=== PATIENT | female | born 1955 | race Caucasian/White ===

== ENCOUNTER 2021-03-11 10:50 | Outpatient (REF) | payer MEDICARE, OTHER, SELFPAY ==
--- NOTE | ~2021-03-11 | MR_ITS ---
MR CERVICAL SPINE WITHOUT CONTRAST CLINICAL INFORMATION: Cervical region radiculopathy. COMPARISON: Cervical spine radiographs 06/04/2016. TECHNIQUE: MRI of the cervical spine was obtained using routine sequences without contrast. FINDINGS: Cervical alignment is maintained. Vertebral body heights are preserved. Severe disc volume loss at C4-C5 and C5-C6 and moderate disc volume loss at C6-C7. Modic type I endplate signal changes at C4-C5. There is no additional bone marrow edema. There are no acute fractures. The craniocervical junction is unremarkable. The cervical arterial flow voids are maintained. There are no significant soft tissue findings. There is no cord signal abnormality. Partially imaged intracranial compartment is unremarkable. C2-C3: Shallow central disc protrusion without central canal stenosis. No foraminal stenosis. C3-C4: Shallow central disc protrusion mildly narrows the central canal. Uncovertebral joint hypertrophy and hypertrophic facet arthropathy result in mild to moderate left-sided foraminal stenosis. C4-C5: Disc osteophyte and ligamentum flavum thickening result in moderate central canal stenosis and flattening of the cord. Uncovertebral joint hypertrophy and hypertrophic facet arthropathy result in severe left and moderate to severe right foraminal stenosis. C5-C6: Disc osteophyte and ligamentum flavum thickening result in moderate central canal stenosis and flattening of the cord. Uncovertebral joint hypertrophy and hypertrophic facet arthropathy result in severe right and mild to moderate left foraminal stenosis. C6-C7: Disc osteophyte mildly narrows the central canal. Uncovertebral joint spurring and facet arthropathy result in mild bilateral foraminal encroachment. C7-T1: Disc contour normal. No central canal stenosis and no foraminal stenosis. MR/MR cervical spine wo con IMPRESSION: Multilevel cervical spondylosis. Multifactorial degenerative changes result in moderate central canal stenosis and flattening of the cervical cord at C4-C5 and C5-C6. Spondylitic changes also result in mild to moderate bilateral C3-C4, severe left and moderate to severe right C4-C5 as well as severe right and mild to moderate left C5-C6 foraminal stenosis. Modic type I endplate signal changes at C4-C5.
== END 2021-03-11 10:51 | disposition home or self-care (01) ==
LOC: HO.MRI 10:50
PROVIDERS: PCP Internal Medicine; Visit Provider Hospitalist
DX: M54.12 Radiculopathy, cervical region (principal)
CPT/HCPCS: 72141

== ENCOUNTER 2021-08-11 09:07 | Outpatient (REF) | payer MEDICARE, OTHER, SELFPAY ==
[2021-08-11 09:55] LABS: Hematocrit 38.8 % (37-47); Hemoglobin 12.6 g/dl (12.0-16.0); Mean Corpuscular HGB Conc 32.5 g/dl (31.0-35.0); Mean Corpuscular Hemoglobin 30.3 pg (27.0-33.0); Mean Corpuscular Volume 93.3 fL (80-98); Mean Platelet Volume 10.2 fL (9.4-12.3); Platelet Count 225 X10*3/uL (160-400); Red Blood Count 4.16 X10*6/uL (4.20-5.50); Red Cell Distribution Width 13.4 % (11.0-16.0)
[2021-08-11 10:26] LABS: Alanine Aminotransferase 17 U/L (0-31); Alkaline Phosphatase 55 U/L (39-117); Anion Gap 9 (12-20); Aspartate Amino Transferase 20 U/L (5-31); Bilirubin Total 0.7 mg/dL (0.0-1.0); Blood Urea Nitrogen 9 mg/dL (9-16); Calcium 9.3 mg/dL (8.4-10.2); Carbon Dioxide 31 mmol/L (22-29); Chloride 104 mmol/L (96-108); Cholesterol 163 mg/dL; Estimated Glomerular Filt Rate > 60; Glucose Fasting 94 mg/dL (60-99); HDL Cholesterol 48 mg/dL; LDL Cholesterol Calculated 78 mg/dl; Potassium 4.3 mmol/L (3.3-5.1); Sodium 140 mmol/L (135-145); Total Protein 6.6 g/dL (6.5-8.0); Triglycerides 186 mg/dL
== END 2021-08-11 09:08 | disposition home or self-care (01) ==
LOC: HO.LAB 09:07
PROVIDERS: Visit Provider Nurse Practitioner Family
DX: E78.00 Pure hypercholesterolemia, unspecified (principal); M79.7 Fibromyalgia; Z13.1 Encounter for screening for diabetes mellitus
CPT/HCPCS: 36415; 80053; 80061; 85027

== ENCOUNTER 2022-02-17 07:15 | Outpatient (REF) | payer MEDICARE, OTHER, SELFPAY ==
[2022-02-17 07:32] LABS: MANUAL DIFF FLAG NO
[2022-02-17 08:01] LABS: Basophils Percent Auto 0.6 % (0-2); Eosinophils Absolute Auto 0.1 X10*3/uL (0.0-0.4); Eosinophils Percent Auto 1.5 % (0-4); Hematocrit 40.4 % (37.0-47.0); Imm Gran Abs Auto 0.01 X10*3/uL (0.00-0.03); Imm Gran Pct Auto 0.2 % (0.0-0.4); Lymphocytes Percent Auto 40.7 % (20-40); Mean Corpuscular HGB Conc 32.2 g/dl (31.0-35.0); Mean Corpuscular Volume 93.3 fL (80.0-98.0); Mean Platelet Volume 10.1 fL (9.4-12.3); Monocytes Absolute Auto 0.3 X10*3/uL (0.1-1.2); Monocytes Percent Auto 6.7 % (2-11); Neutrophils Absolute Auto 2.4 x10*3/uL (2.0-8.3); Neutrophils Percent Auto 50.3 % (45-73); Platelet Count 214 X10*3/uL (160-400); Red Blood Count 4.33 X10*6/uL (4.20-5.50); Red Cell Distribution Width 13.1 % (11.0-16.0); White Blood Count 4.8 X10*3/uL (4.8-10.8)
[2022-02-17 08:31] LABS: Alanine Aminotransferase 17 U/L (0-31); Albumin Level 4.3 g/dL (3.5-5.0); Alkaline Phosphatase 58 U/L (39-117); Anion Gap 14 (12-20); Aspartate Amino Transferase 21 U/L (5-31); Blood Urea Nitrogen 14 mg/dL (9-16); Calcium 9.8 mg/dL (8.4-10.2); Carbon Dioxide 27 mmol/L (22-29); Chloride 102 mmol/L (96-108); Cholesterol 175 mg/dL; Estimated Glomerular Filt Rate > 60; Glucose Fasting 91 mg/dL (60-99); HDL Cholesterol 52 mg/dL; LDL Cholesterol Calculated 100 mg/dl; Potassium 4.2 mmol/L (3.3-5.1); Sodium 139 mmol/L (135-145); Total Protein 7.2 g/dL (6.5-8.0); Triglycerides 119 mg/dL
[2022-02-17 08:54] LABS: Thyroid Stimulating Hormone 1.43 uIU/mL (0.32-4.0)
== END 2022-02-17 07:16 | disposition home or self-care (01) ==
LOC: HO.LAB 07:15
PROVIDERS: PCP Internal Medicine; Visit Provider Internal Medicine
DX: Z00.00 Encounter for general adult medical examination without abnormal findings (principal); Z13.0 Encounter for screening for diseases of the blood and blood-forming organs and certain disorders involving the immune mechanism; Z13.220 Encounter for screening for lipoid disorders; Z13.29 Encounter for screening for other suspected endocrine disorder
CPT/HCPCS: 36415; 80053; 80061; 84443; 85025

== ENCOUNTER 2022-06-30 08:39 | Emergency (ER) | payer MEDICARE, OTHER, SELFPAY ==
--- NOTE | ~2022-06-30 | CT_ITS ---
EXAMINATION: CT HEAD WITHOUT CONTRAST CLINICAL INFORMATION: Severe headache COMPARISON: None TECHNIQUE: Contiguous axial imaging was performed from the skull base to vertex without intravenous administration of contrast. This CT examination was performed using dose optimization techniques as appropriate, variously including the following: *Automated exposure control *Adjustment of mA and/or kV according to patient size (this includes techniques or standardized protocols for targeted exams where dose is matched to indication/reason for exam; i.e. extremities or head) *Use of iterative reconstruction technique DLP: 550 mGy-cm FINDINGS: There is no evidence of an extra-axial collection. There is no evidence for extra-axial hemorrhage. Ventricles and extra-axial CSF spaces are appropriate. Rothman-white matter differentiation is normal. No mass effect or infarct is seen. There is mild soft tissue opacification of the right mastoid air cells and sphenoid sinus. Paranasal sinuses, mastoid air cells and middle ears are otherwise clear. CT/CT head/brain wo con IMPRESSION: No acute findings. Mild soft tissue opacification of the right mastoid air cells and sinuses.
[2022-06-30 08:43] VITALS: BP 127/67; PULSE 83; RESP 19; TEMP 36.6; O2SAT 98; BMI 21.6
[2022-06-30 09:25] LABS: MANUAL DIFF FLAG NO
[2022-06-30 09:29] LABS: Appearance Urine Clear; Color Urine Yellow; Glucose Urine UA Negative (Negative); Leukocyte Esterase Urine Negative (Negative); Nitrite Urine Negative (Negative); Specific Gravity - Urine 1.015 (1.005-1.025); Urine Blood Negative (Negative); Urine Ketones Negative (Negative); Urine Protein Negative (Neg-Trace)
[2022-06-30 09:30] LABS: Basophils Percent Auto 0.5 % (0-2); Eosinophils Absolute Auto 0.1 X10*3/uL (0.0-0.4); Eosinophils Percent Auto 1.7 % (0-4); Hematocrit 37.3 % (37.0-47.0); Hemoglobin 11.7 g/dl (12.0-16.0); Imm Gran Abs Auto 0.01 X10*3/uL (0.00-0.03); Imm Gran Pct Auto 0.2 % (0.0-0.4); Lymphocytes Absolute Auto 1.3 X10*3/uL (1.2-4.9); Lymphocytes Percent Auto 20.5 % (20-40); Mean Corpuscular HGB Conc 31.4 g/dl (31.0-35.0); Mean Corpuscular Hemoglobin 27.9 pg (27.0-33.0); Mean Platelet Volume 9.6 fL (9.4-12.3); Monocytes Absolute Auto 0.3 X10*3/uL (0.1-1.2); Monocytes Percent Auto 5.1 % (2-11); Neutrophils Absolute Auto 4.5 x10*3/uL (2.0-8.3); Platelet Count 282 X10*3/uL (160-400); Red Blood Count 4.19 X10*6/uL (4.20-5.50); Red Cell Distribution Width 13.7 % (11.0-16.0); White Blood Count 6.3 X10*3/uL (4.8-10.8)
[2022-06-30 09:43] LABS: COVID-19 Test Negative (Negative)
[2022-06-30 09:52] LABS: Anion Gap 17 (12-20); Blood Urea Nitrogen 12 mg/dL (9-16); Calcium 9.5 mg/dL (8.4-10.2); Carbon Dioxide 29 mmol/L (22-29); Chloride 100 mmol/L (96-108); Creatinine Clr Calc Pharmacy 60.2; Estimated Glomerular Filt Rate > 60; Glucose Random 85 mg/dL (60-115); Magnesium 2.1 mg/dL (1.6-2.6); Potassium 4.6 mmol/L (3.3-5.1); Sodium 141 mmol/L (135-145)
--- NOTE | 2022-06-30 16:10 | ED_ITS ---
HPI - Headache General Chief Complaint: Headache Stated Complaint: migraine Time Seen by Provider: 06/30/22 16:09 Source: patient Mode of arrival: ambulatory Limitations: no limitations History of Present Illness HPI Narrative: This is a 67- year old female with history is significant for chronic headaches, fibromyalgia, cervical radiculopathy, sinusitis who presents to the emergency department today with a complaint headache x1.5 weeks. She tells me that she has had a constant aching sensation located in the occipital region with radiation to bilateral temples for the past week and a half. She describes this headache as an aching sensation that's currently a 10/10. She has tried Toradol and Tylenol with codeine without relief. She tells me that she has a history of chronic headaches, typically lasting a day or 2, relieved with NSAIDs. She tells me that she saw neurologist years ago for this, had imaging however did not receive a diagnosis. She tells me that this feels more intense than her baseline and has lasted longer. Has never taken any prescription medication for her headaches. Denies fever, chills, nausea, vomiting, vision changes, floaters, flashes, photosensitivity, chest pain, shortness of breath, weakness, numbness, tingling, jaw pain/claudication, scalp tenderness, or neck pain. Denies known history of polymyalgia rheumatica. Denies recent trauma or falls. MD elicited complaint: headache Onset (ago): week(s) (1.5) Related Data Home Medications Medication Instructions Recorded Confirmed fluoride (sodium) 1.1 % dental gel dental 02/15/22 02/15/22 (DentaGel) meloxicam 15 mg tablet 15 mg PO DAILY 02/15/22 02/15/22 Previous Rx's Medication Instructions Recorded citalopram 10 mg tablet 15 mg PO DAILY #90 tabs 11/27/21 gabapentin 400 mg capsule 400 mg PO DAILY 90 days #90 caps 02/18/22 [id number]-nyfczqakpccxi-vhebgsbw 1 cap PO Q8H PRN pain #6 caps 06/30/22 50 mg-300 mg-40 mg capsule (Fioricet) prednisone 20 mg tablet 60 mg PO DAILY 5 days #15 tabs 06/30/22 Allergies Allergy/AdvReac Type Severity Reaction Status Date / Time meperidine [Demerol] Allergy Intermediate Vomiting Verified 02/15/22 10:38 erythromycin base Allergy Unknown unknown Verified 02/15/22 10:38 [ERYTHROMYCIN BASE] penicillin V Allergy Unknown hives Verified 02/15/22 10:38 Penicillins [PENICILLINS] Allergy Unknown RASH Verified 02/15/22 10:38 Sulfa (Sulfonamide Allergy Unknown MILD RASH, Verified 02/15/22 10:38 Antibiotics) rash [SULFA(SULFONAMIDE ANTIBIOTICS)] From DEMEROL Allergy Unknown VOMITING Uncoded 08/06/21 13:29 Review of Systems Review of Systems: Constitutional : No Weight loss, No Fever, No Chills, No Fatigue, No Malaise ENT/Mouth : No sore throat, No Rhinorrhea Eyes: No Eye Pain, No Swelling, No Redness Cardiovascular : No Chest Pain, No SOB, No Dyspnea on Exertion, No Orthopnea, No Edema, No Palpitations Respiratory : No Cough, No Sputum, No Wheezing Gastrointestinal : No Nausea, No Vomiting, No Diarrhea, No Constipation, No abdominal Pain, No Hematochezia, No Melena Genitourinary : No Dysuria, No Urinary Frequency, No Hematuria, Musculoskeletal : No joint pain, No Myalgias, No Joint Swelling Skin : No Skin Lesions, No rash Neuro : No Weakness, No Numbness, No Dizziness, + Headache All other systems reviewed and are negative Yes all other systems are reviewed and are negative [facility] Past Medical History Attestation statement: The following information was validated with the patient. Source: old records reviewed and nursing notes reviewed Medical History Basal cell carcinoma of nose Bunion, left foot Family History Family History Mother Diabetes Heart problem Father Prostate cancer Colon cancer Social History Social History Housing: House Alcohol intake: current Alcohol intake frequency: holidays/special occasions only Patient Tobacco Use Status: Never used Tobacco e-Cigarette/Vaping Use: Never Used Second Hand Smoke Exposure: No Advance Directives: Yes Advance Directives Information Provided: Yes Advance Directives on File: No service: No Current occupational status: retired Cognitive needs: No Hearing needs: Yes Vision needs: No Physical Exam Vital Signs: Vital Signs: Last Vital Signs Temp 98.5 F 06/30/22 17:25 Pulse 68 06/30/22 17:25 Resp 16 06/30/22 17:25 BP 132/64 06/30/22 17:25 Pulse Ox 98 06/30/22 17:25 O2 Del Method 06/30/22 17:25 BMI result Body Mass Index 21.6 vss Appearance: Alert.? Oriented X3.? No acute distress.? Head: Normocephalic, atraumatic, no step-offs or deformities. No scalp tenderness. Unable to palpate bounding temporal arteries however painful scalp on left and left temporal atery tenderness. Eyes: Pupils equal, round and reactive to light.? EOM intact and without pain. ENT: Pharynx normal.? Neck: Normal inspection.? Neck supple.?Negative Kernig and Brudzinski. CVS: Normal heart rate and rhythm.? Pulses normal.? Respiratory: No respiratory distress.? Breath sounds normal.? Abdomen: Soft and nontender.? Skin: Skin warm and dry.? Normal skin color.? Normal skin turgor.? Extremities: No lower extremity edema.? No calf ttp. 5/5 strength to bilateral upper and lower extremities. Lower extremities DTRs 2+ Back: No midline tenderness, no C-spine tenderness, full range of motion, no CVA tenderness bilaterally Neuro: Oriented X 3.? No motor deficit.? No sensory deficit. CN 2-12 intact. Normal [id number]-[id number], zkfm-xi-zhuj, steady tandem gait. Course Reevaluation(s) Reevaluation #1: CBC within normal limits. Chemistry without acute electrolyte abnormalities req uiring intervention. Urine without infection. COVID negative. Head CT pending. ESR/CRP pending. Time: 16:41 Reevaluation #2: CT of head with no acute findings. CRP slightly elevated at 1.32, ESR slightly elevated at 48. Patient still complaining of significant headache will give fioricet. Will obtain lyme test patient was recently in [facility] outside and in [place] Time: 17:45 Reevaluation #3: Discussed this case w/ my attending who will evaluate patient. Time: 18:35 Additional Reevaluation(s): My attending Dr. Hutton also agrees temporal arteritis vs complex migrane. Little reliefe despite Imitrex, Toradol, Reglan, Benadryl, Fioricet, patient telling me her headache was a 10/10 now down to a 5/6. Complaining of some left-sided scalp tenderness at this time and pain with palpation of left temporal artery, patient will be discharged home with 60 mg of prednisone p.o. x5 days, I did reach out to Dr. Rabago who agrees with plan and will try to get her into the office caleb. Patient verbalizes understanding, educated on SE of prednisone, answered all questions, patient willing to take until she follows up with Dr. Rabago. Patient will be discharged home on Fioricet. Advised her to return with any new or worsening symptoms, educated her that if this is giant cell arteritis she could experience vision changes if any of these arise she needs to present immediately, educated on worrisome signs and symptoms, outlined on discharge. At this time I feel comfortable with discharge home with prompt vascular follow- up. MDM - Headache MDM Narrative Medical decision making narrative: 1630 This is a 67- year old female with history is significant for chronic headaches, fibromyalgia, cervical radiculopathy, sinusitis who presents to the emergency department today with a complaint of occipital headache with radiation to the bilateral temples times a week and a half. Denies jaw claudication, vision changes, numbness, weakness, falls, trauma. Physical exam significant for negative Kernig and Brudzinski. Likely migraine without aura. Unlikely COVID, will obtain COVID swab to rule this out. Unlikely meningitis, giant cell arteritis, intracranial hemorrhage, posterior stroke however will obtain CT of the head without contrast and ESR/CRP to rule these out. Plan at this time is to obtain basic labs, UA, ESR/CRP, CT of the head without contrast. Medical Records Attestation: I reviewed the patient's medical records. Lab Data Attestation: I reviewed the patient's lab results. Result diagrams: 06/30/22 09:09 06/30/22 09:09 Labs: Lab Results 06/30/22 06/30/22 06/30/22 Range/Units 09:09 09:09 09:09 WBC 6.3 (4.8-10.8) X10*3/uL RBC 4.19 L (4.20-5.50) X10*6/uL Hgb 11.7 L (12.0-16.0) g/dl Hct 37.3 (37.0-47.0) % MCV 89.0 (80.0-98.0) fL MCH 27.9 (27.0-33.0) pg MCHC 31.4 (31.0-35.0) g/dl RDW 13.7 (11.0-16.0) % Plt Count 282 D (160-400) X10*3/uL MPV 9.6 (9.4-12.3) fL Immature Gran % (Auto) 0.2 (0.0-0.4) % Neut % (Auto) 72.0 (45-73) % Lymph % (Auto) 20.5 (20-40) % [place] % (Auto) 5.1 (2-11) % Eos % (Auto) 1.7 (0-4) % Baso % (Auto) 0.5 (0-2) % Lymph # (Auto) 1.3 (1.2-4.9) X10*3/uL [place] # (Auto) 0.3 (0.1-1.2) X10*3/uL Eos # (Auto) 0.1 (0.0-0.4) X10*3/uL Baso # (Auto) 0.0 (0.0-0.2) X10*3/uL Abs Immat Gran (auto) 0.01 (0.00-0.03) X10*3/uL Absolute Neuts (auto) 4.5 (2.0-8.3) x10*3/uL Absolute Nucleated RBC 0.000 (0.0-0.012) X10*3/uL Nucleated RBC % (auto) 0.0 (0.0-0.2) /100WBC ESR (0-20) MM/HR Sodium 141 (135-145) mmol/L Potassium 4.6 (3.3-5.1) mmol/L Chloride 100 (96-108) mmol/L Carbon Dioxide 29 (22-29) mmol/L Anion Gap 17 (12-20) BUN 12 (9-16) mg/dL Creatinine 0.75 (0.5-1.4) mg/dL Estim Creat Clear Calc 60.2 Estimated GFR > 60 Random Glucose 85 (60-115) mg/dL Calcium 9.5 (8.4-10.2) mg/dL Magnesium 2.1 (1.6-2.6) mg/dL C-Reactive Protein 1.32 H (< or = 0.50) mg/dL Urine Color Urine Appearance Urine pH (5.0-8.0) Ur Specific [place] (1.005-1.025) Urine Protein (Neg-Trace) mg/dL Urine Glucose (UA) (Negative) mg/dL Urine Ketones (Negative) mg/dL Urine Blood (Negative) Urine Nitrite (Negative) Ur Leukocyte Esterase (Negative) COVID-19 (AYANA) Negative (Negative) COVID-19 Clin Com See Note 06/30/22 06/30/22 Range/Units 09:09 09:09 WBC (4.8-10.8) X10*3/uL RBC (4.20-5.50) X10*6/uL Hgb (12.0-16.0) g/dl Hct (37.0-47.0) % MCV (80.0-98.0) fL MCH (27.0-33.0) pg MCHC (31.0-35.0) g/dl RDW (11.0-16.0) % Plt Count (160-400) X10*3/uL MPV (9.4-12.3) fL Immature Gran % (Auto) (0.0-0.4) % Neut % (Auto) (45-73) % Lymph % (Auto) (20-40) % [place] % (Auto) (2-11) % Eos % (Auto) (0-4) % Baso % (Auto) (0-2) % Lymph # (Auto) (1.2-4.9) X10*3/uL [place] # (Auto) (0.1-1.2) X10*3/uL Eos # (Auto) (0.0-0.4) X10*3/uL Baso # (Auto) (0.0-0.2) X10*3/uL Abs Immat Gran (auto) (0.00-0.03) X10*3/uL Absolute Neuts (auto) (2.0-8.3) x10*3/uL Absolute Nucleated RBC (0.0-0.012) X10*3/uL Nucleated RBC % (auto) (0.0-0.2) /100WBC ESR 48 H (0-20) MM/HR Sodium (135-145) mmol/L Potassium (3.3-5.1) mmol/L Chloride (96-108) mmol/L Carbon Dioxide (22-29) mmol/L Anion Gap (12-20) BUN (9-16) mg/dL Creatinine (0.5-1.4) mg/dL Estim Creat Clear Calc Estimated GFR Random Glucose (60-115) mg/dL Calcium (8.4-10.2) mg/dL Magnesium (1.6-2.6) mg/dL C-Reactive Protein (< or = 0.50) mg/dL Urine Color Yellow Urine Appearance Clear Urine pH 8.0 (5.0-8.0) Ur Specific [place] 1.015 (1.005-1.025) Urine Protein Negative (Neg-Trace) mg/dL Urine Glucose (UA) Negative (Negative) mg/dL Urine Ketones Negative (Negative) mg/dL Urine Blood Negative (Negative) Urine Nitrite Negative (Negative) Ur Leukocyte Esterase Negative (Negative) COVID-19 (AYANA) (Negative) COVID-19 Clin Com Critical Care Time Critical Care Time Critical Care Time: Yes Total Critical Care Time: 35 Attestation: I attest to this time spent taking care of the patient, obtaining history, physical, reviewing labs, imaging, speaking to my attending, speaking to specialist. Discharge Plan Discharge Clinical Impression: Migraine Patient Disposition: Home, Self-Care Additional Instructions: Take your medications as prescribed. If you were prescribed antibiotics today, it is important that you take your medication to their entirety, do not skip any doses, do not finish them early. Follow-up with your primary care provider this week. Return to the emergency department with new or worsening symptoms. Such as fevers, chills, chest pain, shortness of breath, nausea, vomiting, dizziness, headache, vision changes, lethargy, vision changes. In case of emergency call 911 As we discussed based off of your laboratory studies we are unable to rule out temporal arteritis therefore we will treat you with prednisone, please follow-up with vascular Dr. Rabago within a week. CT/CT head/brain wo con IMPRESSION: No acute findings. Mild soft tissue opacification of the right mastoid air cells and sinuses. Prescriptions: New prednisone 20 mg tablet 60 mg PO DAILY 5 Days Qty: 15 0RF [id number]-votbduszhydwy-vcey [Fioricet] 50-300-40 mg capsule 1 cap PO Q8H PRN (Reason: pain) Qty: 6 0RF No Action citalopram 10 mg tablet 15 mg PO DAILY Qty: 90 8RF gabapentin 400 mg capsule 400 mg PO DAILY 90 Days Qty: 90 8RF meloxicam 15 mg tablet 15 mg PO DAILY fluoride (sodium) [DentaGel] 1.1 % gel dental Referrals: Fritz Arteaga MD [Primary Care Provider] - 1 day Doc Rabago MD [Physician] - 2 days Stand Alone Forms: Work/School Release
[2022-06-30 16:21] VITALS: BP 156/74; PULSE 83; RESP 18; O2SAT 98
[2022-06-30] MEDS: diphenhydrAMINE HCL 25 MG TABLET 50 MG PO (16:48)
[2022-06-30] MEDS: Ketorolac Tromethamine 15 MG/ML VIAL 30 MG IVPUSH (16:48)
[2022-06-30] MEDS: Metoclopramide HCl 10 MG/2 ML VIAL IVPUSH (16:49)
[2022-06-30 16:51] LABS: C Reactive Protein 1.32 mg/dL (< or = 0.50)
[2022-06-30 17:20] LABS: Erythrocyte Sedimentation Rate 48 MM/HR (0-20)
[2022-06-30 17:25] VITALS: BP 132/64; PULSE 68; RESP 16; TEMP 36.9; O2SAT 98
--- NOTE | 2022-06-30 18:09 | PC.NURSE ---
PT STATES THAT PAIN NOT REALLY IMPROVED AFTER MEDICATIONS. PROVIDER AWARE ADDITIONAL MEDICATIONS ORDERED
[2022-06-30] MEDS: Butalb/Acetamin/Caff 50/325/40 TABLET 1 TAB PO (18:16)
[2022-06-30] MEDS: SUMAtriptan succinate 6 MG/0.5 ML VIAL SUBCUT (19:22)
[2022-06-30 20:55] VITALS: BP 124/59; PULSE 66; RESP 16; TEMP 36.8; O2SAT 98
[2022-06-30] MEDS: Morphine Sulfate 4 MG/ML CARTRIDGE IVPUSH (21:14)
[2022-07-02 04:56] LABS: Lyme Abs Screen <0.90 index
== END 2022-06-30 21:30 | disposition home or self-care (01) ==
PROVIDERS: Physician Assistant; Emergency Provider Internal Medicine; PCP Internal Medicine
DX: G43.909 Migraine, unspecified, not intractable, without status migrainosus (principal); Z79.899 Other long term (current) drug therapy; Z20.822 Contact with and (suspected) exposure to COVID-19
CPT/HCPCS: 36415; 70450; 80048; 81003; 83735; 85025; 85652; 86140; 86617; 86618; 87635; 96372; 96374; 96375; 99284; J1885; J2270; J2765; J3030; Q0163

== ENCOUNTER → 2022-07-06 13:48 | Outpatient (BNVA) | payer MEDICARE, OTHER, SELFPAY | PROVIDERS: PCP Internal Medicine; Visit Provider Surgery Vascular Surgery | DX: M31.6 Other giant cell arteritis (principal) | CPT/HCPCS: 99202 ==

== ENCOUNTER 2022-07-15 09:23 | Day surgery (SDC) | payer MEDICARE, OTHER, SELFPAY ==
[2022-07-09 12:34] VITALS: BMI 21.4
--- NOTE | 2022-07-14 10:54 | HO.ANESPROP2 ---
HPI - Anesthesia Eval Consult details Narrative: 67yo F for Left Temporal Artery Biopsy Prednisone 60mg daily PMFSH Active Problems Active Problems: All Active Problems (Updated 07/09/22 @ 12:27 by Pamela Hernandez RN) Cervical radiculopathy (Acute) Acute sinusitis (Acute) Fibromyalgia (Acute) Chronic headache (Acute) Panic disorder (Acute) Giant cell arteritis (Acute) Past Medical History Medical History (Updated 07/15/22 @ 09:43 by Myrtle Vines RN) Basal cell carcinoma of nose Bunion, left foot Fibromyalgia Migraines Family History Family History Mother Diabetes Heart problem Father Prostate cancer Colon cancer Surgical History Surgical History H/O colonoscopy History of bunionectomy Social History Social History Housing: House Alcohol intake: current Alcohol intake frequency: holidays/special occasions only Patient Tobacco Use Status: Never used Tobacco e-Cigarette/Vaping Use: Never Used Second Hand Smoke Exposure: No service: No Current occupational status: retired Cognitive needs: No Hearing needs: Yes Vision needs: No Meds Allergies Allergy/AdvReac Type Severity Reaction Status Date / Time meperidine [Demerol] Allergy Intermediate Vomiting Verified 07/15/22 10:14 Penicillins [PENICILLINS] Allergy Intermediate RASH Verified 07/15/22 10:14 Sulfa (Sulfonamide Allergy Mild mild rash Verified 07/15/22 10:14 Antibiotics) [SULFA(SULFONAMIDE ANTIBIOTICS)] erythromycin base Allergy Unknown unknown Verified 07/15/22 10:14 [ERYTHROMYCIN BASE] Home Medications Medication Instructions Recorded Confirmed Last Taken Type fluoride (sodium) 1.1 % dental gel dental 02/15/22 02/15/22 Unknown History (DentaGel) meloxicam 15 mg tablet 15 mg PO DAILY 02/15/22 02/15/22 07/01/22 History gabapentin 400 mg capsule 400 mg PO BEDTIME 07/15/22 Unknown History Exam Exam Date and Time: July 14, 2022 1054 Height,Weight and Vital Signs: Height 5 ft 3 in Weight 54.885 kg Pertinent Lab Results Pertinent Lab Results: Laboratory Tests 06/30/22 06/30/22 09:09 09:09 WBC 6.3 Hgb 11.7 L Hct 37.3 Plt Count 282 D Sodium 141 Potassium 4.6 Chloride 100 Carbon Dioxide 29 BUN 12 Creatinine 0.75 Assessment and Plan Assessment Anesthesia Assessment: Chart Reviewed
[2022-07-15 09:56] VITALS: BP 117/73; PULSE 88; RESP 15; TEMP 36.8; O2SAT 99
[2022-07-15] MEDS: Lactated Ringers 1,000 ML 100 ML IVCONT (10:13)
--- NOTE | 2022-07-15 11:47 | MHC.SHP ---
Pre-Procedural Eval Section A Date of Service: 07/15/22 The patient is an INPATIENT: No Changes since office visit: Yes Patient answered all questions The History & Physical has been completed within 30 days and I have reviewed it.: Yes Section B Chief Complaint: Other giant cell arteritis Allergies: Allergies Allergy/AdvReac Type Severity Reaction Status Date / Time meperidine [Demerol] Allergy Intermediate Vomiting Verified 07/15/22 10:14 Penicillins [PENICILLINS] Allergy Intermediate RASH Verified 07/15/22 10:14 Sulfa (Sulfonamide Allergy Mild mild rash Verified 07/15/22 10:14 Antibiotics) [SULFA(SULFONAMIDE ANTIBIOTICS)] erythromycin base Allergy Unknown unknown Verified 07/15/22 10:14 [ERYTHROMYCIN BASE] Plan I have reviewed the history and physical and performed a pertinent physical examination on my patient. No changes have occurred unless specified.
--- NOTE | 2022-07-15 11:48 | W.PM.OPN ---
Operative Note Operative Note Date of Service: 07/15/22 Narrative: Operative note by [facility] Preoperative diagnosis: Giant cell arteritis Postoperative diagnosis: Same Procedure: Left temporal artery biopsy Surgeon:Doc Rabago M.D. Model And Mold Maker: None Anesthesia: Local with sedation performed by Anesthesia under Dr. Vargas Specimens:1 Drains:0 Estimated blood loss:10 ml Indications: 67-year-old female who was actually referred from the emergency room for temporal headaches. She was noted to have an elevated ESR and CRP. She now presents for left temporal artery biopsy. The patient has signed the informed consent after reviewing risks, complications, benefits, and alternatives previously discussed with the patient. The patient was given the opportunity to ask any additional questions or voice any concerns. All questions were answered to the patient's satisfaction. Procedure in detail: Patient was brought to the operating room prior to which a time-out was called for patient identification site verification. Left temporal region was prepped in the standard surgical fashion. We premarked the temporal pulse. This was infiltrated with local. Approximately a 3 cm incision was carried out on the pre-auricular a area overlying the temporal artery. Once we got through the skin and fascia we were a easily able to identify the temporal artery. This was dissected clear. Side branches were ligated with 3-0 silk ties. Proximal and distal ends were suture ligated with 3-0 silk ties. About a 2 inch segment was sent off the table as specimen. This was immediately transferred to pathology by 1135 AM. Once this was accomplished the wound bed was irrigated clear. Additional local was infiltrated in the incision line. Deep layer was reapproximated we using 3-0 Polysorb in an interrupted fashion and finally skin was closed using a 4-0 Monocryl in a subcuticular fashion. Exofin was used as a sterile dressing. Patient tolerated the procedure well returned to recovery with stable vitals. This note is constructed using voice recognition software. While every effort has been made to ensure accuracy, barber or beauty shop manager errors may have been included. Thank you for allowing me to participate in the care of your patient. Yours sincerely, Doc Rabago MD, FACS, R.P.V.I.
[2022-07-15 11:52] VITALS: BP 92/51; PULSE 67; RESP 15; TEMP 36.3; O2SAT 96
[2022-07-15 12:19] VITALS: BP 111/52; PULSE 74; RESP 18; TEMP 36.1; O2SAT 97
== END 2022-07-15 12:58 | disposition home or self-care (01) ==
PROVIDERS: PCP Internal Medicine; Visit Provider Surgery Vascular Surgery
PROC: (CPT 37609; principal; 2022-07-15 11:00)
DX: M31.6 Other giant cell arteritis (principal); R70.0 Elevated erythrocyte sedimentation rate; R79.82 Elevated C-reactive protein (CRP); G43.909 Migraine, unspecified, not intractable, without status migrainosus; M54.12 Radiculopathy, cervical region; M79.7 Fibromyalgia; Z85.828 Personal history of other malignant neoplasm of skin; Z79.899 Other long term (current) drug therapy; Z88.0 Allergy status to penicillin; Z88.1 Allergy status to other antibiotic agents; Z88.2 Allergy status to sulfonamides; Z88.8 Allergy status to other drugs, medicaments and biological substances
CPT/HCPCS: 37609; 88305; J2250; J2405; J2795; J3010

== ENCOUNTER 2022-07-28 12:49 | Outpatient (REF) | payer MEDICARE, OTHER, SELFPAY ==
[2022-07-28 13:35] LABS: MANUAL DIFF FLAG NO
[2022-07-28 14:01] LABS: Basophils Percent Auto 0.1 % (0-2); Eosinophils Percent Auto 0.1 % (0-4); Hematocrit 40.4 % (37.0-47.0); Hemoglobin 12.8 g/dl (12.0-16.0); Imm Gran Abs Auto 0.09 X10*3/uL (0.00-0.03); Imm Gran Pct Auto 0.9 % (0.0-0.4); Lymphocytes Absolute Auto 1.1 X10*3/uL (1.2-4.9); Lymphocytes Percent Auto 11.6 % (20-40); Mean Corpuscular HGB Conc 31.7 g/dl (31.0-35.0); Mean Corpuscular Hemoglobin 27.7 pg (27.0-33.0); Mean Corpuscular Volume 87.4 fL (80.0-98.0); Mean Platelet Volume 9.4 fL (9.4-12.3); Monocytes Absolute Auto 0.1 X10*3/uL (0.1-1.2); Monocytes Percent Auto 1.2 % (2-11); Neutrophils Absolute Auto 8.3 x10*3/uL (2.0-8.3); Neutrophils Percent Auto 86.1 % (45-73); Platelet Count 410 X10*3/uL (160-400); Red Blood Count 4.62 X10*6/uL (4.20-5.50); Red Cell Distribution Width 15.9 % (11.0-16.0); White Blood Count 9.7 X10*3/uL (4.8-10.8)
[2022-07-28 14:06] LABS: Alanine Aminotransferase 23 U/L (0-31); Alkaline Phosphatase 69 U/L (39-117); Anion Gap 14 (12-20); Aspartate Amino Transferase 14 U/L (5-31); Bilirubin Total 0.6 mg/dL (0.0-1.0); Blood Urea Nitrogen 21 mg/dL (9-16); C Reactive Protein 0.09 mg/dL (< or = 0.50); Calcium 9.6 mg/dL (8.4-10.2); Carbon Dioxide 29 mmol/L (22-29); Chloride 98 mmol/L (96-108); Estimated Glomerular Filt Rate > 60; Glucose Random 135 mg/dL (60-115); Potassium 4.4 mmol/L (3.3-5.1); Rheumatoid Factor < 15.0 IU/mL (<15.0); Sodium 137 mmol/L (135-145); Total Protein 6.8 g/dL (6.5-8.0)
[2022-07-28 14:37] LABS: Erythrocyte Sedimentation Rate 13 MM/HR (0-20)
[2022-07-29 08:29] LABS: HBS Num1 0.73 mIU/mL (0-7.99); HBc Num1 0.15 S/CO (0.00-0.79); HBsAGNum1 0.19 S/CO (0.00-0.99); Hepatitis B Core Antibody Nonreactive (Nonreactive); Hepatitis B Surface Antigen Negative (Negative); ~HepC Num1 0.21 S/CO (0.00-0.79); ~Hepatitis B Surface Antibody NONREACTIVE (Nonreactive); ~Hepatitis C Antibody Nonreactive (Nonreactive)
[2022-07-30 07:03] LABS: Hepatitis A Antibody IgM 0.26 Index (0-0.79); ~Hepatitis A Antibody IgM Nonreactive (Nonreactive)
[2022-07-31 00:11] LABS: TS Negative Control Passed; TS Panel A 0; TS Panel B 4; TS Positive Control Passed; TSpotTB Negative (Negative)
[2022-07-31 23:11] LABS: Prot Elec - Albumin 3.5 g/dL (3.8-4.8); Prot Elec - Alpha1 0.3 g/dL (0.2-0.3); Prot Elec - Alpha2 0.7 g/dL (0.5-0.9); Prot Elec - Beta 1 0.4 g/dL (0.4-0.6); Prot Elec - Beta 2 0.4 g/dL (0.2-0.5); Prot Elec - Total Protein 6.4 g/dL (6.1-8.1)
[2022-08-02 13:05] LABS: IgA 259 mg/dL (70-320); IgG 1220 mg/dL (600-1540); IgM 44 mg/dL (50-300)
[2022-08-02 14:06] LABS: Vitamin D 25-OH, D2 <4 ng/mL; Vitamin D 25-OH, D3 46 ng/mL; Vitamin D 25-OH, Total 46 ng/mL (30-100)
[2022-08-02 17:25] LABS: Cyclic Citrullinated Peptide <16 UNITS
== END 2022-07-28 12:50 | disposition home or self-care (01) ==
LOC: HO.10HDL 12:49
PROVIDERS: Visit Provider Student in an Organized Health Care Education/Training Program
DX: Z12.9 Encounter for screening for malignant neoplasm, site unspecified (principal); Z13.21 Encounter for screening for nutritional disorder; Z11.7 Encounter for testing for latent tuberculosis infection; Z11.59 Encounter for screening for other viral diseases; M25.541 Pain in joints of right hand; M31.6 Other giant cell arteritis; M85.89 Other specified disorders of bone density and structure, multiple sites; Z79.52 Long term (current) use of systemic steroids; Z72.89 Other problems related to lifestyle
CPT/HCPCS: 36415; 80053; 82306; 82784; 84165; 85025; 85652; 86140; 86200; 86334; 86431; 86481; 86704; 86706; 86709; 86803; 87340; 99202

== ENCOUNTER 2022-08-06 09:41 | Outpatient (REF) | payer MEDICARE, OTHER, SELFPAY ==
--- NOTE | ~2022-08-06 | MM_ITS ---
EXAMINATION: BONE DENSITOMETRY CLINICAL INDICATION: Menopausal and female climacteric states. COMPARISON: None (current study represents initial baseline exam). TECHNIQUE: Using a [employer] DXA System (software version: 13.1) manufactured by [employer], dual-energy x-ray absorptiometry was performed of the lumbar spine and left hip. The images are of good technical quality. Summary results are attached. FINDINGS: AP SPINE L1-L4: BMD 0.991 g/cm2, Z-score 0.4, T-score -1.6, osteopenia. LEFT FEMUR, NECK: BMD 0.781 g/cm2, Z-score -0.1, T-score -1.8, osteopenia. LEFT FEMUR, TOTAL: BMD 0.825 g/cm2, Z-score 0.1, T-score -1.5, osteopenia. IDENTIFIED RISK FACTORS: Menopause. HISTORY OF FRACTURE: None listed. MEDICATIONS: Calcium supplements or multivitamin, vitamin D. MM/XR DEXA axial skeleton IMPRESSION: 1. DIAGNOSIS: Osteopenia based on the lowest T-score value of -1.8 in the femoral neck applying World Health Organization criteria. 2. 10-YEAR FRACTURE RISK PREDICTION, FRAX: Major osteoporotic fracture (clinical spine, forearm, hip or shoulder) 9.7%. Hip fracture 1.6%. 3. Treatment Recommendations: NOF guidelines recommend consideration for treatment in postmenopausal women and men age 50 and older presenting with the following: -A hip or vertebral (clinical or morphometric) fracture. -T-score less than or equal to -2.5 at the femoral neck or spine after appropriate evaluation to exclude secondary causes. -Low bone mass at the hip or spine and a 10-year fracture probability by FRAX of greater than or equal to 3% for hip fracture or greater than or equal to 20% for major osteoporotic fracture based on the [place] adapted WHO algorithm. 4. Other Recommendations: All treatment decisions require clinical judgment and consideration of individual patient factors, including patient preferences, comorbidities, previous drug use, risk factors not captured in the FRAX model (e.g. frailty, falls, vitamin D deficiency, increased bone turnover, interval significant decline in bone density) and possible under or overestimation of fracture risk by FRAX. Additional medical evaluation for secondary cause of low bone mineral density may be appropriate. FUTURE SCAN RECOMMENDATION: People with diagnosed cases of osteoporosis or at high risk for fracture should have regular bone mineral density tests. For patients eligible for Medicare, routine testing is allowed once every 2 years. The testing frequency can be increased to one year for patients who have rapidly progressing disease, those who are receiving or discontinuing medical therapy to restore bone mass, or have additional risk factors.
== END 2022-08-06 09:42 | disposition home or self-care (01) ==
LOC: HO.MAMMO 09:41
PROVIDERS: PCP Internal Medicine; Visit Provider Student in an Organized Health Care Education/Training Program
DX: Z13.820 Encounter for screening for osteoporosis (principal); Z78.0 Asymptomatic menopausal state; Z79.52 Long term (current) use of systemic steroids
CPT/HCPCS: 77080

== ENCOUNTER 2022-08-11 13:23 | Outpatient (REF) | payer MEDICARE, OTHER, SELFPAY ==
--- NOTE | ~2022-08-11 | MR_ITS ---
STUDY PERFORMED: MRA of the chest HISTORY: Giant cell arteritis DESCRIPTION: Routine chest MRA protocol without and with contrast was performed. 20 mL's of Gadavist was administered. The images were reviewed and postprocessed on a dedicated 3-D workstation. COMPARISON: None FINDINGS: VASCULAR: THORACIC AORTA: Thoracic aorta is normal in caliber and patent. No evidence of aneurysm, vessel wall irregularity or wall thickening. There is a moderate length segment of narrowing and vessel wall irregularity within the mid left subclavian artery distal to the takeoff of the left vertebral artery with stenosis measuring approximately 60-70%. There is an area of mild stenosis within the proximal right subclavian artery distal to the takeoff of the right vertebral artery measuring less than 50%. The right brachiocephalic artery, visualized bilateral common carotid arteries and visualized vertebral arteries are patent. ABDOMINAL AORTA: Visualized proximal abdominal aorta is normal in caliber. CENTRAL THORACIC VENOUS SYSTEM: Patent NONVASCULAR: Heart is normal in size. Pericardium is normal. No pleural effusions MR/MR angio chest wo/w con IMPRESSION: Bilateral subclavian artery stenosis with vessel irregularity. Stenosis in the left subclavian artery measures 60-70%. Stenosis in the right subclavian artery is mild measuring less than 50%
== END 2022-08-11 13:24 | disposition home or self-care (01) ==
LOC: HO.MRI 13:23
PROVIDERS: Visit Provider Student in an Organized Health Care Education/Training Program
DX: M31.6 Other giant cell arteritis (principal)
CPT/HCPCS: 71555; A9585

== ENCOUNTER 2022-08-13 18:45 | Outpatient (REF) | payer MEDICARE, OTHER, SELFPAY ==
--- NOTE | ~2022-08-13 | MR_ITS ---
EXAMINATION: MRA NECK WITHOUT AND WITH CONTRAST CLINICAL INFORMATION: Giant cell arteritis. COMPARISON: Chest MRA, concurrently performed. TECHNIQUE: Multiplanar multisequence MRA of the neck was performed without and with contrast. A total of 10 mL Gadavist was intravenously administered. Criteria similar to the NASCET were used to grade the degree of stenosis. FINDINGS: The aortic arch and great vessel origins are patent. Please see report of chest MRA for discussion of subclavian arteries. The bilateral common and internal carotid arteries are normal in course and caliber. No evidence of luminal irregularity. No carotid bifurcation stenosis is seen. The vertebral arteries are codominant and demonstrate normal course and caliber. On the [id number] sequence there is expected antegrade flow within the major neck arteries. Limited evaluation of the intracranial arteries are unremarkable without stenosis or occlusion. MR/MR angio neck wo/w con IMPRESSION: No definite luminal irregularity or stenosis within the neck arteries.
== END 2022-08-13 18:46 | disposition home or self-care (01) ==
LOC: HO.MRI 18:45
PROVIDERS: Visit Provider Student in an Organized Health Care Education/Training Program
DX: M31.6 Other giant cell arteritis (principal)
CPT/HCPCS: 70549; A9585

== ENCOUNTER 2022-08-18 12:49 | Outpatient (REF) | payer MEDICARE, OTHER, SELFPAY ==
[2022-08-18 13:51] LABS: MANUAL DIFF FLAG NO
[2022-08-18 14:16] LABS: Basophils Percent Auto 0.2 % (0-2); Eosinophils Percent Auto 0.2 % (0-4); Hematocrit 39.1 % (37.0-47.0); Hemoglobin 12.5 g/dl (12.0-16.0); Imm Gran Abs Auto 0.07 X10*3/uL (0.00-0.03); Imm Gran Pct Auto 0.8 % (0.0-0.4); Lymphocytes Percent Auto 11.3 % (20-40); Mean Corpuscular Hemoglobin 28.5 pg (27.0-33.0); Mean Corpuscular Volume 89.1 fL (80.0-98.0); Mean Platelet Volume 9.9 fL (9.4-12.3); Monocytes Absolute Auto 0.1 X10*3/uL (0.1-1.2); Monocytes Percent Auto 1.2 % (2-11); Neutrophils Absolute Auto 7.9 x10*3/uL (2.0-8.3); Neutrophils Percent Auto 86.3 % (45-73); Platelet Count 239 X10*3/uL (160-400); Red Blood Count 4.39 X10*6/uL (4.20-5.50); Red Cell Distribution Width 19.1 % (11.0-16.0); White Blood Count 9.2 X10*3/uL (4.8-10.8)
[2022-08-18 14:45] LABS: Estimated Average Glucose 120 mg/dL; Hemoglobin A1c % 5.8 %
[2022-08-18 14:58] LABS: Alanine Aminotransferase 30 U/L (0-31); Albumin Level 3.9 g/dL (3.5-5.0); Alkaline Phosphatase 49 U/L (39-117); Anion Gap 17 (12-20); Aspartate Amino Transferase 24 U/L (5-31); Bilirubin Total 0.8 mg/dL (0.0-1.0); Blood Urea Nitrogen 17 mg/dL (9-16); C Reactive Protein 0.08 mg/dL (< or = 0.50); Calcium 9.2 mg/dL (8.4-10.2); Carbon Dioxide 29 mmol/L (22-29); Chloride 99 mmol/L (96-108); Estimated Glomerular Filt Rate > 60; Glucose Random 111 mg/dL (60-115); Potassium 4.6 mmol/L (3.3-5.1); Sodium 140 mmol/L (135-145); Total Protein 6.5 g/dL (6.5-8.0)
[2022-08-18 15:00] LABS: Erythrocyte Sedimentation Rate 7 MM/HR (0-20)
[2022-08-18 15:49] LABS: Folate > 20.0 ng/mL (> or = 4.0); Vitamin B12 318 pg/mL (200-900)
== END 2022-08-18 12:50 | disposition home or self-care (01) ==
LOC: HO.10HDL 12:49
PROVIDERS: Visit Provider Student in an Organized Health Care Education/Training Program
DX: M31.6 Other giant cell arteritis (principal); M79.7 Fibromyalgia; G62.9 Polyneuropathy, unspecified; M19.90 Unspecified osteoarthritis, unspecified site; Z79.52 Long term (current) use of systemic steroids; Z79.899 Other long term (current) drug therapy
CPT/HCPCS: 36415; 80053; 82607; 82746; 83036; 85025; 85652; 86140; 99212

== ENCOUNTER 2022-09-15 08:44 | Outpatient (REF) | payer MEDICARE, OTHER, SELFPAY ==
[2022-09-15 10:32] LABS: MANUAL DIFF FLAG NO
[2022-09-15 10:42] LABS: Basophils Percent Auto 0.3 % (0-2); Eosinophils Percent Auto 0.2 % (0-4); Hematocrit 38.1 % (37.0-47.0); Hemoglobin 11.9 g/dl (12.0-16.0); Imm Gran Abs Auto 0.01 X10*3/uL (0.00-0.03); Imm Gran Pct Auto 0.2 % (0.0-0.4); Lymphocytes Absolute Auto 3.7 X10*3/uL (1.2-4.9); Lymphocytes Percent Auto 59.5 % (20-40); Mean Corpuscular HGB Conc 31.2 g/dl (31.0-35.0); Mean Corpuscular Hemoglobin 29.4 pg (27.0-33.0); Mean Corpuscular Volume 94.1 fL (80.0-98.0); Mean Platelet Volume 9.8 fL (9.4-12.3); Monocytes Absolute Auto 0.3 X10*3/uL (0.1-1.2); Monocytes Percent Auto 5.5 % (2-11); Neutrophils Absolute Auto 2.1 x10*3/uL (2.0-8.3); Neutrophils Percent Auto 34.3 % (45-73); Platelet Count 170 X10*3/uL (160-400); Red Blood Count 4.05 X10*6/uL (4.20-5.50); Red Cell Distribution Width 19.7 % (11.0-16.0); White Blood Count 6.2 X10*3/uL (4.8-10.8)
[2022-09-15 10:50] LABS: Alanine Aminotransferase 27 U/L (0-31); Albumin Level 3.7 g/dL (3.5-5.0); Alkaline Phosphatase 31 U/L (39-117); Anion Gap 14 (12-20); Aspartate Amino Transferase 18 U/L (5-31); Bilirubin Total 0.9 mg/dL (0.0-1.0); Blood Urea Nitrogen 13 mg/dL (9-16); C Reactive Protein 0.13 mg/dL (< or = 0.50); Calcium 8.7 mg/dL (8.4-10.2); Carbon Dioxide 29 mmol/L (22-29); Chloride 103 mmol/L (96-108); Estimated Glomerular Filt Rate > 60; Glucose Random 62 mg/dL (60-115); Potassium 3.6 mmol/L (3.3-5.1); Sodium 142 mmol/L (135-145); Total Protein 5.8 g/dL (6.5-8.0)
[2022-09-15 11:27] LABS: Erythrocyte Sedimentation Rate 3 MM/HR (0-20)
== END 2022-09-15 08:45 | disposition home or self-care (01) ==
LOC: HO.10HDL 08:44
PROVIDERS: Visit Provider Student in an Organized Health Care Education/Training Program
DX: M31.6 Other giant cell arteritis (principal)
CPT/HCPCS: 36415; 80053; 85025; 85652; 86140

== ENCOUNTER → 2022-09-24 10:41 | Outpatient (BNVA) | payer MEDICARE, OTHER, SELFPAY | PROVIDERS: PCP Internal Medicine; Referring Provider Internal Medicine; Visit Provider Student in an Organized Health Care Education/Training Program | DX: M31.6 Other giant cell arteritis (principal); G62.9 Polyneuropathy, unspecified; Z79.52 Long term (current) use of systemic steroids | CPT/HCPCS: 99212 ==

== ENCOUNTER 2022-10-26 16:11 | Outpatient (REF) | payer MEDICARE, OTHER, SELFPAY ==
[2022-10-26 16:28] LABS: MANUAL DIFF FLAG NO
[2022-10-26 17:30] LABS: Basophils Percent Auto 0.2 % (0-2); Eosinophils Percent Auto 0.3 % (0-4); Hematocrit 39.2 % (37.0-47.0); Hemoglobin 12.7 g/dl (12.0-16.0); Imm Gran Abs Auto 0.02 X10*3/uL (0.00-0.03); Imm Gran Pct Auto 0.3 % (0.0-0.4); Lymphocytes Percent Auto 16.4 % (20-40); Mean Corpuscular HGB Conc 32.4 g/dl (31.0-35.0); Mean Corpuscular Hemoglobin 31.4 pg (27.0-33.0); Monocytes Absolute Auto 0.3 X10*3/uL (0.1-1.2); Monocytes Percent Auto 4.9 % (2-11); Neutrophils Absolute Auto 4.8 x10*3/uL (2.0-8.3); Neutrophils Percent Auto 77.9 % (45-73); Platelet Count 170 X10*3/uL (160-400); Red Blood Count 4.04 X10*6/uL (4.20-5.50); Red Cell Distribution Width 15.4 % (11.0-16.0); White Blood Count 6.2 X10*3/uL (4.8-10.8)
[2022-10-26 18:01] LABS: Alanine Aminotransferase 20 U/L (0-31); Albumin Level 4.2 g/dL (3.5-5.0); Alkaline Phosphatase 34 U/L (39-117); Anion Gap 11 (12-20); Aspartate Amino Transferase 19 U/L (5-31); Bilirubin Total 0.9 mg/dL (0.0-1.0); Blood Urea Nitrogen 14 mg/dL (9-16); C Reactive Protein < 0.10 mg/dL (< or = 0.50); Calcium 9.5 mg/dL (8.4-10.2); Carbon Dioxide 32 mmol/L (22-29); Chloride 101 mmol/L (96-108); Estimated Glomerular Filt Rate > 60; Glucose Random 135 mg/dL (60-115); Sodium 140 mmol/L (135-145); Total Protein 6.2 g/dL (6.5-8.0)
[2022-10-26 18:12] LABS: Erythrocyte Sedimentation Rate 3 MM/HR (0-20)
== END 2022-10-26 16:12 | disposition home or self-care (01) ==
LOC: HO.LAB 16:11
PROVIDERS: PCP Internal Medicine; Visit Provider Student in an Organized Health Care Education/Training Program
DX: M31.6 Other giant cell arteritis (principal)
CPT/HCPCS: 36415; 80053; 85025; 85652; 86140

== ENCOUNTER 2022-11-24 10:26 | Outpatient (REF) | payer MEDICARE, OTHER, SELFPAY ==
[2022-11-24 13:35] LABS: MANUAL DIFF FLAG NO
[2022-11-24 13:45] LABS: Basophils Percent Auto 0.5 % (0-2); Eosinophils Absolute Auto 0.1 X10*3/uL (0.0-0.4); Eosinophils Percent Auto 0.8 % (0-4); Hematocrit 38.3 % (37.0-47.0); Hemoglobin 12.3 g/dl (12.0-16.0); Imm Gran Abs Auto 0.01 X10*3/uL (0.00-0.03); Imm Gran Pct Auto 0.2 % (0.0-0.4); Lymphocytes Absolute Auto 1.5 X10*3/uL (1.2-4.9); Lymphocytes Percent Auto 23.2 % (20-40); Mean Corpuscular HGB Conc 32.1 g/dl (31.0-35.0); Mean Corpuscular Hemoglobin 32.2 pg (27.0-33.0); Mean Corpuscular Volume 100.3 fL (80.0-98.0); Mean Platelet Volume 10.3 fL (9.4-12.3); Monocytes Absolute Auto 0.3 X10*3/uL (0.1-1.2); Monocytes Percent Auto 4.5 % (2-11); Neutrophils Absolute Auto 4.5 x10*3/uL (2.0-8.3); Neutrophils Percent Auto 70.8 % (45-73); Platelet Count 175 X10*3/uL (160-400); Red Blood Count 3.82 X10*6/uL (4.20-5.50); Red Cell Distribution Width 13.8 % (11.0-16.0); White Blood Count 6.4 X10*3/uL (4.8-10.8)
[2022-11-24 14:25] LABS: Erythrocyte Sedimentation Rate 2 MM/HR (0-20)
[2022-11-24 14:41] LABS: Alanine Aminotransferase 25 U/L (0-31); Albumin Level 3.9 g/dL (3.5-5.0); Alkaline Phosphatase 29 U/L (39-117); Anion Gap 10 (12-20); Aspartate Amino Transferase 25 U/L (5-31); Blood Urea Nitrogen 15 mg/dL (9-16); C Reactive Protein < 0.10 mg/dL (< or = 0.50); Calcium 9.5 mg/dL (8.4-10.2); Carbon Dioxide 30 mmol/L (22-29); Chloride 102 mmol/L (96-108); Estimated Glomerular Filt Rate > 60; Glucose Random 89 mg/dL (60-115); Potassium 4.1 mmol/L (3.3-5.1); Sodium 138 mmol/L (135-145)
== END 2022-11-24 10:27 | disposition home or self-care (01) ==
LOC: HO.10HDL 10:26
PROVIDERS: Visit Provider Student in an Organized Health Care Education/Training Program
DX: M31.6 Other giant cell arteritis (principal)
CPT/HCPCS: 36415; 80053; 85025; 85652; 86140

== ENCOUNTER → 2022-11-30 13:35 | Outpatient (BNVA) | payer MEDICARE, OTHER, SELFPAY | PROVIDERS: PCP Internal Medicine; Visit Provider Student in an Organized Health Care Education/Training Program | DX: M31.6 Other giant cell arteritis (principal); G62.9 Polyneuropathy, unspecified; M79.7 Fibromyalgia; Z79.52 Long term (current) use of systemic steroids; Z79.82 Long term (current) use of aspirin | CPT/HCPCS: 99212 ==

== ENCOUNTER → 2023-01-03 13:21 | Outpatient (BNVA) | payer MEDICARE, OTHER, SELFPAY | PROVIDERS: PCP Internal Medicine; Visit Provider Nurse Practitioner Family | DX: G43.709 Chronic migraine without aura, not intractable, without status migrainosus (principal); M31.6 Other giant cell arteritis; H53.8 Other visual disturbances; Z79.52 Long term (current) use of systemic steroids; Z79.899 Other long term (current) drug therapy | CPT/HCPCS: 99202 ==

== ENCOUNTER 2023-02-03 08:47 | Outpatient (REF) | payer MEDICARE, OTHER, SELFPAY ==
--- NOTE | ~2023-02-03 | MR_ITS ---
MRI OF THE BRAIN WITHOUT IV CONTRAST INDICATION: Headache. COMPARISON: CT head 06/30/2022. TECHNIQUE: Multiplanar multisequence MR imaging of the brain was obtained without IV contrast. FINDINGS: There is no hydrocephalus, extra-axial surface collection, or herniation. No parenchymal signal abnormality. The major flow voids at the skull base are preserved. There is no acute infarct on diffusion-weighted imaging. There is no intracranial hemorrhage on the gradient recalled echo acquisition. The midline structures are normal. The cerebellar tonsils are normally positioned. The cerebellum and brainstem are normal. The craniocervical junction is normal. Osseous marrow signal intensity is homogenous. The visualized soft tissues are unremarkable. Small right mastoid effusion. Mild mucosal thickening throughout the ethmoid air cells bilaterally and within the right sphenoid sinus. MR/MR head/brain wo con IMPRESSION: Unremarkable noncontrast MRI of the brain.
== END 2023-02-03 08:48 | disposition home or self-care (01) ==
LOC: HO.MRI 08:47
PROVIDERS: PCP Internal Medicine; Visit Provider Nurse Practitioner Family
DX: R51.9 Headache, unspecified (principal); M31.6 Other giant cell arteritis; H53.8 Other visual disturbances
CPT/HCPCS: 70551

== ENCOUNTER 2023-02-14 15:02 | Outpatient (REF) | payer MEDICARE, OTHER, SELFPAY ==
[2023-02-14 15:50] LABS: MANUAL DIFF FLAG NO
[2023-02-14 17:13] LABS: Basophils Percent Auto 0.4 % (0-2); Eosinophils Percent Auto 0.6 % (0-4); Hematocrit 40.6 % (37.0-47.0); Hemoglobin 13.2 g/dl (12.0-16.0); Imm Gran Abs Auto 0.01 X10*3/uL (0.00-0.03); Imm Gran Pct Auto 0.2 % (0.0-0.4); Lymphocytes Absolute Auto 0.9 X10*3/uL (1.2-4.9); Mean Corpuscular HGB Conc 32.5 g/dl (31.0-35.0); Mean Corpuscular Hemoglobin 32.4 pg (27.0-33.0); Mean Corpuscular Volume 99.5 fL (80.0-98.0); Mean Platelet Volume 10.7 fL (9.4-12.3); Monocytes Absolute Auto 0.2 X10*3/uL (0.1-1.2); Neutrophils Absolute Auto 3.6 x10*3/uL (2.0-8.3); Neutrophils Percent Auto 75.8 % (45-73); Platelet Count 167 X10*3/uL (160-400); Red Blood Count 4.08 X10*6/uL (4.20-5.50); Red Cell Distribution Width 12.6 % (11.0-16.0); White Blood Count 4.7 X10*3/uL (4.8-10.8)
[2023-02-14 17:43] LABS: Alanine Aminotransferase 16 U/L (0-31); Alkaline Phosphatase 28 U/L (39-117); Anion Gap 12 (12-20); Aspartate Amino Transferase 18 U/L (5-31); Bilirubin Total 0.8 mg/dL (0.0-1.0); Blood Urea Nitrogen 12 mg/dL (9-16); C Reactive Protein < 0.10 mg/dL (< or = 0.50); Calcium 9.2 mg/dL (8.4-10.2); Carbon Dioxide 31 mmol/L (22-29); Chloride 104 mmol/L (96-108); Estimated Glomerular Filt Rate > 60; Glucose Random 124 mg/dL (60-115); Potassium 4.6 mmol/L (3.3-5.1); Sodium 142 mmol/L (135-145)
[2023-02-14 18:01] LABS: Erythrocyte Sedimentation Rate 2 MM/HR (0-20)
== END 2023-02-14 15:03 | disposition home or self-care (01) ==
LOC: HO.LAB 15:02
PROVIDERS: PCP Internal Medicine; Visit Provider Student in an Organized Health Care Education/Training Program
DX: M31.6 Other giant cell arteritis (principal)
CPT/HCPCS: 36415; 80053; 85025; 85652; 86140

== ENCOUNTER → 2023-02-15 07:41 | Outpatient (BNVA) | payer MEDICARE, OTHER, SELFPAY | PROVIDERS: PCP Internal Medicine; Visit Provider Student in an Organized Health Care Education/Training Program | DX: M31.6 Other giant cell arteritis (principal); M79.7 Fibromyalgia; G62.9 Polyneuropathy, unspecified; Z79.52 Long term (current) use of systemic steroids | CPT/HCPCS: 99212 ==

== ENCOUNTER 2023-02-28 11:05 | Outpatient (REF) | payer MEDICARE, OTHER, SELFPAY ==
[2023-02-28 14:17] LABS: MANUAL DIFF FLAG NO
[2023-02-28 14:37] LABS: Alanine Aminotransferase 21 U/L (0-31); Alkaline Phosphatase 29 U/L (39-117); Anion Gap 11 (12-20); Aspartate Amino Transferase 21 U/L (5-31); Bilirubin Total 0.8 mg/dL (0.0-1.0); Blood Urea Nitrogen 13 mg/dL (9-16); C Reactive Protein < 0.10 mg/dL (< or = 0.50); Calcium 9.8 mg/dL (8.4-10.2); Carbon Dioxide 32 mmol/L (22-29); Chloride 102 mmol/L (96-108); Estimated Glomerular Filt Rate > 60; Glucose Random 89 mg/dL (60-115); Potassium 4.4 mmol/L (3.3-5.1); Sodium 141 mmol/L (135-145); Total Protein 5.8 g/dL (6.5-8.0)
[2023-02-28 14:38] LABS: Basophils Percent Auto 0.7 % (0-2); Eosinophils Absolute Auto 0.1 X10*3/uL (0.0-0.4); Eosinophils Percent Auto 2.5 % (0-4); Hemoglobin 12.6 g/dl (12.0-16.0); Imm Gran Abs Auto 0.01 X10*3/uL (0.00-0.03); Imm Gran Pct Auto 0.2 % (0.0-0.4); Lymphocytes Absolute Auto 1.5 X10*3/uL (1.2-4.9); Mean Corpuscular HGB Conc 32.3 g/dl (31.0-35.0); Mean Corpuscular Hemoglobin 31.7 pg (27.0-33.0); Mean Platelet Volume 10.4 fL (9.4-12.3); Monocytes Absolute Auto 0.3 X10*3/uL (0.1-1.2); Monocytes Percent Auto 6.3 % (2-11); Neutrophils Absolute Auto 2.5 x10*3/uL (2.0-8.3); Neutrophils Percent Auto 57.3 % (45-73); Platelet Count 165 X10*3/uL (160-400); Red Blood Count 3.98 X10*6/uL (4.20-5.50); Red Cell Distribution Width 12.7 % (11.0-16.0); White Blood Count 4.4 X10*3/uL (4.8-10.8)
[2023-02-28 15:18] LABS: Erythrocyte Sedimentation Rate 5 MM/HR (0-20)
== END 2023-02-28 11:06 | disposition home or self-care (01) ==
LOC: HO.10HDL 11:05
PROVIDERS: Visit Provider Student in an Organized Health Care Education/Training Program
DX: M31.6 Other giant cell arteritis (principal)
CPT/HCPCS: 36415; 80053; 85025; 85652; 86140

== ENCOUNTER → 2023-03-15 09:23 | Outpatient (BNVA) | payer MEDICARE, OTHER, SELFPAY | PROVIDERS: PCP Internal Medicine; Visit Provider Nurse Practitioner Family | DX: R06.83 Snoring (principal); G47.19 Other hypersomnia; G47.9 Sleep disorder, unspecified; R51.9 Headache, unspecified; Z79.52 Long term (current) use of systemic steroids; Z79.899 Other long term (current) drug therapy | CPT/HCPCS: 99212 ==

== ENCOUNTER → 2023-04-27 09:52 | Outpatient (REF) | payer MEDICARE, OTHER, SELFPAY | LOC: HO.SL 09:52 | PROVIDERS: PCP Internal Medicine; Visit Provider Nurse Practitioner Family | DX: Z13.89 Encounter for screening for other disorder (principal) ==

== ENCOUNTER 2023-06-14 08:07 | Outpatient (REF) | payer MEDICARE, OTHER, SELFPAY ==
[2023-06-14 11:05] LABS: MANUAL DIFF FLAG NO
[2023-06-14 11:09] LABS: Basophils Percent Auto 0.8 % (0-2); Eosinophils Absolute Auto 0.1 X10*3/uL (0.0-0.4); Eosinophils Percent Auto 2.8 % (0-4); Hematocrit 39.3 % (37.0-47.0); Hemoglobin 12.7 g/dl (12.0-16.0); Lymphocytes Percent Auto 52.1 % (20-40); Mean Corpuscular HGB Conc 32.3 g/dl (31.0-35.0); Mean Corpuscular Hemoglobin 32.2 pg (27.0-33.0); Mean Corpuscular Volume 99.5 fL (80.0-98.0); Mean Platelet Volume 10.5 fL (9.4-12.3); Monocytes Absolute Auto 0.3 X10*3/uL (0.1-1.2); Monocytes Percent Auto 8.8 % (2-11); Neutrophils Absolute Auto 1.4 x10*3/uL (2.0-8.3); Neutrophils Percent Auto 35.5 % (45-73); Platelet Count 168 X10*3/uL (160-400); Red Blood Count 3.95 X10*6/uL (4.20-5.50); Red Cell Distribution Width 12.4 % (11.0-16.0); White Blood Count 3.9 X10*3/uL (4.8-10.8)
[2023-06-14 11:49] LABS: Erythrocyte Sedimentation Rate 5 MM/HR (0-20)
[2023-06-14 11:57] LABS: Alanine Aminotransferase 20 U/L (0-31); Albumin Level 3.9 g/dL (3.5-5.0); Alkaline Phosphatase 26 U/L (39-117); Anion Gap 11 (12-20); Aspartate Amino Transferase 22 U/L (5-31); Bilirubin Total 0.6 mg/dL (0.0-1.0); Blood Urea Nitrogen 17 mg/dL (9-16); C Reactive Protein < 0.10 mg/dL (< or = 0.50); Calcium 9.1 mg/dL (8.4-10.2); Carbon Dioxide 29 mmol/L (22-29); Chloride 105 mmol/L (96-108); Estimated Glomerular Filt Rate > 60; Glucose Random 81 mg/dL (60-115); Sodium 141 mmol/L (135-145); Total Protein 6.3 g/dL (6.5-8.0)
== END 2023-06-14 08:08 | disposition home or self-care (01) ==
LOC: HO.10HDL 08:07
PROVIDERS: Visit Provider Student in an Organized Health Care Education/Training Program
DX: M31.6 Other giant cell arteritis (principal)
CPT/HCPCS: 36415; 80053; 85025; 85652; 86140

== ENCOUNTER 2023-06-17 10:04 | Outpatient (AMB) | payer MEDICARE, OTHER, SELFPAY ==
[2023-06-17 10:06] VITALS: BP 116/70; PULSE 75; TEMP 36.3; O2SAT 98; BMI 22.1
--- NOTE | 2023-06-17 10:06 | A.OFFVIS_ITS ---
Intake Vital Signs 06/17/23 10:06 Height 5 ft 3 in Weight 124 lb 12.506 oz BMI 22.1 BP 116/70 Blood Pressure Location Rt brachial Position Sitting Pulse 75 Pulse Source Pulse Oximeter Temp 97.3 F Temp Source Skin Pulse Oximetry (%) 98 Intake Visit Reasons: GCA Intake Note: Pt seen today for GCA follow up. Service Correspondent Required: No Accompanied by: Spouse Allergies meperidine [Demerol] Allergy (Intermediate, Verified 06/17/23 10:11) Vomiting Penicillins [PENICILLINS] Allergy (Intermediate, Verified 06/17/23 10:11) RASH erythromycin base [ERYTHROMYCIN BASE] Allergy (Unknown, Verified 06/17/23 10:11) unknown Medication List - Last Reconciled 06/17/23 by Arvind Rose MD alendronate 70 mg PO QWEEK aspirin 81 mg PO DAILY atogepant (Qulipta) 30 mg PO DAILY 30 days calcium carbonate-vitamin D3 600 mg-10 mcg (400 unit) 1 cap PO BID citalopram 15 mg (1.5 x 10 mg) PO DAILY fluoride (sodium) 1.1% (DentaGel) dental gabapentin 600 mg PO BEDTIME metronidazole 0.75% appl topical QPM multivitamin 1 tab PO DAILY naproxen sodium 440 mg (2 x 220 mg) PO BID PRN 30 days pantoprazole 40 mg PO QWEEK prednisone 3 mg PO DIRECTED sumatriptan succinate 50 - 100 mg orally at onset of headache, may repeat in 2 hrs PRN; max 2 tabs per day or 4 tabs/week (may take with Aleve 440mg) 30 days tocilizumab (Actemra ACTPen) 162 mg (0.9 mL) subcut QWEEK HPI HPI Comments History of Present Illness Details Patient returns for follow-up of GCA. She is on 3 mg of prednisone daily. Continues the Actemra every week. She currently only does the Actemra injections in her abdomen as she does not get as much injection site reactions as her thighs. She takes Benadryl the day she injects Actemra. She continues to get intermittent headaches, she is working with Neurology in an attempt to find a good combination of medications for headaches. Over the last 2 weeks she has been having left knee pain and swelling and she limps when she walks. She also has been having pain in her right 2nd MCP, that interferes with her ability to manual work at home such as ironing. She denies any skin rashes. Initial history: This is a 67-year-old female with past medical history fibromyalgia, osteoarthritis & migraines who presents for evaluation of temporal arteritis. The condition started in the beginning of June of 2022 with worsening headaches associated with worsening blurry vision. She went to the ER on 06/30 labs showed high inflammatory markers, she was prescribed prednisone 60 mg daily for 5 days by the ED physician and sent to vascular surgery for temporal artery biopsy. When she took the prednisone 60 mg her headaches significantly improved. She went for a left temporal artery biopsy on 07/15 which confirmed temporal artery biopsy diagnosis & she was restarted on prednisone 40 mg daily by her PCP. Since being on prednisone she feels much better, with headaches resolved. She states that she has had blurry vision for many months which seem to get a little worse around the time she was diagnosed with temporal arteritis and they have not improved with the prednisone. She denies any loss of vision and both eyes are equally affected. She has not had any eye pain. Reactivity is of daily have not been affected by this blurry vision. Denies history suggestive of uveitis or inflammatory bowel disease. No history of autoimmune disease in the family [facility] Medical History Basal cell carcinoma of nose Bunion, left foot Fibromyalgia Migraines Surgical History H/O colonoscopy H/O toe surgery History of bunionectomy History of surgery Family History Mother Heart problem COPD (chronic obstructive pulmonary disease) Hypertension Father Prostate cancer Colon cancer Diabetes Brother Diabetes Sister Hypertension Hypercholesteremia Social History Housing: House Alcohol intake: current Alcohol intake frequency: holidays/special occasions only Patient Tobacco Use Status: Never used Tobacco e-Cigarette/Vaping Use: Never Used Second Hand Smoke Exposure: No service: No Current occupational status: retired Cognitive needs: No Hearing needs: Yes Vision needs: No Review of Systems Const Reports headache(s) ENT Reports headache(s) and Reports neck pain Musc Reports no additional complaints, Reports arthralgias, Reports joint swelling, Reports limited range of motion and Reports neck pain Neuro Reports headache(s) Physical Exam Vital Signs: Last Vital Signs Temp 97.3 F 06/17/23 10:06 Pulse 75 06/17/23 10:06 BP 116/70 06/17/23 10:06 Pulse Ox 98 06/17/23 10:06 BMI result Body Mass Index 22.1 Const General: comfortable and no acute distress Nutritional Appearance: well nourished Orientation/consciousness: patient oriented x3 Limitations: no limitations HEENT Other: Bilateral palpable superficial temporal artery pulses early edgar facies Head: Yes normocephalic and Yes atraumatic Mouth: moist mucous membranes Eyes Other: PERRL, normal eye movement no ocular erythema Neck Other: [place] hump resolved Bilateral neck stiffness and pain with neck movement in all directions Negative Spurling's test bilaterally Resp Effort & Inspection: normal respiratory effort and able to speak in complete sentences Auscultation: clear to auscultation bilaterally Cardio Rate: regular rate Rhythm: regular rhythm Heart sounds: S1 normal heart sound present and S2 normal heart sound present Peripheral pulses: radial pulses present (2+) bilateral and dorsalis pedis present (2+) bilateral GI Inspection: No distended Palpation (GI): Soft to palpation and nontender Neuro General: patient oriented x3 Extrem Other: Osteoarthritic changes of both hands Right 2nd MCP tenderness and minimal swelling Left knee swelling, warmth and tenderness. Patient walks with a limp Office Procedures Joint Injection/Drain Joint Injection/Drain Primary Site: left knee Prep: site was prepped using sterile technique and ethochloride spray was applied Injected: 40 mg of and other (2 mL of 1% lidocaine) Approach Used: medial parapatellar Procedure: The patient tolerated the procedure well Coding Details: With the patient's consent the left knee was prepped with ChloraPrep and alcohol. The skin was anesthetized with 2 cc of 1% lidocaine. The knee was then injected with 40 mg of triamcinolone and 2 cc of I % lidocaine. The patient tolerated the procedure with no immediate adverse effects. - Large joint Procedure code (CPT) selection complete Assessment & Plan Assessment & Plan (1) Temporal arteritis: Comment: Onset 06/2022 . Biopsy proven Prednisone started 07/2022 Actemra started 08/2022 Code(s): M31.6 - Other giant cell arteritis Plan: This is a 68-year-old female with biopsy-proven GCA, MRA of chest and neck showed left subclavian artery stenosis 60-70% and right subclavian artery stenosis 50%. patient was started on high-dose steroids which has been tapered down. She is currently on on 3 mg of prednisone daily. Actemra weekly started 08/2022. Patient is currently in remission with normal inflammatory markers. Patient was having intermittent headaches. She was evaluated by Neurology and her brain MRI was unremarkable. She has been following up with Neurology and she has been tried on different combinations of medicines for migraines Today patient is having right 2nd MCP tenderness as well as left knee pain & swelling. This is degenerative arthritis versus inflammatory arthritis once prednisone was tapered to 3 mg. With patient's consent left knee was injected with Kenalog today. Check x-rays of knees and hands, will also check an x-ray of the neck to evaluate for a cervical cause of her headache Continue Actemra once weekly. Continue baby aspirin Continue to Reduce prednisone by 1 mg a month Patient was evaluated by vascular surgery and no intervention was suggested. 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 DEXA scan shows osteopenia but given long-term corticosteroid therapy her FRAX score would be at moderate risk for fracture. continue alendronate 70 mg weekly Bactrim and Protonix were stopped once prednisone was less than 15 mg daily Continue Protonix once a week with alendronate Some of the steroid side effects have resolved, including the easy bruising, buffalo hump resolved. Patient has minimal edgar facies currently Continue to taper prednisone by 1 mg a month Discussed infection risk with Actemra. Advised patient to call the office if she develops any signs of infection (3) Fibromyalgia, primary: Code(s): M79.7 - Fibromyalgia Plan: Discussed management of fibromyalgia with patient. Is a noninflammatory, non- autoimmune central afferent processing disorder leading to a diffuse pain syndrome. Advised patient to address her anxiety. Consider consulting with a psychotherapist. Patient was diagnosed with mild sleep apnea 10 years ago and started on CPAP, but stopped it as she could not tolerate the CPAP. Advised patient to consider repeating a sleep study. Patient would benefit from increased physical activity, either through formal physical therapy or by joining a gym. Advised patient that she should start activity slowly and increase as tolerated. Consider low-impact exercises. Patient failed Cymbalta in the past. Gabapentin seems to help her neuropathy symptoms but not her fibromyalgia. Plan I spent 46 minutes reviewing patient's chart, evaluating patient, ordering diagnostic workup, counseling patient and documenting in the chart Orders: Orders Complete Blood Count Auto Diff 3 Months M31.6 - Other giant cell arteritis Comprehensive Met. Panel 3 Months M31.6 - Other giant cell arteritis C Reactive Protein 3 Months M31.6 - Other giant cell arteritis Erythrocyte Sedimentation Rate 3 Months M31.6 - Other giant cell arteritis XR hand wrist LT Today M15.9 - Polyosteoarthritis, unspecified XR hand wrist RT Today M15.9 - Polyosteoarthritis, unspecified XR cervical spine 4V Today M15.9 - Polyosteoarthritis, unspecified XR knee LT 3V Today M15.9 - Polyosteoarthritis, unspecified XR knee RT 3V Today M15.9 - Polyosteoarthritis, unspecified XR knee standing BI Today M15.9 - Polyosteoarthritis, unspecified AMB Joint Injection/Aspiration Today M17.12 - Unilateral primary osteoarthritis, left knee Coding Level of Care Code Est Pt Level 5 (10058) Diagnoses Temporal arteritis M31.6 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
== END 2023-06-17 11:01 | disposition home or self-care (01) ==
PROVIDERS: PCP Internal Medicine; Visit Provider Student in an Organized Health Care Education/Training Program
DX: M31.6 Other giant cell arteritis (principal); M79.7 Fibromyalgia; Z79.52 Long term (current) use of systemic steroids; M15.9 Polyosteoarthritis, unspecified
CPT/HCPCS: 20610; 99215

== ENCOUNTER → 2023-06-17 10:04 | Outpatient (BNVA) | payer MEDICARE, OTHER, SELFPAY | PROVIDERS: Visit Provider Student in an Organized Health Care Education/Training Program | DX: M31.6 Other giant cell arteritis (principal); M79.7 Fibromyalgia; Z79.52 Long term (current) use of systemic steroids | CPT/HCPCS: 20610; 99212; J3301 ==

== ENCOUNTER → 2023-06-29 09:00 | Outpatient (REF) | payer MEDICARE, OTHER, SELFPAY ==
--- NOTE | ~2023-06-29 | XR_ITS ---
EXAMINATION: XR KNEE, RIGHT CLINICAL INFORMATION: Polyarticular osteoarthritis. COMPARISON: None TECHNIQUE: AP, lateral, tunnel, and sunrise views of the right knee. FINDINGS: Bones and soft tissues are normal. No fracture or joint effusion. Alignment is anatomic. Joint spaces are well maintained. There is a tiny peripheral osteophytes at the lateral articular surface of the patella. No abnormal soft tissue calcification. XR/XR knee RT 4V IMPRESSION: There is minimal osteoarthritic change of the left patellofemoral compartment. Otherwise, unremarkable right knee radiographs. EXAMINATION: XR KNEE, LEFT CLINICAL INFORMATION: Polyarticular osteoarthritis. COMPARISON: None TECHNIQUE: AP, lateral, tunnel, and sunrise views of the left knee. FINDINGS: Bones and soft tissues are normal. No fracture or joint effusion. Alignment is anatomic. Joint spaces are well maintained. There is a tiny peripheral osteophytes at the lateral articular surface of the patella. No abnormal soft tissue calcification. IMPRESSION: There is minimal osteoarthritic change of the left patellofemoral compartment. Otherwise, unremarkable left knee radiographs.
--- NOTE | ~2023-06-29 | XR_ITS ---
EXAMINATION: XR WRIST, RIGHT XR HAND, RIGHT CLINICAL INFORMATION: Polyosteoarthritis. COMPARISON: Radiographs dated 09/26/2017. TECHNIQUE: PA, lateral, and oblique views of the right wrist and PA, lateral, and oblique views of the right hand FINDINGS: RIGHT WRIST: The bones and soft tissues are normal. No fracture. A tiny accessory ossification center is seen adjacent to the ulnar styloid. Alignment is anatomic. Joint spaces are maintained. No erosions or soft tissue calcifications. RIGHT HAND: The bones and soft tissues are normal. No fracture. Alignment is anatomic. Joint spaces are maintained. No erosions or soft tissue calcifications. XR/XR hand wrist RT IMPRESSION: Normal right hand and wrist. EXAMINATION: XR WRIST, LEFT XR HAND, LEFT CLINICAL INFORMATION: Polyosteoarthritis. COMPARISON: None available. TECHNIQUE: PA, lateral, and oblique views of the left wrist and PA, lateral, and oblique views of the left hand FINDINGS: LEFT WRIST: The bones and soft tissues are normal. No fracture. Alignment is anatomic. Joint spaces are maintained. No erosions or soft tissue calcifications. LEFT HAND: The bones and soft tissues are normal. No fracture. Alignment is anatomic. Joint spaces are maintained. No erosions or soft tissue calcifications. IMPRESSION: Normal left hand and wrist.
--- NOTE | ~2023-06-29 | XR_ITS ---
EXAMINATION: XR KNEE, RIGHT CLINICAL INFORMATION: Polyarticular osteoarthritis. COMPARISON: None TECHNIQUE: AP, lateral, tunnel, and sunrise views of the right knee. FINDINGS: Bones and soft tissues are normal. No fracture or joint effusion. Alignment is anatomic. Joint spaces are well maintained. There is a tiny peripheral osteophytes at the lateral articular surface of the patella. No abnormal soft tissue calcification. XR/XR knee LT 3V IMPRESSION: There is minimal osteoarthritic change of the left patellofemoral compartment. Otherwise, unremarkable right knee radiographs. EXAMINATION: XR KNEE, LEFT CLINICAL INFORMATION: Polyarticular osteoarthritis. COMPARISON: None TECHNIQUE: AP, lateral, tunnel, and sunrise views of the left knee. FINDINGS: Bones and soft tissues are normal. No fracture or joint effusion. Alignment is anatomic. Joint spaces are well maintained. There is a tiny peripheral osteophytes at the lateral articular surface of the patella. No abnormal soft tissue calcification. IMPRESSION: There is minimal osteoarthritic change of the left patellofemoral compartment. Otherwise, unremarkable left knee radiographs.
--- NOTE | ~2023-06-29 | XR_ITS ---
EXAMINATION: XR WRIST, RIGHT XR HAND, RIGHT CLINICAL INFORMATION: Polyosteoarthritis. COMPARISON: Radiographs dated 09/26/2017. TECHNIQUE: PA, lateral, and oblique views of the right wrist and PA, lateral, and oblique views of the right hand FINDINGS: RIGHT WRIST: The bones and soft tissues are normal. No fracture. A tiny accessory ossification center is seen adjacent to the ulnar styloid. Alignment is anatomic. Joint spaces are maintained. No erosions or soft tissue calcifications. RIGHT HAND: The bones and soft tissues are normal. No fracture. Alignment is anatomic. Joint spaces are maintained. No erosions or soft tissue calcifications. XR/XR hand wrist LT IMPRESSION: Normal right hand and wrist. EXAMINATION: XR WRIST, LEFT XR HAND, LEFT CLINICAL INFORMATION: Polyosteoarthritis. COMPARISON: None available. TECHNIQUE: PA, lateral, and oblique views of the left wrist and PA, lateral, and oblique views of the left hand FINDINGS: LEFT WRIST: The bones and soft tissues are normal. No fracture. Alignment is anatomic. Joint spaces are maintained. No erosions or soft tissue calcifications. LEFT HAND: The bones and soft tissues are normal. No fracture. Alignment is anatomic. Joint spaces are maintained. No erosions or soft tissue calcifications. IMPRESSION: Normal left hand and wrist.
--- NOTE | ~2023-06-29 | XR_ITS ---
EXAMINATION: XR CERVICAL SPINE CLINICAL INFORMATION: Polyarticular arthritis. COMPARISON: Radiographs dated 05/26/2015. TECHNIQUE: Frontal, odontoid, bilateral oblique and lateral views are obtained. FINDINGS: Vertebral body heights and alignment are normal. At C4-C5 and C5-C6, there is moderate disc space narrowing. At C6-C7, there is mild disc space narrowing. The remaining disc spaces are well-maintained. No acute fracture or spondylolisthesis is seen. There is mild anterior spondylosis extending from C4-C5 through C6-C7. The posterior elements are intact. There is bilateral neural foraminal narrowing at C4-C5 and C5-C6. The dens and C7-T1 interface are normal. There is no prevertebral soft tissue swelling. XR/XR cervical spine 4V IMPRESSION: 1. There is moderate degenerative disc disease at C4-C5 and C5-C6, and mild degenerative disc disease is seen at C6-C7. 2. There is mild anterior spondylosis extending from C4-C5 through C6-C7.
== END ==
LOC: HO.SL 09:00
PROVIDERS: Absent Provider Student in an Organized Health Care Education/Training Program; PCP Internal Medicine; Visit Provider Nurse Practitioner Family
DX: M15.9 Polyosteoarthritis, unspecified (principal); G47.19 Other hypersomnia; G47.9 Sleep disorder, unspecified; R06.83 Snoring
CPT/HCPCS: 72050; 73110; 73130; 73562; 73564; 95806

== ENCOUNTER → 2023-06-29 09:53 | Outpatient (BNV) | payer MEDICARE, OTHER, SELFPAY | PROVIDERS: Absent Provider Student in an Organized Health Care Education/Training Program; PCP Internal Medicine; Visit Provider Psychiatry & Neurology Neurology | DX: R06.83 Snoring (principal) | CPT/HCPCS: 95806 ==

== ENCOUNTER 2023-07-19 08:48 | Outpatient (AMB) | payer MEDICARE, OTHER, SELFPAY ==
[2023-07-19 08:58] VITALS: BP 122/74; PULSE 83; O2SAT 98; BMI 22.2
--- NOTE | 2023-07-19 08:58 | A.OFFVIS_ITS ---
Intake Vital Signs 07/19/23 08:58 Height 5 ft 3 in Weight 125 lb 4 oz BMI 22.2 BP 122/74 Blood Pressure Location Lt brachial Position Sitting Pulse 83 Pulse Source Pulse Oximeter Pulse Oximetry (%) 98 Oxygen Delivery Method Room Air Intake Visit Reasons: 4m follow up Headache - Confirmed Intake Note: Pt presents as a 4 month f/u headaches. Pt states she is Still about the same, not much has changed. Pt states basically have pain everyday of varying degree. [facility] And Family Services Specialist Required: No Allergies meperidine [Demerol] Allergy (Intermediate, Verified 07/19/23 09:02) Vomiting Penicillins [PENICILLINS] Allergy (Intermediate, Verified 07/19/23 09:02) RASH erythromycin base [ERYTHROMYCIN BASE] Allergy (Unknown, Verified 07/19/23 09:02) unknown Medication List - Last Reconciled 07/19/23 by SOLITARIO Fernandez alendronate 70 mg PO QWEEK aspirin 81 mg PO DAILY atogepant (Qulipta) 30 mg PO DAILY 30 days calcium carbonate-vitamin D3 600 mg-10 mcg (400 unit) 1 cap PO BID citalopram 15 mg (1.5 x 10 mg) PO DAILY fluoride (sodium) 1.1% (DentaGel) dental gabapentin 600 mg PO BEDTIME metronidazole 0.75% appl topical QPM multivitamin 1 tab PO DAILY naproxen sodium 440 mg (2 x 220 mg) PO BID PRN 30 days pantoprazole 40 mg PO QWEEK prednisone 2 mg PO DIRECTED sumatriptan succinate 50 - 100 mg orally at onset of headache, may repeat in 2 hrs PRN; max 2 tabs per day or 4 tabs/week (may take with Aleve 440mg) 30 days tocilizumab (Actemra ACTPen) 162 mg (0.9 mL) subcut QWEEK HPI HPI Comments History of Present Illness Details 68-yr-old female presents for f/u visit. Pt denies any significant interval medical changes. Since the last visit, pt tried Amitriptyline 10mg qhs x's 1 week, but did not tolerate- caused grogginess and worsening headache. The headaches continued to be bothersome, and in mid-May, we switched the Nurtec to Qulipta 30mg qhs. States she is tolerating Qulipta well- has constipation chronic- manages w/ diet. In June, she had 14 bothersome headaches, of which she had 7 severe migraines where she needed to use Sumatriptan, which does help some. She has some sort of at least mild headcahe every day. Sometimes has used a Fioricet for rescue. Her neck continues to be tight and bothersome- sometimes a brief shooting pain, this often seems to worsen the headaches. Has had recent c-spine x-ray- showed degenerative changes. She tried cyclobenzaprine before- this caused grogginess. For the neck tightness- she has tried PT, acupuncture, trigger point injections f/b PT, cortisone injections- none have helped. Today she notes she has had Botox for migraine before- but Botox was not injected into her neck/traps. 06/29/23, XR/XR cervical spine 4V IMPRESSION: 1. There is moderate degenerative disc d isease at C4-C5 and C5-C6, and mild degenerative disc disease is seen at C6-C7. 2. There is mild anterior spondylosis ex tending from C4-C5 through C6-C7. [facility] Medical History Fibromyalgia Migraines Basal cell carcinoma of nose Bunion, left foot Surgical History H/O toe surgery History of surgery History of bunionectomy H/O colonoscopy Family History Mother Heart problem COPD (chronic obstructive pulmonary disease) Hypertension Father Prostate cancer Colon cancer Diabetes Brother Diabetes Sister Hypertension Hypercholesteremia Social History Housing: House Alcohol intake: current Alcohol intake frequency: holidays/special occasions only Patient Tobacco Use Status: Never used Tobacco e-Cigarette/Vaping Use: Never Used Second Hand Smoke Exposure: No service: No Current occupational status: retired Cognitive needs: No Hearing needs: Yes Vision needs: No Review of Systems Const All systems reviewed & are unremarkable except as noted in HPI and below Physical Exam Vital Signs: Last Vital Signs Pulse 83 07/19/23 08:58 BP 122/74 07/19/23 08:58 Pulse Ox 98 07/19/23 08:58 Oxygen Delivery Method Room Air 07/19/23 08:58 BMI result Body Mass Index 22.2 Const General: cooperative and no acute distress Orientation/consciousness: patient oriented x3 HEENT Head: Yes normocephalic Resp Effort & Inspection: normal respiratory effort and able to speak in complete sentences Back/Spine/Pelvis Other: Bilateral posterior cervical tightness and tenderness. Cervical ROM: limited Left Spurling: non radiating posterior neck discomfort Right Spurling: non radiating posterior neck discomfort. Neuro General: patient oriented x3, gait normal and CN's II-XI intact bilaterally Cognition (Neuro): normal cognition Motor exam (neuro): 5/5 motor strength present throughout Deep tendon reflexes (DTR's): Right triceps reflex intensity grade: 2+, Left triceps reflex intensity grade: 2+, Rt Biceps (C5, C6): 2+, Left biceps reflex intensity grade: 2+, Right brachioradialis reflex intensity grade: 2+, Left brachioradialis reflex intensity grade: 2+, Right patellar reflex intensity grade: 3+ and Left patellar reflex intensity grade: 3+ Psych Appearance: grossly normal Mental Status: mental status grossly normal Speech and movement: Normal speech and movement present Affect: normal affect Attitude: cooperative Thought process: Normal thought process present Thought content: Normal thought content present Insight: Good insight present (Psych) Judgement: Good judgement present (Psych) Assessment & Plan Assessment & Plan (1) Chronic migraine without aura: Code(s): G43.709 - Chronic migraine without aura, not intractable, without status migrainosus (2) TTH (tension-type headache): Code(s): G44.209 - Tension-type headache, unspecified, not intractable (3) Nocturnal hypoxemia: Code(s): G47.34 - Idiopathic sleep related nonobstructive alveolar hypoventilation (4) Giant cell arteritis: Code(s): M31.6 - Other giant cell arteritis Plan Reviewed HST- no evidence of sleep apnea, but significant nocturnal hypoxemia. Pt denies any h/o asthma, COPD, tobacco use. Will take the liberty of referring pt for pulmonary eval. ? For acute headache treatment: Continue Sumatriptan 100mg tab- try 1 tab at onset of migraine, may repeat in 2 hours. May take with Aleve 220 mg cap/tab- 2 caps/tabs every 12 hrs as needed. Continue Sumatriptan 100mg tab - 1/2 tab w/ Aleve 440mg and Benadryl 25mg 30 minutes prior to tocilizumab injection. May use Fioricet for TTH and/or Benadryl for rescue. Previous acute migraine medication trials: Sumatriptan inj- ineffective. Acute migraine medication contraindications: None at this time. ? For chronic migraine prevention medication: Nurtec stopped- lost efficacy. Amitriptyline stopped- not tolerated. Start botox 155 units IM q 3 months. Continue Qulipta 30mg qhs. Previous migraine prevention medication trials: Propranolol- ineffective. Amitriptyline- ineffective. Topiramate- ineffective. Botox x's > 6 tx- ineffective. Depakote- ineffective. Mag- ineffective. Riboflavin- ineffective. Migraine prevention medication contraindications: aimovig d/t pt has constipation. Future considerations: Quilipta, Emgality/Ajovy. For cervicalgia: Reviewed c-spine XR- mild-mod multilevel degenerative and mild spondylosis. Trial Baclofen 5-10mg qhs prn. ? f/u in 3 months or sooner prn. Orders: Referrals Pulmonology Referral G47.34 - Idiopathic sleep related nonobstructive alveolar hypoventilation Medications: New baclofen 5 - 10 mg (1 - 2 x 5 mg) PO BEDTIME 30 days 60 tabs 3RF onabotulinumtoxinA (Botox) inject 155 units IM across forehead, scalp, and neck 200 units IM ONCE 12 weeks 1 ea 3RF G43.709 - Chronic migraine without aura, not intractable, without status migrainosus plyamuxzcg-fdlqwpykctwrz-kxyu 50-325-40 mg max 2 tabs per day or 4 tabs per week 1 tab PO Q4H 30 days PRN 20 tabs 1RF headache G44.209 - Tension-type headache, unspecified, not intractable Coding Level of Care Code Est Pt Level 4 (99340) Diagnoses Chronic migraine without aura G43.709 TTH (tension-type headache) G44.209 Nocturnal hypoxemia G47.34 Giant cell arteritis M31.6
== END 2023-07-19 10:29 | disposition home or self-care (01) ==
PROVIDERS: Visit Provider Nurse Practitioner Family
DX: G43.709 Chronic migraine without aura, not intractable, without status migrainosus (principal); G44.209 Tension-type headache, unspecified, not intractable; G47.34 Idiopathic sleep related nonobstructive alveolar hypoventilation; M31.6 Other giant cell arteritis
CPT/HCPCS: 99214

== ENCOUNTER → 2023-07-19 08:48 | Outpatient (BNVA) | payer MEDICARE, OTHER, SELFPAY | PROVIDERS: Visit Provider Nurse Practitioner Family | DX: G43.709 Chronic migraine without aura, not intractable, without status migrainosus (principal); G44.209 Tension-type headache, unspecified, not intractable; G47.34 Idiopathic sleep related nonobstructive alveolar hypoventilation; M31.6 Other giant cell arteritis; Z79.899 Other long term (current) drug therapy | CPT/HCPCS: 99212 ==

== ENCOUNTER 2023-07-26 08:50 | Outpatient (AMB) | payer MEDICARE, OTHER, SELFPAY ==
[2023-07-26 09:16] VITALS: BMI 22.1
--- NOTE | 2023-07-26 09:16 | MHC.OFFVIS ---
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 She describes her pain as sharp in nature. Most of the pain is along the medial and lateral aspects of her left knee. She also has intermittent right knee discomfort. At this point her right knee discomfort is tolerable to her. Her left knee pain has gotten worse over the last few years in spite of continued non operative treatments. She states that her left knee will give out several times per day. She has tried Tylenol and anti-inflammatory medicines which gave her minimal relief. She has also done physical therapy for 12 weeks over the last 6 months which aggravated her symptoms. She has had multiple cortisone injections in the past. Most recent injection was last month. The injection gave her minimal relief. Allergies meperidine [Demerol] Allergy (Intermediate, Verified 07/26/23 09:20) Vomiting Penicillins [PENICILLINS] Allergy (Intermediate, Verified 07/26/23 09:20) RASH erythromycin base [ERYTHROMYCIN BASE] Allergy (Unknown, Verified 07/26/23 09:20) unknown Medication List - Last Reconciled 07/26/23 by Roger Trivedi MD alendronate 70 mg PO QWEEK aspirin 81 mg PO DAILY atogepant (Qulipta) 30 mg PO DAILY 30 days baclofen 5 - 10 mg (1 - 2 x 5 mg) PO BEDTIME 30 days cacmnbnkxc-acrgwcvzhtdjr-kpma 50-325-40 mg 1 tab PO Q4H PRN 30 days calcium carbonate-vitamin D3 600 mg-10 mcg (400 unit) 1 cap PO BID citalopram 15 mg (1.5 x 10 mg) PO DAILY fluoride (sodium) 1.1% (DentaGel) dental gabapentin 600 mg PO BEDTIME metronidazole 0.75% appl topical QPM multivitamin 1 tab PO DAILY naproxen sodium 440 mg (2 x 220 mg) PO BID PRN 30 days onabotulinumtoxinA (Botox) 200 units IM ONCE 12 weeks pantoprazole 40 mg PO QWEEK prednisone 2 mg PO DIRECTED sumatriptan succinate 50 - 100 mg orally at onset of headache, may repeat in 2 hrs PRN; max 2 tabs per day or 4 tabs/week (may take with Aleve 440mg) 30 days tocilizumab (Actemra ACTPen) 162 mg (0.9 mL) subcut QWEEK PFSH Medical History Fibromyalgia Migraines Basal cell carcinoma of nose Bunion, left foot Surgical History H/O toe surgery History of surgery History of bunionectomy H/O colonoscopy Family History Mother Heart problem COPD (chronic obstructive pulmonary disease) Hypertension Father Prostate cancer Colon cancer Diabetes Brother Diabetes Sister Hypertension Hypercholesteremia Social History Housing: House Alcohol intake: current Alcohol intake frequency: holidays/special occasions only Patient Tobacco Use Status: Never used Tobacco e-Cigarette/Vaping Use: Never Used Second Hand Smoke Exposure: No service: No Current occupational status: retired Cognitive needs: No Hearing needs: Yes Vision needs: No Physical Exam Vital Signs: BMI result Body Mass Index 22.1 Const Other: Well-nourished well-developed very friendly female awake alert and oriented x3 in no acute distress Extrem Other: Bilateral lower extremity examination shows good capillary refill, no skin lesions noted, normal sensation light touch Left knee examination shows a minimal effusion, tenderness along her medial and lateral joint lines, positive Tash's test, no instability Results Reviewed Results Reviewed: X-rays of the patient's left knee show mild diffuse joint space narrowing, no acute bony abnormalities Assessment & Plan Assessment & Plan (1) Left knee pain: Code(s): M25.562 - Pain in left knee Plan: Ms. Michelle presents with progressively worsening left knee pain and mechanical symptoms most likely due to a medial meniscus tear. Thus, I will send the patient for an MRI of her left knee for further evaluation. If she does have a significant meniscus tear I will recommend arthroscopic surgery to optimize her future functional level. She will contact me prior to the MRI for should her symptoms worsen in any way. I will see her back the MRI is completed. Feel free to call me at any time should questions regarding her orthopedic management arise. Thank you very much for asking me to see this very friendly patient. I spent 22 minutes in reviewing the patient's records and imaging studies, seeing the patient and documenting in the medical record. Coding Level of Care Code New Pt Level 2 (48444) Diagnoses Left knee pain M25.562
== END 2023-07-26 09:43 | disposition home or self-care (01) ==
PROVIDERS: PCP Internal Medicine; Visit Provider Orthopaedic Surgery
DX: M25.562 Pain in left knee (principal)
CPT/HCPCS: 99202

== ENCOUNTER → 2023-07-26 08:50 | Outpatient (BNVA) | payer MEDICARE, OTHER, SELFPAY | PROVIDERS: PCP Internal Medicine; Visit Provider Orthopaedic Surgery | DX: M25.562 Pain in left knee (principal) | CPT/HCPCS: 99202 ==

== ENCOUNTER 2023-08-09 10:17 | Outpatient (AMB) | payer MEDICARE, OTHER, SELFPAY ==
--- NOTE | 2023-08-09 10:28 | MHC.OFFVIS ---
Intake Vital Signs 08/09/23 10:29 Height 5 ft 3 in Weight 125 lb BMI 22.1 Intake Visit Reasons: OV-MRI review, Left knee Intake Note: Teri a 68 year old female who presents today as a new patient with complaints of left knee pain and giving way. She describes her pain as sharp in nature. Most of the pain is along the medial and lateral aspects of her left knee. She also has intermittent right knee discomfort. At this point her right knee discomfort is tolerable to her. Her left knee pain has gotten worse over the last few years in spite of continued non operative treatments. She states that her left knee will give out several times per day. She has tried Tylenol and anti-inflammatory medicines which gave her minimal relief. She has also done physical therapy for 12 weeks over the last 6 months which aggravated her symptoms. She has had multiple cortisone injections in the past. Most recent injection was last month. The injection gave her minimal relief. Allergies meperidine [Demerol] Allergy (Intermediate, Verified 08/09/23 10:35) Vomiting Penicillins [PENICILLINS] Allergy (Intermediate, Verified 08/09/23 10:35) RASH erythromycin base [ERYTHROMYCIN BASE] Allergy (Unknown, Verified 08/09/23 10:35) unknown Medication List - Last Reconciled 08/09/23 by Roger Trivedi MD alendronate 70 mg PO QWEEK aspirin 81 mg PO DAILY atogepant (Qulipta) 30 mg PO DAILY 30 days baclofen 5 - 10 mg (1 - 2 x 5 mg) PO BEDTIME 30 days odtvmnjshv-jilcugeaqmkls-wrck 50-325-40 mg 1 tab PO Q4H PRN 30 days calcium carbonate-vitamin D3 600 mg-10 mcg (400 unit) 1 cap PO BID citalopram 15 mg (1.5 x 10 mg) PO DAILY fluoride (sodium) 1.1% (DentaGel) dental gabapentin 600 mg PO BEDTIME metronidazole 0.75% appl topical QPM multivitamin 1 tab PO DAILY naproxen sodium 440 mg (2 x 220 mg) PO BID PRN 30 days onabotulinumtoxinA (Botox) 200 units IM ONCE 12 weeks pantoprazole 40 mg PO QWEEK prednisolone 5 mg PO DAILY prednisone 2 mg PO DIRECTED sumatriptan succinate 50 - 100 mg orally at onset of headache, may repeat in 2 hrs PRN; max 2 tabs per day or 4 tabs/week (may take with Aleve 440mg) 30 days tocilizumab (Actemra ACTPen) 162 mg (0.9 mL) subcut QWEEK PFSH Medical History Fibromyalgia Migraines Basal cell carcinoma of nose Bunion, left foot Surgical History H/O toe surgery History of surgery History of bunionectomy H/O colonoscopy Family History Mother Heart problem COPD (chronic obstructive pulmonary disease) Hypertension Father Prostate cancer Colon cancer Diabetes Brother Diabetes Sister Hypertension Hypercholesteremia Social History Housing: House Alcohol intake: current Alcohol intake frequency: holidays/special occasions only Patient Tobacco Use Status: Never used Tobacco e-Cigarette/Vaping Use: Never Used Second Hand Smoke Exposure: No service: No Current occupational status: retired Cognitive needs: No Hearing needs: Yes Vision needs: No Physical Exam Vital Signs: BMI result Body Mass Index 22.1 Const Other: Well-nourished well-developed very friendly female awake alert and oriented x3 in no acute distress Extrem Other: Bilateral lower extremity examination shows good capillary refill, no skin lesions noted, normal sensation light touch Left knee examination shows a minimal effusion, mild crepitus with range of motion, tenderness along her medial and lateral joint lines, positive Tash's test, and no instability Results Reviewed Results Reviewed: MRI of the patient's left knee shows mild diffuse degenerative changes as well as tearing of her medial and lateral menisci Assessment & Plan Assessment & Plan (1) Left knee pain: Code(s): M25.562 - Pain in left knee Plan Ms. Michelle presents with progressively worsening left knee pain and mechanical symptoms due to early degenerative joint disease as well as tearing of her medial and lateral menisci. I had a lengthy discussion with patient regarding the treatment options. At this point she has failed continued non operative treatments. The risks and benefits of left knee arthroscopic surgery were discussed at length with the patient. The patient wishes to proceed with surgery. Surgery will most likely involve left knee diagnostic arthroscopy with partial medial and lateral meniscectomies. I will have my office contact the patient to pick a surgery date. I did give her a prescription for a Medrol Dosepak to help with her discomfort while she is on a [place] vacation in 2 weeks. 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 Feel free to call me at any time should questions regarding her orthopedic management arise. I spent 22 minutes in reviewing the patient's records and imaging studies, seeing the patient and documenting in the medical record. Medications: New prednisolone 5 mg PO DAILY 21 ea 0RF Coding Level of Care Code Est Pt Level 2 (65086) Diagnoses Left knee pain M25.562
[2023-08-09 10:29] VITALS: BMI 22.1
== END 2023-08-09 11:16 | disposition home or self-care (01) ==
PROVIDERS: PCP Internal Medicine; Visit Provider Orthopaedic Surgery
DX: M25.562 Pain in left knee (principal)
CPT/HCPCS: 99212

== ENCOUNTER → 2023-08-09 10:17 | Outpatient (BNVA) | payer MEDICARE, OTHER, SELFPAY | PROVIDERS: PCP Internal Medicine; Visit Provider Orthopaedic Surgery | DX: M25.562 Pain in left knee (principal) | CPT/HCPCS: 99212 ==

== ENCOUNTER 2023-08-23 09:30 | Outpatient (REF) | payer MEDICARE, OTHER, SELFPAY ==
--- NOTE | ~2023-08-23 | XR_ITS ---
EXAMINATION: XR CHEST CLINICAL INFORMATION: Hypoventilation COMPARISON: May 2014 TECHNIQUE: 2 views of the chest were obtained. FINDINGS: No significant abnormality is noted involving the heart, lungs, mediastinum, bony thorax or soft tissues. XR/XR chest 2V IMPRESSION: Unremarkable examination without interval change.
== END 2023-08-23 09:31 | disposition home or self-care (01) ==
LOC: HO.XRAY 09:30
PROVIDERS: PCP Internal Medicine; Visit Provider Internal Medicine Pulmonary Disease
DX: G47.34 Idiopathic sleep related nonobstructive alveolar hypoventilation (principal); R94.2 Abnormal results of pulmonary function studies; M25.562 Pain in left knee; Z79.899 Other long term (current) drug therapy
CPT/HCPCS: 71046; 99212

== ENCOUNTER 2023-08-23 09:30 | Outpatient (AMB) | payer MEDICARE, OTHER, SELFPAY ==
[2023-08-23 09:32] VITALS: BP 100/62; PULSE 85; O2SAT 97; BMI 21.9
--- NOTE | 2023-08-23 09:32 | A.OFFVIS_ITS ---
Intake Vital Signs 08/23/23 09:32 Height 5 ft 3 in Weight 123 lb 7.342 oz BMI 21.9 BP 100/62 Blood Pressure Location Rt brachial Position Sitting Pulse 85 Pulse Source Doppler Pulse Oximetry (%) 97 Oxygen Delivery Method Room Air Intake Visit Reasons: Obstructive sleep apnea Allergies meperidine [Demerol] Allergy (Intermediate, Verified 08/09/23 10:35) Vomiting Penicillins [PENICILLINS] Allergy (Intermediate, Verified 08/09/23 10:35) RASH erythromycin base [ERYTHROMYCIN BASE] Allergy (Unknown, Verified 08/09/23 10:35) unknown HPI Obstructive sleep apnea HPI Details 68-year-old lady, lifetime nonsmoker, wi th no prior pulmonary related personal or family history, 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 Patient denies any other pulmonary related concerns or complaints. She previously been tried on CPAP min years prior with no significant symptomatic benefit. [facility] Medical History Fibromyalgia Migraines Basal cell carcinoma of nose Bunion, left foot Surgical History H/O toe surgery History of surgery History of bunionectomy H/O colonoscopy Family History Mother Heart problem COPD (chronic obstructive pulmonary disease) Hypertension Father Prostate cancer Colon cancer Diabetes Brother Diabetes Sister Hypertension Hypercholesteremia Social History Housing: House Alcohol intake: current Alcohol intake frequency: holidays/special occasions only Patient Tobacco Use Status: Never used Tobacco e-Cigarette/Vaping Use: Never Used Second Hand Smoke Exposure: No service: No Current occupational status: retired Cognitive needs: No Hearing needs: Yes Vision needs: No Review of Systems Const Denies daytime sleepiness, Denies excessive sweating, Denies fatigue, Denies fever(s), Denies lethargy, Denies malaise, Denies night sweats, Denies snoring and Denies weight loss Eyes Denies blurry vision and Denies itchy eyes ENT Denies nasal congestion, Denies post nasal drip, Denies sinus pain, Denies sinus pressure and Denies other ( Thrush) Card Denies chest pain, Denies pedal edema, Denies dyspnea, Denies orthopnea and Denies paroxysmal nocturnal dyspnea Resp Denies cough, Denies hemoptysis, Denies excessive phlegm production, Denies dyspnea, Denies snoring and Denies wheezing GI Denies abdominal pain and Denies heartburn Musc Denies myalgias, Denies arthralgias and Denies joint swelling Skin/Breast Denies rash Neuro Denies memory loss and Denies seizure-like activity Psych Denies abnormal sleep pattern, Denies anxiety and Denies memory loss Endo Denies excessive sweating, Denies fatigue and Denies heat intolerance Kyler/Lymph Denies easy bruising Aller/Immun Denies itchy eyes, Denies seasonal rhinorrhea and Denies wheezing Physical Exam Vital Signs: Last Vital Signs Pulse 85 08/23/23 09:32 BP 100/62 08/23/23 09:32 Pulse Ox 97 08/23/23 09:32 Oxygen Delivery Method Room Air 08/23/23 09:32 BMI result Body Mass Index 21.9 Const General: no acute distress and alert Nutritional Appearance: not obese Orientation/consciousness: Other orientation findings ( oriented) HEENT Head: Yes atraumatic Eyes General: appearance normal, both eyes and all related structures Sclerae: sclerae normal EOM: EOMs intact bilaterally Neck Neck: Yes supple Lymphatic: no lymphadenopathy noted Resp Effort & Inspection: normal respiratory effort and no use of accessory muscles Auscultation: clear to auscultation bilaterally Cardio Rate: regular rate Rhythm: regular rhythm Heart sounds: no gallops, no murmurs and no rubs Skin General skin exam: other ( warm) Extrem General: No clubbing, No cyanosis and No edema Assessment & Plan Assessment & Plan (1) Nocturnal hypoxemia: Code(s): G47.34 - Idiopathic sleep related nonobstructive alveolar hypoventilation Plan: Nocturnal hypoxemia with subclinical sleep apnea. May benefit eyes from CPAP on nocturnal oxygen. At this time patient wants to think about her options. (2) Decreased diffusion capacity: Code(s): R94.2 - Abnormal results of pulmonary function studies Plan: Will obtain a x-ray with a chest to rule significant fibrosis. Orders: Orders XR chest 2V Today G47.34 - Idiopathic sleep related nonobstructive alveolar hypoventilation Coding Level of Care Code New Pt Level 4 (94247) Diagnoses Nocturnal hypoxemia G47.34 Decreased diffusion capacity R94.2
== END 2023-08-23 11:02 | disposition home or self-care (01) ==
PROVIDERS: PCP Internal Medicine; Referring Provider Nurse Practitioner Family; Visit Provider Internal Medicine Pulmonary Disease
DX: G47.34 Idiopathic sleep related nonobstructive alveolar hypoventilation (principal); R94.2 Abnormal results of pulmonary function studies
CPT/HCPCS: 99204

== ENCOUNTER 2023-08-23 11:14 | Outpatient (AMB) | payer MEDICARE, OTHER, SELFPAY ==
--- NOTE | 2023-08-23 11:17 | MHC.OFFVIS ---
Intake Intake Visit Reasons: Pre-Lt Knee Intake Note: Teri a 68 year old female who presents today with complaints of left knee pain and giving way. She describes her pain as sharp in nature. Most of the pain is along the medial and lateral aspects of her left knee. She also has intermittent right knee discomfort. At this point her right knee discomfort is tolerable to her. Her left knee pain has gotten worse over the last few years in spite of continued non operative treatments. She states that her left knee will give out several times per day. She has tried Tylenol and anti-inflammatory medicines which gave her minimal relief. She has also done physical therapy for 12 weeks over the last 6 months which aggravated her symptoms. She has had multiple cortisone injections in the past. Most recent injection was last month. The injection gave her minimal relief. Allergies meperidine [Demerol] Allergy (Intermediate, Verified 08/09/23 10:35) Vomiting Penicillins [PENICILLINS] Allergy (Intermediate, Verified 08/09/23 10:35) RASH erythromycin base [ERYTHROMYCIN BASE] Allergy (Unknown, Verified 08/09/23 10:35) unknown Medication List - Last Reconciled 08/23/23 by Roger Trivedi MD alendronate 70 mg PO QWEEK aspirin 81 mg PO DAILY atogepant (Qulipta) 30 mg PO DAILY 30 days baclofen 5 - 10 mg (1 - 2 x 5 mg) PO BEDTIME 30 days abcwvoairq-xdqzwdczmxjis-rdei 50-325-40 mg 1 tab PO Q4H PRN 30 days calcium carbonate-vitamin D3 600 mg-10 mcg (400 unit) 1 cap PO BID citalopram 15 mg (1.5 x 10 mg) PO DAILY fluoride (sodium) 1.1% (DentaGel) dental gabapentin 600 mg PO BEDTIME methylprednisolone (Medrol (Chemo)) PO PER PKG DIR metronidazole 0.75% appl topical QPM multivitamin 1 tab PO DAILY naproxen sodium 440 mg (2 x 220 mg) PO BID PRN 30 days onabotulinumtoxinA (Botox) 200 units IM ONCE 12 weeks pantoprazole 40 mg PO QWEEK prednisone 2 mg PO DIRECTED sumatriptan succinate 50 - 100 mg orally at onset of headache, may repeat in 2 hrs PRN; max 2 tabs per day or 4 tabs/week (may take with Aleve 440mg) 30 days tocilizumab (Actemra ACTPen) 162 mg (0.9 mL) subcut QWEEK PFSH Medical History Fibromyalgia Migraines Basal cell carcinoma of nose Bunion, left foot Surgical History H/O toe surgery History of surgery History of bunionectomy H/O colonoscopy Family History Mother Heart problem COPD (chronic obstructive pulmonary disease) Hypertension Father Prostate cancer Colon cancer Diabetes Brother Diabetes Sister Hypertension Hypercholesteremia Social History Housing: House Alcohol intake: current Alcohol intake frequency: holidays/special occasions only Patient Tobacco Use Status: Never used Tobacco e-Cigarette/Vaping Use: Never Used Second Hand Smoke Exposure: No service: No Current occupational status: retired Cognitive needs: No Hearing needs: Yes Vision needs: No Physical Exam Const Other: Well-nourished well-developed very friendly female awake alert and oriented x3 in no acute distress Lungs - clear to auscultation bilaterally with symmetric expansion Cardiovascular exam - regular rate and rhythm Abdominal exam - soft nontender nondistended Extrem Other: Bilateral lower extremity examination shows good capillary refill, no skin lesions noted, normal sensation light touch Left knee examination shows a minimal effusion, minimal crepitus with range of motion, tenderness along her medial and lateral joint lines, positive Tash's test, no instability Results Reviewed Results Reviewed: X-rays of the patient's left knee show mild diffuse joint space narrowing, no acute bony abnormalities MRI of the patient's left knee shows mild diffuse degenerative changes as well as tearing of her medial and lateral menisci Assessment & Plan Assessment & Plan (1) Left knee pain: Code(s): M25.562 - Pain in left knee Plan: Ms. Michelle presents with progressively worsening left knee pain and mechanical symptoms due to early degenerative joint disease as well as tearing of her medial and lateral menisci. I had a lengthy discussion with patient regarding the treatment options. At this point she has failed continued non operative treatments. The risks and benefits of left knee arthroscopic surgery were discussed at length with the patient. The patient wishes to proceed with surgery. Surgery will most likely involve left knee diagnostic arthroscopy with partial medial and lateral meniscectomies. Patient was given a prescription for Tylenol #3 at her preoperative appointment. I will see her back 2-3 weeks following her surgery for her 1st postoperative appointment. Patient will follow-up as instructed. Feel free to call me at any time should questions regarding her orthopedic management arise. I spent 22 minutes in reviewing the patient's records and imaging studies, seeing the patient and documenting in the medical record. Coding Level of Care Code Est Pt Level 2 (49334) Diagnoses Left knee pain M25.562
== END 2023-08-23 11:59 | disposition home or self-care (01) ==
PROVIDERS: PCP Internal Medicine; Visit Provider Orthopaedic Surgery
DX: M25.562 Pain in left knee (principal)
CPT/HCPCS: 99212

== ENCOUNTER 2023-09-15 11:02 | Outpatient (AMB) | payer MEDICARE, OTHER, SELFPAY ==
[2023-09-15 11:05] VITALS: BP 114/66; PULSE 73; O2SAT 100; BMI 22.1
--- NOTE | 2023-09-15 11:05 | AM.OFFVISMDC ---
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 Allergies meperidine [Demerol] Allergy (Intermediate, Verified 09/15/23 11:30) Vomiting Penicillins [PENICILLINS] Allergy (Intermediate, Verified 09/15/23 11:30) RASH erythromycin base [ERYTHROMYCIN BASE] Allergy (Unknown, Verified 09/15/23 11:30) unknown Medication List - Last Reconciled 09/15/23 by SOLITARIO Butler acetaminophen-codeine 300-30 mg 1 tab PO Q6H PRN alendronate 70 mg PO QWEEK aspirin 81 mg PO DAILY atogepant (Qulipta) 30 mg PO DAILY 30 days baclofen 5 - 10 mg (1 - 2 x 5 mg) PO BEDTIME 30 days rwcqgzvgwx-vntkwtrwxakhv-jhej 50-325-40 mg 1 tab PO Q4H PRN 30 days calcium carbonate-vitamin D3 600 mg-10 mcg (400 unit) 1 cap PO BID citalopram 15 mg (1.5 x 10 mg) PO DAILY fluoride (sodium) 1.1% (DentaGel) dental gabapentin 600 mg PO BEDTIME metronidazole 0.75% appl topical QPM multivitamin 1 tab PO DAILY naproxen sodium 440 mg (2 x 220 mg) PO BID PRN 30 days onabotulinumtoxinA (Botox) 200 units IM ONCE 12 weeks pantoprazole 40 mg PO QWEEK sumatriptan succinate 50 - 100 mg orally at onset of headache, may repeat in 2 hrs PRN; max 2 tabs per day or 4 tabs/week (may take with Aleve 440mg) 30 days tocilizumab (Actemra ACTPen) 162 mg (0.9 mL) subcut QWEEK HPI [facility] G0439 HPI Details Patient is a 68-year-old female who presents today for subsequent wellness visit. Patient of Dr. Arteaga. Patient is up-to-date with her health preventative screenings and immunizations. Mammogram normal 07/2023. Bone density screen with osteopenia 07/2022. Coulter of care was reviewed with the patient and she was provided with a screening schedule. Patient provided office with a healthcare proxy and she was provided with a MOLST form. 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 Basal cell carcinoma of nose Bunion, left foot Surgical History H/O toe surgery History of surgery History of bunionectomy H/O colonoscopy Family History Mother Heart problem COPD (chronic obstructive pulmonary disease) Hypertension Father Prostate cancer Colon cancer Diabetes Brother Diabetes Sister Hypertension Hypercholesteremia Social History Housing: House Alcohol intake: current Alcohol intake frequency: holidays/special occasions only Patient Tobacco Use Status: Never used Tobacco e-Cigarette/Vaping Use: Never Used Second Hand Smoke Exposure: No service: No Current occupational status: retired Cognitive needs: No Hearing needs: Yes Vision needs: No Questionnaire Medicare Wellness Checkup [age] What gender do you identify with?: female During the past 4 weeks, how much have you been bothered by emotional problems such as feeling anxious, depressed, irritable, sad or downhearted, and blue?: not at all During the past 4 weeks, has your physical & emotional health limited your social activities with family, friends, neighbors, or groups?: not at all During the past 4 weeks, how much bodily pain have you generally had?: moderate pain During the past 4 weeks, was someone available to help you if you needed & wanted help?: yes, as much as I wanted During the past 4 weeks, what was the hardest physical activity you could do for at least 2 minutes?: moderate Can you get to places out of walking distance without help? (For eg., can you travel alone on buses, taxis or drive your car?): Yes Can you go shopping for groceries or clothes without someone's help?: Yes Can you prepare your own meals?: Yes Can you do your housework without help?: Yes Because of any health problems, do you need the help of another person with your personal care needs such as eating, bathing, dressing or getting around the house?: No Can you handle your own money without help?: Yes During the past 4 weeks, how would you rate your health in general?: good During the past 4 weeks how have things been going for you?: pretty well Are you having difficulties driving your car?: no Do you always fasten your seat belt when you are in a car?: yes, usually During past 4 weeks, have you been bothered by the following: never: Falling or dizzy when standing up, Sexual problems?, Trouble eating well?, Teeth or denture problems? and Problems using the telephone? and seldom: Tiredness or fatigue? Have you fallen 2 or more times in the past year?: No Are you afraid of falling?: No Are you a smoker?: no During the past 4 weeks, how many drinks of wine, beer, or other alcoholic beverages did you have?: 1 drink or less per week Do you exercise for about 20 minutes 3 or more times a week?: yes, some of the time Have you been given information to help with the following?: no: Hazards in your house that might hurt you? and no: Keeping track of your medications? How often do you have trouble taking medicines the way you have been told to take them?: I always take medicine as prescribed How confident are you that you can control & manage most of your health problems?: very confident What is your race?: White Mini Mental State Exam (MMSE) Orientation What is the (year) (season) (date) (day) (month)?: year, season, date, day and month Score Score: 5 Activity of Daily Living Bathing - sponge bath, tub bath or shower: receives no assistance (gets in/out by self, if usual bathing means Dressing - getting clothes from closets & drawers, including inner/outer garments & fasteners.: gets clothes & gets completely dressed without help Toileting - going to the 'toilet room' for urine/bowel elimination & cleaning self/arranging clothes: goes to toilet room, cleans self, arranges clothes without help Transfer: moves in & out of bed and chair without help (may use support object) Continence: controls urination/bowel movements completely by self Feeding: feeds self without help Total Score: 0 Information obtained from: patient Using telephone: independent Traveling: independent Shopping: independent Preparing meals: independent Housework: independent Taking medicine: independent Managing money: independent PHQ-9 Over the last 2 weeks, how often have you been bothered by any of the following problems? 1. Little interest or pleasure in doing things: not at all 2. Feeling down, depressed, or hopeless: not at all 3. Trouble falling or staying asleep, or sleeping too much: not at all 4. Feeling tired or having little energy: several days 5. Poor appetite or overeating: not at all 6. Feeling bad about yourself - or that you are a failure or have let yourself or your family down: not at all 7. Trouble concentrating on things, such as reading the newspaper or watching television: not at all 8. Moving or speaking so slowly that other people could have noticed. Or the opposite - being so fidgety or restless that you have been moving around a lot more than usual: not at all 9. Thoughts that you would be better off or of hurting yourself in some way: not at all Total score: 1 Depression Screening Interpretation: Negative Depression Screening Done: Yes 44705 - PHQ-9 Billing: Yes Source: Developed by Drs. Hubert Muinz, Summer Minaya, Barron Roa and colleagues, with an educational elvira from [employer]. Physical Exam Vital Signs: Last Vital Signs Pulse 73 09/15/23 11:05 BP 114/66 09/15/23 11:05 Pulse Ox 100 09/15/23 11:05 Oxygen Delivery Method Room Air 09/15/23 11:05 BMI result Body Mass Index 22.1 Const General: cooperative and no acute distress Orientation/consciousness: patient oriented x3 HEENT Other: Whisper test: pass Neuro Other: Balance: Normal Get up and walk: unable to Romberg: negative Tandem gait: able to General: patient oriented x3 Assessment & Plan Assessment & Plan (1) Adult general medical exam: Code(s): Z00.00 - Encounter for general adult medical examination without abnormal findings (2) Nocturnal hypoxemia: Code(s): G47.34 - Idiopathic sleep related nonobstructive alveolar hypoventilation Plan: Continue to follow-up with pulmonology (3) TTH (tension-type headache): Code(s): G44.209 - Tension-type headache, unspecified, not intractable Plan: Continue to follow-up with neurology (4) Osteoarthritis of left knee: Code(s): M17.12 - Unilateral primary osteoarthritis, left knee Plan: Continue to follow-up with [facility] (5) Temporal arteritis: Comment: Onset 06/2022 . Biopsy proven Prednisone started 07/2022 Actemra started 08/2022 Code(s): M31.6 - Other giant cell arteritis Plan: Continue to follow-up with [facility] Quality Reporting (2019) Depression/Bipolar (159/160/161/177) PHQ-9: Total score: 1 Coding Level of Care Code Medicare Subsequent (G0439) Diagnoses Adult general medical exam Z00.00 Nocturnal hypoxemia G47.34 TTH (tension-type headache) G44.209 Osteoarthritis of left knee M17.12 Temporal arteritis M31.6 CPT Codes Advance Care Planning - Advance Care Planning discussion: On file, no changes ([id number]) Advance Care Planning - Time spent: 1-15 minutes, on File ([id number]) Advance Care Planning Advance Care Planning discussion: On file, no changes Date of discussion: 09/15/23 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
== END 2023-09-15 11:46 | disposition home or self-care (01) ==
PROVIDERS: PCP Internal Medicine; Visit Provider Nurse Practitioner Family
DX: Z00.00 Encounter for general adult medical examination without abnormal findings (principal); G47.34 Idiopathic sleep related nonobstructive alveolar hypoventilation; G44.209 Tension-type headache, unspecified, not intractable; M31.6 Other giant cell arteritis; M17.12 Unilateral primary osteoarthritis, left knee
CPT/HCPCS: 1123F; G0439

== ENCOUNTER 2023-09-15 11:53 | Outpatient (REF) | payer MEDICARE, OTHER, SELFPAY ==
[2023-09-15 13:11] LABS: MANUAL DIFF FLAG NO
[2023-09-15 13:24] LABS: Basophils Percent Auto 0.7 % (0-2); Eosinophils Absolute Auto 0.1 X10*3/uL (0.0-0.4); Eosinophils Percent Auto 1.9 % (0-4); Hematocrit 38.7 % (37.0-47.0); Hemoglobin 12.6 g/dl (12.0-16.0); Imm Gran Abs Auto 0.01 X10*3/uL (0.00-0.03); Imm Gran Pct Auto 0.2 % (0.0-0.4); Lymphocytes Absolute Auto 1.4 X10*3/uL (1.2-4.9); Mean Corpuscular HGB Conc 32.6 g/dl (31.0-35.0); Mean Corpuscular Hemoglobin 31.7 pg (27.0-33.0); Mean Corpuscular Volume 97.2 fL (80.0-98.0); Mean Platelet Volume 10.4 fL (9.4-12.3); Monocytes Absolute Auto 0.4 X10*3/uL (0.1-1.2); Monocytes Percent Auto 8.8 % (2-11); Neutrophils Absolute Auto 2.4 x10*3/uL (2.0-8.3); Neutrophils Percent Auto 55.4 % (45-73); Platelet Count 167 X10*3/uL (160-400); Red Blood Count 3.98 X10*6/uL (4.20-5.50); Red Cell Distribution Width 12.9 % (11.0-16.0); White Blood Count 4.3 X10*3/uL (4.8-10.8)
[2023-09-15 13:45] LABS: Alanine Aminotransferase 24 U/L (0-31); Alkaline Phosphatase 33 U/L (39-117); Anion Gap 11 (12-20); Aspartate Amino Transferase 24 U/L (5-31); Bilirubin Total 0.7 mg/dL (0.0-1.0); Blood Urea Nitrogen 13 mg/dL (9-16); C Reactive Protein < 0.10 mg/dL (< or = 0.50); Calcium 9.2 mg/dL (8.4-10.2); Carbon Dioxide 30 mmol/L (22-29); Chloride 105 mmol/L (96-108); Estimated Glomerular Filt Rate > 60; Glucose Random 76 mg/dL (60-115); Potassium 3.8 mmol/L (3.3-5.1); Sodium 142 mmol/L (135-145); Total Protein 6.5 g/dL (6.5-8.0)
[2023-09-15 14:14] LABS: Erythrocyte Sedimentation Rate 3 MM/HR (0-20)
== END 2023-09-15 11:54 | disposition home or self-care (01) ==
LOC: HO.10HDL 11:53
PROVIDERS: Visit Provider Student in an Organized Health Care Education/Training Program
DX: M31.6 Other giant cell arteritis (principal)
CPT/HCPCS: 36415; 80053; 85025; 85652; 86140

== ENCOUNTER 2023-09-16 14:18 | Outpatient (AMB) | payer MEDICARE, OTHER, SELFPAY ==
[2023-09-16 14:32] VITALS: BP 110/60; PULSE 81; TEMP 36.1; O2SAT 97; BMI 22.5
--- NOTE | 2023-09-16 14:32 | A.OFFVIS_ITS ---
Intake Vital Signs 09/16/23 14:32 Height 5 ft 3 in Weight 127 lb 3.307 oz BMI 22.5 BP 110/60 Blood Pressure Location Rt brachial Position Sitting Pulse 81 Pulse Source Pulse Oximeter Temp 97.0 F Pulse Oximetry (%) 97 Intake Visit Reasons: Headache Intake Note: Pt seen for headaches and blurred vision Network Admin Required: No Accompanied by: Spouse Allergies meperidine [Demerol] Allergy (Intermediate, Verified 09/16/23 14:37) Vomiting Penicillins [PENICILLINS] Allergy (Intermediate, Verified 09/16/23 14:37) RASH erythromycin base [ERYTHROMYCIN BASE] Allergy (Unknown, Verified 09/16/23 14:37) unknown Medication List - Last Reconciled 09/16/23 by Arvind Rose MD acetaminophen-codeine 300-30 mg 1 tab PO Q6H PRN alendronate 70 mg PO QWEEK aspirin 81 mg PO DAILY atogepant (Qulipta) 30 mg PO DAILY 30 days baclofen 5 - 10 mg (1 - 2 x 5 mg) PO BEDTIME 30 days akwjgnryyy-olpiifaciuzdt-nuln 50-325-40 mg 1 tab PO Q4H PRN 30 days calcium carbonate-vitamin D3 600 mg-10 mcg (400 unit) 1 cap PO BID citalopram 15 mg (1.5 x 10 mg) PO DAILY fluoride (sodium) 1.1% (DentaGel) dental gabapentin 600 mg PO BEDTIME metronidazole 0.75% appl topical QPM multivitamin 1 tab PO DAILY naproxen sodium 440 mg (2 x 220 mg) PO BID PRN 30 days onabotulinumtoxinA (Botox) 200 units IM ONCE 12 weeks pantoprazole 40 mg PO QWEEK sumatriptan succinate 50 - 100 mg orally at onset of headache, may repeat in 2 hrs PRN; max 2 tabs per day or 4 tabs/week (may take with Aleve 440mg) 30 days tocilizumab (Actemra ACTPen) 162 mg (0.9 mL) subcut QWEEK HPI HPI Comments History of Present Illness Details Patient returns for follow-up of GCA. Last month patient was prescribed a Medrol Dosepak by Orthopedics. She stated that while on the Medrol Dosepak her chronic symptoms including her generalized pain and chronic headaches all resolved. She completely tapered her prednisone off 2-3 weeks ago. She stated that since prednisone was discontinued she has been having worsening generalized body aches including her neck, back, headaches, blurry vision, and generalized body aches. She denies any swollen joints. She states that her vision of both eyes is blurry. She has bilateral temporal headaches, worse on the left. She denies any pain with chewing or opening her mouth. She denies any claudication of the tongue or hands. Denies any fevers or weight loss. She states that she had been to Dr. Cisneros multiple times for blurry vision. Last evaluation was 2 months ago and no significant findings were found Initial history: This is a 67-year-old female with past medical history fibromyalgia, osteoarthritis & migraines who presents for evaluation of temporal arteritis. The condition started in the beginning of June of 2022 with worsening headaches associated with worsening blurry vision. She went to the ER on 06/30 labs showed high inflammatory markers, she was prescribed prednisone 60 mg daily for 5 days by the ED physician and sent to vascular surgery for temporal artery biopsy. When she took the prednisone 60 mg her headaches significantly im proved. She went for a left temporal artery biopsy on 07/15 which confirmed temporal artery biopsy diagnosis & she was restarted on prednisone 40 mg daily by her PCP. Since being on prednisone she feels much better, with headaches resolved. She states that she has had blurry vision for many months which seem to get a little worse around the time she was diagnosed with temporal arteritis and they have not improved with the prednisone. She denies any loss of vision and both eyes are equally affected. She has not had any eye pain. Reactivity is of daily have not been affected by this blurry vision. Denies history suggestive of uveitis or inflammatory bowel disease. 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 Basal cell carcinoma of nose Bunion, left foot Surgical History H/O toe surgery History of surgery History of bunionectomy H/O colonoscopy Family History Mother Heart problem COPD (chronic obstructive pulmonary disease) Hypertension Father Prostate cancer Colon cancer Diabetes Brother Diabetes Sister Hypertension Hypercholesteremia Social History Housing: House Alcohol intake: current Alcohol intake frequency: holidays/special occasions only Patient Tobacco Use Status: Never used Tobacco e-Cigarette/Vaping Use: Never Used Second Hand Smoke Exposure: No service: No Current occupational status: retired Cognitive needs: No Hearing needs: Yes Vision needs: No Review of Systems Const Reports headache(s) Eyes Reports blurry vision ENT Reports headache(s) and Reports neck pain Musc Reports no additional complaints, Reports back pain, Reports myalgias, Reports arthralgias, Reports neck pain and Reports stiffness Neuro Reports headache(s) Physical Exam Vital Signs: Last Vital Signs Temp 97.0 F 09/16/23 14:32 Pulse 81 09/16/23 14:32 BP 110/60 09/16/23 14:32 Pulse Ox 97 09/16/23 14:32 BMI result Body Mass Index 22.5 Const General: comfortable and no acute distress Nutritional Appearance: well nourished Orientation/consciousness: patient oriented x3 Limitations: no limitations HEENT Other: Bilateral palpable superficial temporal artery pulses Bilateral temporal area tenderness Bilateral TMJ joint tenderness Head: Yes normocephalic and Yes atraumatic Mouth: moist mucous membranes Eyes Other: PERRL, normal eye movement no ocular erythema Neck Other: Left upper paraspinal cervical muscle tenderness to palpation Bilateral neck stiffness and pain with neck movement in all directions Negative Spurling's test bilaterally Resp Effort & Inspection: normal respiratory effort and able to speak in complete sentences Auscultation: clear to auscultation bilaterally Cardio Rate: regular rate Rhythm: regular rhythm Heart sounds: S1 normal heart sound present and S2 normal heart sound present Peripheral pulses: radial pulses present (2+) bilateral and dorsalis pedis present (2+) bilateral GI Inspection: No distended Palpation (GI): Soft to palpation and nontender Neuro General: patient oriented x3 Extrem Other: Osteoarthritic changes of both hands Right 1st CMC joint tenderness Normal range of motion of both shoulders without pain Negative rotator cuff provocative maneuvers bilaterally Proximal muscle strength 5/5 all 4 extremities Left knee crepitus and pain with full flexion Negative straight leg raise test bilaterally Few fibromyalgia tender points Assessment & Plan Assessment & Plan (1) Temporal arteritis: Comment: Onset 06/2022 . Biopsy proven Prednisone started 07/2022 Actemra started 08/2022 Code(s): M31.6 - Other giant cell arteritis Plan: This is a 68-year-old female with biopsy-proven GCA, MRA of chest and neck showed left subclavian artery stenosis 60-70% and right subclavian artery stenosis 50%. Patient has been tapering prednisone by 1 mg per month. She completely tapered off her prednisone 2-3 weeks ago. States that since prednisone was discontinued she has been having generalized body aches, headaches, blurry vision. Upon evaluation today there are no obvious GCA flare up. Patient has diffuse body aches. There are no PMR symptoms. Her head is diffusely tender to palpation. She has palpable bilateral superficial temporal artery pulses that are equal. There is no tongue, jaw or hand claudication. There are no fevers. With regards to her blurry vision. Patient was evaluated multiple times over the last few months by Ophthalmology and no significant cause was found. Will increase prednisone to 5 mg daily for 2 weeks then 2.5 mg daily. 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 DEXA scan shows osteopenia but given long-term corticosteroid therapy her FRAX score would be at moderate risk for fracture. continue alendronate 70 mg weekly Bactrim and Protonix were stopped once prednisone was less than 15 mg daily Continue Protonix once a week with alendronate Some of the steroid side effects have resolved, including the easy bruising, buffalo hump resolved. Patient has minimal edgar facies currently (3) Cervical radiculopathy: Code(s): M54.12 - Radiculopathy, cervical region Plan: Patient continues to have neck pain that radiates to her shoulder and had. X- ray of the cervical try and showed multiple degenerative changes. Patient received steroid injections by Pain Management. Last injection was last summer. Will order a cervical spine MRI further evaluation. 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
== END 2023-09-16 15:31 | disposition home or self-care (01) ==
PROVIDERS: PCP Internal Medicine; Visit Provider Student in an Organized Health Care Education/Training Program
DX: M31.6 Other giant cell arteritis (principal); Z79.52 Long term (current) use of systemic steroids; M54.12 Radiculopathy, cervical region
CPT/HCPCS: 99214

== ENCOUNTER → 2023-09-16 14:18 | Outpatient (BNVA) | payer MEDICARE, OTHER, SELFPAY | PROVIDERS: PCP Internal Medicine; Visit Provider Student in an Organized Health Care Education/Training Program | DX: M31.6 Other giant cell arteritis (principal); M54.12 Radiculopathy, cervical region; Z79.52 Long term (current) use of systemic steroids | CPT/HCPCS: 99212 ==

== ENCOUNTER 2023-09-23 09:11 | Day surgery (SDC) | payer MEDICARE, OTHER, SELFPAY ==
[2023-09-21 07:42] VITALS: BMI 21.1
--- NOTE | 2023-09-21 14:08 | P.CONAN_ITS ---
Documented by User: Sun Lopez NP 09/21/23 14:20 HPI - Anesthesia Eval Consult details Narrative: 68yo F for Left Knee Arthroscopy with paritial medial meniscectomy,and lateral meniscectomy chronic prednisone and actemra for GCA Per 09/2023 Rheum office visit: - biopsy-proven GCA 07/2022, MRA of chest and neck showed left subclavian artery stenosis 60-70% and right subclavian artery stenosis 50%. - Upon evaluation today there are no obvious GCA flare up. Patient has diffuse body aches. There are no PMR symptoms. [facility] [place] Active Problems Active Problems: All Active Problems (Updated 09/15/23 @ 11:32 by SOLITARIO Butler) Decreased diffusion capacity (Acute) Left knee pain (Acute) Nocturnal hypoxemia (Acute) TTH (tension-type headache) (Acute) Osteoarthritis of left knee (Acute) Generalized osteoarthritis (Acute) Sleep difficulties (Acute) Excessive daytime sleepiness (Acute) Snoring (Acute) Chronic migraine without aura (Acute) Blurry vision (Acute) Fibromyalgia, primary (Acute) Headache (Acute) Adult general medical exam (Acute) Neuropathy (Acute) Menopausal state (Acute) Screening for osteoporosis (Acute) Joint pain in fingers of right hand (Acute) Temporal arteritis (Acute) Cervical radiculopathy (Acute) Acute sinusitis (Acute) Fibromyalgia (Acute) Chronic headache (Acute) Panic disorder (Acute) Giant cell arteritis (Acute) Past Medical History Medical History senior living systemic steroid user Fibromyalgia Migraines Basal cell carcinoma of nose Bunion, left foot Family History Family History Mother Heart problem COPD (chronic obstructive pulmonary disease) Hypertension Father Prostate cancer Colon cancer Diabetes Brother Diabetes Sister Hypertension Hypercholesteremia Surgical History Surgical History H/O toe surgery History of surgery History of bunionectomy H/O colonoscopy Social History Social History Housing: House Alcohol intake: current Alcohol intake frequency: holidays/special occasions only Patient Tobacco Use Status: Never used Tobacco e-Cigarette/Vaping Use: Never Used Second Hand Smoke Exposure: No Are you DNR?: No Advance Directives: No Advance Directives Information Provided: Yes Nutrition Risks: No Nutritional Risk service: No Current occupational status: retired Cognitive needs: No Hearing needs: Yes Vision needs: No Meds Allergies Allergy/AdvReac Type Severity Reaction Status Date / Time meperidine [Demerol] Allergy Intermediate Vomiting Verified 09/23/23 09:55 Penicillins [PENICILLINS] Allergy Intermediate RASH Verified 09/23/23 09:55 erythromycin base Allergy Unknown unknown Verified 09/23/23 09:55 [ERYTHROMYCIN BASE] Active Medications: Current Medications Clindamycin Phosphate (Cleocin) 900 mg in 50 mls @ 50 mls/hr IV PREOP ONE Stop: 09/23/23 05:49 Home Medications Medication Instructions Recorded Confirmed Last Taken Type fluoride (sodium) 1.1 % dental gel dental 02/15/22 09/16/23 Unknown History (DentaGel) metronidazole 0.75 % topical cream appl topical QPM 01/03/23 09/16/23 Unknown History multivitamin 1 tab PO DAILY 01/03/23 09/16/23 Unknown History calcium carbonate 600 mg-vitamin 1 cap PO BID 06/17/23 09/16/23 Unknown History D3 10 mcg (400 unit) capsule pantoprazole 40 mg tablet,delayed 40 mg PO QWEEK 06/17/23 09/16/23 Unknown History release Exam Exam Date and Time: September 21, 2023 1408 Height,Weight and Vital Signs: Height 5 ft 3 in Weight 53.977 kg Pertinent Lab Results Pertinent Lab Results: Laboratory Tests 09/15/23 12:00 WBC 4.3 L Hgb 12.6 Hct 38.7 Plt Count 167 Sodium 142 Potassium 3.8 Chloride 105 Carbon Dioxide 30 H BUN 13 Creatinine 0.79 Assessment and Plan Assessment Anesthesia Assessment: Chart Reviewed Documented by User: Zoe Larson MD 09/23/23 10:07 [facility] Past Medical History Medical History senior living systemic steroid user Fibromyalgia Migraines Basal cell carcinoma of nose Bunion, left foot Family History Family History Mother Heart problem COPD (chronic obstructive pulmonary disease) Hypertension Father Prostate cancer Colon cancer Diabetes Brother Diabetes Sister Hypertension Hypercholesteremia Family history of problems with anesthesia: No Surgical History Surgical History H/O toe surgery History of surgery History of bunionectomy H/O colonoscopy History of Problems with Anesthesia: No Social History Social History Housing: House Alcohol intake: current Alcohol intake frequency: holidays/special occasions only Patient Tobacco Use Status: Never used Tobacco e-Cigarette/Vaping Use: Never Used Second Hand Smoke Exposure: No Are you DNR?: No Advance Directives: No Advance Directives Information Provided: Yes Nutrition Risks: No Nutritional Risk service: No Current occupational status: retired Cognitive needs: No Hearing needs: Yes Vision needs: No Meds Allergies Allergy/AdvReac Type Severity Reaction Status Date / Time meperidine [Demerol] Allergy Intermediate Vomiting Verified 09/23/23 09:55 Penicillins [PENICILLINS] Allergy Intermediate RASH Verified 09/23/23 09:55 erythromycin base Allergy Unknown unknown Verified 09/23/23 09:55 [ERYTHROMYCIN BASE] Home Medications Medication Instructions Recorded Confirmed Last Taken Type fluoride (sodium) 1.1 % dental gel dental 02/15/22 09/16/23 Unknown History (DentaGel) metronidazole 0.75 % topical cream appl topical QPM 01/03/23 09/16/23 Unknown History multivitamin 1 tab PO DAILY 01/03/23 09/16/23 Unknown History calcium carbonate 600 mg-vitamin 1 cap PO BID 06/17/23 09/16/23 Unknown History D3 10 mcg (400 unit) capsule pantoprazole 40 mg tablet,delayed 40 mg PO QWEEK 06/17/23 09/16/23 Unknown History release Exam Airway Mallampati Class: II TM Dist: >3cm Neck ROM: Full Heart: rrr Lungs: cta Assessment and Plan Assessment Anesthesia Assessment: Anesthesia Plan Discussed Final Anesthetic Review Family History of Problems with Anesthesia: No History of Problems with Anesthesia: No NPO: Yes ASA Class: III Final Preanesthetic Review: No Changes in Pt Med Stat, Meds/Allgs Chart Reviewed, Consent Obtained/Reviewed and Anes Risks/Benef Reviewed Patient Risk: Intermediate Procedure Risk: Low Anesthetic Plan Anesthetic Plan: GA Disposition: Standard PACU
[2023-09-23] VITALS (8 sets, daily range): BP systolic 114–151; BP diastolic 64–89; PULSE 65–82; RESP 14–18; TEMP 36.3–36.6; O2SAT 96–100
[2023-09-23] MEDS: Lactated Ringers 1,000 ML 100 ML IVCONT (09:40)
--- NOTE | 2023-09-23 11:57 | P.BOP_ITS ---
Brief Operative Note Date of Service: 09/23/23 Pre-op diagnosis: Left knee medial meniscus tear, left knee lateral meniscus tear, left knee degenerative joint disease Post-op diagnosis: same Procedure: Left knee diagnostic arthroscopy with arthroscopic partial medial and lateral meniscectomies, chondroplasty of the undersurface of the patella as well as the medial femoral condyle, plica excision Implants: none Surgeon: Roger Trivedi MD Anesthesia: GLMA Was an Client Technical Support Associate used for this Procedure?: No Estimated blood loss (mL): 10 Pathology: none sent Condition: stable Disposition: PACU
--- NOTE | 2023-09-23 11:58 | P.OP_ITS ---
Operative Note Operative Note Date of Service: 09/23/23 Narrative: After the patient was identified as Teri Michelle and their left knee was initialed by myself they were brought to the operating room where general anesthesia was induced by the anesthesiologist in routine fashion. Because of the patient's allergy to penicillin she was given 900 mg of IV clindamycin preoperatively for infection prophylaxis. The patient's left lower extremity was prepped and draped in sterile fashion. A formal time-out was completed. Marcaine was injected into the planned incision sites as well as the patient's left knee joint. A #11 scalpel blade was used to make an anterolateral portal 1 cm proximal to the joint line and 1 cm lateral to the patellar tendon. Blunt trocar technique was used to enter the suprapatellar pouch with the knee in extension. Diagnostic arthroscopy showed multiple bands of thickened plica which would be excised at the end of the procedure. There were no loose bodies or abnormalities found in either the medial or lateral gutters. The articular surface of the patella showed diffuse grade 2 degenerative changes. The trochlear groove articular surface showed diffuse grade 1 degenerative changes. The patient's knee was flexed to 45 degrees and a valgus force was placed upon it. The medial compartment was entered. An anteromedial portal was made 1 cm proximal to the joint line and 1 cm medial to the patellar tendon. Probing of the medial meniscus showed a radial tear of the anterior horn. A partial medial meniscectomy was performed using the arthroscopic shaver. Following the partial meniscectomy the remainder of the meniscus tissue was stable. There were diffuse grade 2 degenerative changes of the medial femoral condyle as well as grade 1 degenerative changes of the medial tibial plateau. The articular surface of the medial femoral condyle was then made smooth using the arthroscopic shaver. The articular surface of the medial tibial plateau was already smooth so no chondroplasty was indicated. The patient's knee was placed into a neutral position. There was no injury to the anterior cruciate ligament. The patient's knee was then placed in the figure of 4 position and the lateral compartment was entered. There was a radial tear of the anterior horn of the lateral meniscus. A partial lateral meniscectomy was performed using the arthroscopic shaver. Following the partial meniscectomy the remainder of the meniscus tissue was stable. There were minimal degenerative changes of the lateral femoral condyle and lateral tibial plateau articular surfaces. The patient's knee was once again brought into extension and the suprapatellar pouch was entered. The arthroscopic shaver and the ArthroCare Wand were used to excise the thickened bands of plica. The undersurface of the patella was then made smooth using the arthroscopic shaver. The articular surface of the trochlear groove was already smooth so no chondroplasty was indicated. The knee joint was irrigated and then drained. All arthroscopic instruments were rem pradip. The 2 portals were closed with 3-0 nylon interrupted suture. The knee joint was injected with Marcaine. Dry sterile dressing and Chris bandages were placed over the patient's knee. The patient was awoken and extubated in the operating room. The patient was transferred to the recovery room in stable condition.
[2023-09-23] MEDS: fentaNYL citrate/PF 100 MCG/2 ML VIAL 25 MCG IVPUSH ×2 (12:01→12:06)
[2023-09-23] MEDS: Acetaminophen 1,000 MG/100 ML PIGGYBACK 400 MG IV (12:21)
== END 2023-09-23 13:30 | disposition home or self-care (01) ==
PROVIDERS: PCP Internal Medicine; Visit Provider Orthopaedic Surgery
PROC: (CPT 29870; principal; 2023-09-23 10:50)
DX: S83.242A Other tear of medial meniscus, current injury, left knee, initial encounter (principal); S83.282A Other tear of lateral meniscus, current injury, left knee, initial encounter; X58.XXXA Exposure to other specified factors, initial encounter; Y93.9 Activity, unspecified; Y92.9 Unspecified place or not applicable; Y99.9 Unspecified external cause status; M25.562 Pain in left knee; M17.12 Unilateral primary osteoarthritis, left knee; M67.52 Plica syndrome, left knee; M79.7 Fibromyalgia; G43.909 Migraine, unspecified, not intractable, without status migrainosus; Z85.828 Personal history of other malignant neoplasm of skin; Z79.52 Long term (current) use of systemic steroids; Z79.899 Other long term (current) drug therapy; Z88.0 Allergy status to penicillin; Z98.890 Other specified postprocedural states
CPT/HCPCS: 29880; J0131; J0171; J0736; J1100; J1885; J2250; J2405; J2704; J2795; J3010

== ENCOUNTER → 2023-09-23 09:11 | Outpatient (BNV) | payer MEDICARE, OTHER, SELFPAY | PROVIDERS: PCP Internal Medicine; Visit Provider Orthopaedic Surgery | DX: S83.232A Complex tear of medial meniscus, current injury, left knee, initial encounter (principal); S83.272A Complex tear of lateral meniscus, current injury, left knee, initial encounter | CPT/HCPCS: 29880 ==

== ENCOUNTER 2023-10-06 11:12 | Outpatient (AMB) | payer MEDICARE, OTHER, SELFPAY ==
--- NOTE | 2023-10-06 11:28 | A.OFFVIS_ITS ---
Intake Intake Visit Reasons: PO-Lt Knee 09/23 Intake Note: Teri a 68 year old female presents today for a post operative left knee , DOS 09/23/23 Patient reports she continues to have soreness and bruising. Allergies meperidine [Demerol] Allergy (Intermediate, Verified 10/06/23 11:29) Vomiting Penicillins [PENICILLINS] Allergy (Intermediate, Verified 10/06/23 11:29) RASH erythromycin base [ERYTHROMYCIN BASE] Allergy (Unknown, Verified 10/06/23 11:29) unknown HPI PO-Lt Knee 09/23 HPI Details 68-year-old female who returns to the [facility] today for post-op left knee , 09/23/[address] Trivedi. She continues to have soreness and bruising in her knee but is doing well otherwise. She smiley no other concerns today. [facility] Medical History (Updated 10/06/23 @ 12:08 by Giorgi Lema PA-C) Osteoarthritis of left knee intermediate frame tender systemic steroid user Fibromyalgia Migraines Basal cell carcinoma of nose Bunion, left foot Surgical History (Updated 10/06/23 @ 11:48 by Giorgi Lema PA-C) H/O toe surgery History of surgery History of bunionectomy H/O colonoscopy Family History Mother Heart problem COPD (chronic obstructive pulmonary disease) Hypertension Father Prostate cancer Colon cancer Diabetes Brother Diabetes Sister Hypertension Hypercholesteremia Social History Housing: House Alcohol intake: current Alcohol intake frequency: holidays/special occasions only Patient Tobacco Use Status: Never used Tobacco e-Cigarette/Vaping Use: Never Used Second Hand Smoke Exposure: No service: No Current occupational status: retired Cognitive needs: No Hearing needs: Yes Vision needs: No Review of Systems Const All systems reviewed & are unremarkable except as noted in HPI and below Physical Exam Extrem Other: Left knee: Incision clean, dry and intact. No erythema or drainage. She does have some diffused bruising along the lateral side of the thigh which goes into the LE calf. The Calf supple, nontender. Negative Ascencio?s. NVI. Results Reviewed Results Reviewed: Date of Service: 09/23/23 Pre-op diagnosis: Left knee medial meniscus tear, left knee lateral meniscus tear, left knee degenerative joint disease Post-op diagnosis: same Procedure: Left knee diagnostic arthroscopy with arthroscopic partial medial and lateral meniscectomies, chondroplasty of the undersurface of the patella as well as the medial femoral condyle, plica excision Implants: none Surgeon: Roger Trivedi MD Assessment & Plan Assessment & Plan (1) Osteoarthritis of left knee: Code(s): M17.12 - Unilateral primary osteoarthritis, left knee Qualifiers: Osteoarthritis type: primary Qualified Code(s): M17.12 - Unilateral primary osteoarthritis, left knee Plan Sutures removed today, steri strips applied. She was given an order for physical therapy to work on ROM, gait training and strengthening. I would like to see her back in [address] Trivedi, sooner if needed. Orders: Orders PT Evaluation and Treatment Today M17.12 - Unilateral primary osteoarthritis, left knee, Z98.890 - Other specified postprocedural states Patient Instructions: Scribed for Giorgi Lema PA-C, by Hayes Schwartz medical affairs director, on 10/06/2023 at 11:30 AM EST. I, Giorgi Lema PA-C, have personally reviewed and agree with the information entered by the scribe. Coding Level of Care Code Global (21478) Diagnoses Primary osteoarthritis of left knee M17.12 Osteoarthritis type: primary
== END 2023-10-06 12:08 | disposition home or self-care (01) ==
PROVIDERS: PCP Internal Medicine; Visit Provider Physician Assistant
DX: M17.12 Unilateral primary osteoarthritis, left knee (principal)
CPT/HCPCS: 99024

== ENCOUNTER → 2023-10-06 11:12 | Outpatient (BNVA) | payer MEDICARE, OTHER, SELFPAY | PROVIDERS: PCP Internal Medicine; Visit Provider Physician Assistant ==

== ENCOUNTER 2023-10-27 09:43 | Outpatient (AMB) | payer MEDICARE, OTHER, SELFPAY ==
--- NOTE | 2023-10-27 10:15 | MHC.OFFVIS ---
Intake Vital Signs 10/27/23 10:20 Height 5 ft 3 in BP 124/82 Blood Pressure Location Rt brachial Position Sitting Pulse 81 Pulse Source Pulse Oximeter Pulse Oximetry (%) 98 Oxygen Delivery Method Room Air Intake Visit Reasons: 4m f/u Headache - Confirmed Intake Note: Patient presents for 4 month headache. My headaches are not good at all since I saw her last. Allergies meperidine [Demerol] Allergy (Intermediate, Verified 10/27/23 10:18) Vomiting Penicillins [PENICILLINS] Allergy (Intermediate, Verified 10/27/23 10:18) RASH erythromycin base [ERYTHROMYCIN BASE] Allergy (Unknown, Verified 10/27/23 10:18) unknown Medication List - Last Reconciled 10/27/23 by SOLITARIO Fernandez acetaminophen-codeine 300-30 mg 1 tab PO Q6H PRN Actemra ACTPen (tocilizumab) 162 mg (0.9 mL) subcut QWEEK NS alendronate 70 mg PO QWEEK aspirin 81 mg PO DAILY atogepant (Qulipta) 30 mg PO DAILY 30 days jfwceegagd-wngdyzineqvzb-ykyb 50-325-40 mg 1 tab PO Q4H PRN 30 days calcium carbonate-vitamin D3 600 mg-10 mcg (400 unit) 1 cap PO BID citalopram 15 mg (1.5 x 10 mg) PO DAILY fluoride (sodium) 1.1% (DentaGel) dental gabapentin 600 mg PO BEDTIME metronidazole 0.75% appl topical QPM multivitamin 1 tab PO DAILY naproxen sodium 440 mg (2 x 220 mg) PO BID PRN 30 days onabotulinumtoxinA (Botox) 200 units IM ONCE 12 weeks pantoprazole 40 mg PO QWEEK prednisone 2.5 mg PO DAILY sumatriptan succinate 50 - 100 mg orally at onset of headache, may repeat in 2 hrs PRN; max 2 tabs per day or 4 tabs/week (may take with Aleve 440mg) 30 days HPI HPI Comments History of Present Illness Details 68-yr-old female presents for f/u visit. Pt denies any significant interval medical changes. Since the last visit, pt had an increase in headaches. She notes that in the last year and half, her headaches have been different than her previous migraines and daily headaches. In Aug, she was weaning off the prednisone at 1mg qd, then this was stopped on 09/01 and she was switched to methylprednisone by ortho x's 1 wk. Within 1 week, she had a a more severe headache x's 5 days- which helped some but still had a daily headache. So Rose resumed the Prednisone at 5mg qd on 09/17 x's 2 wks. Then on 10/02, her Prednisone was decreased to 2.5mg qd. Since being on the Prednisone 2.5mg- she is having a bit more headaches w/ increased severity. She currently describes the headaches as daily headache- left frontal and left sides, right is not as bad. Stabbing, throbbing, aching pain. A/w photophobia, phonophobia, nausea, and sometimes cloudier vision. Lately has been waking up at varying times with a more intense headache. Since 10/07/23, she has needed to take Sumatriptan 7 times. On the days she does not take Sumatriptan, she takes Aleve 440mg qd. Rarely she will take the Sumatriptan w/ the Naproxen. She is using Fioricet more sparingly- 0 in Dec, 1 Nob, 3 in Oct. She did try Baclofen x's 5 days in Sep- but had worsening headache- not sure if coincidence or not. Using her qulipta 30mg qhs- sleeps ok except for the headcahe nights. She will start Botox in Nov 2023. [facility] Medical History (Updated 10/06/23 @ 12:08 by Giorgi Lema PA-C) Osteoarthritis of left knee cco systemic steroid user Fibromyalgia Migraines Basal cell carcinoma of nose Bunion, left foot Surgical History (Updated 10/27/23 @ 10:18 by SHIRLEY Brown) H/O arthroscopic knee surgery H/O toe surgery History of surgery History of bunionectomy H/O colonoscopy Family History Mother Heart problem COPD (chronic obstructive pulmonary disease) Hypertension Father Prostate cancer Colon cancer Diabetes Brother Diabetes Sister Hypertension Hypercholesteremia Social History Housing: House Alcohol intake: current Alcohol intake frequency: holidays/special occasions only Patient Tobacco Use Status: Never used Tobacco e-Cigarette/Vaping Use: Never Used Second Hand Smoke Exposure: No service: No Current occupational status: retired Cognitive needs: No Hearing needs: Yes Vision needs: No Review of Systems Const All systems reviewed & are unremarkable except as noted in HPI and below Physical Exam Vital Signs: Last Vital Signs Pulse 81 10/27/23 10:20 BP 124/82 10/27/23 10:20 Pulse Ox 98 10/27/23 10:20 Oxygen Delivery Method Room Air 10/27/23 10:20 Const General: cooperative and no acute distress Orientation/consciousness: patient oriented x3 HEENT Head: Yes normocephalic Resp Effort & Inspection: normal respiratory effort and able to speak in complete sentences Neuro General: patient oriented x3, gait normal and CN's II-XI intact bilaterally Cognition (Neuro): normal cognition Motor exam (neuro): 5/5 motor strength present throughout Psych Appearance: grossly normal Mental Status: mental status grossly normal Speech and movement: Normal speech and movement present Affect: normal affect Attitude: cooperative Thought process: Normal thought process present Thought content: Normal thought content present Insight: Good insight present (Psych) Judgement: Good judgement present (Psych) Assessment & Plan Assessment & Plan (1) Chronic migraine without aura: Code(s): G43.709 - Chronic migraine without aura, not intractable, without status migrainosus (2) Temporal arteritis: Comment: Onset 06/2022 . Biopsy proven Prednisone started 07/2022 Actemra started 08/2022 Code(s): M31.6 - Other giant cell arteritis Plan For nocturnal hypoxeia seen on recent HST: Pt had pulmonary consult- is considering trying supplemental nocturnal O2/PAP tx. ? For acute headache treatment: Trial Nerivio neuromodulation stimulation x's 45 min qd prn- form signed Continue Sumatriptan 100mg tab- 1 tab at onset of migraine, MR in 2 hours (MDD 200mg). May take with Aleve 440mg q12 hrs prn. Continue Sumatriptan 100mg tab - 1/2 tab w/ Aleve 440mg and Benadryl 25mg 30 minutes prior to tocilizumab injection. May use Fioricet for TTH and/or Benadryl for rescue. Previous acute migraine medication trials: Sumatriptan inj- ineffective after 1 try. Acute migraine medication contraindications: None at this time. ? For chronic migraine prevention medication: Start botox 155 units IM q 3 months- as scheduled in Nov Trial Nerivio neuromodulation stimulation x's 45 min qd prn. Continue Qulipta 30mg qhs. Previous migraine prevention medication trials: Propranolol- ineffective. Amitriptyline- ineffective, not tolerated. Topiramate- ineffective. Botox x's > 6 tx was ineffective however was not gievn PREMPT protocol. Depakote- ineffective. Mag- ineffective. Riboflavin- ineffective. Nurtec stopped- lost efficacy. Migraine prevention medication contraindications: aimovig d/t pt has constipation. Future considerations: Emgality/Ajovy. For GCA: Continue Prednisone and Tocilizumab per Dr Rose. MRA neck and chest as ordered ? For cervicalgia w/ mild-mod multilevel degenerative and mild spondylosis: Baclofen 5-10mg qhs prn. ? f/u in 3 months or sooner prn. Medications: New sumatriptan succinate (0.5 mL) 6 mg subcutaneously at onset of nocturnal migraine, may repeat in 1 hr PRN; 28 days 12 mL 3RF migraine headache MDD 1 ml per day alprazolam 0.25 mg orally 1 tab 30 minutes prior to Botox, may repeat x's 1; 1 day 2 tabs 0RF Coding Level of Care Code Est Pt Level 4 (32935) Diagnoses Chronic migraine without aura G43.709 Temporal arteritis M31.6
[2023-10-27 10:20] VITALS: BP 124/82; PULSE 81; O2SAT 98
== END 2023-10-27 11:15 | disposition home or self-care (01) ==
PROVIDERS: PCP Internal Medicine; Visit Provider Nurse Practitioner Family
DX: G43.709 Chronic migraine without aura, not intractable, without status migrainosus (principal); M31.6 Other giant cell arteritis
CPT/HCPCS: 99214

== ENCOUNTER → 2023-10-27 09:43 | Outpatient (BNVA) | payer MEDICARE, OTHER, SELFPAY | PROVIDERS: PCP Internal Medicine; Visit Provider Nurse Practitioner Family | DX: G43.709 Chronic migraine without aura, not intractable, without status migrainosus (principal); M31.6 Other giant cell arteritis | CPT/HCPCS: 99212 ==

== ENCOUNTER 2023-11-01 10:54 | Outpatient (REF) | payer MEDICARE, OTHER, SELFPAY ==
[2023-11-01] MEDS: gadobutroL 10 ML VIAL IVPUSH (11:51)
== END 2023-11-01 10:55 | disposition home or self-care (01) ==
LOC: HO.MRI 10:54
PROVIDERS: PCP Internal Medicine; Visit Provider Student in an Organized Health Care Education/Training Program
DX: M31.6 Other giant cell arteritis (principal)
CPT/HCPCS: 70549; A9585

== ENCOUNTER 2023-11-03 10:04 | Outpatient (AMB) | payer MEDICARE, OTHER, SELFPAY ==
--- NOTE | 2023-11-03 10:07 | A.OFFVIS_ITS ---
Intake Vital Signs 11/03/23 10:07 Height 5 ft 3 in Intake Visit Reasons: PO-Lt Knee 09/23/23 Intake Note: Teri is a 68 year old female who presents today for a post op appointment s/p left knee 09/23/23 . The patient reports mild to moderate discomfort in her left knee. She denies any fevers or chills. Allergies meperidine [Demerol] Allergy (Intermediate, Verified 11/03/23 10:08) Vomiting Penicillins [PENICILLINS] Allergy (Intermediate, Verified 11/03/23 10:08) RASH erythromycin base [ERYTHROMYCIN BASE] Allergy (Unknown, Verified 11/03/23 10:08) unknown Medication List - Last Reconciled 11/03/23 by Roger Trivedi MD acetaminophen-codeine 300-30 mg 1 tab PO Q6H PRN Actemra ACTPen (tocilizumab) 162 mg (0.9 mL) subcut QWEEK NS alendronate 70 mg PO QWEEK alprazolam 0.25 mg orally 1 tab 30 minutes prior to Botox, may repeat x's 1; 1 day aspirin 81 mg PO DAILY atogepant (Qulipta) 30 mg PO DAILY 30 days cymdlidrgt-yogcabjsifvpn-vxyy 50-325-40 mg 1 tab PO Q4H PRN 30 days calcium carbonate-vitamin D3 600 mg-10 mcg (400 unit) 1 cap PO BID citalopram 15 mg (1.5 x 10 mg) PO DAILY fluoride (sodium) 1.1% (DentaGel) dental gabapentin 600 mg PO BEDTIME metronidazole 0.75% appl topical QPM multivitamin 1 tab PO DAILY naproxen sodium 440 mg (2 x 220 mg) PO BID PRN 30 days onabotulinumtoxinA (Botox) 200 units IM ONCE 12 weeks pantoprazole 40 mg PO QWEEK prednisone 2.5 mg PO DAILY sumatriptan succinate 50 - 100 mg orally at onset of headache, may repeat in 2 hrs PRN; max 2 tabs per day or 4 tabs/week (may take with Aleve 440mg) 30 days sumatriptan succinate 6 mg subcutaneously at onset of nocturnal migraine, may repeat in 1 hr PRN; 28 days MDD 1 ml per day [facility] 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 History 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 Fibromyalgia Migraines Basal cell carcinoma of nose Bunion, left foot Surgical History H/O arthroscopic knee surgery H/O toe surgery History of surgery History of bunionectomy H/O colonoscopy Family History Mother Heart problem COPD (chronic obstructive pulmonary disease) Hypertension Father Prostate cancer Colon cancer Diabetes Brother Diabetes Sister Hypertension Hypercholesteremia Social History Housing: House Alcohol intake: current Alcohol intake frequency: holidays/special occasions only Patient Tobacco Use Status: Never used Tobacco e-Cigarette/Vaping Use: Never Used Second Hand Smoke Exposure: No service: No Current occupational status: retired Cognitive needs: No Hearing needs: Yes Vision needs: No Physical Exam Extrem Other: Left knee examination shows that the surgical incisions are well healed, no erythema, minimal crepitus with range of motion, mild discomfort with range of motion, no instability Assessment & Plan Assessment & Plan (1) History of meniscectomy of left knee: Code(s): Z98.890 - Other specified postprocedural states Plan: Mrs. Michelle continues to do fairly well after undergoing left knee arthroscopic surgery on 09/23/2023. I discussed with the patient the fact that her symptoms should continue to improve over the next few months. Activity modifications were discussed at length with the patient. She will contact me prior to her follow-up appointment in 3 months should any questions or concerns arise. Feel free to call me at any time should questions regarding her orthopedic management arise. Coding Level of Care Code Global (07546) Diagnoses History of meniscectomy of left knee Z98.890
== END 2023-11-03 10:43 | disposition home or self-care (01) ==
PROVIDERS: PCP Internal Medicine; Visit Provider Orthopaedic Surgery
DX: Z98.890 Other specified postprocedural states (principal)
CPT/HCPCS: 99024

== ENCOUNTER → 2023-11-03 10:04 | Outpatient (BNVA) | payer MEDICARE, OTHER, SELFPAY | PROVIDERS: PCP Internal Medicine; Visit Provider Orthopaedic Surgery | DX: Z98.890 Other specified postprocedural states (principal) | CPT/HCPCS: 99212 ==

== ENCOUNTER 2023-11-09 09:20 | Outpatient (AMB) | payer MEDICARE, OTHER, SELFPAY ==
--- NOTE | 2023-11-09 09:36 | MHC.OFFVIS ---
Intake Vital Signs 11/09/23 09:37 Height 5 ft 3 in Weight 123 lb 8 oz BMI 21.9 BP 118/72 Blood Pressure Location Rt brachial Position Sitting Respiration 16 Pulse 76 Pulse Source Pulse Oximeter Pulse Oximetry (%) 99 Oxygen Delivery Method Room Air Intake Visit Reasons: Botox-Confirmed Intake Note: Pt presents tot he office for Botox injections. 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 Allergies meperidine [Demerol] Allergy (Intermediate, Verified 11/09/23 09:36) Vomiting Penicillins [PENICILLINS] Allergy (Intermediate, Verified 11/09/23 09:36) RASH erythromycin base [ERYTHROMYCIN BASE] Allergy (Unknown, Verified 11/09/23 09:36) unknown Medication List - Last Reconciled 11/09/23 by Yadi Blank MD acetaminophen-codeine 300-30 mg 1 tab PO Q6H PRN Actemra ACTPen (tocilizumab) 162 mg (0.9 mL) subcut QWEEK NS alendronate 70 mg PO QWEEK alprazolam 0.25 mg orally 1 tab 30 minutes prior to Botox, may repeat x's 1; 1 day aspirin 81 mg PO DAILY atogepant (Qulipta) 30 mg PO DAILY 30 days rgnhhqcayl-itgnxvuibphtr-yvji 50-325-40 mg 1 tab PO Q4H PRN 30 days calcium carbonate-vitamin D3 600 mg-10 mcg (400 unit) 1 cap PO BID citalopram 15 mg (1.5 x 10 mg) PO DAILY fluoride (sodium) 1.1% (DentaGel) dental gabapentin 600 mg PO BEDTIME metronidazole 0.75% appl topical QPM multivitamin 1 tab PO DAILY naproxen sodium 440 mg (2 x 220 mg) PO BID PRN 30 days onabotulinumtoxinA (Botox) 200 units IM ONCE 12 weeks pantoprazole 40 mg PO QWEEK prednisone 2.5 mg PO DAILY sumatriptan succinate 50 - 100 mg orally at onset of headache, may repeat in 2 hrs PRN; max 2 tabs per day or 4 tabs/week (may take with Aleve 440mg) 30 days sumatriptan succinate 6 mg subcutaneously at onset of nocturnal migraine, may repeat in 1 hr PRN; 28 days MDD 1 ml per day HPI HPI Comments History of Present Illness Details ? 68y/o female comes for treatment of migraines with botox. ??? Most frequent reported adverse reactions following injection of botox for chronic migraine include neck pain (9%), headache(5%), eyelid ptosis(4%), migraine(4%), muscular weakness(4%), musculuskeletal stiffness(4%), bronchitis(3%), injection site pain (3%), musculoskeletal pain(3%), myalgia(3%), facial paresis(2%), HTN(2%) and muscle spasms(2%) were discussed in detail. ??? Botulinum toxin typeA 200units Lot no [id number] expiration February 2026 was diluted with 4 cc of normal saline . ??? Muscles injected- ??? Frontalis 4 sites ??? Procerus 1 site ??? Ship Unloader- 2 sites ??? Temporalis- 8 sites ??? Occipitalis- 6 sites ??? Cervical paraspinals- 4 sites ??? Trapezius- 6 sites- 10 units each ??? 5 units each in 31 site ??? Total use- 185units ??? 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 Fibromyalgia Migraines Basal cell carcinoma of nose Bunion, left foot Surgical History H/O arthroscopic knee surgery H/O toe surgery History of surgery History of bunionectomy H/O colonoscopy Family History Mother Heart problem COPD (chronic obstructive pulmonary disease) Hypertension Father Prostate cancer Colon cancer Diabetes Brother Diabetes Sister Hypertension Hypercholesteremia Social History Housing: House Alcohol intake: current Alcohol intake frequency: holidays/special occasions only Patient Tobacco Use Status: Never used Tobacco e-Cigarette/Vaping Use: Never Used Second Hand Smoke Exposure: No service: No Current occupational status: retired Cognitive needs: No Hearing needs: Yes Vision needs: No Physical Exam Vital Signs: Last Vital Signs Pulse 76 11/09/23 09:37 Resp 16 01/03/24 09:37 BP 118/72 11/09/23 09:37 Pulse Ox 99 11/09/23 09:37 Oxygen Delivery Method Room Air 11/09/23 09:37 BMI result Body Mass Index 21.9 Const General: cooperative and no acute distress Orientation/consciousness: patient oriented x3 HEENT Head: Yes normocephalic Resp Effort & Inspection: normal respiratory effort and able to speak in complete sentences Neuro General: patient oriented x3, gait normal and CN's II-XI intact bilaterally Cognition (Neuro): normal cognition Motor exam (neuro): 5/5 motor strength present throughout Psych Appearance: grossly normal Mental Status: mental status grossly normal Speech and movement: Normal speech and movement present Affect: normal affect Attitude: cooperative Thought process: Normal thought process present Thought content: Normal thought content present Insight: Good insight present (Psych) Judgement: Good judgement present (Psych) Office Procedures Botulinum toxin Injection 17001 - Migraine Procedure code (CPT) selection complete Office Meds onabotulinumtoxinA 200 unit solution for injection Performing Provider: Yadi Blank MD Performing Location: [facility] Administered by: Yadi Blank MD on 11/09/23 10:07 Dose Route Admin Location Dispensed Lot Number Expiration Date [facility] General Assignment Reporter 185 unit IM 200 units [id number] 02/05/26 5081-6666-18 ALLERGAN/BOTOX Comments: see hpi Assessment & Plan Assessment & Plan (1) Chronic migraine without aura: Code(s): G43.709 - Chronic migraine without aura, not intractable, without status migrainosus (2) Temporal arteritis: Comment: Onset 06/2022 . Biopsy proven Prednisone started 07/2022 Actemra started 08/2022 Code(s): M31.6 - Other giant cell arteritis Plan Patient tolerated the procedure well she will call with any side effects Orders: Orders AMB Botulinum toxin Injection Today G43.709 - Chronic migraine without aura, not intractable, without status migrainosus Coding Level of Care Code Est Pt Level 1 (43240) Diagnoses Chronic migraine without aura G43.709 Temporal arteritis M31.6 CPT Codes Botox Injection - Botox 3: 69760 - Migraine ([id number])
[2023-11-09 09:37] VITALS: BP 118/72; PULSE 76; RESP 16; O2SAT 99; BMI 21.9
== END 2023-11-09 10:03 | disposition home or self-care (01) ==
PROVIDERS: PCP Internal Medicine; Visit Provider Psychiatry & Neurology Neurology
DX: G43.709 Chronic migraine without aura, not intractable, without status migrainosus (principal)
CPT/HCPCS: 64615

== ENCOUNTER → 2023-11-09 09:20 | Outpatient (BNVA) | payer MEDICARE, OTHER, SELFPAY | PROVIDERS: PCP Internal Medicine; Visit Provider Psychiatry & Neurology Neurology | DX: G43.709 Chronic migraine without aura, not intractable, without status migrainosus (principal); M31.6 Other giant cell arteritis | CPT/HCPCS: 64615; 99211; J0585 ==

== ENCOUNTER 2023-11-11 08:01 | Outpatient (REF) | payer MEDICARE, OTHER, SELFPAY ==
--- NOTE | ~2023-11-11 | MR_ITS ---
STUDY PERFORMED: MRA of the chest HISTORY: Giant cell arteritis, follow-up DESCRIPTION: Routine chest MRA protocol without and with contrast was performed. 20 mL's of Gadavist was administered. The images were reviewed and postprocessed on a dedicated 3-D workstation. COMPARISON: MRA chest from 08/11/2022 FINDINGS: VASCULAR: THORACIC AORTA: Thoracic aorta is normal in caliber and patent. No evidence of aneurysm, vessel wall irregularity or wall thickening. There is a moderate length segment of narrowing and vessel wall irregularity within the mid left subclavian artery distal to the takeoff of the left vertebral artery with stenosis measuring approximately 60-70% which is stable. There is minimal stenosis within the proximal right subclavian artery distal to the takeoff of the right vertebral artery. The right brachiocephalic artery, visualized bilateral common carotid arteries and visualized vertebral arteries are patent. ABDOMINAL AORTA: Visualized proximal abdominal aorta is normal in caliber. CENTRAL THORACIC VENOUS SYSTEM: Patent NONVASCULAR: Heart is normal in size. Pericardium is normal. No pleural effusions MR/MR angio chest wo/w con IMPRESSION: Stable left subclavian artery stenosis as described
== END 2023-11-11 08:02 | disposition home or self-care (01) ==
LOC: HO.MRI 08:01
PROVIDERS: PCP Internal Medicine; Visit Provider Student in an Organized Health Care Education/Training Program
DX: M31.6 Other giant cell arteritis (principal)
CPT/HCPCS: 71555; A9585

== ENCOUNTER 2023-11-17 08:10 | Outpatient (AMB) | payer MEDICARE, OTHER, SELFPAY ==
--- NOTE | 2023-11-17 08:14 | A.OFFVIS_ITS ---
Intake Vital Signs 11/17/23 08:15 Height 5 ft 3 in Weight 122 lb 9.232 oz BMI 21.7 BP 108/64 Blood Pressure Location Rt brachial Position Sitting Pulse 76 Pulse Source Pulse Oximeter Pulse Oximetry (%) 98 Oxygen Delivery Method Room Air Intake Visit Reasons: GCA Intake Note: Pt last seen 09/16/23, presents today for follow up and test results. 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 Accompanied by: Spouse Allergies meperidine [Demerol] Allergy (Intermediate, Verified 11/17/23 08:18) Vomiting Penicillins [PENICILLINS] Allergy (Intermediate, Verified 11/17/23 08:18) RASH erythromycin base [ERYTHROMYCIN BASE] Allergy (Unknown, Verified 11/17/23 08:18) unknown Medication List - Last Reconciled 11/17/23 by Arvind Rose MD acetaminophen-codeine 300-30 mg 1 tab PO Q6H PRN Actemra ACTPen (tocilizumab) 162 mg (0.9 mL) subcut QWEEK NS alendronate 70 mg PO QWEEK alprazolam 0.25 mg orally 1 tab 30 minutes prior to Botox, may repeat x's 1; 1 day aspirin 81 mg PO DAILY atogepant (Qulipta) 30 mg PO DAILY 30 days qyleoxudht-qkdhqzfbkzsrb-wdbq 50-325-40 mg 1 tab PO Q4H PRN 30 days calcium carbonate-vitamin D3 600 mg-10 mcg (400 unit) 1 cap PO BID citalopram 15 mg (1.5 x 10 mg) PO DAILY fluoride (sodium) 1.1% (DentaGel) dental gabapentin 600 mg PO BEDTIME metronidazole 0.75% appl topical QPM multivitamin 1 tab PO DAILY naproxen sodium 440 mg (2 x 220 mg) PO BID PRN 30 days onabotulinumtoxinA (Botox) 200 units IM ONCE 12 weeks pantoprazole 40 mg PO QWEEK prednisone 2.5 mg PO DAILY sumatriptan succinate 50 - 100 mg orally at onset of headache, may repeat in 2 hrs PRN; max 2 tabs per day or 4 tabs/week (may take with Aleve 440mg) 30 days sumatriptan succinate 6 mg subcutaneously at onset of nocturnal migraine, may repeat in 1 hr PRN; 28 days MDD 1 ml per day HPI HPI Comments History of Present Illness Details 68-year-old female with GCA returns for follow-up. Remains on Actemra weekly, prednisone 2.5 mg daily, aspirin, alendronate. She states that restarting the prednisone did not make any difference with her headaches. She recently got Botox injections for her headaches and she does not believe it is helping. She had arthroscopic surgery for her left knee 2 months ago and is getting physical therapy. She remains frustrated with her headaches. She continues to have neck pain and stiffness. Gets intermittent pain at the base of her right thumb. Initial history: This is a 67-year-old female with past medical history fibromyalgia, osteoarthritis & migraines who presents for evaluation of temporal arteritis. The condition started in the beginning of June of 2022 with worsening heada ches associated with worsening blurry vision. She went to the ER on 06/30 labs showed high inflammatory markers, she was prescribed prednisone 60 mg daily for 5 days by the ED physician and sent to vascular surgery for temporal artery biopsy. When she took the prednisone 60 mg her headaches significantly improved. She went for a left temporal artery biopsy on 07/15 which confirmed temporal artery biopsy diagnosis & she was restarted on prednisone 40 mg daily by her PCP. Since being on prednisone she feels much better, with headaches resolved. She states that she has had blurry vision for many months which seem to get a little worse around the time she was diagnosed with temporal arteritis and they have not improved with the prednisone. She denies any loss of vision and both eyes are equally affected. She has not had any eye pain. Reactivity is of daily have not been affected by this blurry vision. Denies history suggestive of uveitis or inflammatory bowel disease. 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 Fibromyalgia Migraines Basal cell carcinoma of nose Bunion, left foot Surgical History H/O arthroscopic knee surgery H/O toe surgery History of surgery History of bunionectomy H/O colonoscopy Family History Mother Heart problem COPD (chronic obstructive pulmonary disease) Hypertension Father Prostate cancer Colon cancer Diabetes Brother Diabetes Sister Hypertension Hypercholesteremia Social History Housing: House Alcohol intake: current Alcohol intake frequency: holidays/special occasions only Patient Tobacco Use Status: Never used Tobacco e-Cigarette/Vaping Use: Never Used Second Hand Smoke Exposure: No service: No Current occupational status: retired Cognitive needs: No Hearing needs: Yes Vision needs: No Review of Systems Const Reports headache(s) ENT Reports headache(s) and Reports neck pain Musc Reports no additional complaints, Reports back pain and Reports neck pain Neuro Reports headache(s) Physical Exam Vital Signs: Last Vital Signs Pulse 76 11/17/23 08:15 BP 108/64 11/17/23 08:15 Pulse Ox 98 11/17/23 08:15 Oxygen Delivery Method Room Air 11/17/23 08:15 BMI result Body Mass Index 21.7 Const General: cooperative, comfortable and no acute distress Nutritional Appearance: well nourished Orientation/consciousness: patient oriented x3 Limitations: no limitations HEENT Other: Bilateral palpable superficial temporal artery pulses Bilateral temporal area tenderness, maxillary sinus, frontal sinus tenderness Head: Yes normocephalic and Yes atraumatic Mouth: moist mucous membranes Eyes Other: PERRL, normal eye movement no ocular erythema Neck Other: Left upper paraspinal cervical muscle tenderness to palpation Bilateral neck stiffness and pain with neck movement in all directions Negative Spurling's test bilaterally Resp Effort & Inspection: normal respiratory effort and able to speak in complete sentences Auscultation: clear to auscultation bilaterally Cardio Rate: regular rate Rhythm: regular rhythm Heart sounds: S1 normal heart sound present and S2 normal heart sound present Peripheral pulses: radial pulses present (2+) bilateral and dorsalis pedis present (2+) bilateral GI Inspection: No distended Palpation (GI): Soft to palpation and nontender Skin General skin exam: no rashes or lesions noted Neuro Other: Sensation grossly normal upper and lower extremities Negative Tinel sign bilaterally Negative Spurling's test bilaterally General: patient oriented x3 Gait exam (Neuro): Normal gait present Motor exam (neuro): 5/5 motor strength present throughout and no tremor noted Deep tendon reflexes (DTR's): Right triceps reflex intensity grade: 2+, Rt Biceps (C5, C6): 2+, Right brachioradialis reflex intensity grade: 2+, Left brachioradialis reflex intensity grade: 2+, Right patellar reflex intensity grade: 2+ and Left patellar reflex intensity grade: 2+ Extrem Other: Osteoarthritic changes of both hands Right 1st CMC joint tenderness Normal range of motion of both shoulders without pain Negative rotator cuff provocative maneuvers bilaterally Negative straight leg raise test bilaterally Few fibromyalgia tender points Results Reviewed Results Reviewed: COMPARISON: MRA chest from 08/11/2022 FINDINGS: VASCULAR: THORACIC AORTA: Thoracic aorta is normal in caliber and patent. No evidence of aneurysm, vessel wall irregularity or wall thickening. There is a moderate length segment of narrowing and vessel wall irregularity within the mid left subclavian artery distal to the takeoff of the left vertebral artery with stenosis measuring approximately 60-70% which is stable. There is minimal stenosis within the proximal right subclavian artery distal to the takeoff of the right vertebral artery. The right brachiocephalic artery, visualized bilateral common carotid arteries and visualized vertebral arteries are patent. ABDOMINAL AORTA: Visualized proximal abdominal aorta is normal in caliber. CENTRAL THORACIC VENOUS SYSTEM: Patent NONVASCULAR: Heart is normal in size. Pericardium is normal. No pleural effusions MR/MR angio chest wo/w con IMPRESSION: Stable left subclavian artery stenosis as described MR ANGIOGRAPHY NECK WITHOUT AND WITH CONTRAST CLINICAL INFORMATION: Giant cell arteritis. COMPARISON: MRA neck 08/13/2022. TECHNIQUE:? Noncontrast and gadolinium infusion MRA of the neck are obtained, the latter following the administration of 10 mL of Gadavist intravenous contrast without complication. Source images were reviewed and additional volumetric and angled MIPs were independently generated and archived by the [facility].? Stenoses are assessed in accordance with NASCET criteria unless otherwise indicated.?? FINDINGS: There is a 3 great vessel branch configuration off of the aortic arch. The great vessel origins are widely patent. Cervical vertebral arteries are codominant and widely patent throughout their cervical course. Common carotid arteries, carotid bifurcations, and cervical internal carotid arteries are widely patent. Retropharyngeal course of the proximal right cervical ICA. MR/MR angio neck wo/w con IMPRESSION: Unremarkable MRA of the neck. This study is not diagnostic for assessing the superficial temporal arteries and their distal branches. Assessment & Plan Assessment & Plan (1) Temporal arteritis: Comment: Onset 06/2022 . Biopsy proven Prednisone started 07/2022 Actemra started 08/2022 effective Code(s): M31.6 - Other giant cell arteritis Plan: This is a 68-year-old female with biopsy-proven GCA, MRA of chest and neck showed left subclavian artery stenosis 60-70% and right subclavian artery stenosis 50%. Upon evaluation her GCA is in remission. Recent neck and chest MRA showed stable bilateral subclavian artery stenosis. She does not have any claudication symptoms. She continues to have headaches however. Last visit it was suspected that it occurred after prednisone was discontinued. Her headaches persisted despite restarting prednisone. 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 continue alendronate 70 mg weekly Bactrim and Protonix were stopped once prednisone was less than 15 mg daily Continue Protonix once a week with alendronate Some of the steroid side effects have resolved, including the easy bruising, edgar facies, buffalo hump resolved. (3) Cervical radiculopathy: Code(s): M54.12 - Radiculopathy, cervical region Plan: Patient continues to have neck pain that radiates to her shoulder and hand. X- ray of the cervical spine and showed multiple degenerative changes. Patient received steroid injections by Pain Management. Last injection was last summer. Cervical spine MRI ordered last visit was denied. Will order physical therapy for her cervical spine. Re-evaluate patient, if symptoms are persistent, will reorder cervical spine MRI Plan I spent 46 minutes reviewing patient's chart, evaluating patient, ordering diagnostic workup, counseling patient and documenting in the chart Orders: Orders Complete Blood Count Auto Diff 3 Months M31.6 - Other giant cell arteritis Comprehensive Met. Panel 3 Months M31.6 - Other giant cell arteritis C Reactive Protein 3 Months M31.6 - Other giant cell arteritis Erythrocyte Sedimentation Rate 3 Months M31.6 - Other giant cell arteritis T Spot TB 3 Months Z11.7 - Encounter for testing for latent tuberculosis infection PT Evaluation and Treatment Today M54.12 - Radiculopathy, cervical region Hepatitis A,B,C Profile 3 Months Z11.59 - Encounter for screening for other vi ral diseases Coding Level of Care Code Est Pt Level 5 (65286) Diagnoses Temporal arteritis M31.6 long-term systemic steroid user Z79.52 Cervical radiculopathy M54.12
[2023-11-17 08:15] VITALS: BP 108/64; PULSE 76; O2SAT 98; BMI 21.7
== END 2023-11-17 08:46 | disposition home or self-care (01) ==
PROVIDERS: PCP Internal Medicine; Visit Provider Student in an Organized Health Care Education/Training Program
DX: M31.6 Other giant cell arteritis (principal); Z79.52 Long term (current) use of systemic steroids; M54.12 Radiculopathy, cervical region
CPT/HCPCS: 99215

== ENCOUNTER → 2023-11-17 08:10 | Outpatient (BNVA) | payer MEDICARE, OTHER, SELFPAY | PROVIDERS: PCP Internal Medicine; Visit Provider Student in an Organized Health Care Education/Training Program | DX: M31.6 Other giant cell arteritis (principal); M54.12 Radiculopathy, cervical region; Z79.52 Long term (current) use of systemic steroids | CPT/HCPCS: 99212 ==

== ENCOUNTER 2023-12-30 11:00 | Outpatient (RCR) | payer MEDICARE, OTHER, SELFPAY ==
--- NOTE | 2023-10-24 12:33 | MHC.PT.EP ---
[facility] [place] [facility] [place] [facility] [address] Edwin Fischer [address] [phone] F: [phone] F: [phone] F: [phone] F: [phone] Physical Therapy Plan of Care Date of Evaluation: 10/24/23 Date of Surgery: 09/23/23 Diagnosis: UNILAT OA Lt KNEE-> 09/23/23 Left knee diagnostic arthroscopy with arthroscopic partial medial and lateral meniscectomies, chondroplasty of the undersurface of the patella as well as the medial femoral condyle, plica excision -> ROM, QUAD STRENGTH, GAIT TRAINING Assessment: 68 YO FEMALE REF TO PT S/P ARTHROSCOPIC LEFT MED AND LAT PARTIAL MENISCECTOMIES ON 09/23/23. SHE PRESENTS W/O ANY ASST DEVICES- SHE IS RETIRED. THE Pt NOTES SHE HAS A THROBBING PAIN, SHARP AT TIMES IN HER Lt LATERAL KNEE. THE Pt HAS POST-OP FINDINGS OF ALTERED GAIT/ ADLs, LIMITED Lt KNEE AROM, RESIDUAL SWELLING IN Lt KNEE, DECR HIP FLEXIBILITY, (+) STRENGTH DEFICITS LEFT LE, AND PAIN IN LEFT LATERAL > MEDIAL PATELLA AND KNEE. THE Pt IS MOTIVATED FOR PT, DEV HEP, EASING PAIN AND EDEMA, AND MAXIMIZING FUNCTIONAL INDEPENDENCE. Frequency and Duration: The patient will be seen 2 x WK x 5 WKS Short Term Goals: *Pt'S LEFT KNEE PAIN DECR TO 2-3/10 *INCR FLEXIB IN PSOAS/HIP IR/ CALF MM TO IMPROVE EFFICIENCY OF GAIT ON LEVEL AND STAIRS *REDUCE LEFT LATERAL PATELLAR IRRIT INCR ACTIV OF QUADS/ GLUTES Halfway Goals: *Pt INDEP W PROGRESSIVE HEP AND SELF-SX MGMT TECHN Pt RESUME REG ADLs / GYM WORKOUTS/ FITNESS WALKING , EVIDENT W IMPROVED LEFI SCORE BY 8-10 POINTS (AT EVAL 42/80 ) Pt INCR LE STRENGTH BY 1 GRADE *IMPROVE Lt LE PROPRIOCEPTION/ LUMBOPELVIC STABILITY LEFT SLS x 15 SEC Treatment Plan: Modalities to reduce pain, spasms and effusion. Manual therapy to restore motion and function. Therapeutic exercise to improve strength and flexibility. Neuromuscular re-education for posture and balance. Therapeutic activities to return to functional activities of daily living. Electronically signed by: ERICKA GAMBOA PT Please sign and return to therapist. Thank you for your referral.
--- NOTE | 2023-12-30 12:13 | MHC.PT.DC ---
[facility] [place] Office [place] Office [place] Office [address] Edwin Fischer [address] [phone] F: [phone] F: [phone] F: [phone] F: [phone] Physical Therapy Discharge Report Diagnosis: UNILAT OA Lt KNEE-> 09/23/23 Left knee diagnostic arthroscopy with arthroscopic partial medial and lateral meniscectomies, chondroplasty of the undersurface of the patella as well as the medial femoral condyle, plica excision -> ROM, QUAD STRENGTH, GAIT TRAINING Date of Surgery: 09/23/23 Date of Evaluation: 10/24/23 Date of Discharge: 12/30/23 Treatments to Date: 14 Cancellations to Date: 3 No Shows to Date: 0 Discharge Status: Achieved Goals Improved Function Independent with HEP Discharge Summary: THE Pt IS DISCHARGED THIS DATE SHE HAS PROGRESSED NICELY W PT IN HER POST OP COURSE AND HAS MET HER PT GOALS AT THIS TIME. SHE DISPLAYS MORE EFFICIENT GAIT ON LEVEL AND RECIPROCAL STAIR TECHN, AND FUNCTIONAL SQUAT MECHANICS FOR ADL SIMUL; SHE HAS RESUMED HER FITNESS WALKING AND HAS WFL AROM AND STRENGTH IN Lt LE. THE Pt HAS MINIMAL RESIDUAL SORENESS IN HER Lt LAT KNEE, EASED W ITB STRETCHES. SHE HAS RETURNED TO THE GYM W/O EXACERBATION OF SXS . HER LEFI HAS IMPROVED FROM 49/80 AT EVAL TO 63/80 AT DISCHARGE. Electronically signed by: ERICKA GAMBOA, PT Please sign and return to therapist. Thank you for your referral.
== END 2023-12-30 12:13 | disposition home or self-care (01) ==
LOC: HO.PT 11:00
PROVIDERS: PCP Internal Medicine; Visit Provider Physician Assistant
DX: M17.12 Unilateral primary osteoarthritis, left knee (principal); Z98.890 Other specified postprocedural states
CPT/HCPCS: 97110; 97140; 97162

== ENCOUNTER 2024-01-04 10:18 | Outpatient (AMB) | payer MEDICARE, OTHER, SELFPAY ==
[2024-01-04 10:19] VITALS: BMI 21.6
--- NOTE | 2024-01-04 10:19 | MHC.OFFVIS ---
Intake Vital Signs 01/04/24 10:19 Height 5 ft 3 in Weight 122 lb BMI 21.6 Intake Visit Reasons: PO-Lt Knee 09/23/23 Intake Note: Teri is a 68 year old female who presents today for a post op appointment s/p left knee 09/23/23 . Patient reports she is still having some pain and discomfort in the knee. She is done with physical therapy and states is helped a little. She does not take any medicines for discomfort. She continues to walk for exercise. She has not yet returned to skiing. Allergies meperidine [Demerol] Allergy (Intermediate, Verified 01/04/24 10:22) Vomiting Penicillins [PENICILLINS] Allergy (Intermediate, Verified 01/04/24 10:22) RASH erythromycin base [ERYTHROMYCIN BASE] Allergy (Unknown, Verified 01/04/24 10:22) unknown Medication List - Last Reconciled 01/04/24 by Roger Trivedi MD acetaminophen-codeine 300-30 mg 1 tab PO Q6H PRN Actemra ACTPen (tocilizumab) 162 mg (0.9 mL) subcut QWEEK NS alendronate 70 mg PO QWEEK alprazolam 0.25 mg orally 1 tab 30 minutes prior to Botox, may repeat x's 1; 1 day aspirin 81 mg PO DAILY atogepant (Qulipta) 30 mg PO DAILY 30 days umbnhykvbc-urwoxvmoharop-dnbl 50-325-40 mg 1 tab PO Q4H PRN 30 days calcium carbonate-vitamin D3 600 mg-10 mcg (400 unit) 1 cap PO BID citalopram 15 mg (1.5 x 10 mg) PO DAILY fluoride (sodium) 1.1% (DentaGel) dental gabapentin 600 mg PO BEDTIME metronidazole 0.75% appl topical QPM multivitamin 1 tab PO DAILY naproxen sodium 440 mg (2 x 220 mg) PO BID PRN 30 days onabotulinumtoxinA (Botox) 200 units IM ONCE 12 weeks pantoprazole 40 mg PO QWEEK prednisone 2.5 mg PO DAILY sumatriptan succinate 50 - 100 mg orally at onset of headache, may repeat in 2 hrs PRN; max 2 tabs per day or 4 tabs/week (may take with Aleve 440mg) 30 days sumatriptan succinate 6 mg subcutaneously at onset of nocturnal migraine, may repeat in 1 hr PRN; 28 days MDD 1 ml per day PFSH Medical History 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 Fibromyalgia Migraines Basal cell carcinoma of nose Bunion, left foot Surgical History H/O arthroscopic knee surgery H/O toe surgery History of surgery History of bunionectomy H/O colonoscopy Family History Mother Heart problem COPD (chronic obstructive pulmonary disease) Hypertension Father Prostate cancer Colon cancer Diabetes Brother Diabetes Sister Hypertension Hypercholesteremia Social History Housing: House Alcohol intake: current Alcohol intake frequency: holidays/special occasions only Patient Tobacco Use Status: Never used Tobacco e-Cigarette/Vaping Use: Never Used Second Hand Smoke Exposure: No service: No Current occupational status: retired Cognitive needs: No Hearing needs: Yes Vision needs: No Physical Exam Vital Signs: BMI result Body Mass Index 21.6 Const Other: Well-nourished well-developed very friendly female awake alert and oriented x3 in no acute distress Extrem Other: Bilateral lower extremity examination shows good capillary refill, no skin lesions noted, normal sensation light touch Left knee examination shows that the surgical incisions are well healed, no erythema, minimal crepitus with range of motion, minimal discomfort with range of motionno instability Assessment & Plan Assessment & Plan (1) Osteoarthritis of left knee: Code(s): M17.12 - Unilateral primary osteoarthritis, left knee Qualifiers: Osteoarthritis type: primary Qualified Code(s): M17.12 - Unilateral primary osteoarthritis, left knee Plan Ms. Michelle continues to do fairly well after undergoing left knee arthroscopic surgery on 09/23/2023. She does have residual discomfort due to degenerative joint disease. I had a lengthy discussion with the patient regarding the treatment options. We will hold off on a cortisone injection at this time. Activity modifications were discussed at length with the patient. She will contact me prior to her follow-up appointment in 3 months should any questions or concerns arise. If she does have continued discomfort at that time we will further discuss the risks and benefits of a cortisone injection versus possible viscosupplementation injection. Feel free to call me at any time should questions regarding her orthopedic management arise. I spent 22 minutes in reviewing the patient's records and imaging studies, seeing the patient and documenting in the medical record. Coding Level of Care Code Est Pt Level 2 (83816) Diagnoses Primary osteoarthritis of left knee M17.12 Osteoarthritis type: primary
== END 2024-01-04 10:41 | disposition home or self-care (01) ==
PROVIDERS: PCP Internal Medicine; Visit Provider Orthopaedic Surgery
DX: M17.12 Unilateral primary osteoarthritis, left knee (principal)
CPT/HCPCS: 99213

== ENCOUNTER → 2024-01-04 10:18 | Outpatient (BNVA) | payer MEDICARE, OTHER, SELFPAY | PROVIDERS: PCP Internal Medicine; Visit Provider Orthopaedic Surgery | DX: M17.12 Unilateral primary osteoarthritis, left knee (principal) | CPT/HCPCS: 99212 ==

== ENCOUNTER 2024-02-03 09:20 | Outpatient (AMB) | payer MEDICARE, OTHER, SELFPAY ==
[2024-02-03 09:27] VITALS: BP 124/70; PULSE 85; O2SAT 97; BMI 22.0
--- NOTE | 2024-02-03 09:27 | MHC.OFFVIS ---
Intake Vital Signs 02/03/24 09:27 Height 5 ft 3 in Weight 124 lb BMI 22.0 BP 124/70 Blood Pressure Location Rt brachial Position Sitting Pulse 85 Pulse Source Pulse Oximeter Pulse Oximetry (%) 97 Oxygen Delivery Method Room Air Intake Visit Reasons: 3 mo f/u - Headaches-Conf Intake Note: Patient presents for 3 month follow up headaches. Allergies meperidine [Demerol] Allergy (Intermediate, Verified 02/03/24 09:32) Vomiting Penicillins [PENICILLINS] Allergy (Intermediate, Verified 02/03/24 09:32) RASH erythromycin base [ERYTHROMYCIN BASE] Allergy (Unknown, Verified 02/03/24 09:32) unknown Medication List - Last Reconciled 02/03/24 by Jayshree Crowley, HEDDLER TIER acetaminophen-codeine 300-30 mg 1 tab PO Q6H PRN Actemra ACTPen (tocilizumab) 162 mg (0.9 mL) subcut QWEEK NS alendronate 70 mg PO QWEEK alprazolam 0.25 mg orally 1 tab 30 minutes prior to Botox, may repeat x's 1; 1 day aspirin 81 mg PO DAILY atogepant (Qulipta) 30 mg PO DAILY 30 days jgsheiiyax-ganlughzlqiyr-gvuv 50-325-40 mg 1 tab PO Q4H PRN 30 days calcium carbonate-vitamin D3 600 mg-10 mcg (400 unit) 1 cap PO BID citalopram 15 mg (1.5 x 10 mg) PO DAILY fluoride (sodium) 1.1% (DentaGel) dental gabapentin 600 mg PO BEDTIME metronidazole 0.75% appl topical QPM multivitamin 1 tab PO DAILY naproxen sodium 440 mg (2 x 220 mg) PO BID PRN 30 days onabotulinumtoxinA (Botox) 200 units IM ONCE 12 weeks pantoprazole 40 mg PO QWEEK sumatriptan succinate 50 - 100 mg orally at onset of headache, may repeat in 2 hrs PRN; max 2 tabs per day or 4 tabs/week (may take with Aleve 440mg) 30 days sumatriptan succinate 6 mg subcutaneously at onset of nocturnal migraine, may repeat in 1 hr PRN; 28 days MDD 1 ml per day HPI HPI Comments History of Present Illness Details 68-yr-old female presents for f/u visit. Pt denies any significant interval medical changes. Pt has started Botox tx in Nov. She tolerated her 1st injection cycle well. She has noticed just minimal positive effect at this point, but realizes it may take 2-3 full injection cycles to see full effect. She has started Nerivio 45 min stimulation qod- stated approx 4 wks ago- she is using Nerivio pt education videos along w/ use. She is not sure yet if this is helping, but realizes that it make take 8 weeks for full effect. She is still taking Qulipta 30mg qd. She is using her triptan 10-14 days per month, last night tried the Sumatriptan inj. Using Aleve or Tylenol less often. She is still having neck pain, can be shooting pain. Denies BUE numbness/weakness. Currently doing PT for this. Tried the Baclofen- thought that it was worsening the headaches, but stopping it did not change anything. How many migraine days prior to botox: Daily How long do the migraines last: Constant Intensity of migraine: Severe ER visits related to migraine: None Effectiveness of botox from last two treatment(s): Pt has had 1 botox tx cycle- minimal positive effect How many migraine days since receiving treatment: Daily Change? in intensity of migraine? Mod-severe Change in frequency of migraine? None Change in use of acute medication for migraine? None Change in quality of life? Not noticeable yet ER visits related to migraine? None Explanation for any gaps in treatment: n/a Have at least three months elapsed since last treatment: Initial Botox injection on 11/09/23 Baseline headache characteristics: left frontal and left sides, right is not as bad. Stabbing, throbbing, aching pain. A/w photophobia, phonophobia, nausea, and sometimes cloudier vision. 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 Fibromyalgia Migraines Basal cell carcinoma of nose Bunion, left foot Surgical History H/O arthroscopic knee surgery H/O toe surgery History of surgery History of bunionectomy H/O colonoscopy Family History Mother Heart problem COPD (chronic obstructive pulmonary disease) Hypertension Father Prostate cancer Colon cancer Diabetes Brother Diabetes Sister Hypertension Hypercholesteremia Social History Housing: House Alcohol intake: current Alcohol intake frequency: holidays/special occasions only Patient Tobacco Use Status: Never used Tobacco e-Cigarette/Vaping Use: Never Used Second Hand Smoke Exposure: No service: No Current occupational status: retired Cognitive needs: No Hearing needs: Yes Vision needs: No Physical Exam Vital Signs: Last Vital Signs Pulse 85 02/03/24 09:27 BP 124/70 02/03/24 09:27 Pulse Ox 97 02/03/24 09:27 Oxygen Delivery Method Room Air 02/03/24 09:27 BMI result Body Mass Index 22.0 Const General: cooperative and no acute distress Orientation/consciousness: patient oriented x3 Resp Effort & Inspection: normal respiratory effort and able to speak in complete sentences Neuro General: patient oriented x3 Cranial nerves: Yes CN's II-XII intact bilaterally Cognition (Neuro): normal cognition Psych Appearance: grossly normal Mental Status: mental status grossly normal Speech and movement: Normal speech and movement present Affect: normal affect Attitude: cooperative Assessment & Plan Assessment & Plan (1) Chronic migraine without aura: Code(s): G43.709 - Chronic migraine without aura, not intractable, without status migrainosus (2) Cervical radiculopathy: Code(s): M54.12 - Radiculopathy, cervical region Plan For nocturnal hypoxemia seen on recent HST: Pt had pulmonary consult- is considering trying supplemental nocturnal O2/PAP tx. ? For acute headache treatment: Nerivio neuromodulation stimulation x's 45 min qd prn- form signed Trial Eletriptan 40mg prn. Do not take on same day as Sumatriptan. Continue Sumatriptan 100mg tab- 1 tab at onset of migraine, MR in 2 hours (MDD 200mg). May take with Aleve 440mg q12 hrs prn. Continue Sumatriptan 100mg tab - 1/2 tab w/ Aleve 440mg and Benadryl 25mg 30 minutes prior to tocilizumab injection. Continue Sumatriptan inj prn. May use Fioricet for TTH and/or Benadryl for rescue. Previous acute migraine medication trials: None other Acute migraine medication contraindications: None at this time. Future considerations: Ubrelvy. ? For chronic migraine prevention medication: Continue Botox 155 units IM q 3 months- as scheduled in Nov Trial Nerivio neuromodulation stimulation x's 45 min qd prn. Trial increasing Qulipta from 30mg qhs to 60mg qhs. Previous migraine prevention medication trials: Propranolol- ineffective. Amitriptyline- ineffective, not tolerated. Topiramate- ineffective. Botox x's > 6 tx was ineffective however was not given PREMPT protocol. Depakote- ineffective. Mag- ineffective. Riboflavin- ineffective. Nurtec stopped- lost efficacy. Migraine prevention medication contraindications: aimovig d/t pt has constipation. Future considerations: Emgality/Ajovy. ? For GCA: Continue Tocilizumab per Dr Rose. Pt has tapered off the Prednisone as of January 13. ? For cervicalgia w/ mild-mod multilevel degenerative and mild spondylosis: Baclofen 5-10mg qhs prn. Trial Celeberex 100mg bid prn. ? f/u in 4 months or sooner prn. Medications: New eletriptan take 1 tab at onset of headache; if no relief, may repeat 1 tab after at least 2 hrs; max = 2 tabs/24 hrs orally PRN; 30 days 12 tabs 3RF migraine headache atogepant 60 mg PO DAILY 30 days 30 tabs 6RF celecoxib (Celebrex) 100 mg PO BID 30 days 60 caps 1RF Discontinued atogepant (Qulipta) Discontinued Reason: Doctor's Order 30 mg PO DAILY 30 days 30 tabs 6RF Coding Level of Care Code Est Pt Level 4 (86670) Diagnoses Chronic migraine without aura G43.709 Cervical radiculopathy M54.12
== END 2024-02-03 10:26 | disposition home or self-care (01) ==
PROVIDERS: PCP Internal Medicine; Visit Provider Nurse Practitioner Family
DX: G43.709 Chronic migraine without aura, not intractable, without status migrainosus (principal); M54.12 Radiculopathy, cervical region
CPT/HCPCS: 99214

== ENCOUNTER → 2024-02-03 09:20 | Outpatient (BNVA) | payer MEDICARE, OTHER, SELFPAY | PROVIDERS: PCP Internal Medicine; Visit Provider Nurse Practitioner Family | DX: G43.709 Chronic migraine without aura, not intractable, without status migrainosus (principal); M54.12 Radiculopathy, cervical region | CPT/HCPCS: 99212 ==

== ENCOUNTER 2024-02-13 10:05 | Outpatient (REF) | payer MEDICARE, OTHER, SELFPAY ==
[2024-02-13 10:41] LABS: MANUAL DIFF FLAG NO
[2024-02-13 10:49] LABS: Basophils Percent Auto 0.9 % (0-2); Eosinophils Absolute Auto 0.1 X10*3/uL (0.0-0.4); Eosinophils Percent Auto 2.4 % (0-4); Hemoglobin 13.1 g/dl (12.0-16.0); Imm Gran Abs Auto 0.01 X10*3/uL (0.00-0.03); Imm Gran Pct Auto 0.3 % (0.0-0.4); Lymphocytes Absolute Auto 1.3 X10*3/uL (1.2-4.9); Lymphocytes Percent Auto 40.2 % (20-40); Mean Corpuscular HGB Conc 32.8 g/dl (31.0-35.0); Mean Corpuscular Hemoglobin 31.3 pg (27.0-33.0); Mean Corpuscular Volume 95.5 fL (80.0-98.0); Mean Platelet Volume 10.1 fL (9.4-12.3); Monocytes Absolute Auto 0.3 X10*3/uL (0.1-1.2); Monocytes Percent Auto 9.8 % (2-11); Neutrophils Absolute Auto 1.5 x10*3/uL (2.0-8.3); Neutrophils Percent Auto 46.4 % (45-73); Platelet Count 168 X10*3/uL (160-400); Red Blood Count 4.19 X10*6/uL (4.20-5.50); Red Cell Distribution Width 12.8 % (11.0-16.0); White Blood Count 3.3 X10*3/uL (4.8-10.8)
[2024-02-13 11:34] LABS: Erythrocyte Sedimentation Rate 3 MM/HR (0-20)
[2024-02-13 11:38] LABS: Alanine Aminotransferase 25 U/L (0-31); Alkaline Phosphatase 32 U/L (39-117); Anion Gap 8 (12-20); Aspartate Amino Transferase 23 U/L (5-31); Bilirubin Total 0.8 mg/dL (0.0-1.0); Blood Urea Nitrogen 14 mg/dL (9-16); C Reactive Protein < 0.04 mg/dL (< or = 0.50); Calcium 9.5 mg/dL (8.4-10.2); Carbon Dioxide 31 mmol/L (22-29); Chloride 104 mmol/L (96-108); Estimated Glomerular Filt Rate > 60; Glucose Random 66 mg/dL (60-115); Sodium 139 mmol/L (135-145); Total Protein 6.5 g/dL (6.5-8.0)
[2024-02-13 11:49] LABS: HBS Num1 0.02 mIU/mL (0-7.99); HBc Num1 0.16 S/CO (0.00-0.79); HBsAGNum1 0.31 S/CO (0.00-0.99); Hepatitis A Antibody IgM 0.19 Index (0-0.79); Hepatitis B Core Antibody Nonreactive (Nonreactive); Hepatitis B Surface Antigen Negative (Negative); ~HepC Num1 0.21 S/CO (0.00-0.79); ~Hepatitis A Antibody IgM Nonreactive (Nonreactive); ~Hepatitis B Surface Antibody NONREACTIVE (Nonreactive); ~Hepatitis C Antibody Nonreactive (Nonreactive)
[2024-02-15 23:18] LABS: TS Negative Control Passed; TS Panel A 0; TS Panel B 1; TS Positive Control Passed; TSpotTB Negative (Negative)
== END 2024-02-13 10:06 | disposition home or self-care (01) ==
LOC: HO.10HDL 10:05
PROVIDERS: Visit Provider Student in an Organized Health Care Education/Training Program
DX: Z11.7 Encounter for testing for latent tuberculosis infection (principal); Z11.59 Encounter for screening for other viral diseases; M31.6 Other giant cell arteritis; Z72.89 Other problems related to lifestyle
CPT/HCPCS: 36415; 80053; 85025; 85652; 86140; 86481; 86704; 86706; 86709; 86803; 87340

== ENCOUNTER 2024-02-14 09:19 | Outpatient (AMB) | payer MEDICARE, OTHER, SELFPAY ==
--- NOTE | 2024-02-14 10:07 | A.OFFVIS_ITS ---
Intake Vital Signs 02/14/24 10:09 Height 5 ft 3 in Weight 122 lb 4 oz BMI 21.7 BP 100/62 Blood Pressure Location Rt brachial Position Sitting Respiration 16 Pulse 72 Pulse Source Pulse Oximeter Pulse Oximetry (%) 98 Oxygen Delivery Method Room Air Intake Visit Reasons: Botox-LVM Intake Note: Pt presents to the office for Botox injections. Worship Director Required: No Allergies meperidine [Demerol] Allergy (Intermediate, Verified 02/14/24 10:08) Vomiting Penicillins [PENICILLINS] Allergy (Intermediate, Verified 02/14/24 10:08) RASH erythromycin base [ERYTHROMYCIN BASE] Allergy (Unknown, Verified 02/14/24 10:08) unknown Medication List - Last Reconciled 02/14/24 by Yadi Blank MD acetaminophen-codeine 300-30 mg 1 tab PO Q6H PRN Actemra ACTPen (tocilizumab) 162 mg (0.9 mL) subcut QWEEK NS alendronate 70 mg PO QWEEK alprazolam 0.25 mg orally 1 tab 30 minutes prior to Botox, may repeat x's 1; 1 day aspirin 81 mg PO DAILY atogepant 60 mg PO DAILY 30 days xzrmapdxgu-penxvbkhupbna-hwjt 50-325-40 mg 1 tab PO Q4H PRN 30 days calcium carbonate-vitamin D3 600 mg-10 mcg (400 unit) 1 cap PO BID celecoxib (Celebrex) 100 mg PO BID 30 days citalopram 15 mg (1.5 x 10 mg) PO DAILY eletriptan take 1 tab at onset of headache; if no relief, may repeat 1 tab after at least 2 hrs; max = 2 tabs/24 hrs orally PRN; 30 days fluoride (sodium) 1.1% (DentaGel) dental gabapentin 600 mg PO BEDTIME metronidazole 0.75% appl topical QPM multivitamin 1 tab PO DAILY naproxen sodium 440 mg (2 x 220 mg) PO BID PRN 30 days onabotulinumtoxinA (Botox) 200 units IM ONCE 12 weeks pantoprazole 40 mg PO QWEEK sumatriptan succinate 50 - 100 mg orally at onset of headache, may repeat in 2 hrs PRN; max 2 tabs per day or 4 tabs/week (may take with Aleve 440mg) 30 days sumatriptan succinate 6 mg subcutaneously at onset of nocturnal migraine, may repeat in 1 hr PRN; 28 days MDD 1 ml per day HPI HPI Comments History of Present Illness Details ? 68y/o female comes for treatment of migraines with botox. ??? Most frequent reported adverse reactions following injection of botox for chronic migraine include neck pain (9%), headache(5%), eyelid ptosis(4%), migraine(4%), muscular weakness(4%), musculuskeletal stiffness(4%), bronchitis(3%), injection site pain (3%), musculoskeletal pain(3%), myalgia(3%), facial paresis(2%), HTN(2%) and muscle spasms(2%) were discussed in detail. ??? Botulinum toxin typeA 200units Lot no [id number] expiration April 2026 was diluted with 4 cc of normal saline . ??? Muscles injected- ??? Frontalis 4 sites ??? Procerus 1 site ??? Senior Accounting Specialist- 2 sites ??? Temporalis- 8 sites ??? Occipitalis- 6 sites ??? Cervical paraspinals- 4 sites ??? Trapezius- 6 sites- 10 units each ??? 5 units each in 31 site ??? Total use- 185units ??? 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 Fibromyalgia Migraines Basal cell carcinoma of nose Bunion, left foot Surgical History H/O arthroscopic knee surgery H/O toe surgery History of surgery History of bunionectomy H/O colonoscopy Family History Mother Heart problem COPD (chronic obstructive pulmonary disease) Hypertension Father Prostate cancer Colon cancer Diabetes Brother Diabetes Sister Hypertension Hypercholesteremia Social History Housing: House Alcohol intake: current Alcohol intake frequency: holidays/special occasions only Patient Tobacco Use Status: Never used Tobacco e-Cigarette/Vaping Use: Never Used Second Hand Smoke Exposure: No service: No Current occupational status: retired Cognitive needs: No Hearing needs: Yes Vision needs: No Physical Exam Vital Signs: Last Vital Signs Pulse 72 02/14/24 10:09 Resp 16 02/14/24 10:09 BP 100/62 02/14/24 10:09 Pulse Ox 98 02/14/24 10:09 Oxygen Delivery Method Room Air 02/14/24 10:09 BMI result Body Mass Index 21.7 Const General: cooperative and no acute distress Orientation/consciousness: patient oriented x3 Resp Effort & Inspection: normal respiratory effort and able to speak in complete sentences Neuro General: patient oriented x3 Cranial nerves: Yes CN's II-XII intact bilaterally Cognition (Neuro): normal cognition Psych Appearance: grossly normal Mental Status: mental status grossly normal Speech and movement: Normal speech and movement present Affect: normal affect Attitude: cooperative Office Procedures Botulinum toxin Injection 26011 - Migraine Procedure code (CPT) selection complete Office Meds onabotulinumtoxinA 200 unit solution for injection Performing Provider: Yadi Blank MD [place] [facility] [place] [facility] Administered by: Yadi Blank MD on 02/14/24 10:46 Dose Route Admin Location Dispensed Lot Number Expiration Date [facility] Lead Handler 185 unit IM 200 units [id number] 04/07/26 8461-8057-24 [employer]OTOX Comments: see hpi Assessment & Plan Assessment & Plan (1) Chronic migraine without aura: Code(s): G43.709 - Chronic migraine without aura, not intractable, without status migrainosus (2) Temporal arteritis: Comment: Onset 06/2022 . Biopsy proven Prednisone started 07/2022 Actemra started 08/2022 effective Code(s): M31.6 - Other giant cell arteritis Plan Patient tolerated the procedure well she will call with any side effects Orders: Orders AMB Botulinum toxin Injection Today G43.709 - Chronic migraine without aura, not intractable, without status migrainosus Medications: New onabotulinumtoxinA 200 units IM ONCE 1 ea 0RF migraine headache G43.709 - Chronic migraine without aura, not intractable, without status migrainosus Coding Level of Care Code Est Pt Level 1 (70745) Diagnoses Chronic migraine without aura G43.709 Temporal arteritis M31.6 CPT Codes Botox Injection - Botox 3: 38441 - Migraine ([id number])
[2024-02-14 10:09] VITALS: BP 100/62; PULSE 72; RESP 16; O2SAT 98; BMI 21.7
== END 2024-02-14 11:57 | disposition home or self-care (01) ==
PROVIDERS: PCP Internal Medicine; Visit Provider Psychiatry & Neurology Neurology
DX: G43.709 Chronic migraine without aura, not intractable, without status migrainosus (principal)
CPT/HCPCS: 64615

== ENCOUNTER → 2024-02-14 09:19 | Outpatient (BNVA) | payer MEDICARE, OTHER, SELFPAY | PROVIDERS: PCP Internal Medicine; Visit Provider Psychiatry & Neurology Neurology | DX: G43.709 Chronic migraine without aura, not intractable, without status migrainosus (principal); M31.6 Other giant cell arteritis | CPT/HCPCS: 64615; 99211; J0585 ==

== ENCOUNTER 2024-02-16 09:13 | Outpatient (AMB) | payer MEDICARE, OTHER, SELFPAY ==
[2024-02-16 09:14] VITALS: BP 118/64; PULSE 76; O2SAT 98; BMI 21.8
--- NOTE | 2024-02-16 09:14 | A.OFFVIS_ITS ---
Intake Vital Signs 02/16/24 09:14 Height 5 ft 3 in Weight 123 lb 3.814 oz BMI 21.8 BP 118/64 Blood Pressure Location Rt brachial Position Sitting Pulse 76 Pulse Source Pulse Oximeter Pulse Oximetry (%) 98 Oxygen Delivery Method Room Air Intake Visit Reasons: GCA Intake Note: Patient last seen 11/17/23 presents today for follow up and test results. Front Office Help Required: No Accompanied by: Self / Same As Patient Allergies meperidine [Demerol] Allergy (Intermediate, Verified 02/16/24 09:18) Vomiting Penicillins [PENICILLINS] Allergy (Intermediate, Verified 02/16/24 09:18) RASH erythromycin base [ERYTHROMYCIN BASE] Allergy (Unknown, Verified 02/16/24 09:18) unknown Medication List - Last Reconciled 02/16/24 by Arvind Rose MD acetaminophen-codeine 300-30 mg 1 tab PO Q6H PRN Actemra ACTPen (tocilizumab) 162 mg (0.9 mL) subcut QWEEK NS alendronate 70 mg PO QWEEK alprazolam 0.25 mg orally 1 tab 30 minutes prior to Botox, may repeat x's 1; 1 day aspirin 81 mg PO DAILY atogepant 60 mg PO DAILY 30 days vpfbwarxif-vgtibktqkkwwy-ztzr 50-325-40 mg 1 tab PO Q4H PRN 30 days calcium carbonate-vitamin D3 600 mg-10 mcg (400 unit) 1 cap PO BID celecoxib (Celebrex) 100 mg PO BID 30 days citalopram 15 mg (1.5 x 10 mg) PO DAILY eletriptan take 1 tab at onset of headache; if no relief, may repeat 1 tab after at least 2 hrs; max = 2 tabs/24 hrs orally PRN; 30 days fluoride (sodium) 1.1% (DentaGel) dental gabapentin 600 mg PO BEDTIME metronidazole 0.75% appl topical QPM multivitamin 1 tab PO DAILY naproxen sodium 440 mg (2 x 220 mg) PO BID PRN 30 days onabotulinumtoxinA (Botox) 200 units IM ONCE 12 weeks pantoprazole 40 mg PO QWEEK sumatriptan succinate 50 - 100 mg orally at onset of headache, may repeat in 2 hrs PRN; max 2 tabs per day or 4 tabs/week (may take with Aleve 440mg) 30 days sumatriptan succinate 6 mg subcutaneously at onset of nocturnal migraine, may repeat in 1 hr PRN; 28 days MDD 1 ml per day HPI HPI Comments History of Present Illness Details 68-year-old female with GCA returns for follow-up. Remains on Actemra weekly, aspirin 81 mg daily, alendronate weekly. Prednisone tapered off last month. She states that she has been feeling about the same overall. She continues to have migraines. She recently completed 1 Botox treatment and supposed to go back for 2 more treatments. She was recently started on Nerivio neuromodulation for migraines, she can not tell whether it is helping yet. She was found to have mild sleep apnea and recently saw a head librarian. States that they are in between oxygen therapy versus CPAP. She completed 6 sessions of physical therapy for her neck and does not believe it is helping. She has left knee pain from known osteoarthritis Initial history: This is a 67-year-old female with past medical history fibromyalgia, osteoarthritis & migraines who presents for evaluation of temporal arteritis. The condition started in the beginning of June of 2022 with worsening headaches associated with worsening blurry vision. She went to the ER on 06/30 labs showed high inflammatory markers, she was prescribed prednisone 60 mg daily for 5 days by the ED physician and sent to vascular surgery for temporal artery biopsy. When she took the prednisone 60 mg her headaches significantly improved. She went for a left temporal artery biopsy on 07/15 which confirmed temporal artery biopsy diagnosis & she was restarted on prednisone 40 mg daily by her PCP. Since being on prednisone she feels much better, with headaches resolved. She states that she has had blurry vision for many months which seem to get a little worse around the time she was diagnosed with temporal arteritis and they have not improved with the prednisone. She denies any loss of vision and both eyes are equally affected. She has not had any eye pain. Reactivity is of daily have not been affected by this blurry vision. Denies history suggestive of uveitis or inflammatory bowel disease. 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 Fibromyalgia Migraines Basal cell carcinoma of nose Bunion, left foot Surgical History H/O arthroscopic knee surgery H/O toe surgery History of surgery History of bunionectomy H/O colonoscopy Family History Mother Heart problem COPD (chronic obstructive pulmonary disease) Hypertension Father Prostate cancer Colon cancer Diabetes Brother Diabetes Sister Hypertension Hypercholesteremia Social History Housing: House Alcohol intake: current Alcohol intake frequency: holidays/special occasions only Patient Tobacco Use Status: Never used Tobacco e-Cigarette/Vaping Use: Never Used Second Hand Smoke Exposure: No service: No Current occupational status: retired Cognitive needs: No Hearing needs: Yes Vision needs: No Review of Systems Const Reports headache(s) ENT Reports headache(s) and Reports neck pain Musc Reports no additional complaints, Reports back pain and Reports neck pain Neuro Reports headache(s) Physical Exam Vital Signs: Last Vital Signs Pulse 76 02/16/24 09:14 BP 118/64 02/16/24 09:14 Pulse Ox 98 02/16/24 09:14 Oxygen Delivery Method Room Air 02/16/24 09:14 BMI result Body Mass Index 21.8 Const General: cooperative, comfortable and no acute distress Nutritional Appearance: well nourished Orientation/consciousness: patient oriented x3 Limitations: no limitations HEENT Head: Yes normocephalic and Yes atraumatic Mouth: moist mucous membranes Eyes Other: PERRL, normal eye movement no ocular erythema Resp Effort & Inspection: normal respiratory effort and able to speak in complete sentences Auscultation: clear to auscultation bilaterally Cardio Rate: regular rate Rhythm: regular rhythm Heart sounds: S1 normal heart sound present and S2 normal heart sound present Peripheral pulses: radial pulses present (2+) bilateral and dorsalis pedis present (2+) bilateral GI Inspection: No distended Palpation (GI): Soft to palpation and nontender Skin General skin exam: no rashes or lesions noted Neuro Other: Sensation grossly normal upper and lower extremities Negative Tinel sign bilaterally Negative Spurling's test bilaterally General: patient oriented x3 Extrem Other: Osteoarthritic changes of both hands Normal range of motion of both shoulders without pain Negative rotator cuff provocative maneuvers bilaterally Negative straight leg raise test bilaterally Few fibromyalgia tender points Results Reviewed Results Reviewed: MRA chest and neck 11/2023 COMPARISON: MRA chest from 08/11/2022 FINDINGS: VASCULAR: THORACIC AORTA: Thoracic aorta is normal in caliber and patent. No evidence of aneurysm, vessel wall irregularity or wall thickening. There is a moderate length segment of narrowing and vessel wall irregularity within the mid left subclavian artery distal to the takeoff of the left vertebral artery with stenosis measuring approximately 60-70% which is stable. There is minimal stenosis within the proximal right subclavian artery distal to the takeoff of the right vertebral artery. The right brachiocephalic artery, visualized bilateral common carotid arteries and visualized vertebral arteries are patent. ABDOMINAL AORTA: Visualized proximal abdominal aorta is normal in caliber. CENTRAL THORACIC VENOUS SYSTEM: Patent NONVASCULAR: Heart is normal in size. Pericardium is normal. No pleural effusions MR/MR angio chest wo/w con IMPRESSION: Stable left subclavian artery stenosis as described MR ANGIOGRAPHY NECK WITHOUT AND WITH CONTRAST CLINICAL INFORMATION: Giant cell arteritis. COMPARISON: MRA neck 08/13/2022. TECHNIQUE:? Noncontrast and gadolinium infusion MRA of the neck are obtained, the latter following the administration of 10 mL of Gadavist intravenous contrast without complication. Source images were reviewed and additional volumetric and angled MIPs were independently generated and archived by the [facility].? Stenoses are assessed in accordance with NASCET criteria unless otherwise indicated.?? FINDINGS: There is a 3 great vessel branch configuration off of the aortic arch. The great vessel origins are widely patent. Cervical vertebral arteries are codominant and widely patent throughout their cervical course. Common carotid arteries, carotid bifurcations, and cervical internal carotid arteries are widely patent. Retropharyngeal course of the proximal right cervical ICA. MR/MR angio neck wo/w con IMPRESSION: Unremarkable MRA of the neck. This study is not diagnostic for assessing the superficial temporal arteries and their distal branches. Assessment & Plan Assessment & Plan (1) Temporal arteritis: Comment: Onset 06/2022 . Biopsy proven Prednisone started 07/2022 Actemra started 08/2022 effective Prednisone tapered off 01/2024 Code(s): M31.6 - Other giant cell arteritis Plan: This is a 68-year-old female with biopsy-proven GCA, MRA of chest and neck showed left subclavian artery stenosis 60-70% and right subclavian artery stenosis 50%. Upon evaluation her GCA is in remission. Recent neck and chest MRA showed stable bilateral subclavian artery stenosis. She does not have any claudication symptoms. She continues to have headaches, which are likely related to migraines. She is being tried on different treatments by neurologist We discussed potentially spacing out her Actemra to every 10 days however given multiple changes in her medication regimen, we will keep the Actemra stable at once weekly dosing. 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 Patient has tapered her prednisone off 01/2024. Continue alendronate until fall. Plan to repeat DEXA then Bactrim and Protonix were stopped once prednisone was less than 15 mg daily Can Protonix once a week with alendronate steroid side effects have resolved, including the easy bruising, edgar facies, buffalo hump resolved. (3) Cervical radiculopathy: Code(s): M54.12 - Radiculopathy, cervical region Plan: Patient continues to have neck pain that radiates to her shoulder and hand. X- ray of the cervical spine and showed multiple degenerative changes. Patient received steroid injections by Pain Management. Last injection was last summer. Cervical spine MRI ordered & it was denied. Physical therapy ordered. Patient has done 6 sessions so far. Without much relief. Advised patient to do few more sessions. If not improving, will order cervical spine MRI (4) Osteoarthritis of left knee: Code(s): M17.12 - Unilateral primary osteoarthritis, left knee Qualifiers: Osteoarthritis type: primary Qualified Code(s): M17.12 - Unilateral primary osteoarthritis, left knee Plan: Follow-up with orthopedics (5) Fibromyalgia, primary: Code(s): M79.7 - Fibromyalgia Plan: Discussed management of fibromyalgia with patient. Is a noninflammatory, non- autoimmune central afferent processing disorder leading to a diffuse pain syndrome. Discussed different management modalities. We discussed addressing underlying anxiety/depression. Patient stated that she had spoken to therapist's before and they were not helpful. She will think about going back to therapy. Discussed the importance of a restful and refreshing sleep. She was recently evaluated by Dr. Valverde and she is in between CPAP versus nocturnal oxygen therapy. For exercise. Patient walks 2 miles 3 times a week. She also does some light weights. I suggested other forms of gentle exercises such as water aerobics and swimming. Patient has been on numerous medications for fibromyalgia in the past without much relief. For now she can continue with gabapentin at the current dose Plan I spent 46 minutes reviewing patient's chart, evaluating patient, ordering diagnostic workup, counseling patient and documenting in the chart Orders: Orders Complete Blood Count Auto Diff 3 Months M31.6 - Other giant cell arteritis Comprehensive Met. 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
== END 2024-02-16 09:57 | disposition home or self-care (01) ==
LOC: HO.RHE 09:13
PROVIDERS: PCP Internal Medicine; Visit Provider Student in an Organized Health Care Education/Training Program
DX: M31.6 Other giant cell arteritis (principal); Z79.52 Long term (current) use of systemic steroids; M54.12 Radiculopathy, cervical region; M17.12 Unilateral primary osteoarthritis, left knee; M79.7 Fibromyalgia
CPT/HCPCS: 99215

== ENCOUNTER → 2024-02-16 09:13 | Outpatient (BNVA) | payer MEDICARE, OTHER, SELFPAY | PROVIDERS: PCP Internal Medicine; Visit Provider Student in an Organized Health Care Education/Training Program | DX: M31.6 Other giant cell arteritis (principal); M54.12 Radiculopathy, cervical region; M17.12 Unilateral primary osteoarthritis, left knee; M79.7 Fibromyalgia; Z79.52 Long term (current) use of systemic steroids | CPT/HCPCS: 99212 ==

== ENCOUNTER 2024-02-28 11:06 | Outpatient (AMB) | payer MEDICARE, OTHER, SELFPAY ==
--- NOTE | 2024-02-28 11:08 | MHC.OFFVIS ---
Vital Signs 02/28/24 11:09 Height 5 ft 3 in Weight 123 lb BMI 21.8 BP 117/77 Blood Pressure Location Rt brachial Position Sitting Pulse 71 Pulse Source Doppler Pulse Oximetry (%) 99 Oxygen Delivery Method Room Air Intake Visit Reasons: luis Allergies meperidine [Demerol] Allergy (Intermediate, Verified 02/16/24 09:18) Vomiting Penicillins [PENICILLINS] Allergy (Intermediate, Verified 02/16/24 09:18) RASH erythromycin base [ERYTHROMYCIN BASE] Allergy (Unknown, Verified 02/16/24 09:18) unknown HPI HPI luis: Details: 68-year-old lady, lifetime nonsmoker, with no prior pulmonary related personal or family history, 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 Patient denies any other pulmonary related concerns or complaints. She previously been tried on CPAP min years prior with no significant symptomatic benefit. Now she wants to try overnight oxygen. 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 Fibromyalgia Migraines Basal cell carcinoma of nose Bunion, left foot Surgical History H/O arthroscopic knee surgery H/O toe surgery History of surgery History of bunionectomy H/O colonoscopy Family History Mother Heart problem COPD (chronic obstructive pulmonary disease) Hypertension Father Prostate cancer Colon cancer Diabetes Brother Diabetes Sister Hypertension Hypercholesteremia Social History Housing: House Alcohol intake: current Alcohol intake frequency: holidays/special occasions only Patient Tobacco Use Status: Never used Tobacco e-Cigarette/Vaping Use: Never Used Second Hand Smoke Exposure: No service: No Current occupational status: retired Cognitive needs: No Hearing needs: Yes Vision needs: No Review of Systems Const Denies daytime sleepiness, Denies excessive sweating, Denies fatigue, Denies fever(s), Reports headache(s), Denies lethargy, Denies malaise, Denies night sweats, Denies snoring and Denies weight loss Eyes Denies blurry vision and Denies itchy eyes ENT Reports headache(s), Denies nasal congestion, Denies post nasal drip, Denies sinus pain, Denies sinus pressure and Denies other ( Thrush) Card Denies chest pain, Denies pedal edema, Denies dyspnea, Denies orthopnea and Denies paroxysmal nocturnal dyspnea Resp Denies cough, Denies hemoptysis, Denies excessive phlegm production, Denies dyspnea, Denies snoring and Denies wheezing GI Denies abdominal pain and Denies heartburn Musc Denies myalgias, Denies arthralgias and Denies joint swelling Skin/Breast Denies rash Neuro Reports headache(s), Denies memory loss and Denies seizure-like activity Psych Denies abnormal sleep pattern, Denies anxiety and Denies memory loss Endo Denies excessive sweating, Denies fatigue and Denies heat intolerance Kyler/Lymph Denies easy bruising Aller/Immun Denies itchy eyes, Denies seasonal rhinorrhea and Denies wheezing Physical Exam Vital Signs: Last Vital Signs Pulse 71 02/28/24 11:09 BP 117/77 02/28/24 11:09 Pulse Ox 99 02/28/24 11:09 Oxygen Delivery Method Room Air 02/28/24 11:09 BMI result Body Mass Index 21.8 Const General: no acute distress and alert Nutritional Appearance: not obese Orientation/consciousness: Other orientation findings ( oriented) HEENT Head: Yes atraumatic Eyes General: appearance normal, both eyes and all related structures Sclerae: sclerae normal EOM: EOMs intact bilaterally Neck Neck: Yes supple Lymphatic: no lymphadenopathy noted Resp Effort & Inspection: normal respiratory effort and no use of accessory muscles Cardio Rate: regular rate Rhythm: regular rhythm Heart sounds: no gallops, no murmurs and no rubs Skin General skin exam: other ( warm) Extrem General: No clubbing, No cyanosis and No edema Assessment & Plan Assessment & Plan (1) Nocturnal hypoxemia: Code(s): G47.34 - Idiopathic sleep related nonobstructive alveolar hypoventilation Category: Medical Plan: Will obtain overnight oximetry and if positive start on nocturnal oxygen. Orders: Orders Overnight Pulse Oximetry Today G47.34 - Idiopathic sleep related nonobstructive alveolar hypoventilation Coding Level of Care Code Est Pt Level 3 (60671) Diagnoses Nocturnal hypoxemia G47.34
[2024-02-28 11:09] VITALS: BP 117/77; PULSE 71; O2SAT 99; BMI 21.8
== END 2024-02-28 11:34 | disposition home or self-care (01) ==
PROVIDERS: PCP Internal Medicine; Visit Provider Internal Medicine Pulmonary Disease
DX: G47.34 Idiopathic sleep related nonobstructive alveolar hypoventilation (principal)
CPT/HCPCS: 99213

== ENCOUNTER → 2024-02-28 11:06 | Outpatient (BNVA) | payer MEDICARE, OTHER, SELFPAY | PROVIDERS: PCP Internal Medicine; Visit Provider Internal Medicine Pulmonary Disease | DX: G47.34 Idiopathic sleep related nonobstructive alveolar hypoventilation (principal) | CPT/HCPCS: 99212 ==

== ENCOUNTER 2024-03-07 11:00 | Outpatient (RCR) | payer MEDICARE, OTHER, SELFPAY ==
--- NOTE | 2024-01-13 12:33 | MHC.PT.EP ---
[facility] [place] Office [place] Office [place] Office [address] [phone] F: [phone] F: [phone] F: [phone] F: [phone] Physical Therapy Plan of Care Date of Evaluation: 01/13/24 Date of Surgery: Diagnosis: RADICULOPATHY, CERVICAL REGION Assessment: 68 YO FEMALE REF TO PT FOR CERVICAL RADICULOPATHY- SHE HAS A H/O CHRONIC MIGRAINES. THE Pt IS Rt HAND DOMINANT. OBJECTIVELY, THE Pt HAS DECR CERV AROM, (+) SOFT TISSUE IRRIT IN ALEXA CERV PS/UT MM, SUBOCCIPITAL TENSION, AND FLUCTUATING Rt > Lt CERV / UT/ PARASCAP MM PAIN. CURRENTLY, SHE DENIES UE RADICULAR SXS . THE Pt IS VERY GUARDED W CERV AROM/UPPER TRUNK AND HAS ALTERED RESPIRATORY MECHANISM. 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 SHE WOULD BENEFIT FROM PT TO ADDRESS THE ABOVE FINDINGS, EASE SOFT TISSUE TENSION, AND DEV A HEP/ SELF-SX MGMT TECHN. Frequency and Duration: The patient will be seen 2 x WK x 5 WKS Short Term Goals: *DECR CERV PAIN TO 2-3/10 * EASE POSTERIOR CERV/ UT/ SCAP TISSUE TENSION *IMPROVE CERV AROM *INITIATE HEP Halfway Goals: *INDEP HEP AND SELF-SX MGMT TECHN *Pt DEMON IMPROVED CERV AROM *Pt DEMON MPORE EFFICIENT BODY MECH W 3:3 SIMUL ADLs *IMPROVED NPDI , AT EVAL Treatment Plan: Modalities to reduce pain, spasms and effusion. Manual therapy to restore motion and function. Therapeutic exercise to improve strength and flexibility. Neuromuscular re-education for posture and balance. Therapeutic activities to return to functional activities of daily living. Electronically signed by: ERICKA GAMBOAPT Please sign and return to therapist. Thank you for your referral.
--- NOTE | 2024-03-07 12:55 | MHC.PT.DC ---
[facility] [place] Office [place] Office [place] Office [address] Edwin Fischer [address] [phone] F: [phone] F: [phone] F: [phone] F: [phone] Physical Therapy Discharge Report Diagnosis: RADICULOPATHY, CERVICAL REGION Date of Surgery: Date of Evaluation: 01/13/24 Date of Discharge: 03/07/24 Treatments to Date: 9 Cancellations to Date: 2 No Shows to Date: 0 Discharge Status: Independent with HEP Recommend MD Follow-up Discharge Summary: ALTHOUGH ZACHARIAH'S NECK PAIN DID NOT RESOLVE W PT INTERVENTION, SHE IS MORE AWARE OF HER POSTURE, UPPER CERV STRESS W HABITUAL HEAD NODDING, AND THE IMPORTANCE OF PERF HER POSTURAL / THOR EXER FOR STABILIZATION WELL MOBILIZATION- SHE HAS DECR CERV AROM - SHE RESPONDED WELL TO THE STM, REDUCED MM GUARDING AFTERWARDS...D/C THIS DATE Electronically signed by: ERICKA GAMBOAPT Please sign and return to therapist. Thank you for your referral.
== END 2024-03-07 12:54 | disposition home or self-care (01) ==
LOC: HO.PT 11:00
PROVIDERS: PCP Internal Medicine; Visit Provider Student in an Organized Health Care Education/Training Program
DX: M54.12 Radiculopathy, cervical region (principal)
CPT/HCPCS: 97012; 97110; 97140; 97162; 97535

== ENCOUNTER 2024-04-10 10:15 | Outpatient (AMB) | payer MEDICARE, OTHER, SELFPAY ==
--- NOTE | 2024-04-10 10:24 | MHC.OFFVIS ---
Intake Visit Reasons: OV - Lt Knee 09/23/23 Intake Note: Teri is a 68 year old female who presents for a follow up after Left knee on 09/23/2023. Patient reports continued moderate discomfort in her left knee. She denies any fevers or chills. She has had multiple cortisone injections in the past which gave her minimal relief. She has not had a viscosupplementation injection. She wishes to hold off on total knee replacement surgery for as long as possible. She has taken Tylenol and anti-inflammatory medicines which gave her minimal relief. She has also done physical therapy which aggravated her pain. Allergies meperidine [Demerol] Allergy (Intermediate, Verified 04/10/24 10:25) Vomiting Penicillins [PENICILLINS] Allergy (Intermediate, Verified 04/10/24 10:25) RASH erythromycin base [ERYTHROMYCIN BASE] Allergy (Unknown, Verified 04/10/24 10:25) unknown Medication List - Last Reconciled 04/10/24 by Roger Trivedi MD Actemra ACTPen (tocilizumab) 162 mg (0.9 mL) subcut QWEEK NS alendronate 70 mg PO QWEEK aspirin 81 mg PO DAILY atogepant 60 mg PO DAILY 30 days calcium carbonate-vitamin D3 600 mg-10 mcg (400 unit) 1 cap PO BID celecoxib (Celebrex) 100 mg PO BID 30 days citalopram 15 mg (1.5 x 10 mg) PO DAILY eletriptan take 1 tab at onset of headache; if no relief, may repeat 1 tab after at least 2 hrs; max = 2 tabs/24 hrs orally PRN; 30 days fluoride (sodium) 1.1% (DentaGel) dental gabapentin 600 mg PO BEDTIME metronidazole 0.75% appl topical QPM multivitamin 1 tab PO DAILY onabotulinumtoxinA (Botox) 200 units IM ONCE 12 weeks pantoprazole 40 mg PO QWEEK sumatriptan succinate 50 - 100 mg orally at onset of headache, may repeat in 2 hrs PRN; max 2 tabs per day or 4 tabs/week (may take with Aleve 440mg) 30 days sumatriptan succinate 6 mg subcutaneously at onset of nocturnal migraine, may repeat in 1 hr PRN; 28 days MDD 1 ml per day [facility] Medical History 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 Fibromyalgia Migraines Basal cell carcinoma of nose Bunion, left foot Surgical History H/O arthroscopic knee surgery H/O toe surgery History of surgery History of bunionectomy H/O colonoscopy Family History Mother Heart problem COPD (chronic obstructive pulmonary disease) Hypertension Father Prostate cancer Colon cancer Diabetes Brother Diabetes Sister Hypertension Hypercholesteremia Social History Housing: House Alcohol intake: current Alcohol intake frequency: holidays/special occasions only Patient Tobacco Use Status: Never used Tobacco e-Cigarette/Vaping Use: Never Used Second Hand Smoke Exposure: No service: No Current occupational status: retired Cognitive needs: No Hearing needs: Yes Vision needs: No Physical Exam Const Other: Well-nourished well-developed very friendly female awake alert and oriented x3 in no acute distress Extrem Other: Bilateral lower extremity examination shows good capillary refill, no skin lesions noted, normal sensation light touch Left knee examination shows that the surgical incisions are well healed, no erythema, full active extension and flexion 125 degrees, her patella tracks well, mild to moderate crepitus with range of motion, no instability Results Reviewed Results Reviewed: X-rays of the patient's left knee show mild to moderate diffuse degenerative changes, no acute bony abnormalities Assessment & Plan Assessment & Plan (1) Osteoarthritis of left knee: Code(s): M17.12 - Unilateral primary osteoarthritis, left knee Category: Medical Qualifiers: Osteoarthritis type: primary Qualified Code(s): M17.12 - Unilateral primary osteoarthritis, left knee Plan Ms. Michelle presents with left knee pain due to osteoarthritis. I had a lengthy discussion with the patient regarding the treatment options. She wishes hold off on further surgery for as long as possible. I agree this plan. She has not gotten relief from cortisone injections in the past. Thus, I will see whether not her insurance company will cover a viscosupplementation injection for her left knee. I will see her back once the injection is available. Feel free to call me at any time should questions regarding her orthopedic management arise. I spent 22 minutes in reviewing the patient's records and imaging studies, seeing the patient and documenting in the medical record. Coding Level of Care Code Est Pt Level 3 (04726) Diagnoses Primary osteoarthritis of left knee M17.12 Osteoarthritis type: primary
== END 2024-04-10 10:41 | disposition home or self-care (01) ==
PROVIDERS: PCP Internal Medicine; Visit Provider Orthopaedic Surgery
DX: M17.12 Unilateral primary osteoarthritis, left knee (principal)
CPT/HCPCS: 99213

== ENCOUNTER → 2024-04-10 10:15 | Outpatient (BNVA) | payer MEDICARE, OTHER, SELFPAY | PROVIDERS: PCP Internal Medicine; Visit Provider Orthopaedic Surgery | DX: M17.12 Unilateral primary osteoarthritis, left knee (principal) | CPT/HCPCS: 99212 ==

== ENCOUNTER 2024-04-11 11:02 | Outpatient (AMB) | payer MEDICARE, OTHER, SELFPAY ==
--- NOTE | 2024-04-11 11:04 | MHC.OFFVIS ---
Vital Signs 04/11/24 11:05 Height 5 ft 3 in Weight 121 lb BMI 21.4 BP 104/60 Blood Pressure Location Rt brachial Position Sitting Pulse 79 Pulse Source Doppler Pulse Oximetry (%) 98 Oxygen Delivery Method Room Air Intake Visit Reasons: Obstructive sleep apnea Allergies meperidine [Demerol] Allergy (Intermediate, Verified 04/11/24 11:10) Vomiting Penicillins [PENICILLINS] Allergy (Intermediate, Verified 04/11/24 11:10) RASH erythromycin base [ERYTHROMYCIN BASE] Allergy (Unknown, Verified 04/11/24 11:10) unknown HPI HPI Obstructive sleep apnea: Details: 68-year-old lady, lifetime nonsmoker, with no prior pulmonary related personal or family history, 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 Patient denies any other pulmonary related concerns or complaints. She previously been tried on CPAP many years prior with no significant symptomatic benefit. Now she wants to try overnight oxygen. after the last office visit patient had overnight oximetry that showed no evidence of significant nocturnal desaturations, however does point more toward obstructive sleep apnea. 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 Fibromyalgia Migraines Basal cell carcinoma of nose Bunion, left foot Surgical History H/O arthroscopic knee surgery H/O toe surgery History of surgery History of bunionectomy H/O colonoscopy Family History Mother Heart problem COPD (chronic obstructive pulmonary disease) Hypertension Father Prostate cancer Colon cancer Diabetes Brother Diabetes Sister Hypertension Hypercholesteremia Social History Housing: House Alcohol intake: current Alcohol intake frequency: holidays/special occasions only Patient Tobacco Use Status: Never used Tobacco e-Cigarette/Vaping Use: Never Used Second Hand Smoke Exposure: No service: No Current occupational status: retired Cognitive needs: No Hearing needs: Yes Vision needs: No Review of Systems Const Denies daytime sleepiness, Denies excessive sweating, Denies fatigue, Denies fever(s), Reports headache(s), Denies lethargy, Denies malaise, Denies night sweats, Denies snoring and Denies weight loss Eyes Denies blurry vision and Denies itchy eyes ENT Reports headache(s), Denies nasal congestion, Denies post nasal drip, Denies sinus pain, Denies sinus pressure and Denies other ( Thrush) Card Denies chest pain, Denies pedal edema, Denies dyspnea, Denies orthopnea and Denies paroxysmal nocturnal dyspnea Resp Denies cough, Denies hemoptysis, Denies excessive phlegm production, Denies dyspnea, Denies snoring and Denies wheezing GI Denies abdominal pain and Denies heartburn Musc Denies myalgias, Denies arthralgias and Denies joint swelling Skin/Breast Denies rash Neuro Reports headache(s), Denies memory loss and Denies seizure-like activity Psych Denies abnormal sleep pattern, Denies anxiety and Denies memory loss Endo Denies excessive sweating, Denies fatigue and Denies heat intolerance Kyler/Lymph Denies easy bruising Aller/Immun Denies itchy eyes, Denies seasonal rhinorrhea and Denies wheezing Physical Exam Vital Signs: Last Vital Signs Pulse 79 04/11/24 11:05 BP 104/60 04/11/24 11:05 Pulse Ox 98 04/11/24 11:05 Oxygen Delivery Method Room Air 04/11/24 11:05 BMI result Body Mass Index 21.4 Const General: no acute distress and alert Nutritional Appearance: not obese Orientation/consciousness: Other orientation findings ( oriented) HEENT Head: Yes atraumatic Eyes General: appearance normal, both eyes and all related structures Sclerae: sclerae normal EOM: EOMs intact bilaterally Neck Neck: Yes supple Lymphatic: no lymphadenopathy noted Resp Effort & Inspection: normal respiratory effort and no use of accessory muscles Auscultation: clear to auscultation bilaterally Cardio Rate: regular rate Rhythm: regular rhythm Heart sounds: no gallops, no murmurs and no rubs Skin General skin exam: other ( warm) Extrem General: No clubbing, No cyanosis and No edema Assessment & Plan Assessment & Plan (1) Nocturnal hypoxemia: Code(s): G47.34 - Idiopathic sleep related nonobstructive alveolar hypoventilation Category: Medical (2) Sleep difficulties: Code(s): G47.9 - Sleep disorder, unspecified Category: Medical (3) Excessive daytime sleepiness: Code(s): G47.19 - Other hypersomnia Category: Medical Plan Conflicting data from overnight oximetry on room air and home sleep study with both studies negative, but Home sleep study positive for nocturnal hypoxia and overnight oximetry positive for hypopnea events. Will obtain in-lab polysomnogram. Orders: Orders RT PSG in-lab sleep study Today G47.19 - Other hypersomnia, G47.34 - Idiopathic sleep related nonobstructive alveolar hypoventilation, G47.9 - Sleep disorder, unspecified Coding Level of Care Code Est Pt Level 4 (23114) Diagnoses Nocturnal hypoxemia G47.34 Sleep difficulties G47.9 Excessive daytime sleepiness G47.19
[2024-04-11 11:05] VITALS: BP 104/60; PULSE 79; O2SAT 98; BMI 21.4
== END 2024-04-11 11:21 | disposition home or self-care (01) ==
PROVIDERS: PCP Internal Medicine; Visit Provider Internal Medicine Pulmonary Disease
DX: G47.34 Idiopathic sleep related nonobstructive alveolar hypoventilation (principal); G47.9 Sleep disorder, unspecified; G47.19 Other hypersomnia
CPT/HCPCS: 99214

== ENCOUNTER → 2024-04-11 11:02 | Outpatient (BNVA) | payer MEDICARE, OTHER, SELFPAY | PROVIDERS: PCP Internal Medicine; Visit Provider Internal Medicine Pulmonary Disease | DX: G47.34 Idiopathic sleep related nonobstructive alveolar hypoventilation (principal); G47.9 Sleep disorder, unspecified; G47.19 Other hypersomnia | CPT/HCPCS: 99212 ==

== ENCOUNTER 2024-04-25 11:07 | Outpatient (AMB) | payer MEDICARE, OTHER, SELFPAY ==
--- NOTE | 2024-04-25 11:09 | A.OFFVIS_ITS ---
Intake Visit Reasons: ov- Left knee Durolane injection Intake Note: Teri is a 68 year old female who presents for a follow up after Left knee on 09/23/2023. Patient reports continued moderate discomfort in her left knee. She denies any fevers or chills. She has had multiple cortisone injections in the past which gave her minimal relief. She has not had a viscosupplementation injection. She wishes to hold off on total knee replacement surgery for as long as possible. She has taken Tylenol and anti-inflammatory medicines which gave her minimal relief. She has also done physical therapy which aggravated her pain. Allergies meperidine [Demerol] Allergy (Intermediate, Verified 04/25/24 11:10) Vomiting Penicillins [PENICILLINS] Allergy (Intermediate, Verified 04/25/24 11:10) RASH erythromycin base [ERYTHROMYCIN BASE] Allergy (Unknown, Verified 04/25/24 11:10) unknown Medication List - Last Reconciled 04/25/24 by Roger Trivedi MD Actemra ACTPen (tocilizumab) 162 mg (0.9 mL) subcut QWEEK NS alendronate 70 mg PO QWEEK aspirin 81 mg PO DAILY atogepant 60 mg PO DAILY 30 days calcium carbonate-vitamin D3 600 mg-10 mcg (400 unit) 1 cap PO BID celecoxib (Celebrex) 100 mg PO BID 30 days citalopram 15 mg (1.5 x 10 mg) PO DAILY eletriptan take 1 tab at onset of headache; if no relief, may repeat 1 tab after at least 2 hrs; max = 2 tabs/24 hrs orally PRN; 30 days fluoride (sodium) 1.1% (DentaGel) dental gabapentin 600 mg PO BEDTIME metronidazole 0.75% appl topical QPM multivitamin 1 tab PO DAILY onabotulinumtoxinA (Botox) 200 units IM ONCE 12 weeks pantoprazole 40 mg PO QWEEK sumatriptan succinate 50 - 100 mg orally at onset of headache, may repeat in 2 hrs PRN; max 2 tabs per day or 4 tabs/week (may take with Aleve 440mg) 30 days sumatriptan succinate 6 mg subcutaneously at onset of nocturnal migraine, may repeat in 1 hr PRN; 28 days MDD 1 ml per day [facility] Medical History 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 Fibromyalgia Migraines Basal cell carcinoma of nose Bunion, left foot Surgical History H/O arthroscopic knee surgery H/O toe surgery History of surgery History of bunionectomy H/O colonoscopy Family History Mother Heart problem COPD (chronic obstructive pulmonary disease) Hypertension Father Prostate cancer Colon cancer Diabetes Brother Diabetes Sister Hypertension Hypercholesteremia Social History Housing: House Alcohol intake: current Alcohol intake frequency: holidays/special occasions only Patient Tobacco Use Status: Never used Tobacco e-Cigarette/Vaping Use: Never Used Second Hand Smoke Exposure: No service: No Current occupational status: retired Cognitive needs: No Hearing needs: Yes Vision needs: No Physical Exam Const Other: Well-nourished well-developed very friendly female awake alert and oriented x3 in no acute distress Extrem Other: Bilateral lower extremity examination shows good capillary refill, no skin lesions noted, normal sensation light touch Left knee examination shows a minimal effusion, palpable crepitus with range of motion, pain with range of motion, no instability Office Procedures Joint Injection/Drain Joint Injection/Drain Primary Site: left knee Prep: site was prepped using aseptic technique Injected: 60 mg of (Durolane viscosupplementation) and 1% plain lidocaine Procedure: The patient tolerated the procedure well Coding 12642 - Large joint Procedure code (CPT) selection complete Results Reviewed Results Reviewed: X-rays of the patient's left knee show joint space narrowing, subchondral sclerosis, no acute bony abnormalities Assessment & Plan Assessment & Plan (1) Osteoarthritis of left knee: Code(s): M17.12 - Unilateral primary osteoarthritis, left knee Category: Medical Qualifiers: Osteoarthritis type: primary Qualified Code(s): M17.12 - Unilateral primary osteoarthritis, left knee Plan Mrs. Michelle presents with left knee pain due to degenerative joint disease. I had a lengthy discussion with the patient regarding the treatment options. The risks and benefits of a Durolane viscosupplementation injection were discussed at length with the patient. The patient wished to proceed. She tolerated the injection well. She will continue with her home exercise program. She will follow up with me on an as-needed basis should her symptoms not plateau at an unacceptable level over the next few months. Feel free to call me at any time should questions regarding her orthopedic management arise. I spent 20 minutes in reviewing the patient's records and imaging studies, seeing the patient and documenting in the medical record. Orders: Orders AMB Joint Injection/Aspiration Today M17.12 - Unilateral primary osteoarthritis, left knee Coding Level of Care Code Est Pt Level 3 (97429) Diagnoses Primary osteoarthritis of left knee M17.12 Osteoarthritis type: primary CPT Codes Coding - 09924 Large joint: 05850 - Large joint ([id number])
== END 2024-04-25 11:33 | disposition home or self-care (01) ==
PROVIDERS: PCP Internal Medicine; Visit Provider Orthopaedic Surgery
DX: M17.12 Unilateral primary osteoarthritis, left knee (principal)
CPT/HCPCS: 20610; 99213

== ENCOUNTER → 2024-04-25 20:30 | Outpatient (REF) | payer MEDICARE, OTHER, SELFPAY | LOC: HO.SL 20:30 | PROVIDERS: PCP Internal Medicine; Visit Provider Internal Medicine Pulmonary Disease | DX: G47.34 Idiopathic sleep related nonobstructive alveolar hypoventilation (principal); G47.19 Other hypersomnia; M17.12 Unilateral primary osteoarthritis, left knee | CPT/HCPCS: 20610; 95810; 99212; J7318 ==

== ENCOUNTER → 2024-04-25 22:25 | Outpatient (BNV) | payer MEDICARE, OTHER, SELFPAY | PROVIDERS: PCP Internal Medicine; Visit Provider Psychiatry & Neurology Neurology | DX: G47.19 Other hypersomnia (principal); R06.83 Snoring | CPT/HCPCS: 95810 ==

== ENCOUNTER 2024-04-30 10:11 | Outpatient (REF) | payer MEDICARE, OTHER, SELFPAY ==
--- NOTE | ~2024-04-30 | MR_ITS ---
EXAMINATION: MR CERVICAL SPINE WITHOUT CONTRAST CLINICAL INFORMATION: Cervical radiculopathy COMPARISON: MRI cervical spine on 03/11/2021 TECHNIQUE: MRI of the cervical spine was obtained using routine sequences without contrast. FINDINGS: The visualized cervical vertebrae are intact with normal alignment. No focal bone lesion with abnormal signal can be seen. Evaluation of the intervertebral discs show: C2/C3: Intervertebral disc height is normal, with normal T2 signal. No focal disc herniation is seen. Bilateral C2-C3 neural foramina are patent. Bilateral apophyseal joints are intact with normal alignment. C3/C4: Intervertebral disc height is normal, with normal T2 signal. Mild posterior disc protrusion is seen. There is moderate asymmetric left C3-C4 neural foraminal stenosis. Bilateral apophyseal joints are intact with normal alignment. C4/C5: Intervertebral disc height is moderately decreased, with mild loss of T2 signal. Mild posterior disc protrusion is seen. Bilateral C4-C5 neural foramina are markedly stenosed, most severe on the left side. There is moderate spinal stenosis with AP diameter of the spinal canal reduced to 8.6 mm. Bilateral apophyseal joints are intact with normal alignment. C5/C6: Intervertebral disc height is markedly decreased, with mild loss of T2 signal. Mild posterior disc protrusion is seen. There are marked right and moderate left C5-C6 neural foramina stenosis. There is moderate spinal stenosis with AP diameter of the spinal canal reduced to 8.1 mm. Bilateral apophyseal joints are intact with normal alignment. C6/C7: Intervertebral disc height is normal, with normal T2 signal. Mild asymmetric left posterior disc protrusion is seen. There is mild right C6-C7 neural foraminal stenosis. Bilateral apophyseal joints are intact with normal alignment. C7/T1: Intervertebral disc height is normal, with normal T2 signal. No focal disc herniation is seen. Bilateral C7-T1 neural foramina are patent. Bilateral apophyseal joints are intact with normal alignment. Cervical spinal cord is normal in position and signal. MR/MR cervical spine wo con IMPRESSION: 1. Unchanged Moderate C4-C5 and C5-C6 spinal stenosis. 2. Unchanged Marked bilateral C4-C5 and right C5-C6 neural foramina stenosis. 3. Unchanged Moderate left C3-C4 neural foraminal stenosis. 4. Unchanged Mild right C6-C7 neural foraminal stenosis.
== END 2024-04-30 10:12 | disposition home or self-care (01) ==
LOC: HO.MRI 10:11
PROVIDERS: PCP Internal Medicine; Visit Provider Student in an Organized Health Care Education/Training Program
DX: M54.12 Radiculopathy, cervical region (principal)
CPT/HCPCS: 72141

== ENCOUNTER 2024-05-16 15:24 | Outpatient (AMB) | payer MEDICARE, OTHER, SELFPAY ==
[2024-05-16 15:25] VITALS: BP 109/62; PULSE 89; O2SAT 98; BMI 21.8
--- NOTE | 2024-05-16 15:25 | MHC.OFFVIS ---
Vital Signs 05/16/24 15:25 Height 5 ft 3 in Weight 123 lb BMI 21.8 BP 109/62 Blood Pressure Location Rt brachial Position Sitting Pulse 89 Pulse Source Doppler Pulse Oximetry (%) 98 Oxygen Delivery Method Room Air Intake Visit Reasons: Obstructive sleep apnea Allergies meperidine [Demerol] Allergy (Intermediate, Verified 04/25/24 11:10) Vomiting Penicillins [PENICILLINS] Allergy (Intermediate, Verified 04/25/24 11:10) RASH erythromycin base [ERYTHROMYCIN BASE] Allergy (Unknown, Verified 04/25/24 11:10) unknown HPI HPI Obstructive sleep apnea: Details: 68-year-old lady, lifetime nonsmoker, with no prior pulmonary related personal or family history, 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 Patient denies any other pulmonary related concerns or complaints. She previously been tried on CPAP many years prior with no significant symptomatic benefit. Now she wants to try overnight oxygen. After the last office visit patient had in-lab sleep study that showed no evidence of underlying obstructive sleep apnea or significant nocturnal hypoxemia. 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 Fibromyalgia Migraines Basal cell carcinoma of nose Bunion, left foot Surgical History H/O arthroscopic knee surgery H/O toe surgery History of surgery History of bunionectomy H/O colonoscopy Family History Mother Heart problem COPD (chronic obstructive pulmonary disease) Hypertension Father Prostate cancer Colon cancer Diabetes Brother Diabetes Sister Hypertension Hypercholesteremia Social History Housing: House Alcohol intake: current Alcohol intake frequency: holidays/special occasions only Patient Tobacco Use Status: Never used Tobacco e-Cigarette/Vaping Use: Never Used Second Hand Smoke Exposure: No service: No Current occupational status: retired Cognitive needs: No Hearing needs: Yes Vision needs: No Physical Exam Vital Signs: Last Vital Signs Pulse 89 05/16/24 15:25 BP 109/62 05/16/24 15:25 Pulse Ox 98 05/16/24 15:25 Oxygen Delivery Method Room Air 05/16/24 15:25 BMI result Body Mass Index 21.8 Const General: no acute distress and alert Nutritional Appearance: not obese Orientation/consciousness: Other orientation findings ( oriented) HEENT Head: Yes atraumatic Eyes General: appearance normal, both eyes and all related structures Sclerae: sclerae normal EOM: EOMs intact bilaterally Neck Neck: Yes supple Lymphatic: no lymphadenopathy noted Skin General skin exam: other ( warm) Assessment & Plan Assessment & Plan (1) Sleep difficulties: Code(s): G47.9 - Sleep disorder, unspecified Category: Medical Plan: Results of in-lab sleep study reviewed, no underlying obstructive sleep apnea or significant hypoxia noted at this time. Coding Level of Care Code Est Pt Level 3 (78780) Diagnoses Sleep difficulties G47.9
== END 2024-05-16 15:38 | disposition home or self-care (01) ==
PROVIDERS: PCP Internal Medicine; Visit Provider Internal Medicine Pulmonary Disease
DX: G47.9 Sleep disorder, unspecified (principal)
CPT/HCPCS: 99213

== ENCOUNTER → 2024-05-16 15:24 | Outpatient (BNVA) | payer MEDICARE, OTHER, SELFPAY | PROVIDERS: PCP Internal Medicine; Visit Provider Internal Medicine Pulmonary Disease | DX: G47.9 Sleep disorder, unspecified (principal) | CPT/HCPCS: 99212 ==

== ENCOUNTER 2024-05-17 10:37 | Outpatient (AMB) | payer MEDICARE, OTHER, SELFPAY ==
--- NOTE | 2024-05-17 10:39 | A.OFFVIS_ITS ---
Vital Signs 05/17/24 10:43 Height 5 ft 3 in Weight 122 lb 5.705 oz BMI 21.7 BP 115/70 Blood Pressure Location Lt brachial Position Sitting Pulse 78 Pulse Source Pulse Oximeter Pulse Oximetry (%) 99 Oxygen Delivery Method Room Air Intake Visit Reasons: GCA/CM Intake Note: Patient presents for GCA. Would like MRI results. Allergies meperidine [Demerol] Allergy (Intermediate, Verified 04/25/24 11:10) Vomiting Penicillins [PENICILLINS] Allergy (Intermediate, Verified 04/25/24 11:10) RASH erythromycin base [ERYTHROMYCIN BASE] Allergy (Unknown, Verified 04/25/24 11:10) unknown Medication List - Last Reconciled 05/17/24 by Arvind Rose MD Actemra ACTPen (tocilizumab) 162 mg (0.9 mL) subcut QWEEK NS alendronate 70 mg PO QWEEK aspirin 81 mg PO DAILY atogepant 60 mg PO DAILY 30 days calcium carbonate-vitamin D3 600 mg-10 mcg (400 unit) 1 cap PO BID celecoxib (Celebrex) 100 mg PO BID 30 days citalopram 15 mg (1.5 x 10 mg) PO DAILY eletriptan take 1 tab at onset of headache; if no relief, may repeat 1 tab after at least 2 hrs; max = 2 tabs/24 hrs orally PRN; 30 days fluoride (sodium) 1.1% (DentaGel) dental gabapentin 600 mg PO BEDTIME metronidazole 0.75% appl topical QPM multivitamin 1 tab PO DAILY onabotulinumtoxinA (Botox) 200 units IM ONCE 12 weeks pantoprazole 40 mg PO QWEEK sumatriptan succinate 50 - 100 mg orally at onset of headache, may repeat in 2 hrs PRN; max 2 tabs per day or 4 tabs/week (may take with Aleve 440mg) 30 days sumatriptan succinate 6 mg subcutaneously at onset of nocturnal migraine, may repeat in 1 hr PRN; 28 days MDD 1 ml per day HPI Comments Details: 68-year-old female with GCA returns for follow-up. Remains on Actemra weekly, aspirin 81 mg daily, alendronate weekly. She continues to feel about the same. She recently received Durolane injection for her left knee osteoarthritis, feels that it did not help much. She continues to have migraines. She had a couple of Botox injections by neurologist, also did not help. Continues to have diffuse body aches. Initial history: This is a 67-year-old female with past medical history fibromyalgia, osteoarthritis & migraines who presents for evaluation of temporal arteritis. The condition started in the beginning of June of 2022 with worsening headaches associated with worsening blurry vision. She went to the ER on 06/30 labs showed high inflammatory markers, she was prescribed prednisone 60 mg daily for 5 days by the ED physician and sent to vascular surgery for temporal artery biopsy. When she took the prednisone 60 mg her headaches significantly improved. She went for a left temporal artery biopsy on 07/15 which confirmed temporal artery biopsy diagnosis & she was restarted on prednisone 40 mg daily by her PCP. Since being on prednisone she feels much better, with headaches resolved. She states that she has had blurry vision for many months which seem to get a little worse around the time she was diagnosed with temporal arteritis and they have not improved with the prednisone. She denies any loss of vision and both eyes are equally affected. She has not had any eye pain. Reactivity is of daily have not been affected by this blurry vision. Denies history suggestive of uveitis or inflammatory bowel disease. No history of autoimmune disease in the family [facility] Medical History Osteoarthritis of left knee halfway systemic steroid user Fibromyalgia Migraines Basal cell carcinoma of nose Bunion, left foot Surgical History H/O arthroscopic knee surgery H/O toe surgery History of surgery History of bunionectomy H/O colonoscopy Family History Mother Heart problem COPD (chronic obstructive pulmonary disease) Hypertension Father Prostate cancer Colon cancer Diabetes Brother Diabetes Sister Hypertension Hypercholesteremia Social History Housing: House Alcohol intake: current Alcohol intake frequency: holidays/special occasions only Patient Tobacco Use Status: Never used Tobacco e-Cigarette/Vaping Use: Never Used Second Hand Smoke Exposure: No service: No Current occupational status: retired Cognitive needs: No Hearing needs: Yes Vision needs: No Female Reproductive History Menstrual Total pregnancies: 0 Review of Systems Const Reports headache(s) ENT Reports headache(s) and Reports neck pain Musc Reports no additional complaints, Reports back pain and Reports neck pain Neuro Reports headache(s) Physical Exam Vital Signs: Last Vital Signs Pulse 78 05/17/24 10:43 BP 115/70 05/17/24 10:43 Pulse Ox 99 05/17/24 10:43 Oxygen Delivery Method Room Air 05/17/24 10:43 BMI result Body Mass Index 21.7 Const General: cooperative, comfortable and no acute distress Nutritional Appearance: well nourished Orientation/consciousness: patient oriented x3 Limitations: no limitations HEENT Head: Yes normocephalic and Yes atraumatic Mouth: moist mucous membranes Eyes Other: PERRL, normal eye movement no ocular erythema Resp Effort & Inspection: normal respiratory effort and able to speak in complete sentences Auscultation: clear to auscultation bilaterally Cardio Rate: regular rate Rhythm: regular rhythm Heart sounds: S1 normal heart sound present and S2 normal heart sound present Peripheral pulses: radial pulses present (2+) bilateral and dorsalis pedis present (2+) bilateral GI Inspection: No distended Palpation (GI): Soft to palpation and nontender Skin General skin exam: no rashes or lesions noted Neuro Other: Sensation grossly normal upper and lower extremities Negative Tinel sign bilaterally Negative Spurling's test bilaterally General: patient oriented x3 Extrem Other: Osteoarthritic changes of both hands Normal range of motion of both shoulders without pain Negative rotator cuff provocative maneuvers bilaterally Negative straight leg raise test bilaterally Few fibromyalgia tender points Results Reviewed Results Reviewed: MRA chest and neck 11/2023 COMPARISON: MRA chest from 08/11/2022 FINDINGS: VASCULAR: THORACIC AORTA: Thoracic aorta is normal in caliber and patent. No evidence of aneurysm, vessel wall irregularity or wall thickening. There is a moderate length segment of narrowing and vessel wall irregularity within the mid left subclavian artery distal to the takeoff of the left vertebral artery with stenosis measuring approximately 60-70% which is stable. There is minimal stenosis within the proximal right subclavian artery distal to the takeoff of the right vertebral artery. The right brachiocephalic artery, visualized bilateral common carotid arteries and visualized vertebral arteries are patent. ABDOMINAL AORTA: Visualized proximal abdominal aorta is normal in caliber. CENTRAL THORACIC VENOUS SYSTEM: Patent NONVASCULAR: Heart is normal in size. Pericardium is normal. No pleural effusions MR/MR angio chest wo/w con IMPRESSION: Stable left subclavian artery stenosis as described MR ANGIOGRAPHY NECK WITHOUT AND WITH CONTRAST CLINICAL INFORMATION: Giant cell arteritis. COMPARISON: MRA neck 08/13/2022. TECHNIQUE:? Noncontrast and gadolinium infusion MRA of the neck are obtained, the latter following the administration of 10 mL of Gadavist intravenous contrast without complication. Source images were reviewed and additional volumetric and angled MIPs were independently generated and archived by the [facility].? Stenoses are assessed in accordance with NASCET criteria unless otherwise indicated.?? FINDINGS: There is a 3 great vessel branch configuration off of the aortic arch. The great vessel origins are widely patent. Cervical vertebral arteries are codominant and widely patent throughout their cervical course. Common carotid arteries, carotid bifurcations, and cervical internal carotid arteries are widely patent. Retropharyngeal course of the proximal right cervical ICA. MR/MR angio neck wo/w con IMPRESSION: Unremarkable MRA of the neck. This study is not diagnostic for assessing the superficial temporal arteries and their distal branches. Assessment & Plan Assessment & Plan (1) Temporal arteritis: Comment: Onset 06/2022 . Biopsy proven Prednisone started 07/2022 Actemra started 08/2022 effective Prednisone tapered off 01/2024 Code(s): M31.6 - Other giant cell arteritis Category: Medical Plan: This is a 68-year-old female with biopsy-proven GCA, MRA of chest and neck showed left subclavian artery stenosis 60-70% and right subclavian artery stenosis 50%. Upon evaluation her GCA is in remission. She continues to have headaches, which are likely related to migraines. She is being tried on different treatments by neurologist. Most recently she had a couple of Botox injections We discussed potentially spacing out her Actemra to every 10 days however given multiple changes in her medication regimen, we will keep the Actemra stable at once weekly dosing. Continue Actemra 162 mg once weekly Continue baby aspirin Labs before next visit in 3 months (2) halfway systemic steroid user: Code(s): Z79.52 - halfway (current) use of systemic steroids Category: Medical Plan: DEXA scan shows osteopenia but given long-term corticosteroid therapy her FRAX score would be at moderate risk for fracture. Patient has tapered her prednisone off 01/2024. Continue alendronate until fall of 2023. Plan to repeat DEXA 08/2024 Bactrim and Protonix were stopped once prednisone was less than 15 mg daily Can take Protonix once a week with alendronate steroid side effects have resolved, including the easy bruising, edgar facies, buffalo hump resolved. (3) Cervical radiculopathy: Code(s): M54.12 - Radiculopathy, cervical region Category: Medical Plan: Patient continues to have neck pain that radiates to her shoulder and hand. X- ray of the cervical spine and showed multiple degenerative changes. Patient received steroid injections by Pain Management. Last injection was last summer. Patient did PT for 6 weeks without improvement. Cervical spine MRI was completed 04/2024 but has not been read yet. I called the radiology department to expedite the read (4) Osteoarthritis of left knee: Code(s): M17.12 - Unilateral primary osteoarthritis, left knee Category: Medical Qualifiers: Osteoarthritis type: primary Qualified Code(s): M17.12 - Unilateral primary osteoarthritis, left knee Plan: Recently had a Durolane injection by Dr. Trivedi (5) Fibromyalgia, primary: Code(s): M79.7 - Fibromyalgia Category: Medical Plan: I believe the majority of patient's pain at this time is related to fibromyalgia. We had multiple long conversations about patient's fibromyalgia. She has tried different treatments. Since she had a sleep study which was negative. She continues to exercise. Advised patient to look up the youtube podcast mind your fibro I suggested evaluation by therapist and/or psychiatrist Plan I spent 60 minutes reviewing patient's chart, evaluating patient, ordering diagnostic workup, counseling patient and documenting in the chart Orders: Orders Complete Blood Count Auto Diff 3 Months M31.6 - Other giant cell arteritis Comprehensive Met. Panel 3 Months M31.6 - Other giant cell arteritis XR DEXA axial skeleton 08/07/24 M31.6 - Other giant cell arteritis C Reactive Protein 3 Months M31.6 - Other giant cell arteritis Erythrocyte Sedimentation Rate 3 Months M31.6 - Other giant cell arteritis Coding Level of Care Code Est Pt Level 5 (42435) Complex EM visit Add On G2211 Diagnoses Temporal arteritis M31.6 halfway systemic steroid user Z79.52 Cervical radiculopathy M54.12 Primary osteoarthritis of left knee M17.12 Osteoarthritis type: primary Fibromyalgia, primary M79.7
[2024-05-17 10:43] VITALS: BP 115/70; PULSE 78; O2SAT 99; BMI 21.7
== END 2024-05-17 11:20 | disposition home or self-care (01) ==
PROVIDERS: PCP Internal Medicine; Visit Provider Student in an Organized Health Care Education/Training Program
DX: M31.6 Other giant cell arteritis (principal); Z79.52 Long term (current) use of systemic steroids; M54.12 Radiculopathy, cervical region; M17.12 Unilateral primary osteoarthritis, left knee; M79.7 Fibromyalgia
CPT/HCPCS: 99215; G2211

== ENCOUNTER → 2024-05-17 10:37 | Outpatient (BNVA) | payer MEDICARE, OTHER, SELFPAY | PROVIDERS: PCP Internal Medicine; Visit Provider Student in an Organized Health Care Education/Training Program | DX: M31.6 Other giant cell arteritis (principal); M54.12 Radiculopathy, cervical region; M17.12 Unilateral primary osteoarthritis, left knee; M79.7 Fibromyalgia; Z79.52 Long term (current) use of systemic steroids | CPT/HCPCS: 99212 ==

== ENCOUNTER 2024-05-31 11:41 | Outpatient (AMB) | payer MEDICARE, OTHER, SELFPAY ==
--- NOTE | 2024-05-31 11:56 | AM.OFFWIN_ITS ---
Intake Vital Signs 05/31/24 11:57 Height 5 ft 3 in Weight 122 lb BMI 21.6 BP 114/70 Blood Pressure Location Lt brachial Position Sitting Pulse 80 Pulse Source Pulse Oximeter Temp 98.4 F Temp Source Oral Pulse Oximetry (%) 98 Oxygen Delivery Method Room Air Intake Visit Reasons: Cough/Cold Intake Note: pt here c/o cough and cold. Started 1 week Patient Tobacco Use Status: Never used Tobacco Allergies meperidine [Demerol] Allergy (Intermediate, Verified 05/31/24 11:56) Vomiting Penicillins [PENICILLINS] Allergy (Intermediate, Verified 05/31/24 11:56) RASH erythromycin base [ERYTHROMYCIN BASE] Allergy (Unknown, Verified 05/31/24 11:56) unknown Do you need a note to return to daycare/school/sports/work: No HPI Cough/Cold HPI Details This note is constructed using voice recognition software. While every effort has been made to ensure accuracy, six color press operator errors may have been included. The patient is a 69 year old female who presents to the clinic today with a history of cough and sinus congestion. She notes that she has tried Robitussin at home and this does not seem to be helping, she has an pressure sensation in her frontal sinuses, and this seems to make her feel worse. She also notes that she has had cough that has been unproductive, dry at times. She has tested for COVID at home and has been negative. No body aches, fevers, chills. She has not been around any sick contacts. [facility] Medical History Osteoarthritis of left knee [facility] systemic steroid user Fibromyalgia Migraines Basal cell carcinoma of nose Bunion, left foot Surgical History H/O arthroscopic knee surgery H/O toe surgery History of surgery History of bunionectomy H/O colonoscopy Family History Mother Heart problem COPD (chronic obstructive pulmonary disease) Hypertension Father Prostate cancer Colon cancer Diabetes Brother Diabetes Sister Hypertension Hypercholesteremia Social History Housing: House Alcohol intake: current Alcohol intake frequency: holidays/special occasions only Patient Tobacco Use Status: Never used Tobacco e-Cigarette/Vaping Use: Never Used Second Hand Smoke Exposure: No service: No Current occupational status: retired Cognitive needs: No Hearing needs: Yes Vision needs: No Review of Systems Const All systems reviewed & are unremarkable except as noted in HPI and below Physical Exam Vital Signs: Last Vital Signs Temp 98.4 F 05/31/24 11:57 Pulse 80 05/31/24 11:57 BP 114/70 05/31/24 11:57 Pulse Ox 98 05/31/24 11:57 Oxygen Delivery Method Room Air 05/31/24 11:57 BMI result Body Mass Index 21.6 Const General: cooperative, healthy appearing, comfortable and no acute distress Orientation/consciousness: patient oriented x3 Limitations: no limitations HEENT Head: Yes normal to inspection Ears: hearing grossly normal bilaterally, external ears normal and TM's normal bilaterally General nose exam: Normal external nose present, Normal nares present and No nasal discharge present Face and sinus: Yes normal facial exam and Yes sinus tenderness (Frontal bilaterally though right more than left.) Mouth: Normal oral and palatal mucosa present and moist mucous membranes Throat: Yes tonsils normal, Yes uvula midline and Yes posterior oropharynx abnormal (Erythema) Eyes General: appearance normal, both eyes and all related structures Neck Neck: Yes normal visual inspection Resp Effort & Inspection: normal respiratory effort, able to speak in complete sentences, Actively coughing, no respiratory distress, not tachypneic, no tripod positioning and no use of accessory muscles Auscultation: clear to auscultation bilaterally Cardio Jugular venous distension: no JVD Rate: regular rate Rhythm: regular rhythm Heart sounds: S1 normal heart sound present, S2 normal heart sound present, no click, no gallops, no murmurs and no rubs Skin General skin exam: no rashes or lesions noted, elasticity normal and turgor normal Neuro General: patient oriented x3 Extrem General: Yes normal to inspection and Yes no clubbing, cyanosis or edema Assessment & Plan Assessment & Plan (1) Sinusitis: Code(s): J32.9 - Chronic sinusitis, unspecified Qualifiers: Sinusitis location: frontal Chronicity: acute Recurrence: non- recurrent Qualified Code(s): J01.10 - Acute frontal sinusitis, unspecified Plan: Likely viral in origin, given timeline since onset, deferred antimicrobials at this time. We will try a prednisone burst to help with symptomatic management. Advised steam and hydration to help with symptoms as well. Advised follow up with worsening or failure to resolve. (2) Viral URI with cough: Code(s): J06.9 - Acute upper respiratory infection, unspecified Plan: Given timeline since onset, deferred testing at this time as she would not qualify for 5 for any antiviral therapy. Advised patient to wear mask and remain away from others when she is ill. Reviewed [id number] methods including Mucinex to help reduce symptoms. Advised follow up with worsening symptoms or failure to resolve. Plan See above for full details and plan. Medications: New prednisone 40 mg (2 x 20 mg) PO DAILY 3 days 6 tabs 0RF Coding Level of Care Code Est Pt Level 3 (51703) Diagnoses Acute non-recurrent frontal sinusitis J01.10 Sinusitis location: frontal Chronicity: acute Recurrence: non-recurrent Viral URI with cough J06.9
[2024-05-31 11:57] VITALS: BP 114/70; PULSE 80; TEMP 36.9; O2SAT 98; BMI 21.6
== END 2024-05-31 12:48 | disposition home or self-care (01) ==
PROVIDERS: PCP Internal Medicine; Visit Provider Registered Nurse
DX: J01.10 Acute frontal sinusitis, unspecified (principal); J06.9 Acute upper respiratory infection, unspecified
CPT/HCPCS: 99213

== ENCOUNTER 2024-06-04 14:29 | Outpatient (AMB) | payer MEDICARE, OTHER, SELFPAY ==
--- NOTE | 2024-06-04 14:11 | MHC.PC.OV ---
Vital Signs 06/04/24 14:12 Height 5 ft 3 in Weight 124 lb BMI 22.0 Blood Pressure Location Lt brachial Position Sitting Pulse Source Pulse Oximeter Oxygen Delivery Method Room Air Intake Visit Reasons: cold/cough symptoms Intake Note: pt states having cold symptoms for about 10 days Allergies meperidine [Demerol] Allergy (Intermediate, Verified 05/31/24 11:56) Vomiting Penicillins [PENICILLINS] Allergy (Intermediate, Verified 05/31/24 11:56) RASH erythromycin base [ERYTHROMYCIN BASE] Allergy (Unknown, Verified 05/31/24 11:56) unknown Tobacco use date assessed: 06/04/24 Fall risk assessment: No Falls in past year Last assessed Fall Risk: 06/04/24 Dental Screening Dental Screen Date: 06/04/24 Did you have a dental visit in the last 12 months?: Yes Did you have a dental problem in the last 6 months where you did not have access to dental care?: No Was dental information given to patient?: Patient has dentist HPI cold/cough symptoms HPI Details cough for a week PFSH Medical History Osteoarthritis of left knee 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 Fibromyalgia Migraines Basal cell carcinoma of nose Bunion, left foot Surgical History H/O arthroscopic knee surgery H/O toe surgery History of surgery History of bunionectomy H/O colonoscopy Family History Mother Heart problem COPD (chronic obstructive pulmonary disease) Hypertension Father Prostate cancer Colon cancer Diabetes Brother Diabetes Sister Hypertension Hypercholesteremia Social History Housing: House Alcohol intake: current Alcohol intake frequency: holidays/special occasions only Patient Tobacco Use Status: Never used Tobacco e-Cigarette/Vaping Use: Never Used Second Hand Smoke Exposure: No service: No Current occupational status: retired Cognitive needs: No Hearing needs: Yes Vision needs: No Questionnaire Thrive Questionnaire Date Thrive assessed: 02/15/22 KENNY-7 AMB Questionnaire KENNY-7 Date KENNY - 7 assessed: 02/15/22 Source: Developed by Drs. Hubert Muniz, Summer B.W. Barron Minaya and colleagues, with an educational elvira from [employer]. Review of Systems Const Denies chills, Denies headache(s) and Denies weight loss ENT Denies headache(s) Card Denies chest pain, Denies syncope, Denies irregular heart rhythm and Denies dyspnea Resp Denies dyspnea GI Denies abdominal pain, Denies change in stool character, Denies nausea and Denies vomiting Musc Denies deformity and Denies joint swelling Neuro Denies syncope and Denies headache(s) Physical exam (Primary Care) Vital Signs: Oxygen Delivery Method Room Air 06/04/24 14:12 BMI result Body Mass Index 22.0 Tobacco/Smoking Status: Tobacco use Status Tobacco use date assessed 06/04/24 06/04/24 14:13 Patient Tobacco Use Status Never used Tobacco 06/04/24 14:12 e-Cigarette/Vaping Use Never Used 06/04/24 14:12 Thrive Assessment: Date of Thrive Assessment Date Thrive assessed 02/15/22 06/04/24 14:12 Telehealth Telehealth Telehealth Platform: Telephone Location of provider rendering services: practice address Location of patient: address on file Patient Identification confirmed using: Name, : Yes Telehealth method: voice only Patient verbally consented to treatment: Yes Patient verbally consented to billing insurance company: Yes Patient informed of any privacy concerns related to visit: Yes Minutes spent on Phone/Video with Pt.: 15 (telephone) Assessment and Plan Assessment & Plan (1) Cough: Code(s): R05.9 - Cough, unspecified Plan: rx sent Medications: New azithromycin take 500 mg today (day 1), then 250 mg for 4 days (days 2-5) PO 6 tabs 0RF Coding Level of Care Code Tele Est Pt Level 3 (61073) Diagnoses Cough R05.9
[2024-06-04 14:12] VITALS: BMI 22.0
== END 2024-06-05 15:00 | disposition home or self-care (01) ==
LOC: HO.HMGH 14:29
PROVIDERS: PCP Internal Medicine; Visit Provider Internal Medicine
DX: R05.9 Cough, unspecified (principal)
CPT/HCPCS: 99442

== ENCOUNTER 2024-06-11 08:23 | Outpatient (AMB) | payer MEDICARE, OTHER, SELFPAY ==
--- NOTE | 2024-06-11 08:25 | MHC.OFFVIS ---
Vital Signs 06/11/24 08:34 Height 5 ft 3 in Weight 122 lb BMI 21.6 BP 110/62 Blood Pressure Location Lt brachial Position Sitting Respiration 16 Pulse 80 Pulse Source Pulse Oximeter Pulse Oximetry (%) 100 Oxygen Delivery Method Room Air Intake Visit Reasons: Radiculopathy, cervical region Intake Note: Patient comes in for initial visit was referred by . Reports pain 01/14. Allergies meperidine [Demerol] Allergy (Intermediate, Verified 06/11/24 08:33) Vomiting Penicillins [PENICILLINS] Allergy (Intermediate, Verified 06/11/24 08:33) RASH erythromycin base [ERYTHROMYCIN BASE] Allergy (Unknown, Verified 06/11/24 08:33) unknown HPI Comments Details: Duong is very pleasant 69 years old female who presents in my office with complains on pain in the posterior portion of the neck with radiation to the back of the head mostly right side of the head and behind her right eye. She also reports milder pain radiation to the left side in similar projection. She reports that this pain started 40 years ago and continues to get progressively worse. She was under care of [facility]. She reports that she can sleep normally, she can do activities of daily living, she can take care of herself and she can function normally. She retired individual. She reports that application of heat and oral medications alleviate her pain. In terms of tissue damage she reports her pain as pulsing and pounding, sharp and lacerating, pinching and crushing, dull, hurting, heavy, tiring and exhausting, tight squeezing and tearing sensation. She is taking gabapentin and Celebrex to help her pain. She reports that in the past she tried baclofen but that was not giving her much of the pain relief with some possible dizziness syndrome is in his sensation side effects. 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 She reports arthritis of the hands as well. She had multiple images her MRI of the cervical spine dictated as below. She had physical therapy for her neck she tried several times of different offices of chiropractic manipulations she tried massage therapy and acupuncture unfortunately none of those modalities helps her pain. She tried years ago TENs unit without any success. She was under care of [facility] and she received transforaminal epidural steroid injections in the neck left C3-C4 and C4-C5 she received left C2-C3 C3-C4 and C4-C5 facet joint injections, she received diagnostic medial branch blocks C2-C3 C4 bilateral she reports no pain improvement. She gave me a story of diagnostic injection falling short of few points to offer her some definitive procedure on the neck. She reports that she was placed on 80 mg prednisone to treat her giant cell arteritis and she reported good pain relief with initiation of this therapy, however the patient pain came back later on. She reports that she received 2 botulinum toxin injections as a treatment for ?migraine ?. She is scheduled for the 3rd injection, she unfortunately did not see the benefits of the 1st 2 injections. Her past medical history significant for headaches as above irritable bowel syndrome and arthritis. She reports history of arthroscopic left knee surgery left temporal artery biopsy left foot bunion surgery and basal cell carcinoma surgery on the nose. Social history she is retired individual. She denies smoking cigarettes she denies drinking alcohol she denies recreational drugs. 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 Fibromyalgia Migraines Basal cell carcinoma of nose Bunion, left foot Surgical History H/O arthroscopic knee surgery H/O toe surgery History of surgery History of bunionectomy H/O colonoscopy Family History Mother Heart problem COPD (chronic obstructive pulmonary disease) Hypertension Father Prostate cancer Colon cancer Diabetes Brother Diabetes Sister Hypertension Hypercholesteremia Social History Housing: House Alcohol intake: current Alcohol intake frequency: holidays/special occasions only Patient Tobacco Use Status: Never used Tobacco e-Cigarette/Vaping Use: Never Used Second Hand Smoke Exposure: No service: No Current occupational status: retired Cognitive needs: No Hearing needs: Yes Vision needs: No Review of Systems Const Denies chills, Reports headache(s) and Denies weight loss ENT Reports Normal hearing present, Reports headache(s) and Reports neck pain Card Denies chest pain, Denies syncope, Denies irregular heart rhythm and Denies dyspnea Resp Denies dyspnea GI Denies abdominal pain, Denies change in stool character, Denies nausea and Denies vomiting Musc Reports as per HPI, Reports joint swelling, Reports limited range of motion, Reports neck pain and Reports stiffness Neuro Reports Normal hearing present, Denies Abnormal speech present, Denies syncope, Reports headache(s) and Denies Sensory deficit (Neuro) Physical Exam Vital Signs: Last Vital Signs Pulse 80 06/11/24 08:34 Resp 16 06/11/24 08:34 BP 110/62 06/11/24 08:34 Pulse Ox 100 06/11/24 08:34 Oxygen Delivery Method Room Air 06/11/24 08:34 BMI result Body Mass Index 21.6 Const General: no acute distress and well developed Nutritional Appearance: thin Orientation/consciousness: patient oriented x3 Eyes General: appearance normal, both eyes and all related structures Pupils: Equal, round and reactive pupils present EOM: EOMs intact bilaterally Neck Other: Flexing forward and flexing backwards aggravate the patient's pain however flexing had backwards aggravate pain more severe. There is limitation in the range of motion with inability to turn head to the left side more than to the right. She reports no radiation of the pain into the upper or lower extremities. On physical exam she exhibits normal strength of flexors and extensors of the bilateral upper extremities. She reports no numbness or awkwardness of the movements in bilateral upper extremities. She denies Valsalva aggravating her pain. Axial compression and axial distention of the neck does not affect her pain. Spurling test is negative bilaterally. Lhermitte test is negative . Chest Chest palpation & inspection: normal inspection of the chest Resp Effort & Inspection: normal respiratory effort, able to speak in complete sentences, normal respiratory pattern, no audible wheezes and no cough Cardio Jugular venous distension: no JVD GI Inspection: Yes normal to inspection Neuro General: patient oriented x3 and gait normal Cranial nerves: Yes CN's II-XII intact bilaterally, Yes Equal, round and reactive pupils present, Yes Normal hearing present and Yes Ability to bilaterally elevate shoulders present Speech: No Abnormal speech present Gait exam (Neuro): Normal gait present Motor exam (neuro): 5/5 motor strength present throughout Sensory Exam: No Sensory deficit (Neuro) Extrem General: No pedal edema Psych Speech and movement: Normal speech and movement present Affect: normal affect Attitude: cooperative Thought process: Normal thought process present Thought content: Normal thought content present Insight: Good insight present (Psych) Judgement: Good judgement present (Psych) Results Reviewed Results Reviewed: MR CERVICAL SPINE WITHOUT CONTRAST CLINICAL INFORMATION: Cervical radiculopathy COMPARISON: MRI cervical spine on 03/11/2021 TECHNIQUE: MRI of the cervical spine was obtained using routine sequences without contrast. FINDINGS: The visualized cervical vertebrae are intact with normal alignment. No focal bone lesion with abnormal signal can be seen. Evaluation of the intervertebral discs show: C2/C3: Intervertebral disc height is normal, with normal T2 signal. No focal disc herniation is seen. Bilateral C2-C3 neural foramina are patent. Bilateral apophyseal joints are intact with normal alignment. C3/C4: Intervertebral disc height is normal, with normal T2 signal. Mild posterior disc protrusion is seen. There is moderate asymmetric left C3-C4 neural foraminal stenosis. Bilateral apophyseal joints are intact with normal alignment. C4/C5: Intervertebral disc height is moderately decreased, with mild loss of T2 signal. Mild posterior disc protrusion is seen. Bilateral C4-C5 neural foramina are markedly stenosed, most severe on the left side. There is moderate spinal stenosis with AP diameter of the spinal canal reduced to 8.6 mm. Bilateral apophyseal joints are intact with normal alignment. C5/C6: Intervertebral disc height is markedly decreased, with mild loss of T2 signal. Mild posterior disc protrusion is seen. There are marked right and moderate left C5-C6 neural foramina stenosis. There is moderate spinal stenosis with AP diameter of the spinal canal reduced to 8.1 mm. Bilateral apophyseal joints are intact with normal alignment. C6/C7: Intervertebral disc height is normal, with normal T2 signal. Mild asymmetric left posterior disc protrusion is seen. There is mild right C6-C7 neural foraminal stenosis. Bilateral apophyseal joints are intact with normal alignment. C7/T1: Intervertebral disc height is normal, with normal T2 signal. No focal disc herniation is seen. Bilateral C7-T1 neural foramina are patent. Bilateral apophyseal joints are intact with normal alignment. Cervical spinal cord is normal in position and signal. IMPRESSION: 1. Unchanged Moderate C4-C5 and C5-C6 spinal stenosis. 2. Unchanged Marked bilateral C4-C5 and right C5-C6 neural foramina stenosis. 3. Unchanged Moderate left C3-C4 neural foraminal stenosis. 4. Unchanged Mild right C6-C7 neural foraminal stenosis. Assessment & Plan Assessment & Plan (1) Spondylosis of cervical region without myelopathy or radiculopathy: Code(s): M47.812 - Spondylosis without myelopathy or radiculopathy, cervical region Category: Medical (2) Bilateral occipital neuralgia: Code(s): M54.81 - Occipital neuralgia Category: Medical (3) Chronic pain syndrome: Code(s): G89.4 - Chronic pain syndrome Category: Medical Plan It looks like the upper cervical spine spondylosis of the cervical spinal column without myelopathy or radiculopathy is the main pain generators for this patient. I was left under impression today that her pain is not related to migraines. She receives Botox injections and those are not helpful for her pain. This confirms my opinion that her pain is not migraine. Most likely it is occipital neuralgia related to spondylosis of the upper cervical spine. I offered this patient bilateral diagnostic C2-C3 C4 medial branch block in the order to diagnose her pain and provide the avenue for the treatment. She wants minimal sedation for this procedure so I can prescribe her Ativan it the day of the procedure however I warned her that she would need to stay awake and cooperate with me during the procedure. If MBB will result in good pain relief for appropriate period of time we can offer her bilateral C3 sprint PNS. If this will not be effective for her pain control Nevro SCS can not be tried. Occipital nerve block greater and lesser bilateral can be tried as well. PNS with cure on X versus PNS with sprint in the occipital positioned also can be tried. Patient Instructions: I here by testify that I spent 45 minutes in conversation with this patient as well as planning her care and organizing this note. Coding Level of Care Code New Pt Level 4 (42939) Diagnoses Spondylosis of cervical region without myelopathy or radiculopathy M47.812 Bilateral occipital neuralgia M54.81 Chronic pain syndrome G89.4
[2024-06-11 08:34] VITALS: BP 110/62; PULSE 80; RESP 16; O2SAT 100; BMI 21.6
== END 2024-06-11 09:15 | disposition home or self-care (01) ==
PROVIDERS: PCP Internal Medicine; Visit Provider Anesthesiology
DX: M47.812 Spondylosis without myelopathy or radiculopathy, cervical region (principal); M54.81 Occipital neuralgia; G89.4 Chronic pain syndrome
CPT/HCPCS: 99204

== ENCOUNTER → 2024-06-11 08:23 | Outpatient (BNVA) | payer MEDICARE, OTHER, SELFPAY | PROVIDERS: PCP Internal Medicine; Visit Provider Anesthesiology | DX: M47.812 Spondylosis without myelopathy or radiculopathy, cervical region (principal); M54.81 Occipital neuralgia; G89.4 Chronic pain syndrome | CPT/HCPCS: 99202 ==

== ENCOUNTER 2024-06-28 15:19 | Outpatient (AMB) | payer MEDICARE, OTHER, SELFPAY ==
--- NOTE | 2024-06-28 15:24 | A.OFFVIS_ITS ---
Vital Signs 06/28/24 15:36 Height 5 ft 3 in Weight 120 lb BMI 21.3 BP 108/68 Blood Pressure Location Rt brachial Position Sitting Respiration 16 Pulse 62 Pulse Source Pulse Oximeter Pulse Oximetry (%) 100 Oxygen Delivery Method Room Air Intake Visit Reasons: BOTOX Intake Note: Pt presents to the office for Botox injections for Migraines. 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 Required: No Allergies meperidine [Demerol] Allergy (Intermediate, Verified 06/28/24 15:25) Vomiting Penicillins [PENICILLINS] Allergy (Intermediate, Verified 06/28/24 15:25) RASH erythromycin base [ERYTHROMYCIN BASE] Allergy (Unknown, Verified 06/28/24 15:25) unknown Medication List - Last Reconciled 06/28/24 by Yadi Blank MD Actemra ACTPen (tocilizumab) 162 mg (0.9 mL) subcut QWEEK NS alendronate 70 mg PO QWEEK aspirin 81 mg PO DAILY atogepant 60 mg PO DAILY 30 days azithromycin take 500 mg today (day 1), then 250 mg for 4 days (days 2-5) PO calcium carbonate-vitamin D3 600 mg-10 mcg (400 unit) 1 cap PO BID celecoxib (Celebrex) 100 mg PO BID 30 days ciprofloxacin HCl (Cipro) 250 mg PO BID citalopram 15 mg (1.5 x 10 mg) PO DAILY eletriptan take 1 tab at onset of headache; if no relief, may repeat 1 tab after at least 2 hrs; max = 2 tabs/24 hrs orally PRN; 30 days fluoride (sodium) 1.1% (DentaGel) dental gabapentin 600 mg PO BEDTIME metronidazole 0.75% appl topical QPM multivitamin 1 tab PO DAILY nirmatrelvir-ritonavir 300 mg (150 mg x 2)-100 mg (Paxlovid) take TWO 150 mg tablets of nirmatrelvir with ONE 100 mg tablet of ritonavir twice daily for 5 days PO onabotulinumtoxinA (Botox) 200 units IM ONCE 12 weeks pantoprazole 40 mg PO QWEEK prednisone 40 mg (2 x 20 mg) PO DAILY 3 days sumatriptan succinate 50 - 100 mg orally at onset of headache, may repeat in 2 hrs PRN; max 2 tabs per day or 4 tabs/week (may take with Aleve 440mg) 30 days sumatriptan succinate 6 mg subcutaneously at onset of nocturnal migraine, may repeat in 1 hr PRN; 28 days MDD 1 ml per day HPI Comments Details: ? 69y/o female comes for treatment of migraines with botox. ??? Most frequent reported adverse reactions following injection of botox for chronic migraine include neck pain (9%), headache(5%), eyelid ptosis(4%), migraine(4%), muscular weakness(4%), musculuskeletal stiffness(4%), bronch itis(3%), injection site pain (3%), musculoskeletal pain(3%), myalgia(3%), facial paresis(2%), HTN(2%) and muscle spasms(2%) were discussed in detail. ??? Botulinum toxin typeA 200units Lot no [id number] expiration Sep 2026 was diluted with 4 cc of normal saline . ??? Muscles injected- ??? Frontalis 4 sites ??? Procerus 1 site ??? Automatic Bandsaw Tender- 2 sites ??? Temporalis- 8 sites ??? Occipitalis- 6 sites ??? Cervical paraspinals- 4 sites ??? Trapezius- 6 sites- 10 units each ??? 5 units each in 31 site ??? Total use- 185units ??? 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 Fibromyalgia Migraines Basal cell carcinoma of nose Bunion, left foot Surgical History H/O arthroscopic knee surgery H/O toe surgery History of surgery History of bunionectomy H/O colonoscopy Family History Mother Heart problem COPD (chronic obstructive pulmonary disease) Hypertension Father Prostate cancer Colon cancer Diabetes Brother Diabetes Sister Hypertension Hypercholesteremia Social History Housing: House Alcohol intake: current Alcohol intake frequency: holidays/special occasions only Patient Tobacco Use Status: Never used Tobacco e-Cigarette/Vaping Use: Never Used Second Hand Smoke Exposure: No service: No Current occupational status: retired Cognitive needs: No Hearing needs: Yes Vision needs: No Physical Exam Vital Signs: Last Vital Signs Pulse 62 06/28/24 15:36 Resp 16 06/28/24 15:36 BP 108/68 06/28/24 15:36 Pulse Ox 100 06/28/24 15:36 Oxygen Delivery Method Room Air 06/28/24 15:36 BMI result Body Mass Index 21.3 Const General: cooperative and no acute distress Orientation/consciousness: patient oriented x3 Resp Effort & Inspection: normal respiratory effort and able to speak in complete sentences Neuro General: patient oriented x3 Cranial nerves: Yes CN's II-XII intact bilaterally Cognition (Neuro): normal cognition Psych Appearance: grossly normal Mental Status: mental status grossly normal Speech and movement: Normal speech and movement present Affect: normal affect Attitude: cooperative Office Procedures Botulinum toxin Injection 32632 - Migraine Procedure code (CPT) selection complete Office Meds onabotulinumtoxinA 200 unit solution for injection Performing Provider: Yadi Blank MD Performing Location: [facility] Administered by: Yadi Blank MD on 06/28/24 15:52 Dose Route Admin Location Dispensed Lot Number Expiration Date [facility] [employer] 185 unit subcut 200 units [id number] 09/07/26 6980-3480-76 [employer]ER[employer]/BOTOX Comments: see hpi Assessment & Plan Assessment & Plan (1) Chronic migraine without aura, intractable, without status migrainosus: Code(s): G43.719 - Chronic migraine without aura, intractable, without status migrainosus Category: Medical (2) Chronic migraine without aura: Code(s): G43.709 - Chronic migraine without aura, not intractable, without status migrainosus Category: Medical (3) Temporal arteritis: Comment: Onset 06/2022 . Biopsy proven Prednisone started 07/2022 Actemra started 08/2022 effective Prednisone tapered off 01/2024 Code(s): M31.6 - Other giant cell arteritis Category: Medical Plan Patient tolerated the procedure well she will call with any side effects Orders: Orders AMB Botulinum toxin Injection Today G43.719 - Chronic migraine without aura, intractable, without status migrainosus Medications: New onabotulinumtoxinA 200 units subcut ONCE 1 ea 0RF migraine G43.719 - Chronic migraine without aura, intractable, without status migrainosus Scribe Plan - Not visible on output: Reviewed possible medication side effects, including but not limited to drowsiness, dizziness. Coding Level of Care Code Est Pt Level 1 (72242) Diagnoses Chronic migraine without aura, intractable, without status migrainosus G43.719 Chronic migraine without aura G43.709 Temporal arteritis M31.6 CPT Codes Botox Injection - Botox 3: 76746 - Migraine ([id number])
[2024-06-28 15:36] VITALS: BP 108/68; PULSE 62; RESP 16; O2SAT 100; BMI 21.3
== END 2024-06-28 15:56 | disposition home or self-care (01) ==
PROVIDERS: PCP Internal Medicine; Visit Provider Psychiatry & Neurology Neurology
DX: G43.719 Chronic migraine without aura, intractable, without status migrainosus (principal); M31.6 Other giant cell arteritis
CPT/HCPCS: 64615

== ENCOUNTER → 2024-06-28 15:19 | Outpatient (BNVA) | payer MEDICARE, OTHER, SELFPAY | PROVIDERS: PCP Internal Medicine; Visit Provider Psychiatry & Neurology Neurology | DX: G43.719 Chronic migraine without aura, intractable, without status migrainosus (principal); M31.6 Other giant cell arteritis | CPT/HCPCS: 64615; 99211; J0585 ==

== ENCOUNTER 2024-07-06 14:45 | Outpatient (AMB) | payer MEDICARE, OTHER, SELFPAY ==
--- NOTE | 2024-07-06 14:57 | A.OFFVIS_ITS ---
Vital Signs 07/06/24 14:59 Height 5 ft 3 in Weight 119 lb BMI 21.1 Intake Visit Reasons: Follow up Intake Note: Patient headaches have not improved still current and worst this month. Allergies meperidine [Demerol] Allergy (Intermediate, Verified 07/06/24 14:56) Vomiting Penicillins [PENICILLINS] Allergy (Intermediate, Verified 07/06/24 14:56) RASH erythromycin base [ERYTHROMYCIN BASE] Allergy (Unknown, Verified 07/06/24 14:56) unknown Medication List - Last Reconciled 07/06/24 by SOLITARIO Fernandez Actemra ACTPen (tocilizumab) 162 mg (0.9 mL) subcut QWEEK NS alendronate 70 mg PO QWEEK aspirin 81 mg PO DAILY atogepant 60 mg PO DAILY 30 days azithromycin take 500 mg today (day 1), then 250 mg for 4 days (days 2-5) PO calcium carbonate-vitamin D3 600 mg-10 mcg (400 unit) 1 cap PO BID celecoxib (Celebrex) 100 mg PO BID 30 days ciprofloxacin HCl (Cipro) 250 mg PO BID citalopram 15 mg (1.5 x 10 mg) PO DAILY eletriptan take 1 tab at onset of headache; if no relief, may repeat 1 tab after at least 2 hrs; max = 2 tabs/24 hrs orally PRN; 30 days fluoride (sodium) 1.1% (DentaGel) dental gabapentin 600 mg PO BEDTIME metronidazole 0.75% appl topical QPM multivitamin 1 tab PO DAILY nirmatrelvir-ritonavir 300 mg (150 mg x 2)-100 mg (Paxlovid) take TWO 150 mg tablets of nirmatrelvir with ONE 100 mg tablet of ritonavir twice daily for 5 days PO onabotulinumtoxinA (Botox) 200 units IM ONCE 12 weeks pantoprazole 40 mg PO QWEEK prednisone 40 mg (2 x 20 mg) PO DAILY 3 days sumatriptan succinate 50 - 100 mg orally at onset of headache, may repeat in 2 hrs PRN; max 2 tabs per day or 4 tabs/week (may take with Aleve 440mg) 30 days sumatriptan succinate 6 mg subcutaneously at onset of nocturnal migraine, may repeat in 1 hr PRN; 28 days MDD 1 ml per day HPI Comments Details: 69-yr-old female presents for f/u visit. Pt denies any significant interval medical changes. Pt reports she had increased migraine this past month, prior to her Botox tx in Jun, she had a 9 day startch of waking up every day w/ a migraine. In Jun, she needed to take Sumatripatn tab 11 x's, Sumatriptan inj 1 x, Eletriptan x's 2, and Fioricet x's 1. She has been trying the nerivio device- not sure yet if helpful, plans to try using every other day again. She notices more side effect from the Sumatriptan inj- but goes to sleep right after taking it- so is not sure if it more effective than the tablet version. The triptans and taking a rest does help w/ the throbbing pain but still has lingering headache. She did see pulmonology, who had her have f/u sleep studies. April 2024, in-lab PSG, did not show sleep apnea or significant hypoxemia, however it did show PLMS 29/hr and PLMS arousal index of 5.5/hr. She does endorse restless leg s/s in the evening when watching TV, but typically does not prevent her from falling asleep. Denies usual nocturnal leg cramps. She is still having neck pain/soreness, can be shooting pain. Denies BUE numbness/weakness. She saw pain management- they are considering alternate tx options. She did retry the Baclofen last week, waiting to see the effect. Baseline headache characteristics: left frontal and left sides, right is not as bad. Stabbing, throbbing, aching pain. A/w photophobia, phonophobia, nausea, and sometimes cloudier vision. 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 Fibromyalgia Migraines Basal cell carcinoma of nose Bunion, left foot Surgical History H/O arthroscopic knee surgery H/O toe surgery History of surgery History of bunionectomy H/O colonoscopy Family History Mother Heart problem COPD (chronic obstructive pulmonary disease) Hypertension Father Prostate cancer Colon cancer Diabetes Brother Diabetes Sister Hypertension Hypercholesteremia Social History Housing: House Alcohol intake: current Alcohol intake frequency: holidays/special occasions only Patient Tobacco Use Status: Never used Tobacco e-Cigarette/Vaping Use: Never Used Second Hand Smoke Exposure: No service: No Current occupational status: retired Cognitive needs: No Hearing needs: Yes Vision needs: No Physical Exam Vital Signs: BMI result Body Mass Index 21.1 Const General: cooperative and no acute distress Orientation/consciousness: patient oriented x3 Resp Effort & Inspection: normal respiratory effort and able to speak in complete sentences Neuro General: patient oriented x3 Cranial nerves: Yes CN's II-XII intact bilaterally Cognition (Neuro): normal cognition Psych Appearance: grossly normal Mental Status: mental status grossly normal Speech and movement: Normal speech and movement present Affect: normal affect Attitude: cooperative Assessment & Plan Assessment & Plan (1) Chronic migraine without aura, intractable, without status migrainosus: Code(s): G43.719 - Chronic migraine without aura, intractable, without status migrainosus Category: Medical (2) TTH (tension-type headache): Code(s): G44.209 - Tension-type headache, unspecified, not intractable Category: Medical (3) Periodic limb movements of sleep: Code(s): G47.61 - Periodic limb movement disorder Category: Medical (4) Spondylosis of cervical region without myelopathy or radiculopathy: Code(s): M47.812 - Spondylosis without myelopathy or radiculopathy, cervical region Category: Medical Plan For nocturnal hypoxemia seen on recent HST: Pt had pulmonary consult- further work-up did not show concerning nocturnal hypoxemia. Check labs for common etiologies of RLS/PLMS. ? For acute headache treatment: Nerivio neuromodulation stimulation x's 45 min qd prn. Eletriptan 40mg prn. Do not take on same day as Sumatriptan. Sumatriptan 100mg tab- 1 tab at onset of migraine, MR in 2 hours (MDD 200mg). May take with Aleve 440mg q12 hrs prn. Continue Sumatriptan 100mg tab - 1/2 tab w/ Aleve 440mg and Benadryl 25mg 30 minutes prior to tocilizumab injection. Continue Sumatriptan inj prn. May use Fioricet for TTH and/or Benadryl for rescue. Previous acute migraine medication trials: None other Acute migraine medication contraindications: None at this time. Future considerations: Ubrelvy. ? For chronic migraine prevention medication: Continue Botox 155 units IM q 3 months- as scheduled in [place] neuromodulation stimulation x's 45 min qd prn. Qulipta 60mg qhs. Previous migraine prevention medication trials: Propranolol- ineffective. Amitriptyline- ineffective, not tolerated. Topiramate- ineffective. Botox x's > 6 tx was ineffective however was not given PREMPT protocol. Depakote- ineffective. Mag- ineffective. Riboflavin- ineffective. Nurtec stopped- lost efficacy. Migraine prevention medication contraindications: aimovig d/t pt has constipation. Future considerations: Emgality/Ajovy. ? For GCA: Continue Tocilizumab per Dr Rose. ? For cervicalgia w/ mild-mod multilevel degenerative and mild spondylosis: Baclofen 5-10mg qhs prn. Celeberex 100mg bid prn. ? f/u in 4 months or sooner prn. Orders: Orders Vitamin D 25-OH (D2 and D3) 07/06/24 D64.9 - Anemia, unspecified, G62.9 - Polyneuropathy, unspecified, M19.90 - Unspecified osteoarthritis, unspecified site, M31.6 - Other giant cell arteritis, R53.83 - Other fatigue Homocysteine 07/06/24 D64.9 - Anemia, unspecified, G62.9 - Polyneuropathy, unspecified, M19.90 - Unspecified osteoarthritis, unspecified site, M31.6 - Other giant cell arteritis, R53.83 - Other fatigue Complete Blood Count Auto Diff 07/06/24 D64.9 - Anemia, unspecified, G62.9 - Polyneuropathy, unspecified, M19.90 - Unspecified osteoarthritis, unspecified site, M31.6 - Other giant cell arteritis, R53.83 - Other fatigue Ferritin 07/06/24 D64.9 - Anemia, unspecified, G62.9 - Polyneuropathy, unspecified, M19.90 - Unspecified osteoarthritis, unspecified site, M31.6 - Other giant cell arteritis, R53.83 - Other fatigue Magnesium 07/06/24 D64.9 - Anemia, unspecified, G62.9 - Polyneuropathy, unspecified, M19.90 - Unspecified osteoarthritis, unspecified site, M31.6 - Other giant cell arteritis, R53.83 - Other fatigue Vitamin B12 and Folate 07/06/24 D64.9 - Anemia, unspecified, G62.9 - Polyneuropathy, unspecified, M19.90 - Unspecified osteoarthritis, unspecified site, M31.6 - Other giant cell arteritis, R53.83 - Other fatigue Methylmalonic Acid 07/06/24 D64.9 - Anemia, unspecified, G62.9 - Polyneuropathy, unspecified, M19.90 - Unspecified osteoarthritis, unspecified site, M31.6 - Other giant cell arteritis, R53.83 - Other fatigue Comprehensive Met. Panel 07/06/24 D64.9 - Anemia, unspecified, G62.9 - Polyneuropathy, unspecified, M19.90 - Unspecified osteoarthritis, unspecified site, M31.6 - Other giant cell arteritis, R53.83 - Other fatigue TSH reflex Free T4 07/06/24 D64.9 - Anemia, unspecified, G62.9 - Polyneuropathy, unspecified, M19.90 - Unspecified osteoarthritis, unspecified site, M31.6 - Other giant cell arteritis, R53.83 - Other fatigue IRON PROFILE 07/06/24 D64.9 - Anemia, unspecified, G62.9 - Polyneuropathy, unspecified, M19.90 - Unspecified osteoarthritis, unspecified site, M31.6 - Other giant cell arteritis, R53.83 - Other fatigue Medications: Refilled celecoxib (Celebrex) 100 mg PO BID 60 caps 3RF 30 days Coding Level of Care Code Est Pt Level 4 (50838) Diagnoses Chronic migraine without aura, intractable, without status migrainosus G43.719 TTH (tension-type headache) G44.209 Periodic limb movements of sleep G47.61 Spondylosis of cervical region without myelopathy or radiculopathy M47.812
[2024-07-06 14:59] VITALS: BMI 21.1
== END 2024-07-06 15:44 | disposition home or self-care (01) ==
PROVIDERS: PCP Internal Medicine; Visit Provider Nurse Practitioner Family
DX: G44.209 Tension-type headache, unspecified, not intractable (principal); G47.61 Periodic limb movement disorder; M47.812 Spondylosis without myelopathy or radiculopathy, cervical region
CPT/HCPCS: 99214

== ENCOUNTER → 2024-07-06 14:45 | Outpatient (BNVA) | payer MEDICARE, OTHER, SELFPAY | PROVIDERS: PCP Internal Medicine; Visit Provider Nurse Practitioner Family | DX: G43.719 Chronic migraine without aura, intractable, without status migrainosus (principal); G44.209 Tension-type headache, unspecified, not intractable; G47.61 Periodic limb movement disorder; M47.812 Spondylosis without myelopathy or radiculopathy, cervical region; Z79.52 Long term (current) use of systemic steroids | CPT/HCPCS: 99212 ==

== ENCOUNTER 2024-07-10 10:45 | Outpatient (REF) | payer MEDICARE, OTHER, SELFPAY ==
[2024-07-10 11:04] LABS: MANUAL DIFF FLAG NO
[2024-07-10 11:40] LABS: Basophils Percent Auto 0.6 % (0-2); Eosinophils Absolute Auto 0.1 X10*3/uL (0.0-0.4); Eosinophils Percent Auto 2.1 % (0-4); Hematocrit 41.1 % (37.0-47.0); Hemoglobin 13.5 g/dl (12.0-16.0); Imm Gran Abs Auto 0.01 X10*3/uL (0.00-0.03); Imm Gran Pct Auto 0.3 % (0.0-0.4); Lymphocytes Absolute Auto 1.3 X10*3/uL (1.2-4.9); Lymphocytes Percent Auto 41.1 % (20-40); Mean Corpuscular HGB Conc 32.8 g/dl (31.0-35.0); Mean Corpuscular Hemoglobin 31.5 pg (27.0-33.0); Mean Corpuscular Volume 95.8 fL (80.0-98.0); Mean Platelet Volume 10.3 fL (9.4-12.3); Monocytes Absolute Auto 0.3 X10*3/uL (0.1-1.2); Monocytes Percent Auto 8.3 % (2-11); Neutrophils Absolute Auto 1.6 x10*3/uL (2.0-8.3); Neutrophils Percent Auto 47.6 % (45-73); Platelet Count 155 X10*3/uL (160-400); Red Blood Count 4.29 X10*6/uL (4.20-5.50); Red Cell Distribution Width 12.9 % (11.0-16.0); White Blood Count 3.3 X10*3/uL (4.8-10.8)
[2024-07-10 12:44] LABS: Alanine Aminotransferase 22 U/L (0-31); Albumin Level 4.1 g/dL (3.5-5.0); Alkaline Phosphatase 33 U/L (39-117); Anion Gap 10 (12-20); Aspartate Amino Transferase 25 U/L (5-31); Bilirubin Total 0.6 mg/dL (0.0-1.0); Blood Urea Nitrogen 13 mg/dL (9-16); Calcium 9.7 mg/dL (8.4-10.2); Carbon Dioxide 31 mmol/L (22-29); Chloride 102 mmol/L (96-108); Estimated Glomerular Filt Rate > 60; Glucose Random 81 mg/dL (60-115); Iron 92 mcg/dL (30-160); Magnesium 2.1 mg/dL (1.6-2.6); Percent Iron Saturation 31 % (15-50); Potassium 4.4 mmol/L (3.3-5.1); Sodium 139 mmol/L (135-145); Total Iron Binding Capacity 297 mcg/dL (228-428); Total Protein 6.7 g/dL (6.5-8.0); Unsaturated Iron Binding 205 ug/dL
[2024-07-10 12:45] LABS: Ferritin 51 ng/mL (10-250); TSH reflex Free T4 1.16 uIU/mL (0.32-4.0)
[2024-07-10 13:03] LABS: Vitamin B12 1316 pg/mL (200-900)
[2024-07-10 13:28] LABS: Folate > 20.0 ng/mL (> or = 4.0)
[2024-07-13 11:59] LABS: Methylmalonic Acid 146 nmol/L (69-390)
[2024-07-13 14:42] LABS: Vitamin D 25-OH, D2 <4 ng/mL; Vitamin D 25-OH, D3 54 ng/mL; Vitamin D 25-OH, Total 54 ng/mL (30-100)
== END 2024-07-10 10:46 | disposition home or self-care (01) ==
LOC: HO.LAB 10:45
PROVIDERS: Visit Provider Nurse Practitioner Family
DX: G62.9 Polyneuropathy, unspecified (principal); M31.6 Other giant cell arteritis; R53.83 Other fatigue; M19.90 Unspecified osteoarthritis, unspecified site; D64.9 Anemia, unspecified
CPT/HCPCS: 36415; 80053; 82306; 82607; 82728; 82746; 83090; 83540; 83735; 83921; 84443; 85025

== ENCOUNTER 2024-07-31 10:23 | Outpatient (AMB) | payer MEDICARE, OTHER, SELFPAY ==
[2024-07-31 10:30] VITALS: BMI 21.1
--- NOTE | 2024-07-31 10:30 | MHC.OFFVIS ---
Vital Signs 07/31/24 10:30 Height 5 ft 3 in Weight 119 lb BMI 21.1 Intake Visit Reasons: Left knee pain Intake Note: Teri is a 69 year old female who presents with complaints of intermittent discomfort in her left knee after undergoing left knee arthroscopic surgery on 09/23/2023. The patient describes her discomfort as achy in nature. She denies any locking or giving way. She questions whether or not she should wearing knee brace this winter when she goes skiing. She continues to walk for exercise. She would like to hold off on total knee replacement surgery for as long as possible. She has not gotten good relief from either cortisone injections or viscosupplementation injections. Allergies meperidine [Demerol] Allergy (Intermediate, Verified 07/31/24 10:41) Vomiting Penicillins [PENICILLINS] Allergy (Intermediate, Verified 07/31/24 10:41) RASH erythromycin base [ERYTHROMYCIN BASE] Allergy (Unknown, Verified 07/31/24 10:41) unknown Medication List - Last Reconciled 08/01/24 by Roger Trivedi MD Actemra ACTPen (tocilizumab) 162 mg (0.9 mL) subcut QWEEK NS alendronate 70 mg PO QWEEK aspirin 81 mg PO DAILY atogepant 60 mg PO DAILY 30 days azithromycin take 500 mg today (day 1), then 250 mg for 4 days (days 2-5) PO calcium carbonate-vitamin D3 600 mg-10 mcg (400 unit) 1 cap PO BID celecoxib (Celebrex) 100 mg PO BID 30 days ciprofloxacin HCl (Cipro) 250 mg PO BID citalopram 15 mg (1.5 x 10 mg) PO DAILY eletriptan take 1 tab at onset of headache; if no relief, may repeat 1 tab after at least 2 hrs; max = 2 tabs/24 hrs orally PRN; 30 days fluoride (sodium) 1.1% (DentaGel) dental gabapentin 600 mg PO BEDTIME metronidazole 0.75% appl topical QPM multivitamin 1 tab PO DAILY nirmatrelvir-ritonavir 300 mg (150 mg x 2)-100 mg (Paxlovid) take TWO 150 mg tablets of nirmatrelvir with ONE 100 mg tablet of ritonavir twice daily for 5 days PO onabotulinumtoxinA (Botox) 200 units IM ONCE 12 weeks pantoprazole 40 mg PO QWEEK prednisone 40 mg (2 x 20 mg) PO DAILY 3 days sumatriptan succinate 50 - 100 mg orally at onset of headache, may repeat in 2 hrs PRN; max 2 tabs per day or 4 tabs/week (may take with Aleve 440mg) 30 days sumatriptan succinate 6 mg subcutaneously at onset of nocturnal migraine, may repeat in 1 hr PRN; 28 days MDD 1 ml per day PFSH Medical History (Updated 07/09/24 @ 21:32 by SOLITARIO Fernandez) Anemia Osteoarthritis Fatigue Chronic migraine without aura, intractable, without status migrainosus 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 Fibromyalgia Migraines Basal cell carcinoma of nose Bunion, left foot Surgical History H/O arthroscopic knee surgery H/O toe surgery History of surgery History of bunionectomy H/O colonoscopy Family History Mother Heart problem COPD (chronic obstructive pulmonary disease) Hypertension Father Prostate cancer Colon cancer Diabetes Brother Diabetes Sister Hypertension Hypercholesteremia Social History Housing: House Alcohol intake: current Alcohol intake frequency: holidays/special occasions only Patient Tobacco Use Status: Never used Tobacco e-Cigarette/Vaping Use: Never Used Second Hand Smoke Exposure: No service: No Current occupational status: retired Cognitive needs: No Hearing needs: Yes Vision needs: No Physical Exam Vital Signs: BMI result Body Mass Index 21.1 Const Other: Well-nourished well-developed very friendly female awake alert and oriented x3 in no acute distress Extrem Other: Bilateral lower extremity examination shows good capillary refill, no skin lesions noted, normal sensation light touch Left knee examination shows a minimal effusion, minimal crepitus with range of motion, minimal discomfort with range of motion, no instability Assessment & Plan Assessment & Plan (1) Left knee pain: Code(s): M25.562 - Pain in left knee Category: Medical Plan Mrs. Michelle presents with intermittent left knee pain due to degenerative joint disease. I had a lengthy discussion with the patient regarding the treatment options. At this point the patient's symptoms are tolerable to her. She wishes to hold off on total knee replacement surgery for as long as possible. I agree with this plan. She will continue with her activity modifications. She will follow up with me on an as-needed basis should her symptoms worsen in any way. Feel free to call me at any time should questions regarding her orthopedic management arise. I spent 21 minutes in reviewing the patient's records and imaging studies, seeing the patient and documenting in the medical record. Coding Level of Care Code Est Pt Level 3 (36764) Complex EM visit Add On G2211 Diagnoses Left knee pain M25.562
== END 2024-07-31 11:09 | disposition home or self-care (01) ==
PROVIDERS: PCP Internal Medicine; Visit Provider Orthopaedic Surgery
DX: M17.12 Unilateral primary osteoarthritis, left knee (principal)
CPT/HCPCS: 99213; G2211

== ENCOUNTER → 2024-07-31 10:23 | Outpatient (BNVA) | payer MEDICARE, OTHER, SELFPAY | PROVIDERS: PCP Internal Medicine; Visit Provider Orthopaedic Surgery | DX: M25.562 Pain in left knee (principal) | CPT/HCPCS: 99212 ==

== ENCOUNTER → 2024-08-01 10:46 | Outpatient (BNVA) | payer MEDICARE, OTHER, SELFPAY | PROVIDERS: PCP Internal Medicine; Visit Provider Nurse Practitioner Family ==

== ENCOUNTER 2024-08-08 10:47 | Outpatient (REF) | payer MEDICARE, OTHER, SELFPAY ==
--- NOTE | ~2024-08-08 | MM_ITS ---
EXAMINATION: BONE DENSITOMETRY CLINICAL INDICATION: Age-related osteoporosis without current pathological fracture. COMPARISON: Baseline BD dated 08/06/2022. TECHNIQUE: Using a [employer] DXA System (software version: 13.1) manufactured by [employer], dual-energy x-ray absorptiometry was performed of the lumbar spine and left hip. The images are of good technical quality. Summary results are attached. FINDINGS: LEFT FEMUR, NECK: Current: BMD 0.807 g/cm2, Z-score 0.2, T-score -1.7, osteopenia. Baseline: BMD 0.781 g/cm2. LEFT FEMUR, TOTAL: Current: BMD 0.822 g/cm2, Z-score 0.2, T-score -1.5, osteopenia, 0.4% decrease from baseline (<5% change is not significant). Baseline: BMD 0.825 g/cm2. AP SPINE L1-L4: Current: BMD 1.048 g/cm2, Z-score 0.9, T-score -1.1, osteopenia, 5.8% increase from baseline (<5% change is not significant). Baseline: BMD 0.991 g/cm2. IDENTIFIED RISK FACTORS: Menopause, glucocorticoids. HISTORY OF FRACTURE: None listed. MEDICATIONS: Calcium supplements or multivitamin, vitamin D, bisphosphonate. MM/XR DEXA axial skeleton IMPRESSION: 1. DIAGNOSIS: Osteopenia based on the lowest T-score value of -1.7 in the femoral neck applying World Health Organization criteria. 2. 10-YEAR FRACTURE RISK PREDICTION, FRAX: Not performed in this patient on estrogen or bone building treatments. 3. Treatment Recommendations: NOF guidelines recommend consideration for treatment in postmenopausal women and men age 50 and older presenting with the following: -A hip or vertebral (clinical or morphometric) fracture. -T-score less than or equal to -2.5 at the femoral neck or spine after appropriate evaluation to exclude secondary causes. -Low bone mass at the hip or spine and a 10-year fracture probability by FRAX of greater than or equal to 3% for hip fracture or greater than or equal to 20% for major osteoporotic fracture based on the [place] adapted WHO algorithm. 4. Other Recommendations: All treatment decisions require clinical judgment and consideration of individual patient factors, including patient preferences, comorbidities, previous drug use, risk factors not captured in the FRAX model (e.g. frailty, falls, vitamin D deficiency, increased bone turnover, interval significant decline in bone density) and possible under or overestimation of fracture risk by FRAX. Additional medical evaluation for secondary cause of low bone mineral density may be appropriate. FUTURE SCAN RECOMMENDATION: People with diagnosed cases of osteoporosis or at high risk for fracture should have regular bone mineral density tests. For patients eligible for Medicare, routine testing is allowed once every 2 years. The testing frequency can be increased to one year for patients who have rapidly progressing disease, those who are receiving or discontinuing medical therapy to restore bone mass, or have additional risk factors. Electronically signed by: Melquiades Erickson MD 08/20/2024 09:02 AM EDT RP
== END 2024-08-08 10:48 | disposition home or self-care (01) ==
LOC: HO.MAMMO 10:47
PROVIDERS: PCP Internal Medicine; Visit Provider Student in an Organized Health Care Education/Training Program
DX: M81.0 Age-related osteoporosis without current pathological fracture (principal)
CPT/HCPCS: 77080

== ENCOUNTER 2024-08-16 12:07 | Outpatient (REF) | payer MEDICARE, OTHER, SELFPAY ==
[2024-08-16 13:08] LABS: MANUAL DIFF FLAG NO
[2024-08-16 13:14] LABS: Basophils Percent Auto 0.7 % (0-2); Eosinophils Absolute Auto 0.1 X10*3/uL (0.0-0.4); Eosinophils Percent Auto 1.4 % (0-4); Hematocrit 38.2 % (37.0-47.0); Hemoglobin 12.4 g/dl (12.0-16.0); Lymphocytes Absolute Auto 1.5 X10*3/uL (1.2-4.9); Lymphocytes Percent Auto 36.5 % (20-40); Mean Corpuscular HGB Conc 32.5 g/dl (31.0-35.0); Mean Corpuscular Hemoglobin 31.2 pg (27.0-33.0); Mean Corpuscular Volume 96.2 fL (80.0-98.0); Mean Platelet Volume 9.9 fL (9.4-12.3); Monocytes Absolute Auto 0.3 X10*3/uL (0.1-1.2); Neutrophils Absolute Auto 2.3 x10*3/uL (2.0-8.3); Neutrophils Percent Auto 54.4 % (45-73); Platelet Count 145 X10*3/uL (160-400); Red Blood Count 3.97 X10*6/uL (4.20-5.50); Red Cell Distribution Width 12.5 % (11.0-16.0); White Blood Count 4.2 X10*3/uL (4.8-10.8)
[2024-08-16 13:38] LABS: Alanine Aminotransferase 25 U/L (0-31); Albumin Level 4.1 g/dL (3.5-5.0); Alkaline Phosphatase 26 U/L (39-117); Anion Gap 8 (12-20); Aspartate Amino Transferase 26 U/L (5-31); Bilirubin Total 0.8 mg/dL (0.0-1.0); Blood Urea Nitrogen 16 mg/dL (9-16); C Reactive Protein < 0.04 mg/dL (< or = 0.50); Carbon Dioxide 31 mmol/L (22-29); Chloride 102 mmol/L (96-108); Estimated Glomerular Filt Rate > 60; Glucose Random 98 mg/dL (60-115); Potassium 4.4 mmol/L (3.3-5.1); Sodium 137 mmol/L (135-145); Total Protein 6.5 g/dL (6.5-8.0)
[2024-08-16 13:57] LABS: Erythrocyte Sedimentation Rate 4 MM/HR (0-20)
== END 2024-08-16 12:08 | disposition home or self-care (01) ==
LOC: HO.10HDL 12:07
PROVIDERS: Visit Provider Student in an Organized Health Care Education/Training Program
DX: M31.6 Other giant cell arteritis (principal)
CPT/HCPCS: 36415; 80053; 85025; 85652; 86140

== ENCOUNTER 2024-08-22 09:38 | Outpatient (AMB) | payer MEDICARE, OTHER, SELFPAY ==
--- NOTE | 2024-08-22 09:41 | MHC.OFFVIS ---
Vital Signs 08/22/24 09:48 Height 5 ft 3 in Weight 123 lb 10.869 oz BMI 21.9 BP 102/68 Blood Pressure Location Rt brachial Position Sitting Respiration 16 Pulse 81 Pulse Source Pulse Oximeter Pulse Oximetry (%) 98 Oxygen Delivery Method Room Air Intake Visit Reasons: GCA Intake Note: Patient presents for GCA. Allergies meperidine [Demerol] Allergy (Intermediate, Verified 08/22/24 09:44) Vomiting Penicillins [PENICILLINS] Allergy (Intermediate, Verified 08/22/24 09:44) RASH erythromycin base [ERYTHROMYCIN BASE] Allergy (Unknown, Verified 08/22/24 09:44) unknown Medication List - Last Reconciled 08/22/24 by Arvind Rose MD Actemra ACTPen (tocilizumab) 162 mg (0.9 mL) subcut QWEEK NS aspirin 81 mg PO DAILY baclofen 5 mg PO BEDTIME calcium carbonate-vitamin D3 600 mg-10 mcg (400 unit) 1 cap PO BID celecoxib (Celebrex) 100 mg PO BID 30 days citalopram 15 mg (1.5 x 10 mg) PO DAILY eletriptan take 1 tab at onset of headache; if no relief, may repeat 1 tab after at least 2 hrs; max = 2 tabs/24 hrs orally PRN; 30 days fluoride (sodium) 1.1% (DentaGel) dental gabapentin 600 mg PO BEDTIME metronidazole 0.75% appl topical QPM multivitamin 1 tab PO DAILY onabotulinumtoxinA (Botox) 200 units IM ONCE 12 weeks sumatriptan succinate 50 - 100 mg orally at onset of headache, may repeat in 2 hrs PRN; max 2 tabs per day or 4 tabs/week (may take with Aleve 440mg) 30 days sumatriptan succinate 6 mg subcutaneously at onset of nocturnal migraine, may repeat in 1 hr PRN; 28 days MDD 1 ml per day HPI Comments Details: 69-year-old female with GCA returns for follow-up. Remains on Actemra weekly, aspirin 81 mg daily, alendronate weekly. She continues to feel about the same. She was evaluated by Dr. Paulino barber at pain management for her neck pain and migraines. A block was suggested, but patient has not been scheduled yet. She was re-evaluated by Dr. Gross for her left knee osteoarthritis and was told that her knee arthritis is not severe enough for knee replacement at this time. She did physical therapy for her knees without improvement. Initial history: This is a 67-year-old female with past medical history fibromyalgia, osteoarthritis & migraines who presents for evaluation of temporal arteritis. The condition started in the beginning of June of 2022 with worsening headaches associated with worsening blurry vision. She went to the ER on 06/30 labs showed high inflammatory markers, she was prescribed prednisone 60 mg daily for 5 days by the ED physician and sent to vascular surgery for temporal artery biopsy. When she took the prednisone 60 mg her headaches significantly improved. She went for a left temporal artery biopsy on 07/15 which confirmed temporal artery biopsy diagnosis & she was restarted on prednisone 40 mg daily by her PCP. Since being on prednisone she feels much better, with headaches resolved. She states that she has had blurry vision for many months which seem to get a little worse around the time she was diagnosed with temporal arteritis and they have not improved with the prednisone. She denies any loss of vision and both eyes are equally affected. She has not had any eye pain. Reactivity is of daily have not been affected by this blurry vision. Denies history suggestive of uveitis or inflammatory bowel disease. 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 Fibromyalgia Migraines Basal cell carcinoma of nose Bunion, left foot Surgical History H/O arthroscopic knee surgery H/O toe surgery History of surgery History of bunionectomy H/O colonoscopy Family History Mother Heart problem COPD (chronic obstructive pulmonary disease) Hypertension Father Prostate cancer Colon cancer Diabetes Brother Diabetes Sister Hypertension Hypercholesteremia Social History Housing: House Alcohol intake: current Alcohol intake frequency: holidays/special occasions only Patient Tobacco Use Status: Never used Tobacco e-Cigarette/Vaping Use: Never Used Second Hand Smoke Exposure: No service: No Current occupational status: retired Cognitive needs: No Hearing needs: Yes Vision needs: No Female Reproductive History Menstrual Total pregnancies: 0 Review of Systems Const Reports headache(s) ENT Reports headache(s) and Reports neck pain Musc Reports no additional complaints, Reports arthralgias and Reports neck pain Neuro Reports headache(s) Physical Exam Vital Signs: Last Vital Signs Pulse 81 08/22/24 09:48 Resp 16 08/22/24 09:48 BP 102/68 08/22/24 09:48 Pulse Ox 98 08/22/24 09:48 Oxygen Delivery Method Room Air 08/22/24 09:48 BMI result Body Mass Index 21.9 Const General: cooperative, comfortable and no acute distress Nutritional Appearance: well nourished Orientation/consciousness: patient oriented x3 Limitations: no limitations HEENT Head: Yes normocephalic and Yes atraumatic Mouth: moist mucous membranes Resp Effort & Inspection: normal respiratory effort and able to speak in complete sentences Auscultation: clear to auscultation bilaterally Cardio Rate: regular rate Rhythm: regular rhythm Skin General skin exam: no rashes or lesions noted Neuro Other: Sensation grossly normal upper and lower extremities Negative Tinel sign bilaterally Negative Spurling's test bilaterally General: patient oriented x3 Extrem Other: Osteoarthritic changes of both hands Normal range of motion of both shoulders without pain Negative rotator cuff provocative maneuvers bilaterally Negative straight leg raise test bilaterally Few fibromyalgia tender points Assessment & Plan Assessment & Plan (1) Temporal arteritis: Comment: Onset 06/2022 . Biopsy proven Prednisone started 07/2022 Actemra started 08/2022 effective Prednisone tapered off 01/2024 Code(s): M31.6 - Other giant cell arteritis Category: Medical Plan: This is a 69-year-old female with biopsy-proven GCA, MRA of chest and neck showed left subclavian artery stenosis 60-70% and right subclavian artery stenosis 50%. Headaches are likely due to migraines/occipital neuralgia. Recently evaluated by Dr. 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 Patient has tapered her prednisone off 01/2024. Repeat DEXA showed improved bone density at the spine. At this time I do not see any indication to keep patient on alendronate. Discontinue alendronate at this time. Patient used to take omeprazole the day she takes alendronate. Can discontinue that as well (3) Cervical radiculopathy: Code(s): M54.12 - Radiculopathy, cervical region Category: Medical Plan: Patient continues to have neck pain that radiates to her shoulder and hand. X-ray of the cervical spine and showed multiple degenerative changes. Follow-up with pain management (4) Osteoarthritis of left knee: Code(s): M17.12 - Unilateral primary osteoarthritis, left knee Category: Medical Qualifiers: Osteoarthritis type: primary Qualified Code(s): M17.12 - Unilateral primary osteoarthritis, left knee Plan: Did not improve with steroid injection, gel injections or PT. was evaluated by ortho and was told that her knee arthritis is not severe enough to warrant surgery at this stage (5) Fibromyalgia, primary: Code(s): M79.7 - Fibromyalgia Category: Medical Plan: Plan I spent 45 minutes reviewing patient's chart, evaluating patient, ordering diagnostic workup, counseling patient and documenting in the chart Orders: Orders Complete Blood Count Auto Diff 3 Months M31.6 - Other giant cell arteritis Comprehensive Met. Panel 3 Months M31.6 - Other giant cell arteritis C Reactive Protein 3 Months M31.6 - Other giant cell arteritis Erythrocyte Sedimentation Rate 3 Months M31.6 - Other giant cell arteritis Medications: Discontinued alendronate Discontinued Reason: Doctor's Order 70 mg PO QWEEK 12 tabs 1RF Coding Level of Care Code Est Pt Level 5 (04952) Complex EM visit Add On G2211 Diagnoses Temporal arteritis M31.6 senior living systemic steroid user Z79.52 Cervical radiculopathy M54.12 Primary osteoarthritis of left knee M17.12 Osteoarthritis type: primary Fibromyalgia, primary M79.7
[2024-08-22 09:48] VITALS: BP 102/68; PULSE 81; RESP 16; O2SAT 98; BMI 21.9
== END 2024-08-22 10:16 | disposition home or self-care (01) ==
PROVIDERS: PCP Internal Medicine; Visit Provider Student in an Organized Health Care Education/Training Program
DX: M31.6 Other giant cell arteritis (principal); Z79.52 Long term (current) use of systemic steroids; M54.12 Radiculopathy, cervical region; M17.12 Unilateral primary osteoarthritis, left knee; M79.7 Fibromyalgia
CPT/HCPCS: 99215; G2211

== ENCOUNTER → 2024-08-22 09:38 | Outpatient (BNVA) | payer MEDICARE, OTHER, SELFPAY | PROVIDERS: PCP Internal Medicine; Visit Provider Student in an Organized Health Care Education/Training Program | DX: M79.7 Fibromyalgia (principal); M31.6 Other giant cell arteritis; M19.90 Unspecified osteoarthritis, unspecified site; M54.12 Radiculopathy, cervical region; M17.12 Unilateral primary osteoarthritis, left knee; Z79.52 Long term (current) use of systemic steroids | CPT/HCPCS: 99212 ==

== ENCOUNTER 2024-10-01 09:55 | Outpatient (AMB) | payer MEDICARE, OTHER, SELFPAY ==
[2024-10-01 09:57] VITALS: BP 118/78; PULSE 72; O2SAT 99; BMI 22.1
--- NOTE | 2024-10-01 09:57 | A.OFFVIS_ITS ---
Intake Vital Signs 10/01/24 09:57 Height 5 ft 3 in Weight 125 lb 0.6 oz BMI 22.1 BP 118/78 Blood Pressure Location Lt brachial Position Sitting Pulse 72 Pulse Source Pulse Oximeter Pulse Oximetry (%) 99 Oxygen Delivery Method Room Air Intake Visit Reasons: SINDHU [id number]/ARMEN Arteaga Allergies meperidine [Demerol] Allergy (Intermediate, Verified 10/01/24 10:21) Vomiting Penicillins [PENICILLINS] Allergy (Intermediate, Verified 10/01/24 10:21) RASH erythromycin base [ERYTHROMYCIN BASE] Allergy (Unknown, Verified 10/01/24 10:21) unknown Medication List - Last Reconciled 10/01/24 by Mary Ashton PA-C Actemra ACTPen (tocilizumab) 162 mg (0.9 mL) subcut QWEEK NS aspirin 81 mg PO DAILY calcium carbonate-vitamin D3 600 mg-10 mcg (400 unit) 1 cap PO BID celecoxib (Celebrex) 100 mg PO BID 30 days citalopram 15 mg (1.5 x 10 mg) PO DAILY eletriptan take 1 tab at onset of headache; if no relief, may repeat 1 tab after at least 2 hrs; max = 2 tabs/24 hrs orally PRN; 30 days fluoride (sodium) 1.1% (DentaGel) dental gabapentin 600 mg PO BEDTIME metronidazole 0.75% appl topical QPM multivitamin 1 tab PO DAILY onabotulinumtoxinA (Botox) 200 units IM ONCE 12 weeks sumatriptan succinate 6 mg subcutaneously at onset of nocturnal migraine, may repeat in 1 hr PRN; 28 days MDD 1 ml per day sumatriptan succinate 50 - 100 mg orally at onset of headache, may repeat in 2 hrs PRN; max 2 tabs per day or 4 tabs/week (may take with Aleve 440mg) 30 days HPI [facility] G0439/ARMEN Arteaga HPI Details 44-year-old female with past medical his tory of fibromyalgia, panic disorder, temporal arteritis, migraines last seen by Dr. Arteaga May 2024 coming in for annual wellness visit. In review of the notes patient was seen by rheumatology 08/22/2024 advised to continue on baby aspirin, Actemra, alendronate was discontinued, and follow up in 3 months. Patient was seen by [facility] July 2024 for follow up on headaches advised to continue on current medication regimen for giant cell arteritis, migraines and cervicalgia. Patient also follows with pain management for occipital neuralgia and cervicalgia. States she is feeling generally well today. She is up-to-date on her mammogram, bone density scan and Pap smear. She rarely follows with Dr. Cisneros for eye exams and also follows with a retina specialist yearly. She does mentioned occasional constipation that she uses fiber gummies for. 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 Fibromyalgia Migraines Basal cell carcinoma of nose Bunion, left foot Surgical History H/O arthroscopic knee surgery H/O toe surgery History of surgery History of bunionectomy H/O colonoscopy Family History Mother Heart problem COPD (chronic obstructive pulmonary disease) Hypertension Father Prostate cancer Colon cancer Diabetes Brother Diabetes Sister Hypertension Hypercholesteremia Social History Housing: House Alcohol intake: current Alcohol intake frequency: holidays/special occasions only Patient Tobacco Use Status: Never used Tobacco e-Cigarette/Vaping Use: Never Used Second Hand Smoke Exposure: No service: No Current occupational status: retired Cognitive needs: No Hearing needs: Yes Vision needs: No Questionnaire Medicare Wellness Checkup What [age] What gender do you identify with?: female During the past 4 weeks, how much have you been bothered by emotional problems such as feeling anxious, depressed, irritable, sad or downhearted, and blue?: not at all During the past 4 weeks, has your physical & emotional health limited your social activities with family, friends, neighbors, or groups?: not at all During the past 4 weeks, how much bodily pain have you generally had?: moderate pain During the past 4 weeks, was someone available to help you if you needed & wanted help?: yes, as much as I wanted During the past 4 weeks, what was the hardest physical activity you could do for at least 2 minutes?: moderate Can you get to places out of walking distance without help? (For eg., can you travel alone on buses, taxis or drive your car?): Yes Can you go shopping for groceries or clothes without someone's help?: Yes Can you prepare your own meals?: Yes Can you do your housework without help?: Yes Because of any health problems, do you need the help of another person with your personal care needs such as eating, bathing, dressing or getting around the house?: No Can you handle your own money without help?: Yes During the past 4 weeks, how would you rate your health in general?: good During the past 4 weeks how have things been going for you?: pretty well Are you having difficulties driving your car?: no Do you always fasten your seat belt when you are in a car?: yes, usually During past 4 weeks, have you been bothered by the following: never: Falling or dizzy when standing up, Sexual problems?, Trouble eating well?, Teeth or denture problems? and Problems using the telephone? and seldom: Tiredness or fatigue? Have you fallen 2 or more times in the past year?: No Are you afraid of falling?: No Are you a smoker?: no During the past 4 weeks, how many drinks of wine, beer, or other alcoholic beverages did you have?: no alcohol at all Do you exercise for about 20 minutes 3 or more times a week?: yes, some of the time Have you been given information to help with the following?: no: Hazards in your house that might hurt you? and no: Keeping track of your medications? How often do you have trouble taking medicines the way you have been told to take them?: I always take medicine as prescribed How confident are you that you can control & manage most of your health problem s?: very confident What is your race?: White PHQ-9 Over the last 2 weeks, how often have you been bothered by any of the following problems? 1. Little interest or pleasure in doing things: not at all 2. Feeling down, depressed, or hopeless: not at all 3. Trouble falling or staying asleep, or sleeping too much: not at all 4. Feeling tired or having little energy: not at all 5. Poor appetite or overeating: not at all 6. Feeling bad about yourself - or that you are a failure or have let yourself or your family down: not at all 7. Trouble concentrating on things, such as reading the newspaper or watching television: not at all 8. Moving or speaking so slowly that other people could have noticed. Or the opposite - being so fidgety or restless that you have been moving around a lot more than usual: not at all 9. Thoughts that you would be better off or of hurting yourself in some way: not at all Total score: 0 Depression Screening Interpretation: Negative Depression Screening Done: Yes 36691 - PHQ-9 Billing: Yes Source: Developed by Drs. Hubert Muniz, Summer Minaya, Barron Roa and colleagues, with an educational elvira from [employer]. Review of Systems Const Denies body aches, Denies fatigue, Denies fever(s), Denies frequent falls, Reports headache(s) and Denies weakness Eyes Details: follows with strategic planning specialist yearly Reports no additional complaints and Denies change in vision ENT Denies dysphagia, Denies dizziness, Denies facial pain, Reports headache(s), Denies nasal congestion and Denies odynophagia Card Denies chest pain, Denies syncope, Denies irregular heart rhythm, Denies leg edema, Denies lightheadedness and Denies dyspnea Resp Denies cough and Denies dyspnea GI Denies constipation, Denies dysphagia, Denies dyspepsia, Denies diarrhea, Denies nausea, Denies odynophagia and Denies vomiting Denies urinary frequency, Denies dysuria, Denies urinary hesitancy and Denies urinary urgency Musc Denies back pain and Denies myalgias Skin/Breast Reports system reviewed and no additional complaints, except as documented Neuro Denies dizziness, Denies syncope, Denies frequent falls, Reports headache(s) and Denies weakness Psych Reports no additional complaints Endo Denies fatigue Physical Exam Vital Signs: Last Vital Signs Pulse 72 10/01/24 09:57 BP 118/78 10/01/24 09:57 Pulse Ox 99 10/01/24 09:57 Oxygen Delivery Method Room Air 10/01/24 09:57 BMI result Body Mass Index 22.1 Const General: cooperative, healthy appearing, comfortable and no acute distress Orientation/consciousness: patient oriented x3 HEENT Head: Yes normocephalic Ears: hearing grossly normal bilaterally, external ears normal, TM's normal bilaterally and EAC's normal General nose exam: Normal external nose present Face and sinus: Yes normal facial exam and Yes sinuses nontender Mouth: Normal oral and palatal mucosa present and tongue normal Throat: Yes posterior oropharynx normal Eyes General: appearance normal, both eyes and all related structures Conjunctivae: conjunctivae normal Pupils: Equal, round and reactive pupils present EOM: EOMs intact bilaterally and No Nystagmus present Neck Neck: Yes normal visual inspection, Yes full ROM and Yes no lymphadenopathy Chest Chest palpation & inspection: normal inspection of the chest Resp Effort & Inspection: normal respiratory effort Auscultation: clear to auscultation bilaterally, no crackles, no rales, no rhonchi, no wheezes and breath sounds present Cardio Rate: regular rate Rhythm: regular rhythm Peripheral pulses: radial pulses present and dorsalis pedis present GI Inspection: Yes normal to inspection and No Abdominal wall edema Palpation (GI): Soft to palpation, not firm and nontender Auscultation: normal bowel sounds Rectal Exam - Female: deferred General: Yes no CVA tenderness Back/Spine/Pelvis Back: no CVA tenderness Skin General skin exam: no rashes or lesions noted Neuro General: patient oriented x3 Cranial nerves: Yes Equal, round and reactive pupils present, Yes Midline tongue present, Yes Ability to bilaterally elevate shoulders present and No Nystagmus present Gait exam (Neuro): Normal gait present Extrem General: Yes normal to inspection, Yes full ROM, No no pedal edema and No edema Psych Speech and movement: Normal speech and movement present Affect: normal affect Insight: Good insight present (Psych) Judgement: Good judgement present (Psych) Assessment & Plan Assessment & Plan (1) Chronic migraine without aura, intractable, without status migrainosus: Code(s): G43.719 - Chronic migraine without aura, intractable, without status migrainosus Plan: Continue to follow with Neurology and pain management. (2) Chronic pain syndrome: Code(s): G89.4 - Chronic pain syndrome Plan: Continue to follow with pain management and Rheumatology. (3) Spondylosis of cervical region without myelopathy or radiculopathy: Code(s): M47.812 - Spondylosis without myelopathy or radiculopathy, cervical region Plan: Continue to follow with pain management and Neurology. (4) Osteoarthritis of left knee: Code(s): M17.12 - Unilateral primary osteoarthritis, left knee Qualifiers: Osteoarthritis type: primary Qualified Code(s): M17.12 - Unilateral primary osteoarthritis, left knee Plan: Working with Dr. Gross who does not feel she is a surgical candidate at this time. Continue to monitor symptoms and follow up with Orthopedics as needed (5) Temporal arteritis: Comment: Onset 06/2022 . Biopsy proven Prednisone started 07/2022 Actemra started 08/2022 effective Prednisone tapered off 01/2024 Code(s): M31.6 - Other giant cell arteritis Plan: No longer on prednisone. Continue to follow with rheumatology and neurology for management of this condition. (6) Panic disorder: Code(s): F41.0 - Panic disorder [episodic paroxysmal anxiety] Plan: Continue on citalopram and work on finding a psychiatrist. (7) Annual wellness visit: Code(s): Z00.00 - Encounter for general adult medical examination without abnormal findings Plan: Patient is up-to-date on all recommended routine screenings and vaccinations for her age. Blood work is up-to-date and we will follow up in 3 months. [place] of care was reviewed with patient patient was provided with a written screening schedule. Healthcare proxy/ MOLST forms were reviewed with patient patient advised to bring completed forms to office to be scanned to chart Plan This note was constructed using voice recognition software. While every effort has been made to ensure accuracy and knitter mechanic, still areas may have been included sometimes these areas may affect the content or meeting of the given symptoms. Total time spent caring for the patient today was 30 minutes. This includes time spent before the visit reviewing the chart, time spent during the visit, and time spent after the visit and documentation. Orders: Orders Lipid Panel Today Z00.00 - Encounter for general adult medical examination without abnormal findings Quality Reporting (2019) Depression/Bipolar (159/160/161/177) PHQ-9: Total score: 0 Coding Level of Care Code Medicare Subsequent (G0439) Diagnoses Chronic migraine without aura, intractable, without status migrainosus G43.719 Chronic pain syndrome G89.4 Spondylosis of cervical region without myelopathy or radiculopathy M47.812 Primary osteoarthritis of left knee M17.12 Osteoarthritis type: primary Temporal arteritis M31.6 Panic disorder F41.0 Annual wellness visit Z00.00 Additional Codes PHQ-9 - 56286 - PHQ-9 Billing: Yes ([id number])
== END 2024-10-01 10:56 | disposition home or self-care (01) ==
PROVIDERS: PCP Internal Medicine
DX: Z00.00 Encounter for general adult medical examination without abnormal findings (principal); M31.6 Other giant cell arteritis; G43.719 Chronic migraine without aura, intractable, without status migrainosus; G89.4 Chronic pain syndrome; M47.812 Spondylosis without myelopathy or radiculopathy, cervical region; M17.12 Unilateral primary osteoarthritis, left knee; F41.0 Panic disorder [episodic paroxysmal anxiety]

== ENCOUNTER → 2024-10-01 09:55 | Outpatient (BNVA) | payer MEDICARE, OTHER, SELFPAY | PROVIDERS: PCP Internal Medicine | DX: Z00.00 Encounter for general adult medical examination without abnormal findings (principal); G43.719 Chronic migraine without aura, intractable, without status migrainosus; G89.4 Chronic pain syndrome; M47.812 Spondylosis without myelopathy or radiculopathy, cervical region; M17.12 Unilateral primary osteoarthritis, left knee; M31.6 Other giant cell arteritis; F41.0 Panic disorder [episodic paroxysmal anxiety] | CPT/HCPCS: 96127 ==

== ENCOUNTER 2024-11-05 08:24 | Outpatient (AMB) | payer MEDICARE, OTHER, SELFPAY ==
--- NOTE | 2024-11-05 08:32 | MHC.OFFVIS ---
Vital Signs 11/05/24 08:33 Height 5 ft 3 in BP 98/70 Blood Pressure Location Rt brachial Position Sitting Intake Visit Reasons: BOTOX Intake Note: Patient presents for botox Allergies meperidine [Demerol] Allergy (Intermediate, Verified 11/05/24 08:35) Vomiting Penicillins [PENICILLINS] Allergy (Intermediate, Verified 11/05/24 08:35) RASH erythromycin base [ERYTHROMYCIN BASE] Allergy (Unknown, Verified 11/05/24 08:35) unknown Medication List - Last Reconciled 11/05/24 by Yadi Blank MD Actemra ACTPen (tocilizumab) 162 mg (0.9 mL) subcut QWEEK NS aspirin 81 mg PO DAILY calcium carbonate-vitamin D3 600 mg-10 mcg (400 unit) 1 cap PO BID celecoxib (Celebrex) 100 mg PO BID 30 days citalopram 15 mg (1.5 x 10 mg) PO DAILY eletriptan take 1 tab at onset of headache; if no relief, may repeat 1 tab after at least 2 hrs; max = 2 tabs/24 hrs orally PRN; 30 days fluoride (sodium) 1.1% (DentaGel) dental gabapentin 600 mg PO BEDTIME galcanezumab-gnlm (Emgality Pen) 120 mg subcut ONCE 30 days metronidazole 0.75% appl topical QPM multivitamin 1 tab PO DAILY onabotulinumtoxinA (Botox) 200 units IM ONCE 12 weeks sumatriptan succinate 6 mg subcutaneously at onset of nocturnal migraine, may repeat in 1 hr PRN; 28 days MDD 1 ml per day sumatriptan succinate 50 - 100 mg orally at onset of headache, may repeat in 2 hrs PRN; max 2 tabs per day or 4 tabs/week (may take with Aleve 440mg) 30 days HPI Comments Details: ? 69y/o female comes for treatment of migraines with botox. The patient has a good response to treatment with botox - decreased frequency and intensity of her migraines. ??? Most frequent reported adverse reactions following injection of botox for chronic migraine include neck pain (9%), headache(5%), eyelid ptosis(4%), migraine(4%), muscular weakness(4%), musculuskeletal stiffness(4%), bronchitis(3%), injection site pain (3%), musculoskeletal pain(3%), myalgia(3%), facial paresis(2%), HTN(2%) and muscle spasms(2%) were discussed in detail. ??? Botulinum toxin typeA 200units Lot no [id number] expiration Jul 2026 was diluted with 4 cc of normal saline . ??? Muscles injected- ??? Frontalis 4 sites ??? Procerus 1 site ??? Circle Shear Operator- 2 sites ??? Temporalis- 8 sites ??? Occipitalis- 6 sites ??? Cervical paraspinals- 4 sites ??? Trapezius- 6 sites- 10 units each ??? 5 units each in 31 site ??? Total use- 185units ??? 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 Fibromyalgia Migraines Basal cell carcinoma of nose Bunion, left foot Surgical History H/O arthroscopic knee surgery H/O toe surgery History of surgery History of bunionectomy H/O colonoscopy Family History Mother Heart problem COPD (chronic obstructive pulmonary disease) Hypertension Father Prostate cancer Colon cancer Diabetes Brother Diabetes Sister Hypertension Hypercholesteremia Social History Housing: House Alcohol intake: current Alcohol intake frequency: holidays/special occasions only Patient Tobacco Use Status: Never used Tobacco e-Cigarette/Vaping Use: Never Used Second Hand Smoke Exposure: No service: No Current occupational status: retired Cognitive needs: No Hearing needs: Yes Vision needs: No Physical Exam Vital Signs: Last Vital Signs BP 98/70 11/05/24 08:33 Const General: cooperative and no acute distress Orientation/consciousness: patient oriented x3 Resp Effort & Inspection: normal respiratory effort and able to speak in complete sentences Neuro General: patient oriented x3 Cranial nerves: Yes CN's II-XII intact bilaterally Cognition (Neuro): normal cognition Psych Appearance: grossly normal Mental Status: mental status grossly normal Speech and movement: Normal speech and movement present Affect: normal affect Attitude: cooperative Office Procedures Botulinum toxin Injection 02878 - Migraine Procedure code (CPT) selection complete Office Meds onabotulinumtoxinA 200 unit solution for injection Performing Provider: Yadi Blank MD [place] [facility] [place] [facility] Administered by: Yadi Blank MD on 11/05/24 09:00 Dose Route Admin Location Dispensed Lot Number Expiration Date [facility] [employer] 185 unit subcut 200 units [id number] ALLERGAN/BOTOX Comments: see hpi Assessment & Plan Assessment & Plan (1) Chronic migraine without aura, intractable, without status migrainosus: Code(s): G43.719 - Chronic migraine without aura, intractable, without status migrainosus Category: Medical Plan Patient tolerated the procedure well she will call with any side effects Orders: Orders AMB Botulinum toxin Injection Today G43.719 - Chronic migraine without aura, intractable, without status migrainosus Medications: New onabotulinumtoxinA 200 units subcut ONCE 1 ea 0RF migraine G43.719 - Chronic migraine without aura, intractable, without status migrainosus Scribe Plan - Not visible on output: Reviewed possible medication side effects, including but not limited to drowsiness, dizziness. Coding Level of Care Code Est Pt Level 1 (33568) Diagnoses Chronic migraine without aura, intractable, without status migrainosus G43.719 CPT Codes Botox Injection - Botox 3: 94465 - Migraine ([id number])
[2024-11-05 08:33] VITALS: BP 98/70
== END 2024-11-05 08:52 | disposition home or self-care (01) ==
PROVIDERS: PCP Internal Medicine; Visit Provider Psychiatry & Neurology Neurology
DX: G43.719 Chronic migraine without aura, intractable, without status migrainosus (principal)
CPT/HCPCS: 64615

== ENCOUNTER → 2024-11-05 08:24 | Outpatient (BNVA) | payer MEDICARE, OTHER, SELFPAY | PROVIDERS: PCP Internal Medicine; Visit Provider Psychiatry & Neurology Neurology | DX: G43.719 Chronic migraine without aura, intractable, without status migrainosus (principal) | CPT/HCPCS: 64615; 99211; J0585 ==

== ENCOUNTER 2024-11-19 08:30 | Outpatient (REF) | payer MEDICARE, OTHER, SELFPAY ==
[2024-11-19 08:57] LABS: Basophils Percent Auto 0.6 % (0-2); Eosinophils Absolute Auto 0.2 X10*3/uL (0.0-0.4); Eosinophils Percent Auto 4.6 % (0-4); Hematocrit 38.2 % (37.0-47.0); Hemoglobin 12.8 g/dl (12.0-16.0); Imm Gran Abs Auto 0.02 X10*3/uL (0.00-0.03); Imm Gran Pct Auto 0.6 % (0.0-0.4); Lymphocytes Absolute Auto 1.7 X10*3/uL (1.2-4.9); MANUAL DIFF FLAG SCAN; Mean Corpuscular HGB Conc 33.5 g/dl (31.0-35.0); Mean Corpuscular Hemoglobin 31.3 pg (27.0-33.0); Mean Corpuscular Volume 93.4 fL (80.0-98.0); Mean Platelet Volume 9.5 fL (9.4-12.3); Monocytes Absolute Auto 0.3 X10*3/uL (0.1-1.2); Neutrophils Absolute Auto 1.3 x10*3/uL (2.0-8.3); Neutrophils Percent Auto 36.2 % (45-73); Platelet Count 143 X10*3/uL (160-400); Red Blood Count 4.09 X10*6/uL (4.20-5.50); Red Cell Distribution Width 12.7 % (11.0-16.0); SCAN SMEAR FLAG 1; White Blood Count 3.5 X10*3/uL (4.8-10.8)
[2024-11-19 09:36] LABS: Alanine Aminotransferase 25 U/L (0-31); Albumin Level 4.1 g/dL (3.5-5.0); Alkaline Phosphatase 37 U/L (39-117); Anion Gap 8 (12-20); Aspartate Amino Transferase 30 U/L (5-31); Bilirubin Total 0.6 mg/dL (0.0-1.0); Blood Urea Nitrogen 13 mg/dL (9-16); C Reactive Protein < 0.04 mg/dL (< or = 0.50); Calcium 9.1 mg/dL (8.4-10.2); Carbon Dioxide 32 mmol/L (22-29); Chloride 105 mmol/L (96-108); Cholesterol 210 mg/dL (<200); Estimated Glomerular Filt Rate > 60; Glucose Random 84 mg/dL (60-115); HDL Cholesterol 44 mg/dL (>40); LDL Cholesterol Calculated 127 mg/dL (<100); Potassium 4.2 mmol/L (3.3-5.1); Sodium 141 mmol/L (135-145); Total Protein 6.6 g/dL (6.5-8.0); Triglycerides 198 mg/dL (<150)
[2024-11-19 09:48] LABS: Erythrocyte Sedimentation Rate 3 MM/HR (0-20)
[2024-11-19 11:06] LABS: SLIDE REVIEW VERIFIED
== END 2024-11-19 08:31 | disposition home or self-care (01) ==
LOC: HO.LAB 08:30
PROVIDERS: PCP Internal Medicine; Visit Provider Student in an Organized Health Care Education/Training Program
DX: Z00.00 Encounter for general adult medical examination without abnormal findings (principal); M31.6 Other giant cell arteritis
CPT/HCPCS: 36415; 80053; 80061; 85025; 85652; 86140

== ENCOUNTER 2024-11-22 09:42 | Outpatient (AMB) | payer MEDICARE, OTHER, SELFPAY ==
--- NOTE | 2024-11-22 09:59 | MHC.OFFVIS ---
Vital Signs 11/22/24 10:04 Height 5 ft 3 in Weight 124 lb 12.506 oz BMI 22.1 BP 115/80 Blood Pressure Location Rt brachial Position Sitting Respiration 16 Pulse 83 Pulse Source Pulse Oximeter Pulse Oximetry (%) 98 Oxygen Delivery Method Room Air Intake Visit Reasons: GCA Intake Note: Patient presents for GCA. Allergies meperidine [Demerol] Allergy (Intermediate, Verified 11/22/24 10:02) Vomiting Penicillins [PENICILLINS] Allergy (Intermediate, Verified 11/22/24 10:02) RASH erythromycin base [ERYTHROMYCIN BASE] Allergy (Unknown, Verified 11/22/24 10:02) unknown Medication List - Last Reconciled 11/22/24 by Arvind Rose MD Actemra ACTPen (tocilizumab) 162 mg (0.9 mL) subcut QWEEK NS aspirin 81 mg PO DAILY calcium carbonate-vitamin D3 600 mg-10 mcg (400 unit) 1 cap PO BID celecoxib (Celebrex) 100 mg PO BID 30 days citalopram 15 mg (1.5 x 10 mg) PO DAILY fluoride (sodium) 1.1% (DentaGel) dental gabapentin 600 mg PO BEDTIME galcanezumab-gnlm (Emgality Pen) 120 mg subcut ONCE 30 days metronidazole 0.75% appl topical QPM multivitamin 1 tab PO DAILY onabotulinumtoxinA (Botox) 200 units IM ONCE 12 weeks sumatriptan succinate 6 mg subcutaneously at onset of nocturnal migraine, may repeat in 1 hr PRN; 28 days MDD 1 ml per day sumatriptan succinate 50 - 100 mg orally at onset of headache, may repeat in 2 hrs PRN; max 2 tabs per day or 4 tabs/week (may take with Aleve 440mg) 30 days HPI Comments Details: 69-year-old female with GCA returns for follow-up. Remains on Actemra every 10 days aspirin 81 mg daily. She states that she has been feeling better over the last few months, she was started on Emgality and Botox injections for migraines and she feels they are helping. She will be going for a nerve block by Pain Management soon. Initial history: This is a 67-year-old female with past medical history fibromyalgia, osteoarthritis & migraines who presents for evaluation of temporal arteritis. The condition started in the beginning of June of 2022 with worsening headaches associated with worsening blurry vision. She went to the ER on 06/30 labs showed high inflammatory markers, she was prescribed prednisone 60 mg daily for 5 days by the ED physician and sent to vascular surgery for temporal artery biopsy. When she took the prednisone 60 mg her headaches significantly improved. She went for a left temporal artery biopsy on 07/15 which confirmed temporal artery biopsy diagnosis & she was restarted on prednisone 40 mg daily by her PCP. Since being on prednisone she feels much better, with headaches resolved. She states that she has had blurry vision for many months which seem to get a little worse around the time she was diagnosed with temporal arteritis and they have not improved with the prednisone. She denies any loss of vision and both eyes are equally affected. She has not had any eye pain. Reactivity is of daily have not been affected by this blurry vision. Denies history suggestive of uveitis or inflammatory bowel disease. No history of autoimmune disease in the family [facility] Medical History (Updated 11/22/24 @ 10:43 by Arvind Rose MD) Anemia Osteoarthritis Fatigue Chronic migraine without aura, intractable, without status migrainosus Osteoarthritis of left knee Fibromyalgia Migraines Basal cell carcinoma of nose Bunion, left foot Surgical History H/O arthroscopic knee surgery H/O toe surgery History of surgery History of bunionectomy H/O colonoscopy Family History Mother Heart problem COPD (chronic obstructive pulmonary disease) Hypertension Father Prostate cancer Colon cancer Diabetes Brother Diabetes Sister Hypertension Hypercholesteremia Social History Housing: House Alcohol intake: current Alcohol intake frequency: holidays/special occasions only Patient Tobacco Use Status: Never used Tobacco e-Cigarette/Vaping Use: Never Used Second Hand Smoke Exposure: No service: No Current occupational status: retired Cognitive needs: No Hearing needs: Yes Vision needs: No Review of Systems Musc Reports arthralgias Physical Exam Vital Signs: Last Vital Signs Pulse 83 11/22/24 10:04 Resp 16 11/22/24 10:04 BP 115/80 11/22/24 10:04 Pulse Ox 98 11/22/24 10:04 Oxygen Delivery Method Room Air 11/22/24 10:04 BMI result Body Mass Index 22.1 Const General: cooperative, comfortable and no acute distress Nutritional Appearance: well nourished Limitations: no limitations HEENT Head: Yes normocephalic and Yes atraumatic Mouth: moist mucous membranes Resp Effort & Inspection: normal respiratory effort and able to speak in complete sentences Auscultation: clear to auscultation bilaterally Cardio Rate: regular rate Rhythm: regular rhythm Skin General skin exam: no rashes or lesions noted Extrem Other: Osteoarthritic changes of both hands with no active synovitis Assessment & Plan Assessment & Plan (1) Temporal arteritis: Comment: Onset 06/2022 . Biopsy proven Prednisone started 07/2022 Actemra weekly started 08/2022 effective, spaced out to every 10 days 08/2024 and spaced out to every 14 days 11/2024 Prednisone tapered off 01/2024 Code(s): M31.6 - Other giant cell arteritis Category: Medical Plan: This is a 69-year-old female with biopsy-proven GCA, MRA of chest and neck showed left subclavian artery stenosis 60-70% and right subclavian artery stenosis 50%. Doing well overall Actemra injection every 10 days. Her disease is in remission Space out Actemra injection to every 14 days Labs before next visit in 4 months (2) Osteoarthritis of left knee: Code(s): M17.12 - Unilateral primary osteoarthritis, left knee Category: Medical Qualifiers: Osteoarthritis type: primary Qualified Code(s): M17.12 - Unilateral primary osteoarthritis, left knee Plan: Did not improve with steroid injection, gel injections or PT. was evaluated by ortho and was told that her knee arthritis is not severe enough to warrant surgery at this stage (3) Fibromyalgia, primary: Code(s): M79.7 - Fibromyalgia Category: Medical Plan: (4) Osteopenia: Code(s): M85.80 - Other specified disorders of bone density and structure, unspecified site Category: Medical Qualifiers: Osteopenia location: multiple sites Qualified Code(s): M85.89 - Other specified disorders of bone density and structure, multiple sites Plan: DEXA scan 07/2022 showed osteopenia but given long-term corticosteroid therapy her FRAX score would be at moderate risk for fracture. I started her alendronate at the time Patient has tapered her prednisone off 01/2024. Repeat DEXA 08/2024 showed improved bone density at the spine. Alendronate discontinued 08/2024 Discussed calcium and vitamin-D supplementation and weight-bearing exercises Plan I spent 45 minutes reviewing patient's chart, evaluating patient, ordering diagnostic workup, counseling patient and documenting in the chart Orders: Orders Comprehensive Met. Panel 4 Months M31.6 - Other giant cell arteritis Complete Blood Count Auto Diff 4 Months M31.6 - Other giant cell arteritis C Reactive Protein 4 Months M31.6 - Other giant cell arteritis Erythrocyte Sedimentation Rate 4 Months M31.6 - Other giant cell arteritis Medications: Changed From Actemra ACTPen (tocilizumab) 162 mg (0.9 mL) subcut QWEEK 3.6 mL 3RF NS M31.6 - Other giant cell arteritis To Actemra ACTPen (tocilizumab) 162 mg (0.9 mL) subcut Q2W 1.8 mL 3RF NS M31.6 - Other giant cell arteritis Coding Level of Care Code Est Pt Level 4 (49256) Complex EM visit Add On G2211 Diagnoses Temporal arteritis M31.6 Primary osteoarthritis of left knee M17.12 Osteoarthritis type: primary Fibromyalgia, primary M79.7 Osteopenia of multiple sites M85.89 Osteopenia location: multiple sites
[2024-11-22 10:04] VITALS: BP 115/80; PULSE 83; RESP 16; O2SAT 98; BMI 22.1
== END 2024-11-22 10:40 | disposition home or self-care (01) ==
PROVIDERS: PCP Internal Medicine; Visit Provider Student in an Organized Health Care Education/Training Program
DX: M31.6 Other giant cell arteritis (principal); M17.12 Unilateral primary osteoarthritis, left knee; M79.7 Fibromyalgia; M85.89 Other specified disorders of bone density and structure, multiple sites
CPT/HCPCS: 99214; G2211

== ENCOUNTER → 2024-11-22 09:42 | Outpatient (BNVA) | payer MEDICARE, OTHER, SELFPAY | PROVIDERS: PCP Internal Medicine; Visit Provider Student in an Organized Health Care Education/Training Program | DX: M17.12 Unilateral primary osteoarthritis, left knee (principal); M79.7 Fibromyalgia; M85.89 Other specified disorders of bone density and structure, multiple sites; M31.6 Other giant cell arteritis | CPT/HCPCS: 99212 ==

== ENCOUNTER 2024-12-11 06:09 | Outpatient (REF) | payer MEDICARE, OTHER, SELFPAY ==
--- NOTE | ~2024-12-11 | FL_ITS ---
EXAMINATION: FL GUIDANCE ONLY HISTORY: M47.812 - Spondylosis without myelopathy or radiculopathy, cervical region COMPARISON: Correlation is made with an MRI of the cervical spine dated 04/30/2024. TECHNIQUE: Fluoroscopy time: 0.6 minutes. Cumulative Dose: 1.85 mGy. DAP: 0.0264 mGym2 Images: 2. FINDINGS: Images demonstrate needles and contrast material in the neck bilaterally. FL/FL guidance in treatment room IMPRESSION: Fluoroscopy during procedure. Please see procedure report for additional information. Electronically signed by: Hubert Barbosa MD 12/11/2024 12:31 PM JUANA
== END 2024-12-11 06:10 | disposition home or self-care (01) ==
LOC: CF 06:09
PROVIDERS: Visit Provider Anesthesiology
DX: M47.812 Spondylosis without myelopathy or radiculopathy, cervical region (principal)
CPT/HCPCS: 64490; 64491; J2003; J2795; Q9967

== ENCOUNTER 2024-12-11 07:46 | Outpatient (AMB) | payer MEDICARE, OTHER, SELFPAY ==
--- NOTE | 2024-12-11 07:53 | MHC.OFFVIS ---
Vital Signs 12/11/24 07:55 BP 118/78 Blood Pressure Location Lt brachial Position Sitting Respiration 16 Pulse 78 Pulse Source Pulse Oximeter Pulse Oximetry (%) 98 Oxygen Delivery Method Room Air Intake Visit Reasons: BILATERAL DIAGNOSTIC C2, C3, C4 MBB Barkeep Required: No Allergies meperidine [Demerol] Allergy (Intermediate, Verified 12/11/24 07:55) Vomiting Penicillins [PENICILLINS] Allergy (Intermediate, Verified 12/11/24 07:55) RASH erythromycin base [ERYTHROMYCIN BASE] Allergy (Unknown, Verified 12/11/24 07:55) unknown Medication List - Last Reconciled 12/11/24 by Mikki Yates LPN Actemra ACTPen (tocilizumab) 162 mg (0.9 mL) subcut Q2W NS aspirin 81 mg PO DAILY calcium carbonate-vitamin D3 600 mg-10 mcg (400 unit) 1 cap PO BID celecoxib (Celebrex) 100 mg PO BID 30 days citalopram 15 mg (1.5 x 10 mg) PO DAILY fluoride (sodium) 1.1% (DentaGel) dental gabapentin 600 mg PO BEDTIME galcanezumab-gnlm (Emgality Pen) 120 mg subcut ONCE 30 days metronidazole 0.75% appl topical QPM multivitamin 1 tab PO DAILY onabotulinumtoxinA (Botox) 200 units IM ONCE 12 weeks sumatriptan succinate 6 mg subcutaneously at onset of nocturnal migraine, may repeat in 1 hr PRN; 28 days MDD 1 ml per day sumatriptan succinate 50 - 100 mg orally at onset of headache, may repeat in 2 hrs PRN; max 2 tabs per day or 4 tabs/week (may take with Aleve 440mg) 30 days [facility] Medical History (Updated 11/22/24 @ 10:43 by Arvind Rose MD) Anemia Osteoarthritis Fatigue Chronic migraine without aura, intractable, without status migrainosus Osteoarthritis of left knee Fibromyalgia Migraines Basal cell carcinoma of nose Bunion, left foot Surgical History H/O arthroscopic knee surgery H/O toe surgery History of surgery History of bunionectomy H/O colonoscopy Family History Mother Heart problem COPD (chronic obstructive pulmonary disease) Hypertension Father Prostate cancer Colon cancer Diabetes Brother Diabetes Sister Hypertension Hypercholesteremia Social History Housing: House Alcohol intake: current Alcohol intake frequency: holidays/special occasions only Patient Tobacco Use Status: Never used Tobacco e-Cigarette/Vaping Use: Never Used Second Hand Smoke Exposure: No service: No Current occupational status: retired Cognitive needs: No Hearing needs: Yes Vision needs: No Physical Exam Vital Signs: Last Vital Signs Pulse 78 12/11/24 07:55 Resp 16 12/11/24 07:55 BP 118/78 12/11/24 07:55 Pulse Ox 98 12/11/24 07:55 Oxygen Delivery Method Room Air 12/11/24 07:55 Assessment & Plan Assessment & Plan (1) Bilateral occipital neuralgia: Code(s): M54.81 - Occipital neuralgia Category: Medical (2) Chronic pain syndrome: Code(s): G89.4 - Chronic pain syndrome Category: Medical Plan Diagnostic medial branch block C2-C3- C4 bilateral. Informed consent was explained thoroughly to the patient.? All questions about benefits and risks for the procedure were answered. Time-out was performed delineating correct side and site of the procedure name date of of the patient allergies of the patient. Patient came to the operating room and was positioned prone on the operating table with the pillow under the chest. The upper back and entire posterior neck were prepped with ChloraPrep and draped with self adhesive sterile utility towels. C-arm was brought over the operating field and picture of C2-C3 C4 vertebra were sequentially obtain on the screen. The point of interest were delineated as the lateral masses of the above-mentioned vertebra. The waistline of each lateral mass was chosen as the point of needle advancement. The projection of the point of interest to the skin was injected with small amount of lidocaine 2% mixed with ropivacaine 0.5%. After that 3 needles 3-1/2 inch long 22 gauge were inserted through the skin wheals and advanced over the point of interest 1st on the right and then on the left side. When tips of the needles gently contacted the bone injection of the contrast was performed delineating no intravascular and no intrathecal uptake of the contrast. After that small amount of ropivacaine 0.5% no more than 1 mL was injected at each needle location. Upon completion of the injections the needles were removed and sterile Band-Aids were applied. Patient was taken outside of the operating room to recovery room where she recovered uneventfully. Orders: Orders FL guidance in treatment room Today M47.812 - Spondylosis without myelopathy or radiculopathy, cervical region Coding Level of Care Code Procedure Only Diagnoses Bilateral occipital neuralgia M54.81 Chronic pain syndrome G89.4
[2024-12-11 07:55] VITALS: BP 118/78; PULSE 78; RESP 16; O2SAT 98
== END 2024-12-11 10:33 | disposition home or self-care (01) ==
LOC: HO.PMCPRC 07:46
PROVIDERS: PCP Internal Medicine; Visit Provider Anesthesiology
DX: M54.81 Occipital neuralgia (principal); G89.4 Chronic pain syndrome
CPT/HCPCS: 64490; 64491

== ENCOUNTER 2024-12-17 13:01 | Outpatient (AMB) | payer MEDICARE, OTHER, SELFPAY ==
--- NOTE | 2024-12-17 13:05 | MHC.OFFVIS ---
Vital Signs 12/17/24 13:06 Height 5 ft 3 in Weight 125 lb BMI 22.1 BP 121/60 Blood Pressure Location Lt brachial Position Sitting Respiration 16 Pulse 79 Pulse Source Pulse Oximeter Pulse Oximetry (%) 98 Oxygen Delivery Method Room Air Intake Visit Reasons: BILATERAL DIAGNOSTIC C2, C3, C4 MBB Eap Counselor Required: No Allergies meperidine [Demerol] Allergy (Intermediate, Verified 12/17/24 13:08) Vomiting Penicillins [PENICILLINS] Allergy (Intermediate, Verified 12/17/24 13:08) RASH erythromycin base [ERYTHROMYCIN BASE] Allergy (Unknown, Verified 12/17/24 13:08) unknown chlorhexidine [From ChloraPrep Clear] Adverse Reaction (Severe, Verified 12/17/24 13:08) rash isopropyl alcohol [From ChloraPrep Clear] Adverse Reaction (Severe, Verified 12/17/24 13:08) rash Medication List - Last Reconciled 12/17/24 by Mikki Yates LPN Actemra ACTPen (tocilizumab) 162 mg (0.9 mL) subcut Q2W NS aspirin 81 mg PO DAILY calcium carbonate-vitamin D3 600 mg-10 mcg (400 unit) 1 cap PO BID celecoxib (Celebrex) 100 mg PO BID 30 days citalopram 15 mg (1.5 x 10 mg) PO DAILY fluoride (sodium) 1.1% (DentaGel) dental gabapentin 600 mg PO BEDTIME galcanezumab-gnlm (Emgality Pen) 120 mg subcut ONCE 30 days metronidazole 0.75% appl topical QPM multivitamin 1 tab PO DAILY onabotulinumtoxinA (Botox) 200 units IM ONCE 12 weeks sumatriptan succinate 6 mg subcutaneously at onset of nocturnal migraine, may repeat in 1 hr PRN; 28 days MDD 1 ml per day sumatriptan succinate 50 - 100 mg orally at onset of headache, may repeat in 2 hrs PRN; max 2 tabs per day or 4 tabs/week (may take with Aleve 440mg) 30 days HPI Comments Details: Duong is back in my office after diagnostic C2-C3 C4 bilateral medial branch block. She reports about 50% overall pain improvement for the 1st 6 hours. She reports appropriate numbness in the neck. She unfortunately became very dizzy after the procedure. She also reported side effects from the ChloraPrep preparation for her skin which actually slightly changes her perception about her pain relief. We discussed sprint PNS. Patient is not very eager to go for this procedure but she promised to think about it and give us a call when she decides to go for Sprint PNS trial. I offered her to temporize her pain by administering her tizanidine but patient unfortunately refused. Prior: complains on pain in the posterior portion of the neck with radiation to the back of the head mostly right side of the head and behind her right eye. She also reports milder pain radiation to the left side in similar projection. She reports that this pain started 40 years ago and continues to get progressively worse. She was under care of [facility]. She reports that she can sleep normally, she can do activities of daily living, she can take care of herself and she can function normally. She is taking gabapentin and Celebrex to help her pain. She reports that in the past she tried baclofen but that was not giving her much of the pain relief with some possible dizziness syndrome is in his sensation side effects. 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 She reports arthritis of the hands as well. She had multiple images her MRI of the cervical spine dictated as below. She had physical therapy for her neck she tried several times of different offices of chiropractic manipulations she tried massage therapy and acupuncture unfortunately none of those modalities helps her pain. She tried years ago TENs unit without any success. She was under care of [facility] and she received transforaminal epidural steroid injections in the neck left C3-C4 and C4-C5 she received left C2-C3 C3-C4 and C4-C5 facet joint injections, she received diagnostic medial branch blocks C2-C3 C4 bilateral she reports no pain improvement. She gave me a story of diagnostic injection falling short of few points to offer her some definitive procedure on the neck. She reports that she was placed on 80 mg prednisone to treat her giant cell arteritis and she reported good pain relief with initiation of this therapy, however the patient pain came back later on. She reports that she received 2 botulinum toxin injections as a treatment for ?migraine ?. She is scheduled for the 3rd injection, she unfortunately did not see the benefits of the 1st 2 injections. Her past medical history significant for headaches as above irritable bowel syndrome and arthritis. She reports history of arthroscopic left knee surgery left temporal artery biopsy left foot bunion surgery and basal cell carcinoma surgery on the nose. Social history she is retired individual. She denies smoking cigarettes she denies drinking alcohol she denies recreational drugs. [facility] Medical History (Updated 11/22/24 @ 10:43 by Arvind Rose MD) Anemia Osteoarthritis Fatigue Chronic migraine without aura, intractable, without status migrainosus Osteoarthritis of left knee Fibromyalgia Migraines Basal cell carcinoma of nose Bunion, left foot Surgical History H/O arthroscopic knee surgery H/O toe surgery History of surgery History of bunionectomy H/O colonoscopy Family History Mother Heart problem COPD (chronic obstructive pulmonary disease) Hypertension Father Prostate cancer Colon cancer Diabetes Brother Diabetes Sister Hypertension Hypercholesteremia Social History Housing: House Alcohol intake: current Alcohol intake frequency: holidays/special occasions only Patient Tobacco Use Status: Never used Tobacco e-Cigarette/Vaping Use: Never Used Second Hand Smoke Exposure: No service: No Current occupational status: retired Cognitive needs: No Hearing needs: Yes Vision needs: No Review of Systems Const All systems reviewed & are unremarkable except as noted in HPI and below ENT Reports Normal hearing present Neuro Reports Normal hearing present, Denies Abnormal speech present and Denies Sensory deficit (Neuro) Physical Exam Vital Signs: Last Vital Signs Pulse 79 12/17/24 13:06 Resp 16 12/17/24 13:06 BP 121/60 12/17/24 13:06 Pulse Ox 98 12/17/24 13:06 Oxygen Delivery Method Room Air 12/17/24 13:06 BMI result Body Mass Index 22.1 Const General: no acute distress and well developed Nutritional Appearance: thin Orientation/consciousness: patient oriented x3 Eyes General: appearance normal, both eyes and all related structures Pupils: Equal, round and reactive pupils present EOM: EOMs intact bilaterally Neck Other: Flexing forward and flexing backwards aggravate the patient's pain however flexing had backwards aggravate pain more severe. There is limitation in the range of motion with inability to turn head to the left side more than to the right. She reports no radiation of the pain into the upper or lower extremities. On physical exam she exhibits normal strength of flexors and extensors of the bilateral upper extremities. She reports no numbness or awkwardness of the movements in bilateral upper extremities. She denies Valsalva aggravating her pain. Axial compression and axial distention of the neck does not affect her pain. Spurling test is negative bilaterally. Lhermitte test is negative . Chest Chest palpation & inspection: normal inspection of the chest Resp Effort & Inspection: normal respiratory effort, able to speak in complete sentences, normal respiratory pattern, no audible wheezes and no cough Cardio Jugular venous distension: no JVD GI Inspection: Yes normal to inspection Neuro General: patient oriented x3 and gait normal Cranial nerves: Yes CN's II-XII intact bilaterally, Yes Equal, round and reactive pupils present, Yes Normal hearing present and Yes Ability to bilaterally elevate shoulders present Speech: No Abnormal speech present Gait exam (Neuro): Normal gait present Motor exam (neuro): 5/5 motor strength present throughout Sensory Exam: No Sensory deficit (Neuro) Extrem General: No pedal edema Psych Speech and movement: Normal speech and movement present Affect: normal affect Attitude: cooperative Thought process: Normal thought process present Thought content: Normal thought content present Insight: Good insight present (Psych) Judgement: Good judgement present (Psych) Assessment & Plan Assessment & Plan (1) Spondylosis of cervical region without myelopathy or radiculopathy: Code(s): M47.812 - Spondylosis without myelopathy or radiculopathy, cervical region Category: Medical (2) Bilateral occipital neuralgia: Code(s): M54.81 - Occipital neuralgia Category: Medical (3) Chronic pain syndrome: Code(s): G89.4 - Chronic pain syndrome Category: Medical Plan Diagnostic C2-C3 C4 MBB results her 50% pain improvement. The patient reported skin irritation from the ChloraPrep, she might be allergic to ChloraPrep. This could have change the perception of the pain level by the patient. She reports appropriate numbness in the neck following the procedure. I offered her sprint PNS and she decided to think about it. I also offered her tizanidine, I offered her to become a member of chronic opioid program. She refused. I understand. Patient Instructions: I here by testify that I spent 30 minutes in conversation with this patient as well as planning her care and organizing this note. Coding Level of Care Code Est Pt Level 4 (28028) Diagnoses Spondylosis of cervical region without myelopathy or radiculopathy M47.812 Bilateral occipital neuralgia M54.81 Chronic pain syndrome G89.4
[2024-12-17 13:06] VITALS: BP 121/60; PULSE 79; RESP 16; O2SAT 98; BMI 22.1
== END 2024-12-17 13:27 | disposition home or self-care (01) ==
PROVIDERS: PCP Internal Medicine; Visit Provider Anesthesiology
DX: M47.812 Spondylosis without myelopathy or radiculopathy, cervical region (principal); M54.81 Occipital neuralgia; G89.4 Chronic pain syndrome
CPT/HCPCS: 99214

== ENCOUNTER → 2024-12-17 13:01 | Outpatient (BNVA) | payer MEDICARE, OTHER, SELFPAY | PROVIDERS: PCP Internal Medicine; Visit Provider Anesthesiology | DX: M47.812 Spondylosis without myelopathy or radiculopathy, cervical region (principal); M54.81 Occipital neuralgia; G89.4 Chronic pain syndrome | CPT/HCPCS: 99212 ==

== ENCOUNTER 2025-02-07 14:18 | Outpatient (AMB) | payer MEDICARE, OTHER, SELFPAY ==
--- NOTE | 2025-02-07 14:23 | MHC.PC.OV ---
Vital Signs 02/07/25 14:25 Height 5 ft 3 in Weight 125 lb 2 oz BMI 22.2 BP 110/72 Blood Pressure Location Lt brachial Position Sitting Pulse 80 Pulse Source Pulse Oximeter Temp 97.3 F Temp Source Temporal Artery Scan Pulse Oximetry (%) 98 Oxygen Delivery Method Room Air Intake Visit Reasons: f/u blood work and headaches Intake Note: Patient is here to follow up on lab results and headaches. Manager Travel Required: No Registered Diet Technician: Not Required per policy Accompanied by: Self / Same As Patient Allergies meperidine [Demerol] Allergy (Intermediate, Verified 02/07/25 14:51) Vomiting Penicillins [PENICILLINS] Allergy (Intermediate, Verified 02/07/25 14:51) RASH erythromycin base [ERYTHROMYCIN BASE] Allergy (Unknown, Verified 02/07/25 14:51) unknown chlorhexidine [From ChloraPrep Clear] Adverse Reaction (Severe, Verified 02/07/25 14:51) rash isopropyl alcohol [From ChloraPrep Clear] Adverse Reaction (Severe, Verified 02/07/25 14:51) rash Medication List - Last Reconciled 02/07/25 by Mary Ashton PA-C Actemra ACTPen (tocilizumab) 162 mg (0.9 mL) subcut Q2W NS aspirin 81 mg PO DAILY calcium carbonate-vitamin D3 600 mg-10 mcg (400 unit) 1 cap PO BID celecoxib (Celebrex) 100 mg PO BID 30 days citalopram 15 mg (1.5 x 10 mg) PO DAILY fluoride (sodium) 1.1% (DentaGel) dental gabapentin 600 mg PO BEDTIME galcanezumab-gnlm (Emgality Pen) 120 mg subcut ONCE 30 days metronidazole 0.75% appl topical QPM multivitamin 1 tab PO DAILY onabotulinumtoxinA (Botox) 200 units IM ONCE 12 weeks sumatriptan succinate 6 mg subcutaneously at onset of nocturnal migraine, may repeat in 1 hr PRN; 28 days MDD 1 ml per day sumatriptan succinate 50 - 100 mg orally at onset of headache, may repeat in 2 hrs PRN; max 2 tabs per day or 4 tabs/week (may take with Aleve 440mg) 30 days Tobacco use date assessed: 02/07/25 Fall risk assessment: No Falls in past year Last assessed Fall Risk: 02/07/25 Dental Screening Dental Screen Date: 02/07/25 Did you have a dental visit in the last 12 months?: Yes Did you have a dental problem in the last 6 months where you did not have access to dental care?: No Was dental information given to patient?: Patient has dentist HPI f/u blood work and headaches HPI Details 69-year-old female with past medical history of fibromyalgia, panic disorder, temporal arteritis, migraines last seen 09/2024 coming in for follow up. In review of the notes, patient was seen by pain management 12/2024 given injection. Seen by Rheumatology 11/2024 for management of giant cell arteritis. Seen by Neurology 11/05/2024 for Botox injection for treatment of migraines injection was given and has follow up in the next few weeks. Presenting with a follow-up for chronic pain, migraine, arthritis, and dyslipidemia. Her chronic pain management included multiple nerve block injections with limited relief, and consideration for a spinal cord stimulator has been discussed and postponed. Migraine management with periodic botulinum toxin injections has provided inconsistent results with symptom control. 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 [facility] Medical History Anemia Osteoarthritis Fatigue Chronic migraine without aura, intractable, without status migrainosus Osteoarthritis of left knee Fibromyalgia Migraines Basal cell carcinoma of nose Bunion, left foot Surgical History H/O arthroscopic knee surgery H/O toe surgery History of surgery History of bunionectomy H/O colonoscopy Family History Mother Heart problem COPD (chronic obstructive pulmonary disease) Hypertension Father Prostate cancer Colon cancer Diabetes Brother Diabetes Sister Hypertension Hypercholesteremia Social History Housing: House Alcohol intake: current Alcohol intake frequency: holidays/special occasions only Patient Tobacco Use Status: Never used Tobacco e-Cigarette/Vaping Use: Never Used Second Hand Smoke Exposure: No service: No Current occupational status: retired Cognitive needs: No Hearing needs: Yes Vision needs: No Questionnaire PHQ-9 Over the last 2 weeks, how often have you been bothered by any of the following problems? 1. Little interest or pleasure in doing things: not at all 2. Feeling down, depressed, or hopeless: not at all 3. Trouble falling or staying asleep, or sleeping too much: not at all 4. Feeling tired or having little energy: not at all 5. Poor appetite or overeating: not at all 6. Feeling bad about yourself - or that you are a failure or have let yourself or your family down: not at all 7. Trouble concentrating on things, such as reading the newspaper or watching television: not at all 8. Moving or speaking so slowly that other people could have noticed. Or the opposite - being so fidgety or restless that you have been moving around a lot more than usual: not at all 9. Thoughts that you would be better off or of hurting yourself in some way: not at all Total score: 0 Depression Screening Interpretation: Negative Depression Screening Done: Yes Source: Developed by Drs. Hubert Muniz, Summer Minaya, Barron Roa and colleagues, with an educational elvira from [employer]. Thrive Questionnaire Date Thrive assessed: 02/07/25 I am a: Patient What is your living situation today?: I have a steady place to live Within the past 12 months, did the food you bought not last and you didn't have the money to get more?: Never true Within the past 12 months, did you worry whether your food would run out before you got money to buy more?: Never true Do you have trouble paying for medicines?: No Do you have trouble getting transportation to medical appointments?: No Do you have trouble paying your heating and electricity bill?: No Do you have trouble taking care of your child, family member or friend?: No Do you have trouble with day-to-day activities such as bathing, preparing meals, shopping, managing finances, etc.?: No Are you currently unemployed and looking for a job?: No Are you interested in more education?: No Please select the resources that you would like help with: None Currently or been in a relationship where the following occur: No concerns reported THRIVE Score: 0 AUDIT C Alcohol Use Questionnaire (AUDIT-C) 1. How often do you have a drink containing alcohol?: 2-4 times a month 2. How many drinks containing alcohol do you have on a typical day when you are drinking?: 1 or 2 Total Score: 2 KENNY-7 AMB Questionnaire KENNY-7 Date KENNY - 7 assessed: 02/07/25 Feeling nervous, anxious, or on edge: 0 = Not at all Not being able to stop or control worryin = Not at all Worrying too much about different things: 0 = Not at all Trouble relaxin = Not at all Being so restless that it is hard to sit still: 0 = Not at all Becoming easily annoyed or irritable: 0 = Not at all Feeling afraid as if something awful might happen: 0 = Not at all Total KENNY-7 score (0-4 normal; 5-9 mild; 10-14 moderate; 15-21 severe): 0 Source: Developed by Drs. Hubert Muniz, Summer Minaya, Barron Roa and colleagues, with an educational elvira from [employer]. Review of Systems Const Denies body aches, Denies chills, Denies fever(s), Denies headache(s) and Denies poor appetite Eyes Reports no additional complaints ENT Denies dysphagia, Denies dizziness, Denies headache(s) and Denies odynophagia Card Denies chest pain, Denies syncope, Denies edema, Denies irregular heart rhythm, Denies lightheadedness and Denies dyspnea Resp Denies cough and Denies dyspnea GI Details: Gas cramps Denies abdominal pain, Denies constipation, Denies dysphagia, Denies diarrhea, Denies nausea, Denies odynophagia and Denies vomiting Reports no additional complaints Musc Reports no additional complaints and Denies abnormal gait Skin/Breast Reports system reviewed and no additional complaints, except as documented Neuro Denies abnormal gait, Denies dizziness, Denies syncope and Denies headache(s) Psych Reports no additional complaints Physical exam (Primary Care) Vital Signs: Last Vital Signs Temp 97.3 F 02/07/25 14:25 Pulse 80 02/07/25 14:25 BP 110/72 02/07/25 14:25 Pulse Ox 98 02/07/25 14:25 Oxygen Delivery Method Room Air 02/07/25 14:25 BMI result Body Mass Index 22.2 Tobacco/Smoking Status: Tobacco use Status Tobacco use date assessed 02/07/25 02/07/25 14:45 Patient Tobacco Use Status Never used Tobacco 02/07/25 14:25 e-Cigarette/Vaping Use Never Used 02/07/25 14:25 PHQ-9: PHQ-9 Score PHQ-9: Total score 0 02/07/25 14:25 Depression Screening Interpretation: Negative Thrive Assessment: Date of Thrive Assessment Date Thrive assessed 02/07/25 02/07/25 14:25 Currently or been in a relationship where the following occur: No concerns reported Const General: cooperative, healthy appearing, comfortable and no acute distress Orientation/consciousness: patient oriented x3 HENMT Head: Yes normocephalic Ears: hearing grossly normal bilaterally General nose exam: Normal external nose present Eyes General: appearance normal, both eyes and all related structures Conjunctivae: conjunctivae normal Neck Neck: Yes full ROM and Yes no lymphadenopathy Resp Effort & Inspection: normal respiratory effort Auscultation: clear to auscultation bilaterally, no crackles, no rales, no rhonchi and no wheezes Cardio Rate: regular rate Rhythm: regular rhythm Skin General skin exam: no rashes or lesions noted Neuro General: patient oriented x3 Gait exam (Neuro): Normal gait present Extrem General: Yes normal to inspection, Yes full ROM and No edema Psych Affect: normal affect Attitude: cooperative Insight: Good insight present (Psych) Judgement: Good judgement present (Psych) Coding Level of Care Code Est Pt Level 3 (61870) Diagnoses Chronic migraine without aura, intractable, without status migrainosus G43.719 Temporal arteritis M31.6 Chronic pain syndrome G89.4 Hypercholesterolemia E78.00 IBS (irritable bowel syndrome) K58.9 Assessment & Plan Assessment & Plan (1) Chronic migraine without aura, intractable, without status migrainosus: Code(s): G43.719 - Chronic migraine without aura, intractable, without status migrainosus Category: Medical Plan: Continue to follow with Neurology and pain management. (2) Temporal arteritis: Comment: Onset 06/2022 . Biopsy proven Prednisone started 07/2022 Actemra weekly started 08/2022 effective, spaced out to every 10 days 08/2024 and spaced out to every 14 days 11/2024 Prednisone tapered off 01/2024 Code(s): M31.6 - Other giant cell arteritis Category: Medical Plan: No longer on prednisone. Continue to follow with rheumatology and neurology for management of this condition. (3) Chronic pain syndrome: Code(s): G89.4 - Chronic pain syndrome Category: Medical Plan: Continue to follow with pain management and Rheumatology. (4) Hypercholesterolemia: Code(s): E78.00 - Pure hypercholesterolemia, unspecified Category: Medical Plan: Avoid foods that are high in cholesterol such as red meat, fried foods, eggs and baked goods. Triglyceride goal of less than 150 and LDL goal of less than 130. Discussed dietary and lifestyle management plan to repeat cholesterol (5) IBS (irritable bowel syndrome): Code(s): K58.9 - Irritable bowel syndrome, unspecified Category: Medical Plan: Patient has a history of irritable bowel syndrome previously managed with fiber gummies. She recently spent a month in [place] and discontinued the fiber gummies at that time. After discontinuation patient began to have gas cramping. Recommend restarting on the fiber supplement and follow up as needed for this concern. Plan Today's visit focused on managing the patient's chronic pain, migraine, arthritis, and dyslipidemia. The patient will continue current therapeutic interventions, including periodic botulinum toxin injections for migraine and close monitoring during rheumatology visits. With a noted rise in LDL cholesterol, dietary modifications targeting reduced high cholesterol intake have been advised. The spinal cord stimulator option remains open but on hold pending the patient's decisions around personal scheduling. Follow-up cholesterol testing is planned with her next arthritis visit in March, maintaining her regular six-month review cycle with adjustments as medically indicated. This note was constructed using voice recognition software. While every effort has been made to ensure accuracy and ambulatory service representative, still areas may have been included sometimes these areas may affect the content or meeting of the given symptoms. Total time spent caring for the patient today was 20 minutes. This includes time spent before the visit reviewing the chart, time spent during the visit, and time spent after the visit and documentation. Patient was informed and verbally consented to the use of an ambient scribe for clinic note documentation during this visit. Orders: Orders Lipid Panel Today E78.00 - Pure hypercholesterolemia, unspecified Medications: Refilled citalopram 15 mg (1.5 x 10 mg) PO DAILY 90 tabs 5RF
[2025-02-07 14:25] VITALS: BP 110/72; PULSE 80; TEMP 36.3; O2SAT 98; BMI 22.2
--- OUTSIDE RECORDS SUMMARY | 2025-02-07 15:48 | XMS_ITS | Patient Health Record ---
Author Organization [facility] Address [address] [place] [address] Care Team Providers Care Mechanical Service Representative Name Role Phone Tony Caro Primary Care Provider Fritz Arteaga Unavailable Unavailable Reason For Referral No Information Medications Medication SIG (Take, Route, Frequency, Duration) Notes Start Date End Date Status HORIZANT ER 600 MG TABLET 0 1 qhs for chronic pain for 30 *please review for potential update for e-prescription and drug interaction check* 09/23/2015 Active BUSPIRONE HCL 5 MG TABLET 0 1 tid for 0 *please review for potential update for e-prescription and drug interaction check* 12/19/2013 Active Methylergonovine Maleate 0.2 mg 180 ORAL 1 tab bid, pc, x 7 days, 2 tabs bid pc x 7 days, then 2 tabs tid pc thereafter. 11/21/2014 Active HORIZANT ER 300 MG TABLET 0 1 bid for 30 *please review for potential update for e-prescription and drug interaction check* 09/04/2015 Active CALCIUM + D3 ER TABLET 600 MG CALCIUM- 500 UNIT 0 2 qam for 0 *please review for potential update for e-prescription and drug interaction check* 05/21/2014 Active clonazePAM 0.5 MG 0 Oral 3/4 tab tid x 10 y for 0 05/21/2014 Active Acetaminophen Extra Strength 500 MG 0 Oral 2 prn, uses 2/month for 0 05/21/2014 Active NAPROXEN SODIUM 220 MG CAPLET 0 1 prn GUERRA, uses 4/month for 0 *please review for potential update for e-prescription and drug interaction check* 05/21/2014 Active Ibuprofen 200 mg 0 Oral 2 prn, uses rarely for 0 05/21/2014 Active MULTIVITAMINS TABLET 0 1 qam for 0 *please rev iew for potential update for e-prescription and drug interaction check* 05/21/2014 Active Plan Of Treatment No Information Insurance Providers Payer Name Payer Address Payer Phone Subscriber Number Group Number Insured Name Patient Relationship to Insured Coverage Start Date Coverage End Date [facility] [address] [facility] [address] [place], [place] [id number] Beatris Michelle Self - patient is the insured
== END 2025-02-07 15:22 | disposition home or self-care (01) ==
LOC: HO.HMCH 14:19
PROVIDERS: PCP Internal Medicine
DX: G43.719 Chronic migraine without aura, intractable, without status migrainosus (principal); M31.6 Other giant cell arteritis; G89.4 Chronic pain syndrome; E78.00 Pure hypercholesterolemia, unspecified; K58.9 Irritable bowel syndrome, unspecified

== ENCOUNTER → 2025-02-07 14:18 | Outpatient (BNVA) | payer MEDICARE, OTHER, SELFPAY | PROVIDERS: PCP Internal Medicine | DX: G43.719 Chronic migraine without aura, intractable, without status migrainosus (principal); M31.6 Other giant cell arteritis; G89.4 Chronic pain syndrome; E78.00 Pure hypercholesterolemia, unspecified; K58.9 Irritable bowel syndrome, unspecified | CPT/HCPCS: 99212 ==

== ENCOUNTER 2025-02-08 07:51 | Outpatient (AMB) | payer MEDICARE, OTHER, SELFPAY ==
--- OUTSIDE RECORDS SUMMARY | 2025-02-08 07:56 | XMS_ITS ---
Author Organization [facility] Address [address] [place] [address] Care Team Providers Care Ase Master Mechanic Name Role Phone Fritz Arteaga MD Primary Care Provider UnavailDanielle Li [phone] REASON FOR VISIT Rx Encounters Encounter Location Date Provider Diagnosis [address] [address] 08/16/2024 Danielle Ricardo Plan Of Treatment No Information Progress Notes * Teri MICHELLE MDOB: [birth year] (69 yo F)Acc No.[id number]:08/16/2024 Patient:?Teri Michelle :1955???Age:69 Y???Sex:Female Address:[address] [place] [address] [place] [address] * true * Date:? Generated for Printi danis/Franny/eTransmitting on:?02/08/2025 07:55 AM EDT
--- OUTSIDE RECORDS SUMMARY | 2025-02-08 07:56 | XMS_ITS | Patient Health Record ---
Author Organization [facility] Address [address] [place] [address] Care Team Providers Care Chute Puller Name Role Phone Fritz Arteaga MD Primary Care Provider UnavailDanielle Li Unavailable [phone] Wai Herbert Unavailable [phone] Allergies Allergen (clinical drug ingredient) Drug/Non Drug Allergy documented on EMR Reaction Allergy Type Onset Date Status amoxicillin Amoxicillin rash Drug Allergy Act jerman meperidine Demerol Unknown Drug Allergy Active erythromycin Erythromycin stomach pain Drug Allergy Active Reason For Referral No Information Medications Medication SIG (Take, Route, Frequency, Duration) Notes Start Date End Date Status Baclofen 5 MG/5ML 5 mL with food or milk as needed Orally Three times a day Active Protonix 40 MG 1 tablet 1/2 to 1 hour before morning meal Orally Once a day Active CeleBREX 100 MG 1 capsule with food Orally Once a day Active Work Note . . . patient disabled from work until January Active Citalopram Hydrobromide 10 MG/5ML 5 mL Orally Once a day 15mg daily Active Prednisone Not-Takin g SUMAtriptan 100mg as needed Active CeleXA Not-Taking Actemra 162 MG/0.9ML as directed Subcutaneous Active Physical Therapy . . . 2-3x/week for 3-4 weeks Not-Taking Aspirin 81 Active Medrol 2 MG 2 tablets with food or milk in the morning Orally for 30 day(s) 04/06/2018 Not-Taking Calcium + D daily Active Ibuprofen 800 MG 1 tablet with food or milk as needed Orally Three times a day for 30 days 02/09/2018 Not-Taking Fosamax 70mg weekly Active KlonoPIN .5 mg twice a day Not -Taking Gabapentin 600 MG 1 capsule Orally Once a day for 30 days Active Methylergonovine Maleate Not-Taking Multivitamins daily Active Work Note . . . patient is disabled from work until Tuesday, April 10, 2018 04/06/2018 Active Doxycycline Monohydrate 100 MG 1 capsule Orally Once a day for 10 days Active Immunizations Vaccine Route Administration Date Status Comme nts Influenza Unknown 09/14/2018 Administered Social History Tobacco Use: Social History Observation Description Date Details (start date - stop date) Never Smoker NA - NA Tobacco use other than smoking: Question Answer Notes Are you an other tobacco user? No Tobacco Control (Standard) Question Answer Notes Tobacco use: Nonsmoker Additional Findings: Tobacco non-user Current no nsmoker Problems Problem Type SNOMED Code ICD Code Onset Dates Problem Status W/U Status Risk Notes Problem Plantar fascial fibromatosis (24966180) Plantar fascial fibromatosis (M72.2) Active confirmed Vital Signs Height 5ft 3in in 08/28/2024 Weight 122 lbs 08/28/2024 BMI 21.61 kg/m2 08/28/2024 Procedures Procedure Date Ordered Date Performed Result Body Sit e 49074-OMNORZV SKIN/TISSUE 08/28/2024 N/A 45137-Cvhpwsij Plate 11/21/2024 N/A Encounters Encounter Location Date Provider Diagnosis [facility] [address] 08/15/2024 Wai Herbert Primary osteoarthritis, left ankle and foot M19.072 ; Ingrowing nail L60.0 ; Pain in left foot M79.672 ; Metatarsalgia, left foot M77.42 ; Plantar fascial fibromatosis M72.2 ; Abscess of toe of left foot L02.612 and Tinea unguium B35.[address] [facility] [address] 08/28/2024 Danielle Ricardo Skin ulcer of toe of left foot with fat layer exposed L97.522 and Ingrowing nail L60.[address] [facility] [address] 11/21/2024 Danielle Ricardo Ingrown nail L60.0 [facility] [address] [place] [address] 08/16/2024 Danielle Ricardo Assessments Encounter Date Diagnosis (ICD Code) Assessment Notes Treatment Notes Treatment Clinical Notes Section Notes 08/15/2024 Primary osteoarthritis, left ankle and foot (ICD-10 - M19.072) 08/15/2024 Ingrowing nail (ICD-10 - L60.0) 08/28/2024 Ingrowing nail (ICD-10 - L60.0) Medial nail border, T5, T7 08/28/2024 Skin ulcer of toe of left foot with fat layer exposed (ICD-10 - L97.522) Patient Educated with: WOUND CARE INSTRUCTIONS.p df (WOUND CARE INSTRUCTIONS.p df) 11/21/2024 Ingrown nail (ICD-10 - L60.0) 08/15/2024 Pain in left foot (ICD-10 - M79.672) 08/15/2024 Metatarsalgia, left foot (ICD-10 - M77.42) 08/15/2024 Plantar fascial fibromatosis (ICD-10 - M72.2) 08/15/2024 Abscess of toe of left foot (ICD-10 - L02.612) 08/15/2024 Tinea unguium (ICD-10 - B35.1) 08/28/2024 Other Plan Of Treatment Pending Test Test Name Order Date X ray : Foot, left 2V 10/27/2012 X ray : Foot, left 2V 03/07/2018 X ray : Foot, left 2V 03/21/2018 X ray : Foot, left 2V 05/04/2018 X ray : Foot, left 2V 06/02/2018 X ray : Foot, right 2V 10/27/2012 X ray : Foot, left 3V 02/09/2018 X ray : Foot, left 3V 01/04/2019 X ray : Foot, left 3V 11/14/2020 22565-Sdldzltg Plate 11/21/2024 83156-Leqpjdgj Plate 09/06/2014 20916-Jvwsaunq Plate 10/27/2012 81225-Erbyywta Plate 12/22/2012 52569-Vcehvwzc Plate 04/13/2013 39193-Dlmzspcn Plate 07/13/2013 43096-Fwjytjqx Plate 11/20/2013 59910-Fzmsasch Plate 02/05/2014 44416-Iqnzsaex Plate 05/31/2014 68716-Mbhpfdou Plate 11/22/2014 16334-Jeckkvvn Plate Each Additional 58430-Nrqlbvxg Plate Each Additional 91823-Bxqterio Plate Each Additional 53185-QPI 02/06/2015 88242- Debride <25 sq cm 02/21/2015 36745- Debride <25 sq cm 03/21/2015 60214- Debride <25 sq cm 11/17/2012 73922- Debride <25 sq cm 10/09/2013 98876-KATRCKS SKIN/TISSUE 08/28/2024 73891 I&D ABSCESS- SIMPLE,SINGLE 013 83602, O6193-QEEQA/INJECT, JOINT/BURSA 1 12/29/2016 28159, R1699-ZHLJF/INJECT, JOINT/BURSA 0 01/04/2019 05631, G1309-DTBZZ/INJECT, JOINT/BURSA 0 07/14/2018 56539, J0702- Neuroma/Injection 10/28/20 17 Insurance Providers Payer Name Payer Address Payer Phone Subscriber Number Group Number Insured Name Patient Relationship to Insured Coverage Start Date Coverage End Date [employer] [address] [facility] [address] [id number] Teri Michelle Self - patient is the insured [facility] [address] [place] [address] [phone] [id number] Teri Michelle Self - patient is the insured Medical (General) History Medical History History ICD Code anxiety back, hip, knee pain chicken pox fibromyalgia headaches/migraines measles mumps sinus conditions Surgical History Surgery Date(Month/Year) Skin cancer removed from nose. 3 Johnson L 03/02/18 knee surgery 09/2023 [place] History Reason Date[place] [facility] [place]18
--- OUTSIDE RECORDS SUMMARY | 2025-02-08 07:56 | XMS_ITS ---
Author Organization [facility] Address [address] [place] [address] Care Team Providers Care Rigger Name Role Phone Fritz Arteaga MD Primary Care Provider Danielle Mayo Unavailable [phone] Allergies Allergen (clinical drug ingredient) Drug/Non Drug Allergy documented on EMR Reaction Allergy Type Onset Date Status amoxicillin Amoxicillin rash Drug Allergy Act jerman meperidine Demerol Unknown Drug Allergy Active erythromycin Erythromycin stomach pain Drug Allergy Active REASON FOR VISIT pcp-2022, Open sore - Toe, Painful ingrown nail(s) Medications Medication SIG (Take, Route, Frequency, Duration) Notes Start Date End Date Status Citalopram Hydrobromide 10 MG/5ML 5 mL Orally Once a day 15mg daily Active CeleBREX 100 MG 1 capsule with food Orally Once a day Active Methylergonovine Maleate Not-Taking Protonix 40 MG 1 tablet 1/2 to 1 hour before morning meal Orally Once a day Active Baclofen 5 MG/5ML 5 mL with food or milk as needed Orally Three times a day Active KlonoPIN .5 mg twice a day Not -Taking Ibuprofen 800 MG 1 tablet with food or milk as needed Orally Three times a day for 30 days 02/09/2018 Not-Taking Medrol 2 MG 2 tablets with food or milk in the morning Orally for 30 day(s) 04/06/2018 Not-Taking Physical Therapy . . . 2-3x/week for 3-4 weeks Not-Taking CeleXA Not-Taking Prednisone Not-Takin g Work Note . . . patient disabled from work until January Active Multivitamins daily Active Doxycycline Monohydrate 100 MG 1 capsule Orally Once a day for 10 days Active Work Note . . . patient is disabled from work until Tuesday, April 10, 2018 04/06/2018 Active Fosamax 70mg weekly Active Calcium + D daily Active Aspirin 81 Active Actemra 162 MG/0.9ML as directed Subcutaneous Active Gabapentin 600 MG 1 capsule Orally Once a day for 30 days Active SUMAtriptan 100mg as needed Active Social History Tobacco Use: Social History Observation Description Date Details (start date - stop date) Never Smoker NA - NA Tobacco Use/Smoking Question Answer Notes Are you a: nonsmoker Additional Findings: Tobacco Non-User Current no n-smoker Alcohol Screen Question Answer Notes Did you have a drink containing alcohol in the p ast year? No Points 0 Interpretation Negative Tobacco use other than smoking: Question Answer Notes Are you an other tobacco user? No Vital Signs Height 5ft 3in in 08/28/2024 Weight 122 lbs 08/28/2024 BMI 21.61 kg/m2 08/28/2024 Procedures Procedure Date Ordered Date Performed Result Body Sit e 40504-JGFZZHY SKIN/TISSUE 08/28/2024 N/A Encounters Encounter Location Date Provider Diagnosis [facility] [address] [address] 08/28/2024 Danielle Ricardo Skin ulcer of toe of left foot with fat layer exposed L97.522 and Ingrowing nail L60.0 Assessments Encounter Date Diagnosis (ICD Code) Assessment Notes Treatment Notes Treatment Clinical Notes Section Notes 08/28/2024 Skin ulcer of toe of left foot with fat layer exposed (ICD-10 - L97.522) Patient Educated with: WOUND CARE INSTRUCTIONS.p df (WOUND CARE INSTRUCTIONS.p df) 08/28/2024 Ingrowing nail (ICD-10 - L60.0) Medial nail border, T5, T7 08/28/2024 Other Plan Of Treatment Treatment Notes Assessment Notes Skin ulcer of toe of left fo ot with fat layer exposed Patient Educated with: WOUND CARE INSTRUCTIONS.pdf (WOUND CARE INSTRUCTIONS.pdf) Pending Test Test Name Order Date [id number]-GLUKOTP SKIN/TISSUE 08/28/2024 Next Appt Details Follow Up: prn, Reason: Procedure Notes * Category Sub-Category Detail Notes Debride skin and subQ Open wound Physician of record performed open wound selective debridement of devitalized necrotic/nonviable soft tissue, fibrin, exudate, epidermis, dermis, thru skin and subcutaneous fat tissue, first 20 sq cm or less, using sharp dissection with sterile 15 blade, and/or tissue nippers. ANESTHESIA- was accomplished TOPICALLY with Lidocaine Hydrochloride Jelly 2 percent, Sterile antibiotic dressing applied. Hemostasis was controlled through direct pressure. Post debridement measurements: 3 mm x 3 mm x 3mm. Character of the wound post debriement is stable (94676) Progress Notes * Teri MICHELLE MDOB: [birth year] (69 yo F)Acc No.[id number]:08/28/2024 Progress Notes Patient:?Teri Michelle Provider:?Danielle Ricardo DPM :1955???Age:69 Y???Sex:Female D ate:08/28/2024 Address:[address] [place], [place] [id number] Pcp:Fritz Arteaga MD Subjective: * Chief Complaints: * ???Pcp-2022Open sore - ToePa inful ingrown nail(s) * HPI: ???Skin problems:?Nature:?Open sore.?Treatments:?Topical abx, soaks.?Ingrown toenail:?Nature:?aching , tenderness in shoes ?.?Location:?Great toe , Third toe , Right foot.?Duration:?3-6 days.?Treatments:?self treatment.? * ROS:?General/Constitutional:?Nausea?denies.?Vomiting?denies.?Hunger Thirst?denies.?Loss appetite?denies.?Chills?denies.?Fatigue?denies.?Fever?denies.?Night Sweats?denies.?Unexplained weight loss?denies.?Unexplained weight gain?denies.?HEENTM:?Dentures?denies.?Dizziness?denies.?Glasses/contacts?denies.?Retinopathy?de nies.?Blurred/double vision?denies.?TMJ?denies.?Discharge/drainage?denies.?Implants?denies.?Sore throat?denies.?Dental implants?denies.?Hard of hearing ?denies.?Difficulty chewing/swallowing/speaking?denies.?Nose bleeds?denies.?Sore mouth?denies.?Respiratory:?On Oxygen?denies.?Pneumonia/pleurisy?denies.?Bronchitis?denies.?Emphysema?denies.?C oughing?denies.?Cough blood?denies.?Shortness of breath?denies.?Wheezing?denies.?Cardiovascular:?Pacemaker?denies.?MVP?denies.?WPW?denies.?CHF?denies.?Heart attack?denies.?Septal defect?denies.?Rapid beat?denies.?Chest pain ?denies.?Atrial Fib.?denies.?Murmur/Palpitations?denies.?Gastrointestinal:?Hemorrhoids?denies.?Stomach/Abdominal pain?denies.?Dark blood stool?denies.?Irritable bowel ?denies.?Constipation?denies.?Diarrhea?denies.?Hematology:?Swelling?denies.?Clots?denies.?Varicose Veins?denies.?Bruising?denies.?Bleeding problem?denies.?Genitourinary:?Blood urine?denies.?Frequent/Painfu/urination/bladder control?denies.?Kidney stones?denies.?Infection (UTI)?denies.?Nephropathy?denies.?sex trans dis (STD)?denies.?Prostate?denies.?Musculoskeletal:?Hammertoes?denies.?Bunions?denies.?Back Pain?denies.?Muscle Cramps/ Resting?denies.?Muscle cramps / walking?denies.?Generalized aches and pains?denies.?Weakness?denies.?Integ.:?[place]?denies.?Scars?denies.?Corns/calluses?denies.?Ingrown nails?denies.?Painful nails?denies.?Open Sores?denies.?Rashes?denies.?Neurologic:?Difficulty sleeping?denies.?Brain disorder?denies.?Numbness?denies.?Balance trouble?denies.?Confusion?denies.?Fainting/blackouts?denies.?Tingling?denies.?Tr emors?denies.? * Medical History:? * Surgical History:?Skin cance r removed from nose. 09/13/2013bride L 03/02/18knee surgery 09/2023 * [place]Major Diagno stic [place] [place] * Family History:?Mother: andres hanson, diagnosed with Unspecified essential hypertension, Unspecified heart disease.?Father: , diagnosed with Diabetic - NIDDM, Unspecified essential hypertension, Other malignant neoplasm of unspecified site.?Spouse: alive.? No children. * Social History:?Tobacco Use:?Tobacco Use/Smoking?Are you a:?nonsmoker ?Additional Findings: Tobacco Non-User?Current non-smoker ?Tobacco use other than smoking?Are you an other tobacco user??No ???Drugs/Alcohol:?Drugs?Have you used drugs other than those for medical reasons in the past 12 months??No ?Alcohol Screen?Did you have a drink containing alcohol in the past year??No ?Points?0 ?Interpretation?Negative ???Miscellaneous:?no Caffeine. ?no Children. ?Exercise: yes. ?Marital status: . 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 * Medications:?TakingBaclofen 5 MG/5ML Solution 5 mL with food or milk as needed Orally Three times a dayProtonix 40 MG Tablet Delayed Release 1 tablet 1/2 to 1 hour before morning meal Orally Once a dayCeleBREX 100 MG Capsule 1 capsule with food Orally Once a dayCitalopram Hydrobromide 10 MG/5ML Solution 5 mL Orally Once a day, Notes: 15mg dailySUMAtriptan , Notes: 100mg as neededActemra 162 MG/0.9ML Solution Prefilled Syringe as directed Subcutaneous Aspirin 81 Calcium + D dailyFosamax , Notes: 70mg weeklyGabapentin 600 MG Tablet 1 capsule Orally Once a dayMultivitamins dailyWork Note . . . . patient is disabled from work until Tuesday, April 10, 2018Doxycycline Monohydrate 100 MG Capsule 1 capsule Orally Once a dayWork Note . . . . patient disabled from work until JanuaryTaking Baclofen 5 MG/5ML Solution 5 mL with food or milk as needed Orally Three times a dayTaking Protonix 40 MG Tablet Delayed Release 1 tablet 1/2 to 1 hour before morning meal Orally Once a dayTaking CeleBREX 100 MG Capsule 1 capsule with food Orally Once a dayTaking Citalopram Hydrobromide 10 MG/5ML Solution 5 mL Orally Once a day, Notes: 15mg dailyTaking SUMAtriptan , Notes: 100mg as neededTaking Actemra 162 MG/0.9ML Solution Prefilled Syringe as directed Subcutaneous Taking Aspirin 81 Taking Calcium + D dailyTaking Fosamax , Notes: 70mg weeklyTaking Gabapentin 600 MG Tablet 1 capsule Orally Once a dayTaking Multivitamins dailyTaking Work Note . . . . patient is disabled from work until Tuesday, April 10, 2018Taking Doxycycline Monohydrate 100 MG Capsule 1 capsule Orally Once a dayTaking Work Note . . . . patient disabled from work until JanuaryNot-Taking/PRNPrednisone CeleXA Physical Therapy . . . . 2- 3x/weekMedrol 2 MG Tablet 2 tablets with food or milk in the morning Orally Ibuprofen 800 MG Tablet 1 tablet with food or milk as needed Orally Three times a dayKlonoPIN .5 mg twice a dayMethylergonovine Maleate Medication List reviewed and reconciled with the patientNot-Taking/PRN Prednisone Not-Taking/PRN CeleXA Not-Taking/PRN Physical Therapy . . . . 2-3x/weekNot-Taking/PRN Medrol 2 MG Tablet 2 tablets with food or milk in the morning Orally Not-Taking/PRN Ibuprofen 800 MG Tablet 1 tablet with food or milk as needed Orally Three times a dayNot-Taking/PRN KlonoPIN .5 mg twice a dayNot-Taking/PRN Methylergonovine Maleate Medication List reviewed and reconciled with the patient * Allergies:?Erythromycin: sto mach painAmoxicillin: rashDemerolyes[Allergies Verified] Objective: * Vitals:?Ht: 5ft 3in, Wt:122, BMI:21.61, Shoe size: 7, Ht-cm: 160.02 cm, Wt-k.34 kg. * Examination: ???Dermatologic: ?ULCER:?LOCATION medial nail border, T1, Dorsal, SIZE, 3 mm X 2 mm X 2-3mm, BASE, fibro-granular, RIM, hyperkeratotic, UNDERMINING, mild, TRACKING, Sub Q with Fat layer exposed, DRAINAGE, serosanguineous, moderate, NECROTIC TISSUE, loosely-adherent, yellow slough, MALODOR, absent, CALOR, trace, ERYTHEMA, trace.?Ingrown Nail: ?INSPECTION:?Reveals nail incurvation, pain on palpation, groove hypertrophy medial nail border, T5, T7.? Assessment: * Assessment: 1.?Ingrowing nail - L60.0, A cute problem, Uncomplicated (3), Medial nail border, T5, T7?2.?Skin ulcer of toe of left foot with fat layer exposed - L97.522? Plan: * Treatment: * Procedures:?Debride skin and subQ:?Open wound?Physician of record performed open wound selective debridement of devitalized necrotic/nonviable soft tissue, fibrin, exudate, epidermis, dermis, thru skin and subcutaneous fat tissue, first 20 sq cm or less, using sharp dissection with sterile 15 blade, and/or tissue nippers. ANESTHESIA- was accomplished TOPICALLY with Lidocaine Hydrochloride Jelly 2 percent, Sterile antibiotic dressing applied. Hemostasis was controlled through direct pressure. Post debridement measurements: 3 mm x 3 mm x 3mm. Character of the wound post debriement is stable ([id number]).? * Procedure Codes:?78216 DEBRI DE SKIN/TISSUE * Preventive Medicine:? ??Counseling:?Discussion:?-13: Office or other outpatient visit for the evaluation and management of an established patient, which required a medically appropriate history and/or examination and LOW level of DECISION MAKING for: 1 STABLE ACUTE UNCOMPLICATED PROBLEM, 2 OR MORE MINOR PROBLEMS, OR 1 STABLE CHRONIC PROBLEM, THAT POSE(S) A LOW RISK FOR MORBIDITY/MORTALITY. The visit on the day of the encounter encompassed interpreting the data and educating the patient as to the nature of their condition, treatment options available according to their individual PMH, meds, allergies, and overall health/living conditions, as well as any potential risks or complications that may occur from a failure to adhere to, and participate in, the recommended course of therapy. The discussion included a complete verbal, and/or written explanation of the examination results, any x-rays taken, the proposed diagnosis, and outline of the treatment plan. A schedule for future care needs was also explained. The patient verbalized an understanding of the instructions at this time and agreed to be an active participant in their treatment. If the patient should think of any questions or concerns after the visit, I have encouraged the patient to call the office.?Abscess/Paraonychia/Ingrown Nails:?We discussed the possible etiologies (genetic, improper nail care, shoe gear, nail trauma) which may lead to ingrown nails and/or paronychial infections. We discussed and reviewed palliative/nonsurgical/deferring definitive treatment (vs) undergoing the treatment procedures of nail avulsion(s) or PNA, which may prevent recurrence and give more lasting results. The possible risks/complications such as worsened condition/delayed healing/nonhealing/failure/recurrence/infection, the potential benefits/advantages of decreased pain/deformity, as well as alterative treatment options including applying nail softening agents/nail groove packing were discussed. No guarantees were given regarding any outcome for any procedure. The patient was educated in the length of time for the affected nail to regrow once completely healed from a nail avulsion procedure. Once the condition has completely healed, the patient was consulted on proper nail care. Patient questions such as details of each procedure, varying time to heal, activity post procedure, and shoe gear were discussed and the answers were verbally confirmed fully understood, slant back performed with good relief of pain, pt to monitor for any signs of infection, pt should soak in warm water and epsom salts and apply antibotic ointment, call with any issues, Pt will consider PNA if nail cont to regrow ingrown.?Ulcer:?A detailed plan of care was reviewed with the patient. We emphasized the fact that the patient takes on an active participating role in the treatment process and emphasized to them that they are an included, valued, and important member of the wound healing team in order to reach an expedient successful outcome. The patient agreed to follow their medically recommended diet while increasing their protein intake if safely able to do so, maintain proper bodily hydaration, abide by weight-bearing restrictions at all times, quit all current smoking habits if any, and diligently follow any/all dressing change instructions. It was clearly made known to the patient that if they fail to do their part, they will likely extend their course of treatment as well as possibly increase their risk of adverse events including amputation. The patient was instructed on importance of proper wound care consisting of pressure reduction, and proper maintainance of a moist wound environment. The patient is to cleanse the wound with warm soapy water/peroxide/saline, or betadine BID based on product availability. The patient is to apply ( Neosporin, Polysporin, or Triple, ) Antibiotic to the wound and cover with a DSD as directed. The patient was instructed to change dressings according to orders, or PRN saturation, leaks. The patient was instructed to monitor and report any signs or symptoms of infection or any untoward reactions. Precautions Taken: Offloading/Pressure reduction via rest/ limited activity to essential to daily life only, shoe modification, accommodative padding, sharp debridement, and take/apply medication as directed. THE GOALS of wound debridement to remove devitilized tissue, decrease risk for infection, promote wound healing and prevent further complication were discussed/reviewed. Debridement frequency as indicated, Given recent successful results to treatment, The patient is to cont the local wound care as directed till completely healed.? * Follow Up:?prn * Images: * Sign off status: Completed true * Provider:?Danielle Ricardo DPM Date:?1 Generated for Zofia moscoso/Franny/Murali on:?02/08/2025 07:55 AM EDT History and Physical Notes * HPI (History of Present Illness) Category Sub-Category Detail Notes Category Not es Ingrown toenail Duration: 3-6 days Nature: aching , tenderness in shoes Location: Great toe , Third to e , Right foot Treatments: self treatment Skin problems Nature: Open sore Treatments: Topical abx, soaks Examination Category Sub-Category Detail Notes Category Not es Ingrown Nail INSPECTION: Reveals nail inc urvation, pain on palpation, groove hypertrophy medial nail border, T5, T7 Dermatologic ULCER: LOCATION medial nail border, T1, Dorsal, SIZE, 3 mm X 2 mm X 2-3mm, BASE, fibro-granular, RIM, hyperkeratotic, UNDERMINING, mild, TRACKING, Sub Q with Fat layer exposed, DRAINAGE, serosanguineous, moderate, NECROTIC TISSUE, loosely-adherent, yellow slough, MALODOR, absent, CALOR, trace, ERYTHEMA, trace
--- OUTSIDE RECORDS SUMMARY | 2025-02-08 07:56 | XMS_ITS ---
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 . . 2-3x/week for 3-4 weeks Not-Taking Medrol 2 MG 2 tablets with food or milk in the morning Orally for 30 day(s) 04/06/2018 Not-Taking Ibuprofen 800 MG 1 tablet with food or milk as needed Orally Three times a day for 30 days 02/09/2018 Not-Taking KlonoPIN .5 mg twice a day Not -Taking Methylergonovine Maleate Not-Taking Work Note . . . patient disabled from work until January Active Prednisone Not-Takin g CeleXA Not-Taking Work Note . . . patient is disabled from work until Tuesday, April 10, 2018 04/06/2018 Active Doxycycline Monohydrate 100 MG 1 capsule Orally Once a day for 10 days Active Aspirin 81 Active Calcium + D daily Active Fosamax 70mg weekly Active Gabapentin 600 MG 1 capsule Orally Once a day for 30 days Active Multivitamins daily Active Protonix 40 MG 1 tablet 1/2 to 1 hour before morning meal Orally Once a day Active CeleBREX 100 MG 1 capsule with food Orally Once a day Active Citalopram Hydrobromide 10 MG/5ML 5 mL Orally Once a day 15mg daily Active SUMAtriptan 100mg as needed Active Actemra 162 MG/0.9ML as directed Subcutaneous Active Baclofen 5 MG/5ML 5 mL with food or milk as needed Orally Three times a day Active Social History Tobacco Use: Social History Observation Description Date Details (start date - stop date) Never Smoker NA - NA Tobacco use other than smoking: Question Answer Notes Are you an other tobacco user? No Tobacco Control (Standard) Question Answer Notes Tobacco use: Nonsmoker Additional Findings: Tobacco non-user Current no nsmoker Procedures Procedure Date Ordered Date Performed Result Body Sit e 45517-Chtsrtsa Plate 11/21/2024 N/A Encounters Encounter Location Date Provider Diagnosis [facility] [address] [place] [address] 11/21/2024 Danielle Ricardo Ingrown nail L60.0 Assessments Encounter Date Diagnosis (ICD Code) Assessment Notes Treatment Notes Treatment Clinical Notes Section Notes 11/21/2024 Ingrown nail (ICD-10 - L60.0) Plan Of Treatment Pending Test Test Name Order Date [id number]-Wkbgvlso Plate 11/21/2024 Next Appt Details Follow Up: 3 Months, Reason: Procedure Notes * Category Sub-Category Detail Notes Nail Avulsion Procedure A fine sterile e levator was placed between the eponychium, nail fold, and nail plate to separate the structures. A sterile nail splitter, and/or sterile 316 blade, was then used to longitudinally section the nail along its entire length through the eponychium to the area under the nail fold. The offending portion of nail was from the nail bed with a rolling action and then removed with a hemostat. No underlying bone was identified. There was minimal bleeding as hemostasis was achieved through the temporary use of either a digital tourniquet or the aforementioned local with epinephrine. A bacitracin sterile dressing was applied. Local wound aftercare instructions were discussed and dispensed. The patient was informed of both conservative and future surgical procedures to prevent recurrence. Tylenol or Motrin was recommended for pain or discomfort (77995) Anesthesia 2cc of 1 percent Lid ocaine Plain local anesthesic utilizing aseptic technique Location T5, Medial nail bord er Progress Notes * Teri MICHELLE MDOB: [birth year] (69 yo F)Acc No.[id number]:11/21/2024 Progress Note Patient:?Teri MICEHLLE Provider:?Danielle Ricardo DPM :1955???Age:69 Y???Sex:Female D ate:11/21/2024 Address:[address] [place] [address], [id number] Pcp:Fritz Arteaga MD Subjective: * Chief Complaints: * ???Ingrown Nail * HPI: ???Ingrown toenail:?Nature:?aching , tenderness in shoes .?Location:?Great toe?, Right foot.?Duration:?several weeks.?Treatments:?self treatment.? * ROS:?General/Constitutional:?Nausea?denies.?Vomiting?denies.?Hunger Thirst?denies.?Loss appetite?denies.?Chills?denies.?Fatigue?denies.?Fever?denies.?Night Sweats?denies.?Unexplained weight [...] Surgical History:?Skin cance r removed from nose. 09/13/2013[facility] 03/02/18knee surgery 09/2023 * Hospitalization/Major Diagno stic Procedure:?[facility] Bunionectomy left foot 03/02/18 * Family History:?Mother: andres hanson, diagnosed with Unspecified essential hypertension, Unspecified heart disease.?Father: , diagnosed with Unspecified essential hypertension, Other malignant neoplasm of unspecified site, Diabetic - NIDDM.?Spouse: alive.? No children. * Social History:?Tobacco Use:?Tobacco use other than smoking?Are you an other tobacco user??No ?Tobacco Control (Standard)?Tobacco use:?Nonsmoker ?Additional Findings: Tobacco non-user?Current nonsmoker * Medications:?TakingBaclofen 5 MG/5ML Solution 5 mL with food or milk as needed Orally Three times a day Protonix 40 MG Tablet Delayed Release 1 tablet 1/2 to 1 hour before morning meal Orally Once a day CeleBREX 100 MG Capsule 1 capsule with food Orally Once a day Citalopram Hydrobromide 10 MG/5ML Solution 5 mL Orally Once a day , Notes to Pharmacist: 15mg dailySUMAtriptan , Notes to Pharmacist: 100mg as neededActemra 162 MG/0.9ML Solution Prefilled Syringe as directed Subcutaneous Aspirin 81 Calcium + D daily Fosamax , Notes to Pharmacist: 70mg weeklyGabapentin 600 MG Tablet 1 capsule Orally Once a day Multivitamins daily Work Note . . . . patient is disabled from work until Tuesday, April 10, 2018 Doxycycline Monohydrate 100 MG Capsule 1 capsule Orally Once a day Work Note . . . . patient disabled from work until January Taking Baclofen 5 MG/5ML Solution 5 mL with food or milk as needed Orally Three times a day Taking Protonix 40 MG Tablet Delayed Release 1 tablet 1/2 to 1 hour before morning meal Orally Once a day Taking CeleBREX 100 MG Capsule 1 capsule with food Orally Once a day Taking Citalopram Hydrobromide 10 MG/5ML Solution 5 mL Orally Once a day , Notes to Pharmacist: 15mg dailyTaking SUMAtriptan , Notes to Pharmacist: 100mg as neededTaking Actemra 162 MG/0.9ML Solution Prefilled Syringe as directed Subcutaneous Taking Aspirin 81 Taking Calcium + D daily Taking Fosamax , Notes to Pharmacist: 70mg weeklyTaking Gabapentin 600 MG Tablet 1 capsule Orally Once a day Taking Multivitamins daily Taking Work Note . . . . patient is disabled from work until Tuesday, April 10, 2018 Taking Doxycycline Monohydrate 100 MG Capsule 1 capsule Orally Once a day Taking Work Note . . . . patient disabled from work until January Not-Taking/PRNPrednisone CeleXA Physical Therapy . . . . 2-3x/week Medrol 2 MG Tablet 2 tablets with food or milk in the morning Orally Ibuprofen 800 MG Tablet 1 tablet with food or milk as needed Orally Three times a day KlonoPIN .5 mg twice a day Methylergonovine Maleate Medication List reviewed and reconciled with the patientNot-Taking/PRN Prednisone Not-Taking/PRN CeleXA Not-Taking/PRN Physical Therapy . . . . 2-3x/week Not-Taking/PRN Medrol 2 MG Tablet 2 tablets with food or milk in the morning Orally Not-Taking/PRN Ibuprofen 800 MG Tablet 1 tablet with food or milk as needed Orally Three times a day Not-Taking/PRN KlonoPIN .5 mg twice a day Not-Taking/PRN Methylergonovine Maleate Medication List reviewed and reconciled with the patient * Allergies:?Erythromycin: sto mach painAmoxicillin: rashDemerolyes[Allergies Verified] Objective: * Vitals:? * Examination: ???Ingrown Nail: ?INSPECTION:?Reveals nail incurvation, pain on palpation, groove hypertrophy, Medial nail border, T5.? Assessment: * Assessment: 1.?Ingrown nail - L60.0 (Luba parham)???Specify :Medial nail border, T5??? Plan: * Treatment: * Procedures:?Nail Avulsion:?Location?T5, Medial nail border.?Anesthesia?2cc of 1 percent Lidocaine Plain local anesthesic utilizing aseptic technique.?Procedure?A fine sterile elevator was placed between the eponychium, nail fold, and nail plate to separate the structures. A sterile nail splitter, and/or sterile 316 blade, was then used to longitudinally section the nail along its entire length through the eponychium to the area under the nail fold. The offending portion of nail was from the nail bed with a rolling action and then removed with a hemostat. No underlying bone was identified. There was minimal bleeding as hemostasis was achieved through the temporary use of either a digital tourniquet or the aforementioned local with epinephrine. A bacitracin sterile dressing was applied. Local wound aftercare instructions were discussed and dispensed. The patient was informed of both conservative and future surgical procedures to prevent recurrence. Tylenol or Motrin was recommended for pain or discomfort (62782).? * Procedure Codes:?09137 Avuls ion Plate, Modifiers: TA * Follow Up:?3 Months * Images: * Sign off status: Completed true * Provider:?Danielle Ricardo DPM Date:?0 11/21/2024 Generated for Zofia msocoso/Franny/Kaelransmitting on:?02/08/2025 07:56 AM EDT History and Physical Notes * HPI (History of Present Illness) Category Sub-Category Detail Notes Category Not es Ingrown toenail Duration: several weeks Nature: aching , tenderness in shoes Location: Great toe , Right fo ot Treatments: self treatment Examination Category Sub-Category Detail Notes Category Not es Ingrown Nail INSPECTION: Reveals nail inc urvation, pain on palpation, groove hypertrophy, Medial nail border, T5
--- OUTSIDE RECORDS SUMMARY | 2025-02-08 07:56 | XMS_ITS | Patient Health Record ---
Author Organization [facility] Address [address] [place] [address] Care Team Providers Care Personal Lines Sales Rep Name Role Phone Tony Caor Primary Care Provider Fritz Arteaga Unavailable Unavailable [...] Insured Coverage Start Date Coverage End Date [facility] [address], [place] [id number] Beatris Michelle Self - patient is the insured
--- NOTE | 2025-02-08 07:57 | MHC.OFFVIS ---
Vital Signs 02/08/25 08:03 Height 5 ft 3 in Weight 126 lb BMI 22.3 Intake Visit Reasons: Follow Up Intake Note: Patient presents follow up Migraine. Labs in chart Allergies meperidine [Demerol] Allergy (Intermediate, Verified 02/08/25 08:07) Vomiting Penicillins [PENICILLINS] Allergy (Intermediate, Verified 02/08/25 08:07) RASH erythromycin base [ERYTHROMYCIN BASE] Allergy (Unknown, Verified 02/08/25 08:07) unknown chlorhexidine [From ChloraPrep Clear] Adverse Reaction (Severe, Verified 02/08/25 08:07) rash isopropyl alcohol [From ChloraPrep Clear] Adverse Reaction (Severe, Verified 02/08/25 08:07) rash Medication List - Last Reconciled 02/08/25 by SOLITARIO Fernandez Actemra ACTPen (tocilizumab) 162 mg (0.9 mL) subcut Q2W NS aspirin 81 mg PO DAILY calcium carbonate-vitamin D3 600 mg-10 mcg (400 unit) 1 cap PO BID celecoxib (Celebrex) 100 mg PO BID 90 days citalopram 15 mg (1.5 x 10 mg) PO DAILY fluoride (sodium) 1.1% (DentaGel) dental gabapentin 600 mg PO BEDTIME galcanezumab-gnlm (Emgality Pen) 120 mg subcut ONCE 30 days metronidazole 0.75% appl topical QPM multivitamin 1 tab PO DAILY onabotulinumtoxinA (Botox) 200 units IM ONCE 12 weeks sumatriptan succinate 6 mg subcutaneously at onset of nocturnal migraine, may repeat in 1 hr PRN; 28 days MDD 1 ml per day sumatriptan succinate 50 - 100 mg orally at onset of headache, may repeat in 2 hrs PRN; max 2 tabs per day or 4 tabs/week 30 days HPI Comments Details: 69-yr-old female presents for f/u visit chronic migraine, temporal arteritis, cervicalgia. Pt denies any significant interval medical changes. Since last visit, we discontinued Qulipta as patient was not finding ineffective. And started patient on Emgality in addition to her chronic migraine Botox therapy, which he has found to be much more effective. Pt reports she is having less migraines since starting Emgality and Botox. States the Emgality and Botox combo is much more affected than when she was taking Qulipta. No longer waking up everyday with a severe headache. She has not been having the severe post-Actemra headache. Baseline migraine headache characteristics: left frontal and left sides, right is not as bad. Stabbing, throbbing, aching pain. A/w photophobia, phonophobia, nausea, and sometimes cloudier vision. She is tolerating Emaality well- but does cause an injection site rash x's 1-2 days- takes a benadryl 30 mintues prior and does apply cortisone cream topically which helps. Her Actemra dose has been decreased to biweekly. Recent eye exam was reassuring- still prone to visual cloudiness. Does use OTC sustained teardrops. She has the sumatriptan tabs, which she is more to use. She also has Sumatriptan inj, Eletriptan- though states she is much more prone to use the sumatriptan tab She stopped the nerivio device- did not find it beneficial. She is still having neck pain/soreness, can be shooting pain. Denies BUE numbness/weakness. She did have an upper cervical nerve block through pain management as part of work-up for consideration of spinal stimulator- however this was not helpful but is still considering trying a temporary pain stimulator- but she is thinking about this. Celebrex 100 mg b.i.d. p.r.n. is helpful [facility] Medical History Anemia Osteoarthritis Fatigue Chronic migraine without aura, intractable, without status migrainosus Osteoarthritis of left knee Fibromyalgia Migraines Basal cell carcinoma of nose Bunion, left foot Surgical History H/O arthroscopic knee surgery H/O toe surgery History of surgery History of bunionectomy H/O colonoscopy Family History Mother Heart problem COPD (chronic obstructive pulmonary disease) Hypertension Father Prostate cancer Colon cancer Diabetes Brother Diabetes Sister Hypertension Hypercholesteremia Social History Housing: House Alcohol intake: current Alcohol intake frequency: holidays/special occasions only Patient Tobacco Use Status: Never used Tobacco e-Cigarette/Vaping Use: Never Used Second Hand Smoke Exposure: No service: No Current occupational status: retired Cognitive needs: No Hearing needs: Yes Vision needs: No Physical Exam Vital Signs: BMI result Body Mass Index 22.3 Const General: cooperative and no acute distress Orientation/consciousness: patient oriented x3 Resp Effort & Inspection: normal respiratory effort and able to speak in complete sentences Neuro General: patient oriented x3 Cranial nerves: Yes CN's II-XII intact bilaterally Cognition (Neuro): normal cognition Psych Appearance: grossly normal Mental Status: mental status grossly normal Speech and movement: Normal speech and movement present Affect: normal affect Attitude: cooperative Assessment & Plan Assessment & Plan (1) Chronic migraine without aura, intractable, without status migrainosus: Code(s): G43.719 - Chronic migraine without aura, intractable, without status migrainosus Category: Medical (2) TTH (tension-type headache): Code(s): G44.209 - Tension-type headache, unspecified, not intractable Category: Medical (3) Periodic limb movements of sleep: Code(s): G47.61 - Periodic limb movement disorder Category: Medical (4) Spondylosis of cervical region without myelopathy or radiculopathy: Code(s): M47.812 - Spondylosis without myelopathy or radiculopathy, cervical region Category: Medical Plan For nocturnal hypoxemia seen on recent HST: Pt had pulmonary consult- further work-up did not show concerning nocturnal hypoxemia. Check labs for common etiologies of RLS/PLMS. ? For acute headache treatment: Patient has stopped Nerivio neuromodulation stimulation x's 45 min qd prn. Discontinue Eletriptan 40mg prn- patient feels sumatriptan is more effective Sumatriptan 100mg tab- 1 tab at onset of migraine, MR in 2 hours (MDD 200mg). Continue Sumatriptan 100mg tab - 1/2 tab w/ Benadryl 25mg 30 minutes prior to tocilizumab injection. Continue Sumatriptan inj prn severe migraine attack Continue Celebrex 100 mg p.o. b.i.d. p.r.n.. Previous acute migraine medication trials: None other Acute migraine medication contraindications: None at this time. Future considerations: Ubrelvy. ? For chronic migraine prevention medication: Continue Botox 155 units IM q 3 months- as scheduled Continue Emgality 120 mg subcutaneous q.month. Patient has had significant reduction in monthly migraine days and intensity of migraine burden, with concomitant use of Emgality and Botox therapy. Patient has stopped Nerivio neuromodulation stimulation x's 45 min qd prn. Previous migraine prevention medication trials: Propranolol- ineffective. Amitriptyline- ineffective, not tolerated. Topiramate- ineffective. Botox x's > 6 tx was ineffective however was not given PREMPT protocol. Depakote- ineffective. Mag- ineffective. Riboflavin- ineffective. Nurtec stopped- lost efficacy. Qulipta 60 mg-ineffective. Migraine prevention medication contraindications: aimovig d/t pt has constipation. For GCA: Continue Tocilizumab per [facility] [place] [place] rheumatology For cervicalgia w/ mild-mod multilevel degenerative and mild spondylosis: Patient has stopped Baclofen 5-10mg qhs prn. Celeberex 100mg bid prn. ? f/u in 6 months or sooner prn. Medications: Changed From celecoxib (Celebrex) 100 mg PO BID 30 days 60 caps 3RF To celecoxib (Celebrex) 100 mg PO BID 180 caps 1RF 90 days From sumatriptan succinate (0.5 - 1 x 100 mg) 50 - 100 mg orally at onset of headache, may repeat in 2 hrs PRN; max 2 tabs per day or 4 tabs/week (may take with Aleve 440mg) 30 days 14 tabs 6RF migraine headache To sumatriptan succinate 50 - 100 mg orally at onset of headache, may repeat in 2 hrs PRN; max 2 tabs per day or 4 tabs/week 14 tabs 6RF migraine headache 30 days Refilled sumatriptan succinate (0.5 - 1 x 100 mg) 50 - 100 mg orally at onset of headache, may repeat in 2 hrs PRN; max 2 tabs per day or 4 tabs/week (may take with Aleve 440mg) 30 days 14 tabs 6RF migraine headache sumatriptan succinate 6 mg subcutaneously at onset of nocturnal migraine, may repeat in 1 hr PRN; 6 mL 3RF migraine headache 28 days MDD 1 ml per day Coding Level of Care Code Est Pt Level 4 (26625) Complex EM visit Add On G2211 Diagnoses Chronic migraine without aura, intractable, without status migrainosus G43.719 TTH (tension-type headache) G44.209 Periodic limb movements of sleep G47.61 Spondylosis of cervical region without myelopathy or radiculopathy M47.812
[2025-02-08 08:03] VITALS: BMI 22.3
== END 2025-02-08 09:02 | disposition home or self-care (01) ==
LOC: HO.HSMS 07:52
PROVIDERS: PCP Internal Medicine; Visit Provider Nurse Practitioner Family
DX: G43.719 Chronic migraine without aura, intractable, without status migrainosus (principal); G44.209 Tension-type headache, unspecified, not intractable; G47.61 Periodic limb movement disorder; M47.812 Spondylosis without myelopathy or radiculopathy, cervical region
CPT/HCPCS: 99214; G2211

== ENCOUNTER → 2025-02-08 07:51 | Outpatient (BNVA) | payer MEDICARE, OTHER, SELFPAY | PROVIDERS: PCP Internal Medicine; Visit Provider Nurse Practitioner Family | DX: G43.719 Chronic migraine without aura, intractable, without status migrainosus (principal); G44.209 Tension-type headache, unspecified, not intractable; G47.61 Periodic limb movement disorder; M47.812 Spondylosis without myelopathy or radiculopathy, cervical region | CPT/HCPCS: 99212 ==

== ENCOUNTER 2025-02-19 09:53 | Outpatient (AMB) | payer MEDICARE, OTHER, SELFPAY ==
--- NOTE | 2025-02-19 09:54 | A.OFFVIS_ITS ---
Vital Signs 02/19/25 09:55 Height 5 ft 3 in Weight 126 lb BMI 22.3 Intake Visit Reasons: Botox Intake Note: Patient presents for botox injection. pharmacy supplied Allergies meperidine [Demerol] Allergy (Intermediate, Verified 02/19/25 09:57) Vomiting Penicillins [PENICILLINS] Allergy (Intermediate, Verified 02/19/25 09:57) RASH erythromycin base [ERYTHROMYCIN BASE] Allergy (Unknown, Verified 02/19/25 09:57) unknown chlorhexidine [From ChloraPrep Clear] Adverse Reaction (Severe, Verified 02/19/25 09:57) rash isopropyl alcohol [From ChloraPrep Clear] Adverse Reaction (Severe, Verified 02/19/25 09:57) rash Medication List - Last Reconciled 02/19/25 by Yadi Blank MD Actemra ACTPen (tocilizumab) 162 mg (0.9 mL) subcut Q2W NS aspirin 81 mg PO DAILY calcium carbonate-vitamin D3 600 mg-10 mcg (400 unit) 1 cap PO BID celecoxib (Celebrex) 100 mg PO BID 90 days citalopram 15 mg (1.5 x 10 mg) PO DAILY fluoride (sodium) 1.1% (DentaGel) dental gabapentin 600 mg PO BEDTIME galcanezumab-gnlm (Emgality Pen) 120 mg subcut ONCE 30 days metronidazole 0.75% appl topical QPM multivitamin 1 tab PO DAILY onabotulinumtoxinA (Botox) 200 units IM ONCE 12 weeks sumatriptan succinate 6 mg subcutaneously at onset of nocturnal migraine, may repeat in 1 hr PRN; 28 days MDD 1 ml per day sumatriptan succinate 50 - 100 mg orally at onset of headache, may repeat in 2 h rs PRN; max 2 tabs per day or 4 tabs/week 30 days HPI Comments Details: ? 69y/o female comes for treatment of migraines with botox. The patient has a good response to treatment with botox - decreased frequency and intensity of her migraines. ??? Most frequent reported adverse reactions following injection of botox for chronic migraine include neck pain (9%), headache(5%), eyelid ptosis(4%), migraine(4%), muscular weakness(4%), musculuskeletal stiffness(4%), bronchitis(3%), injection site pain (3%), musculoskeletal pain(3%), myalgia(3%), facial paresis(2%), HTN(2%) and muscle spasms(2%) were discussed in detail. ??? Botulinum toxin typeA 200units Lot no [id number] expiration February 2027 was diluted with 4 cc of normal saline . ??? Muscles injected- ??? Frontalis 4 sites ??? Procerus 1 site ??? Press Tender Short Goods- 2 sites ??? Temporalis- 8 sites ??? Occipitalis- 6 sites ??? Cervical paraspinals- 4 sites ??? Trapezius- 6 sites- 10 units each ??? 5 units each in 31 site ??? Total use- 185units ??? Discarded-15units [facility] Medical History Anemia Osteoarthritis Fatigue Chronic migraine without aura, intractable, without status migrainosus Osteoarthritis of left knee Fibromyalgia Migraines Basal cell carcinoma of nose Bunion, left foot Surgical History H/O arthroscopic knee surgery H/O toe surgery History of surgery History of bunionectomy H/O colonoscopy Family History Mother Heart problem COPD (chronic obstructive pulmonary disease) Hypertension Father Prostate cancer Colon cancer Diabetes Brother Diabetes Sister Hypertension Hypercholesteremia Social History Housing: House Alcohol intake: current Alcohol intake frequency: holidays/special occasions only Patient Tobacco Use Status: Never used Tobacco e-Cigarette/Vaping Use: Never Used Second Hand Smoke Exposure: No service: No Current occupational status: retired Cognitive needs: No Hearing needs: Yes Vision needs: No Physical Exam Vital Signs: BMI result Body Mass Index 22.3 Const General: cooperative and no acute distress Orientation/consciousness: patient oriented x3 Resp Effort & Inspection: normal respiratory effort and able to speak in complete sentences Neuro General: patient oriented x3 Cranial nerves: Yes CN's II-XII intact bilaterally Cognition (Neuro): normal cognition Psych Appearance: grossly normal Mental Status: mental status grossly normal Speech and movement: Normal speech and movement present Affect: normal affect Attitude: cooperative Office Procedures Botulinum toxin Injection 11526 - Migraine Procedure code (CPT) selection complete Office Meds onabotulinumtoxinA 200 unit solution for injection Performing Provider: Yadi Blank MD Performing Location: [facility] Administered by: Yadi Blank MD on 02/20/25 09:23 Dose Route Admin Location Dispensed Lot Number Expiration Date [facility] Accountant Budget 185 unit subcut 200 units [id number] ALLERGAN/BOTOX Comments: see hpi Assessment & Plan Assessment & Plan (1) Chronic migraine without aura, intractable, without status migrainosus: Code(s): G43.719 - Chronic migraine without aura, intractable, without status migrainosus Category: Medical Plan Patient tolerated the procedure well she will call with any side effects Orders: Orders AMB Botulinum toxin Injection 02/19/25 G43.719 - Chronic migraine without aura, intractable, without status migrainosus Medications: New onabotulinumtoxinA 200 units subcut ONCE 1 ea 0RF migraine G43.719 - Chronic migraine without aura, intractable, without status migrainosus Scribe Plan - Not visible on output: Reviewed possible medication side effects, including but not limited to drowsiness, dizziness. Coding Level of Care Code Est Pt Level 1 (07403) Diagnoses Chronic migraine without aura, intractable, without status migrainosus G43.719 CPT Codes Botox Injection - Botox 3: 70565 - Migraine ([id number])
[2025-02-19 09:55] VITALS: BMI 22.3
--- OUTSIDE RECORDS SUMMARY | 2025-02-19 11:22 | XMS_ITS ---
Author Organization [facility] Address [address] [place] [address] Care Team Providers Care Corporate Technical Recruiter Name Role Phone Fritz Arteaga MD Primary Care Provider UnavailDanielle Li [phone] REASON FOR VISIT Rx Encounters Encounter Location Date Provider Diagnosis [facility] [address] [place] [address] 08/16/2024 Danielle Ricardo Plan Of Treatment No Information Progress Notes * Teri MICHELLE MDOB: [birth year] (69 yo F)Acc No.[id number]:08/16/2024 Patient:?Teri Michelle :1955???Age:69 Y???Sex:Female Address:[address] [place] [address] [facility] [place] [address] * true * Date:? Generated for Printi danis/Franny/eTransmitting on:?02/19/2025 11:21 AM EDT
--- OUTSIDE RECORDS SUMMARY | 2025-02-19 11:22 | XMS_ITS | Patient Health Record ---
Author Organization [facility] Address [address] [place] [address] Care Team Providers Care Nailing Machine Operator Automatic Name Role Phone Tony Caro Primary Care [...] Insured Coverage Start Date Coverage End Date [facility] [address] [facility] [address] [place], [place] [id number] Beatris Michelle Self - patient is the insured
--- OUTSIDE RECORDS SUMMARY | 2025-02-19 11:22 | XMS_ITS ---
Author Organization [facility] Address [address] [place] [address] Care Team Providers Care Oxyhydrogen Welder Name Role Phone Fritz Arteaga MD Primary Care Provider Danielle Mayo Unavailable [phone] Allergies Allergen (clinical drug ingredient) Drug/Non Drug [...] Ordered Date Performed Result Body Sit e 32507-Yfgrwvxa Plate 11/21/2024 N/A Encounters Encounter Location Date Provider Diagnosis [facility] [address] [place] [address] 11/21/2024 Danielle Ricardo Ingrown nail L60.0 Assessments Encounter Date Diagnosis (ICD Code) Assessment Notes Treatment Notes Treatment Clinical Notes Section Notes 11/21/2024 Ingrown nail (ICD-10 - L60.0) Plan Of Treatment Pending Test Test Name Order Date 25712-Ioflmtff Plate 11/21/2024 Next Appt Details Follow Up: [...] Motrin was recommended for pain or discomfort (20619) Anesthesia 2cc of 1 percent Lid ocaine Plain local anesthesic utilizing aseptic technique Location T5, Medial nail bord er Progress Notes * Teri IMCHELLE MDOB: [birth year] (69 yo F)Acc No.[id number]:11/21/2024 Progress Note Patient:?Teri MICHELLE Provider:?Danielle Ricardo DPM :1955???Age:69 Y???Sex:Female D ate:11/21/2024 Address:[address] [place] [address], [facility] Pcp:Fritz Arteaga MD Subjective: * Chief Complaints: [...] 03/02/18knee surgery 09/2023 * Hospitalization/Major Diagno stic Procedure:[place] [place]union[place] left foot 03/02/18 * Family History:?Mother: [...] Motrin was recommended for pain or discomfort (52018).? * Procedure Codes:?09613 Avuls ion Plate, Modifiers: TA * Follow Up:?3 Months * Images: * Sign off status: Completed true * Provider:?Danielle Ricardo DPM Date:?0 11/21/2024 Generated for Zofia moscoso/Franny/Kaelransmitting on:?02/19/2025 11:22 AM EDT History and Physical Notes * [...]
--- OUTSIDE RECORDS SUMMARY | 2025-02-19 11:22 | XMS_ITS | Patient Health Record ---
Author Organization [facility] Address [address] [place] [address] Care Team Providers Care Bonding And Composite Fabricator Name Role Phone Fritz Arteaga MD Primary Care Provider UnavailDanielle Li Unavailable [phone] Wai Herbert Unavailable [phone] Allergies Allergen (clinical drug ingredient) Drug/Non Drug [...] Status Risk Notes Problem Plantar fascial fibromatosis (63444446) Plantar fascial fibromatosis (M72.2) Active confirmed Vital Signs Height 5ft 3in in 08/28/2024 Weight 122 lbs 08/28/2024 BMI 21.61 kg/m2 08/28/2024 Procedures Procedure Date Ordered Date Performed Result Body Sit e 00128-XZAZICH SKIN/TISSUE 08/28/2024 N/A 04453-Bhhztzcp Plate 11/21/2024 N/A Encounters Encounter Location Date Provider Diagnosis [facility] [address] 08/15/2024 Wai Herbert Primary osteoarthritis, left ankle and foot M19.072 ; Ingrowing nail L60.0 ; Pain in left foot M79.672 ; Metatarsalgia, left foot M77.42 ; Plantar fascial fibromatosis M72.2 ; Abscess of toe of left foot L02.612 and Tinea unguium B35.[address] [facility] [address] 08/28/2024 Danielle Ricardo Skin ulcer of toe of left foot with fat layer exposed L97.522 and Ingrowing nail L60.[address] [facility] [address] 11/21/2024 Danielle Ricardo Ingrown nail L60.0 [facility] [address] [place] [address] 08/16/2024 Danielle Ricardo Assessments Encounter Date Diagnosis [...] X ray : Foot, left 3V 11/14/2020 39161-Ptdkuqcg Plate 11/21/2024 05741-Llbkkmmd Plate 09/06/2014 45169-Torcqkkf Plate 10/27/2012 61421-Xnvejxhs Plate 12/22/2012 05592-Htmslzuw Plate 04/13/2013 87127-Jhwjojzh Plate 07/13/2013 02215-Bzkorqqu Plate 11/20/2013 76406-Gvhnvdid Plate 02/05/2014 18322-Kdqaixji Plate 05/31/2014 62231-Jqvbdsmp Plate 11/22/2014 30037-Cgiszofm Plate Each Additional 10106-Pxumhckt Plate Each Additional 27431-Doqfovkd Plate Each Additional 57592-BIO 02/06/2015 75058- Debride <25 sq cm 02/21/2015 30754- Debride <25 sq cm 03/21/2015 81377- Debride <25 sq cm 11/17/2012 13367- Debride <25 sq cm 10/09/2013 57703-PXGAEAZ SKIN/TISSUE 08/28/2024 04585 I&D ABSCESS- SIMPLE,SINGLE 013 91530, D1886-XZCVG/INJECT, JOINT/BURSA 1 12/29/2016 16666, M8575-RTXLR/INJECT, JOINT/BURSA 0 01/04/2019 50712, A1880-APRJQ/INJECT, JOINT/BURSA 0 07/14/2018 67575, J0702- Neuroma/Injection 10/28/20 17 Insurance Providers Payer Name Payer Address Payer Phone Subscriber Number Group Number Insured Name Patient Relationship to Insured Coverage Start Date Coverage End Date Medicare National [employer]t Sv[employer] [address] [facility] [place] [address] [id number] Teri Michelle Self - patient is the insured [facility] [address] [place] [address] [id number] Teri Michelle Self - patient is the insured Medical (General) History Medical History History ICD Code anxiety back, hip, knee pain chicken pox fibromyalgia headaches/migraines measles mumps sinus conditions Surgical History Surgery Date(Month/Year) Skin cancer removed from nose. 3 Johnson L 03/02/18 knee surgery 09/2023 Hospitalization History Reason Date(Month/Year) [facility] [place] Bunionectomy left foot 03/02/18
--- OUTSIDE RECORDS SUMMARY | 2025-02-19 11:22 | XMS_ITS ---
Author Organization [facility] Address [address] [place] [address] Care Team Providers Care Laboratory Sample Carrier Name Role Phone Fritz Arteaga MD Primary Care Provider Danielle Mayo Unavailable [phone] Allergies Allergen (clinical drug ingredient) Drug/Non Drug [...] Ordered Date Performed Result Body Sit e 66044-RFFDYTB SKIN/TISSUE 08/28/2024 N/A Encounters Encounter Location Date Provider Diagnosis [facility] [address] [address] 08/28/2024 Danielle Ricardo Skin ulcer of toe [...] INSTRUCTIONS.pdf) Pending Test Test Name Order Date 00564-VUNPAGJ SKIN/TISSUE 08/28/2024 Next Appt Details Follow Up: [...] of the wound post debriement is stable (59358) Progress Notes * Teri MICHELLE MDOB: [birth year] (69 yo F)Acc No.[id number]:08/28/2024 Progress Notes Patient:?Teri Michelle Provider:?Danielle Ricardo DPM :1955???Age:69 Y???Sex:Female D ate:08/28/2024 Address:[address] [place], [place] [address] Pcp:Fritz Arteaga MD Subjective: * Chief Complaints: [...] 03/02/18knee surgery 09/2023 * Hospitalization/Major Diagno stic Procedure[place] [place] left foot 03/02/18 * Family History:?Mother: [...] of the wound post debriement is stable (76498).? * Procedure Codes:?00981 DEBRI DE SKIN/TISSUE * Preventive Medicine:? ??Counseling:?Discussion:?-13: [...] Ricardo DPM Date:?1 Generated for Zofia moscoso/Franny/Murali on:?02/19/2025 11:22 AM EDT History and Physical [...]
== END 2025-02-19 10:23 | disposition home or self-care (01) ==
LOC: HO.HSMS 09:53
PROVIDERS: PCP Internal Medicine; Visit Provider Psychiatry & Neurology Neurology
DX: G43.719 Chronic migraine without aura, intractable, without status migrainosus (principal)
CPT/HCPCS: 64615

== ENCOUNTER → 2025-02-19 09:53 | Outpatient (BNVA) | payer MEDICARE, OTHER, SELFPAY | PROVIDERS: PCP Internal Medicine; Visit Provider Psychiatry & Neurology Neurology | DX: G43.719 Chronic migraine without aura, intractable, without status migrainosus (principal) | CPT/HCPCS: 64615; 99211; J0585 ==

== ENCOUNTER 2025-03-13 08:41 | Outpatient (REF) | payer MEDICARE, OTHER, SELFPAY ==
--- OUTSIDE RECORDS SUMMARY | 2025-03-13 09:01 | XMS_ITS | Patient Health Record ---
Author Organization [facility] Address [address] [place] [address] Care Team Providers Care Billet Sawyer Name Role Phone Fritz Arteaga MD Primary Care Provider UnavailDanielle Li Unavailable [phone] Wai Herbert Unavailable [phone] Allergies Allergen (clinical drug ingredient) Drug/Non Drug [...] Status Risk Notes Problem Plantar fascial fibromatosis (29710445) Plantar fascial fibromatosis (M72.2) Active confirmed Vital Signs Height 5ft 3in in 08/28/2024 Weight 122 lbs 08/28/2024 BMI 21.61 kg/m2 08/28/2024 Procedures Procedure Date Ordered Date Performed Result Body Sit e 73227-TQXGNQP SKIN/TISSUE 08/28/2024 N/A 69183-Djbxjuqt Plate 11/21/2024 N/A Encounters Encounter Location Date Provider [facility] [address] 08/15/2024 Wai Herbert Primary osteoarthritis, left ankle and foot M19.072 ; Ingrowing nail L60.0 ; Pain in left foot M79.672 ; Metatarsalgia, left foot M77.42 ; Plantar fascial fibromatosis M72.2 ; Abscess of toe of left foot L02.612 and Tinea unguium B35.[address] [facility] [address] 08/28/2024 Danielle Ricardo Skin ulcer of toe of left foot with fat layer exposed L97.522 and Ingrowing nail L60.[address] [facility] [address] 11/21/2024 Danielle Ricardo Ingrown nail L60.[address] [facility] [place] [address] [place] [address] 08/16/2024 Danielle Ricardo Assessments Encounter Date Diagnosis [...] X ray : Foot, left 3V 11/14/2020 42996-Nittnrgt Plate 11/21/2024 46086-Rkcshfkk Plate 09/06/2014 68765-Wylzltgo Plate 10/27/2012 46721-Jxqooppd Plate 12/22/2012 22407-Nhyhgzgv Plate 04/13/2013 82505-Qizoxvzp Plate 07/13/2013 77969-Ssnaitaa Plate 11/20/2013 83483-Vhvqxgbm Plate 02/05/2014 66783-Ppqgrqkd Plate 05/31/2014 02409-Ubhshlqm Plate 11/22/2014 75581-Njdcxsmj Plate Each Additional 97445-Seyloott Plate Each Additional 99819-Nopyvxfd Plate Each Additional 61224-WXV 02/06/2015 41029- Debride <25 sq cm 02/21/2015 36558- Debride <25 sq cm 03/21/2015 59971- Debride <25 sq cm 11/17/2012 69316- Debride <25 sq cm 10/09/2013 00734-EBPGXKT SKIN/TISSUE 08/28/2024 29816 I&D ABSCESS- SIMPLE,SINGLE 013 46015, Y4192-RTOTO/INJECT, JOINT/BURSA 1 12/29/2016 49879, U1554-OWSMS/INJECT, JOINT/BURSA 0 01/04/2019 08790, P6962-CNEGY/INJECT, JOINT/BURSA 0 07/14/2018 05780, J0702- Neuroma/Injection 10/28/20 17 Insurance Providers Payer Name Payer Address Payer Phone Subscriber Number Group Number Insured Name Patient Relationship to Insured Coverage Start Date Coverage End Date Medicare National [employer]t Sv[employer] Inc [address] [facility] [place] [address] [id number] Teri Michelle Self - patient is the insured [facility] [address] [place] [address] [id number] Teri Michelle Self - patient is the insured Medical (General) History Medical History History ICD Code anxiety back, hip, knee pain chicken pox fibromyalgia headaches/migraines measles mumps sinus conditions Surgical History Surgery Date(Month/Year) Skin cancer removed from nose. 3 Johnson L 03/02/18 knee surgery 09/2023 Hospitalization History Reason Date(Month/Year) [facility] [place] left foot 03/02/18
--- OUTSIDE RECORDS SUMMARY | 2025-03-13 09:01 | XMS_ITS ---
Author Organization [facility] Address [address] [place] [address] Care Team Providers Care Coat Checker Name Role Phone Fritz Arteaga MD Primary Care Provider Danielle Mayo Unavailable [phone] Allergies Allergen (clinical drug ingredient) Drug/Non Drug [...] Ordered Date Performed Result Body Sit e 34525-Fvmpybrq Plate 11/21/2024 N/A Encounters Encounter Location Date Provider Diagnosis [facility] [address] [place] [address] 11/21/2024 Danielle Ricardo Ingrown nail L60.0 Assessments Encounter Date Diagnosis (ICD Code) Assessment Notes Treatment Notes Treatment Clinical Notes Section Notes 11/21/2024 Ingrown nail (ICD-10 - L60.0) Plan Of Treatment Pending Test Test Name Order Date 41894-Znfyfdrv Plate 11/21/2024 Next Appt Details Follow Up: [...] Motrin was recommended for pain or discomfort (32597) Anesthesia 2cc of 1 percent Lid ocaine Plain local anesthesic utilizing aseptic technique Location T5, Medial nail bord er Progress Notes * Teri MICHELLE MDOB: [birth year] (69 yo F)Acc No.[id number]:11/21/2024 Progress Note Patient:?Teri MICHELLE Provider:?Danielle Ricardo DPM :1955???Age:69 Y???Sex:Female D ate:11/21/2024 Address:[address] [place] [address], [facility] Pcp:Fritz Arteaga MD Subjective: * Chief Complaints: [...] 03/02/18knee surgery 09/2023 * Hospitalization/Major Diagno stic Procedure:[place] [place] Bunionectomy left foot 03/02/18 * Family History:?Mother: [...] Motrin was recommended for pain or discomfort (04045).? * Procedure Codes:?16654 Avuls ion Plate, Modifiers: TA * Follow Up:?3 Months * Images: * Sign off status: Completed true * Provider:?Danielle Ricardo DPM Date:?0 11/21/2024 Generated for Zofia moscoso/Franny/Mateuszsmitting on:?03/13/2025 09:01 AM EDT History and Physical Notes * [...]
--- OUTSIDE RECORDS SUMMARY | 2025-03-13 09:01 | XMS_ITS ---
Author Organization [facility] Address [address] [place] [address] Care Team Providers Care Printed Circuit Board Pcb Draftsman Name Role Phone Fritz Arteaga MD Primary Care Provider UnavailDanielle Li [phone] REASON FOR VISIT Rx Encounters Encounter Location Date Provider Diagnosis [address] [address] 08/16/2024 Danielle Ricardo Plan Of Treatment No Information Progress Notes * Teri MICHELLE MDOB: [birth year] (69 yo F)Acc No.[id number]:08/16/2024 Patient:?Teri Michelle :1955???Age:69 Y???Sex:Female Address:[address] [place] [address] [place] [address] * true * Date:? Generated for Printi danis/Franny/eTransmitting on:?03/13/2025 09:01 AM EDT
--- OUTSIDE RECORDS SUMMARY | 2025-03-13 09:01 | XMS_ITS ---
Author Organization [facility] Address [address] [place] [address] Care Team Providers Care Designer/Writer Name Role Phone Fritz Arteaga MD Primary Care Provider Danielle Mayo Unavailable [phone] Allergies Allergen (clinical drug ingredient) Drug/Non Drug [...] Ordered Date Performed Result Body Sit e 22947-YFFQKIB SKIN/TISSUE 08/28/2024 N/A Encounters Encounter Location Date Provider Diagnosis [facility] [address] [address] 08/28/2024 Danielle Ricardo Skin ulcer of toe [...] INSTRUCTIONS.pdf) Pending Test Test Name Order Date 83113-XVCYHUG SKIN/TISSUE 08/28/2024 Next Appt Details Follow Up: [...] of the wound post debriement is stable (88134) Progress Notes * Teri MICHELLE MDOB: [birth year] (69 yo F)Acc No.[id number]:08/28/2024 Progress Notes Patient:?Teri Michelle Provider:?Danielle Ricardo DPM :1955???Age:69 Y???Sex:Female D ate:08/28/2024 Address:[address] [place], [place] [address] Pcp:Fritz Arteaga MD Subjective: * Chief Complaints: [...] 03/02/18knee surgery 09/2023 * Hospitalization/Major Diagno stic [place] [place] 03/02/18 * Family History:?Mother: [...] of the wound post debriement is stable (10829).? * Procedure Codes:?23716 DEBRI DE SKIN/TISSUE * Preventive Medicine:? ??Counseling:?Discussion:?-13: [...] Ricardo DPM Date:?1 Generated for Zofia moscoso/Franny/Murali on:?03/13/2025 09:01 AM EDT History and Physical [...]
--- OUTSIDE RECORDS SUMMARY | 2025-03-13 09:01 | XMS_ITS | Patient Health Record ---
Author Organization [facility] Address [address] [place] [address] Care Team Providers Care Engine Service Repairer Name Role Phone Tony Caro Primary Care Provider [phone] Fritz Arteaga Unavailable Unavailable Reason For Referral [...] Coverage Start Date Coverage End Date [facility] [address] [place], [place] [id number] Beatris Michelle Self - patient is the insured
[2025-03-13 10:01] LABS: MANUAL DIFF FLAG NO
[2025-03-13 10:16] LABS: Basophils Percent Auto 0.6 % (0-2); Eosinophils Absolute Auto 0.1 X10*3/uL (0.0-0.4); Eosinophils Percent Auto 2.6 % (0-4); Hematocrit 38.5 % (37.0-47.0); Hemoglobin 12.7 g/dl (12.0-16.0); Lymphocytes Absolute Auto 1.6 X10*3/uL (1.2-4.9); Lymphocytes Percent Auto 45.8 % (20-40); Mean Corpuscular Hemoglobin 31.1 pg (27.0-33.0); Mean Corpuscular Volume 94.4 fL (80.0-98.0); Mean Platelet Volume 10.5 fL (9.4-12.3); Monocytes Absolute Auto 0.3 X10*3/uL (0.1-1.2); Monocytes Percent Auto 8.7 % (2-11); Neutrophils Absolute Auto 1.5 x10*3/uL (2.0-8.3); Neutrophils Percent Auto 42.3 % (45-73); Platelet Count 163 X10*3/uL (160-400); Red Blood Count 4.08 X10*6/uL (4.20-5.50); White Blood Count 3.5 X10*3/uL (4.8-10.8)
[2025-03-13 11:08] LABS: Alanine Aminotransferase 19 U/L (0-31); Albumin Level 4.1 g/dL (3.5-5.0); Alkaline Phosphatase 36 U/L (39-117); Anion Gap 10 (12-20); Aspartate Amino Transferase 24 U/L (5-31); Bilirubin Total 0.7 mg/dL (0.0-1.0); Blood Urea Nitrogen 16 mg/dL (9-16); C Reactive Protein < 0.04 mg/dL (< or = 0.50); Calcium 9.2 mg/dL (8.4-10.2); Carbon Dioxide 30 mmol/L (22-29); Chloride 103 mmol/L (96-108); Cholesterol 201 mg/dL (<200); Estimated Glomerular Filt Rate > 60; Glucose Random 86 mg/dL (60-115); HDL Cholesterol 45 mg/dL (>40); LDL Cholesterol Calculated 112 mg/dL (<100); Sodium 139 mmol/L (135-145); Total Protein 6.4 g/dL (6.5-8.0); Triglycerides 220 mg/dL (<150)
[2025-03-13 11:12] LABS: Erythrocyte Sedimentation Rate 5 MM/HR (0-20)
== END 2025-03-13 08:42 | disposition home or self-care (01) ==
LOC: HO.10HDL 08:41
PROVIDERS: Visit Provider Student in an Organized Health Care Education/Training Program
DX: M31.6 Other giant cell arteritis (principal); E78.00 Pure hypercholesterolemia, unspecified
CPT/HCPCS: 36415; 80053; 80061; 85025; 85652; 86140

== ENCOUNTER 2025-03-15 08:11 | Outpatient (AMB) | payer MEDICARE, OTHER, SELFPAY ==
--- NOTE | 2025-03-15 08:14 | MHC.OFFVIS ---
Vital Signs 03/15/25 08:27 Height 5 ft 3 in Weight 121 lb 11.123 oz BMI 21.6 BP 102/60 Blood Pressure Location Lt brachial Position Sitting Respiration 16 Pulse 81 Pulse Source Pulse Oximeter Pulse Oximetry (%) 98 Oxygen Delivery Method Room Air Intake Visit Reasons: GCA Intake Note: Patient presents for GCA follow up. Allergies meperidine [Demerol] Allergy (Intermediate, Verified 03/15/25 08:21) Vomiting Penicillins [PENICILLINS] Allergy (Intermediate, Verified 03/15/25 08:21) RASH erythromycin base [ERYTHROMYCIN BASE] Allergy (Unknown, Verified 03/15/25 08:21) unknown chlorhexidine [From ChloraPrep Clear] Adverse Reaction (Severe, Verified 03/15/25 08:21) rash isopropyl alcohol [From ChloraPrep Clear] Adverse Reaction (Severe, Verified 03/15/25 08:21) rash Medication List - Last Reconciled 03/15/25 by Karen Ashton MD Actemra ACTPen (tocilizumab) 162 mg (0.9 mL) subcut Q2W NS aspirin 81 mg PO DAILY calcium carbonate-vitamin D3 600 mg-10 mcg (400 unit) 1 cap PO BID celecoxib (Celebrex) 100 mg PO BID 90 days citalopram 15 mg (1.5 x 10 mg) PO DAILY 90 days fluoride (sodium) 1.1% (DentaGel) dental gabapentin 600 mg PO BEDTIME galcanezumab-gnlm (Emgality Pen) 120 mg subcut ONCE 30 days metronidazole 0.75% appl topical QPM multivitamin 1 tab PO DAILY onabotulinumtoxinA (Botox) 200 units IM ONCE 12 weeks sumatriptan succinate 6 mg subcutaneously at onset of nocturnal migraine, may repeat in 1 hr PRN; 28 days MDD 1 ml per day sumatriptan succinate 50 - 100 mg orally at onset of headache, may repeat in 2 hrs PRN; max 2 tabs per day or 4 tabs/week 30 days HPI Comments Details: Patient is a 69-year-old female with hyperlipidemia, chronic migraine, cervical spondylosis with radiculopathy, polyarticular osteoarthritis, fibromyalgia, osteopenia and biopsy-proven GCA here today for follow up Interval History: Patient last seen 11/22/[address] Rose. At that time she was being followed up for her GCA at osteopenia. She was on Actemra every 10 days without issue and it was spent spaced out to every 14 days. Today, Denies any worsening of her headaches, but states that her chronic headaches makes it difficult to distinguish between GCA and migraines Rheumatologic History: Onset 06/2022 . Biopsy proven Prednisone started 07/2022 - 01/2024 Actemra weekly started 08/2022 effective, spaced out to every 10 days 08/2024 and spaced out to every 14 days 11/2024 Initial history: This is a 67-year-old female with past medical history fibromyalgia, osteoarthritis & migraines who presents for evaluation of temporal arteritis. The condition started in the beginning of June of 2022 with worsening headaches associated with worsening blurry vision. She went to the ER on 06/30 labs showed high inflammatory markers, she was prescribed prednisone 60 mg daily for 5 days by the ED physician and sent to vascular surgery for temporal artery biopsy. When she took the prednisone 60 mg her headaches significantly improved. She went for a left temporal artery biopsy on 07/15 which confirmed temporal artery biopsy diagnosis & she was restarted on prednisone 40 mg daily by her PCP. Since being on prednisone she feels much better, with headaches resolved. She states that she has had blurry vision for many months which seem to get a little worse around the time she was diagnosed with temporal arteritis and they have not improved with the prednisone. She denies any loss of vision and both eyes are equally affected. She has not had any eye pain. Reactivity is of daily have not been affected by this blurry vision. Denies history suggestive of uveitis or inflammatory bowel disease. No history of autoimmune disease in the family Osteopenia DEXA scan 07/2022 showed osteopenia but given long-term corticosteroid therapy her FRAX score would be at moderate risk for fracture. I started her alendronate at the time Patient has tapered her prednisone off 01/2024. Repeat DEXA 08/2024 showed improved bone density at the spine. Alendronate discontinued 08/2024 Current Rheumatology Medication(s): Actemra 162mg SC every 14 days [facility] Medical History (Updated 03/15/25 @ 08:41 by Karen Ashton MD) Anemia Osteoarthritis Fatigue Chronic migraine without aura, intractable, without status migrainosus Osteoarthritis of left knee Fibromyalgia Migraines Basal cell carcinoma of nose Bunion, left foot Surgical History (Updated 03/15/25 @ 08:37 by Karen Ashton MD) History of meniscectomy of left knee H/O arthroscopic knee surgery H/O toe surgery History of surgery History of bunionectomy H/O colonoscopy Family History Mother Heart problem COPD (chronic obstructive pulmonary disease) Hypertension Father Prostate cancer Colon cancer Diabetes Brother Diabetes Sister Hypertension Hypercholesteremia Social History Housing: House Alcohol intake: current Alcohol intake frequency: holidays/special occasions only Patient Tobacco Use Status: Never used Tobacco e-Cigarette/Vaping Use: Never Used Second Hand Smoke Exposure: No service: No Current occupational status: retired Cognitive needs: No Hearing needs: Yes Vision needs: No Review of Systems Const Details: Review of Systems Constitutional: Denies fever, chills, weight loss ENT: Denies vision changes, eye pain or eye redness, dental caries, dry mouth GI: Denies nausea, vomiting, diarrhea, abdominal pain, change in BM Pulm: Denies SOB, GARNER, hemoptysis, wheezing Cards: Denies chest pain, palpitations Skin: Denies Raynaud's, rash, nail changes, photosensitivity, DRAFTER REFRIGERATION: Denies headaches, weakness, paresthesias, recurrent falls MSK: as per HPI All other systems reviewed and are unremarkable except noted above Physical Exam Vital Signs: Last Vital Signs Pulse 81 03/15/25 08:27 Resp 16 03/15/25 08:27 BP 102/60 03/15/25 08:27 Pulse Ox 98 03/15/25 08:27 Oxygen Delivery Method Room Air 03/15/25 08:27 BMI result Body Mass Index 21.6 Vital signs reviewed Physical Examination CONSTITUITIONAL Patient alert and cooperative. Well appearing and in no apparent painful distress HEENT Conjunctiva and sclera clear. ?Pupils equal round and reactive to light. ?No lymphadenopathy. ? CHEST/RESPIRATORY SYSTEM Normal respiratory effort and able to speak in complete sentences. ?Clear to auscultation bilaterally. ?No crackles, rales, rhonchi, wheezes heard. CARDIAC SYSTEM Regular rate and rhythm. ?S1 and S2 heard no murmurs. ?Radial pulses intact bilaterally MSK Hands: ?Able to make a fist. No synovitis noted to the MCPs, PIPs or DIPs. ?No tenderness to palpation of these joints. Herbeden's nodes Wrists: ?Full range of motion at the wrists without pain. ?No tenderness to palpation or synovitis noted to the wrists. Elbows: Full range of motion without pain. No tenderness, weakness, swelling, increased warmth or erythema. Shoulders: Full range of active range of motion without pain. No tenderness, weakness, swelling, increased warmth or erythema. Knees: ?Full range of motion. ?No tenderness, swelling, increased warmth or erythema.?Bilateral crepitations Ankles: Full range of motion. ?No tenderness, swelling, increased warmth or erythema.? Feet: ?Negative squeeze test. ?No tenderness to palpation or swelling of the MTPs. Tender points:?Tenderness to palpation of the bilateral trapezius, supraspinatus, greater trochanters, anterior costochondral junctions, bilateral gluteal areas, bilateral suboccipital muscle insertions SKIN Skin intact without rashes. Results Reviewed Results Reviewed: Laboratory Tests 11/19/24 03/13/25 08:39 08:50 WBC 3.5 L RBC 4.08 L Hgb 12.7 Hct 38.5 Plt Count 163 ESR 5 Sodium 139 Potassium 4.0 Chloride 103 Carbon Dioxide 30 H BUN 16 Creatinine 0.72 Total Bilirubin 0.7 AST 24 ALT 19 C-Reactive Protein < 0.04 Triglycerides 198 H 220 H Cholesterol 210 H 201 H LDL Cholesterol, Calc 127 H 112 H Infectious serologies 02/13/24 02/13/24 10:06 10:08 Hepatitis A IgM Ab Nonreactive Hep Bs Antigen Negative Hep Bs Antibody NONREACTIVE Hep B Core Total Ab Nonreactive Hepatitis C Ab (EIA) Nonreactive TB Test (T-Spot) Com Negative DEXA 08/2024 FINDINGS: LEFT FEMUR, NECK: Current: BMD 0.807 g/cm2, Z-score 0.2, T-score -1.7, osteopenia. Baseline: BMD 0.781 g/cm2. LEFT FEMUR, TOTAL: Current: BMD 0.822 g/cm2, Z-score 0.2, T-score -1.5, osteopenia, 0.4% decrease from baseline (<5% change is not significant). Baseline: BMD 0.825 g/cm2. AP SPINE L1-L4: Current: BMD 1.048 g/cm2, Z-score 0.9, T-score -1.1, osteopenia, 5.8% increase from baseline (<5% change is not significant). Baseline: BMD 0.991 g/cm2. Assessment & Plan Assessment & Plan (1) Temporal arteritis: Comment: Onset 06/2022 . Biopsy proven Prednisone started 07/2022 Actemra weekly started 08/2022 effective, spaced out to every 10 days 08/2024 and spaced out to every 14 days 11/2024 Prednisone tapered off 01/2024 Code(s): M31.6 - Other giant cell arteritis Category: Medical Plan: #Temporal Arteritis Patient is a 69-year-old female with biopsy-proven temporal arteritis here today for follow up. Currently in remission on Actemra 162 mg every 14 days. We will decrease the frequency of Actemra to every 3 weeks. Elevated lipids likely 2/2 actemra. Will continue to monitor for now since we are tapering the dose Plan - Actemra 162mg every 21 days - RTC 4 months - Labs before visit: CBC, CMP, ESR, CRP, hepatitis panel, T spot, lipid panel (2) Fibromyalgia, primary: Code(s): M79.7 - Fibromyalgia Category: Medical Plan: #Fibromyalgia Patient with fibromyalgia. Continues to complain of a lot of chronic pain. On gabapentin and Celebrex but does not feel like these medications are helping. Recommended holding Celebrex and monitoring to see if she has any change in her symptoms and if not she can stop it. Plan - Trial off celebrex - Continue gabapentin 600mg a night (3) Osteopenia: Comment: DEXA scan 07/2022 showed osteopenia but given long-term corticosteroid therapy her FRAX score would be at moderate risk for fracture. Alendronate 07/2022 Repeat DEXA 08/2024 showed improved bone density at the spine. Alendronate discontinued 08/2024 Code(s): M85.80 - Other specified disorders of bone density and structure, unspecified site Category: Medical Qualifiers: Osteopenia location: multiple sites Qualified Code(s): M85.89 - Other specified disorders of bone density and structure, multiple sites Plan: #Osteopenia The patient with a history of osteopenia diagnosed in 2021. Given her long-term steroid use and elevated FRAX score she was started on alendronate. Repeat bone density in 2023 showed improvement in her bone density and since she had been tapered off the prednisone her alendronate was discontinued. Doing well no falls or fractures Plan - Continue to monitor off alendronate - Continue vit D supplementation and weight bearing exercises - Repeat DEXA 08/2026 (4) Encounter for monitoring tocilizumab therapy: Code(s): Z51.81 - Encounter for therapeutic drug level monitoring; Z79.620 - terminal press operator (current) use of immunosuppressive biologic Plan: #Long-term Use of Tocilizumab Discussed the risks and benefits of tocilizumab with the management of this patient's rheumatic condition. ? Benefits include decreased pain, improved mortality, improved quality of life Risks include LFT abnormalities, elevated triglycerides, GI perforations Contraindicated in a patient with history of diverticulitis Monitoring: ?CBC, CMP, triglycerides Plan I spent 30 minutes reviewing the record and labs, taking a history, examining the patient, discussing the treatment plan, ordering diagnostic work up and documenting in the medical record Orders: Orders Comprehensive Met. Panel 4 Months M31.6 - Other giant cell arteritis T Spot TB 4 Months M31.6 - Other giant cell arteritis Lipid Panel 4 Months M31.6 - Other giant cell arteritis Complete Blood Count Auto Diff 4 Months M31.6 - Other giant cell arteritis C Reactive Protein 4 Months M31.6 - Other giant cell arteritis Erythrocyte Sedimentation Rate 4 Months M31.6 - Other giant cell arteritis Hepatitis A,B,C Profile 4 Months M31.6 - Other giant cell arteritis Vitamin D 25-OH (D2 and D3) 4 Months E55.9 - Vitamin D deficiency, unspecified Medications: Refilled Actemra ACTPen (tocilizumab) 162 mg (0.9 mL) subcut Q2W 1.8 mL 4RF NS M31.6 - Other giant cell arteritis gabapentin 600 mg PO BEDTIME 90 tabs 1RF Coding Level of Care Code Est Pt Level 4 (57563) Complex EM visit Add On G2211 Diagnoses Temporal arteritis M31.6 Fibromyalgia, primary M79.7 Osteopenia of multiple sites M85.89 Osteopenia location: multiple sites Encounter for monitoring tocilizumab therapy Z51.81; Z79.720
--- OUTSIDE RECORDS SUMMARY | 2025-03-15 08:15 | XMS_ITS ---
Author Organization [facility] Address [address] [place] [address] Care Team Providers Care Tricot Knitter Name Role Phone Fritz Arteaga MD Primary Care Provider Danielle Mayo Unavailable [phone] Allergies Allergen (clinical drug ingredient) Drug/Non Drug [...] Ordered Date Performed Result Body Sit e 80413-Mbckncqw Plate 11/21/2024 N/A Encounters Encounter Location Date Provider Diagnosis [facility] [address] [place] [address] 11/21/2024 Danielle Ricardo Ingrown nail L60.0 Assessments Encounter Date Diagnosis (ICD Code) Assessment Notes Treatment Notes Treatment Clinical Notes Section Notes 11/21/2024 Ingrown nail (ICD-10 - L60.0) Plan Of Treatment Pending Test Test Name Order Date 74773-Lbekbasg Plate 11/21/2024 Next Appt Details Follow Up: [...] Motrin was recommended for pain or discomfort (62385) Anesthesia 2cc of 1 percent Lid ocaine Plain local anesthesic utilizing aseptic technique Location T5, Medial nail bord er Progress Notes * Teri MICHELLE MDOB: [birth year] (69 yo F)Acc No.[id number]:11/21/2024 Progress Note Patient:?Teri MICHELLE Provider:?Danielle Ricardo DPM :1955???Age:69 Y???Sex:Female D ate:11/21/2024 Address:[address] [place] [address], [facility] Pcp:Fritz Arteaga MD Subjective: * Chief Complaints: [...] 03/02/18knee surgery 09/2023 * Hospitalization/Major Diagno stic Procedure:?[facility] Bunionectomy left foot 03/02/18 * Family History:?Mother: [...] Motrin was recommended for pain or discomfort (75741).? * Procedure Codes:?59566 Avuls ion Plate, Modifiers: TA * Follow Up:?3 Months * Images: * Sign off status: Completed true * Provider:?Danielle Ricardo DPM Date:?0 11/21/2024 Generated for Zofia moscoso/Franny/Mateuszsmitting on:?03/15/2025 08:15 AM EDT History and Physical Notes * [...]
--- OUTSIDE RECORDS SUMMARY | 2025-03-15 08:15 | XMS_ITS ---
Author Organization [facility] Address [address] [place] [address] Care Team Providers Care Drafter Chief Design Name Role Phone Fritz Arteaga MD Primary Care Provider UnavailDanielle Li [phone] REASON FOR VISIT Rx Encounters Encounter Location Date Provider Diagnosis [address] [address] 08/16/2024 Danielle Ricardo Plan Of Treatment No Information Progress Notes * Teri MICHELLE MDOB: [birth year] (69 yo F)Acc No.[id number]:08/16/2024 Patient:?Teri Michelle :1955???Age:69 Y???Sex:Female Address:[address] [place] [address] [facility] [place] [address] * true * Date:? Generated for Printi danis/Franny/eTransmitting on:?03/15/2025 08:14 AM EDT
--- OUTSIDE RECORDS SUMMARY | 2025-03-15 08:15 | XMS_ITS | Patient Health Record ---
Author Organization [facility] Address [address] [place] [address] Care Team Providers Care Training Engineer Name Role Phone Tony Caro Primary Care Provider [phone] Fritz Arteaga Unavailable Unavailable Reason For Referral [...] Coverage Start Date Coverage End Date [facility] [address] [place], [place] [id number] Beatris Michelle Self - patient is the insured
--- OUTSIDE RECORDS SUMMARY | 2025-03-15 08:15 | XMS_ITS | Patient Health Record ---
Author Organization [facility] Address [address] [place] [address] Care Team Providers Care Cinema Or Theatre Manager Name Role Phone Fritz Arteaga MD Primary Care Provider UnavailDanielle Li Unavailable [phone] Wai Herbert Unavailable [phone] Allergies Allergen (clinical drug ingredient) Drug/Non Drug [...] Status Risk Notes Problem Plantar fascial fibromatosis (88059950) Plantar fascial fibromatosis (M72.2) Active confirmed Vital Signs Height 5ft 3in in 08/28/2024 Weight 122 lbs 08/28/2024 BMI 21.61 kg/m2 08/28/2024 Procedures Procedure Date Ordered Date Performed Result Body Sit e 68101-JPXXTVR SKIN/TISSUE 08/28/2024 N/A 56985-Parwynle Plate 11/21/2024 N/A Encounters Encounter Location Date Provider [facility] [address] 08/15/2024 Wai Herbert Primary osteoarthritis, left ankle and foot M19.072 ; Ingrowing nail L60.0 ; Pain in left foot M79.672 ; Metatarsalgia, left foot M77.42 ; Plantar fascial fibromatosis M72.2 ; Abscess of toe of left foot L02.612 and Tinea unguium B35.[address] [facility] [address] 08/28/2024 Danielle Ricardo Skin ulcer of toe of left foot with fat layer exposed L97.522 and Ingrowing nail L60.[address] [facility] [address] 11/21/2024 Danielle Ricardo Ingrown nail L60.[address] [facility] [place] [address] [place] [address] 08/16/2024 Danielle Ricardo Assessments Encounter Date Diagnosis [...] X ray : Foot, left 3V 11/14/2020 53063-Pyewasym Plate 11/21/2024 28776-Hjzxkksm Plate 09/06/2014 65505-Cfkryssw Plate 10/27/2012 78883-Hrvexnhz Plate 12/22/2012 50353-Hamiuzun Plate 04/13/2013 54862-Gtbbsrht Plate 07/13/2013 59931-Jfhpoziq Plate 11/20/2013 14561-Fexnsddl Plate 02/05/2014 90774-Vfcnqcmp Plate 05/31/2014 25284-Lplgiktz Plate 11/22/2014 23357-Wvgdqxan Plate Each Additional 99355-Fujwyajc Plate Each Additional 16417-Notcjiyg Plate Each Additional 40578-FIP 02/06/2015 59175- Debride <25 sq cm 02/21/2015 05658- Debride <25 sq cm 03/21/2015 65081- Debride <25 sq cm 11/17/2012 44786- Debride <25 sq cm 10/09/2013 62943-LJZJNKU SKIN/TISSUE 08/28/2024 60993 I&D ABSCESS- SIMPLE,SINGLE 013 10170, O9233-KSDWA/INJECT, JOINT/BURSA 1 12/29/2016 91454, Y4162-MFZXV/INJECT, JOINT/BURSA 0 01/04/2019 60081, E6879-QDBRX/INJECT, JOINT/BURSA 0 07/14/2018 24510, J0702- Neuroma/Injection 10/28/20 17 Insurance Providers Payer Name Payer Address Payer Phone Subscriber Number Group Number Insured Name Patient Relationship to Insured Coverage Start Date Coverage End Date [employer] [address] [place] [address] [id number] Teri Michelle Self - patient is the insured [facility] [address] [place] [address] [phone] [id number] Teri Michelle Self - patient is the insured Medical (General) History Medical History History ICD Code anxiety back, hip, knee pain chicken pox fibromyalgia headaches/migraines measles mumps sinus conditions Surgical History Surgery Date(Month/Year) Skin cancer removed from nose. [address] 03/02/18 knee surgery 09/2023 Hospitalization History Reason Date(Month/Year) [facility] [place] Bunionectomy left foot 03/02/18
--- OUTSIDE RECORDS SUMMARY | 2025-03-15 08:15 | XMS_ITS ---
Author Organization [facility] Address [address] [place] [address] Care Team Providers Care Powder Nipper Name Role Phone Fritz Arteaga MD Primary Care Provider Danielle Mayo Unavailable [phone] Allergies Allergen (clinical drug ingredient) Drug/Non Drug [...] Ordered Date Performed Result Body Sit e 60517-YTRKLNM SKIN/TISSUE 08/28/2024 N/A Encounters Encounter Location Date Provider Diagnosis [facility] [address] [address] 08/28/2024 Danielle Ricardo Skin ulcer of toe [...] INSTRUCTIONS.pdf) Pending Test Test Name Order Date 06486-FZBNITV SKIN/TISSUE 08/28/2024 Next Appt Details Follow Up: [...] of the wound post debriement is stable (84850) Progress Notes * Teri MICHELLE MDOB: [birth year] (69 yo F)Acc No.[id number]:08/28/2024 Progress Notes Patient:?Teri Michelle Provider:?Danielle Ricardo DPM :1955???Age:69 Y???Sex:Female D ate:08/28/2024 Address:[address] [place], [place] [address] Pcp:Fritz Arteaga MD Subjective: * Chief Complaints: [...] 03/02/18knee surgery 09/2023 * Hospitalization/Major Diagno stic Procedure:?[facility] Bunionectomy left foot 03/02/18 * Family History:?Mother: [...] of the wound post debriement is stable (39918).? * Procedure Codes:?37912 DEBRI DE SKIN/TISSUE * Preventive Medicine:? ??Counseling:?Discussion:?-13: [...] Ricardo DPM Date:?1 Generated for Zofia moscoso/Franny/Murali on:?03/15/2025 08:14 AM EDT History and Physical Notes * [...]
[2025-03-15 08:27] VITALS: BP 102/60; PULSE 81; RESP 16; O2SAT 98; BMI 21.6
== END 2025-03-15 09:04 | disposition home or self-care (01) ==
LOC: HO.RHE 08:11
PROVIDERS: PCP Internal Medicine; Visit Provider Student in an Organized Health Care Education/Training Program
DX: M31.6 Other giant cell arteritis (principal); M79.7 Fibromyalgia; M85.89 Other specified disorders of bone density and structure, multiple sites; Z51.81 Encounter for therapeutic drug level monitoring; Z79.620 Long term (current) use of immunosuppressive biologic
CPT/HCPCS: 99214; G2211

== ENCOUNTER → 2025-03-15 08:11 | Outpatient (BNVA) | payer MEDICARE, OTHER, SELFPAY | PROVIDERS: PCP Internal Medicine; Visit Provider Student in an Organized Health Care Education/Training Program | DX: M31.6 Other giant cell arteritis (principal); M79.7 Fibromyalgia; M85.89 Other specified disorders of bone density and structure, multiple sites; E55.9 Vitamin D deficiency, unspecified; Z51.81 Encounter for therapeutic drug level monitoring; Z79.620 Long term (current) use of immunosuppressive biologic | CPT/HCPCS: 99212 ==

== ENCOUNTER 2025-05-21 08:11 | Outpatient (AMB) | payer MEDICARE, OTHER, SELFPAY ==
--- OUTSIDE RECORDS SUMMARY | 2025-05-21 08:15 | XMS_ITS | Patient Health Record ---
Author Organization [facility] Address [address] [place] [address] Care Team Providers Care Light Air Defense Artillery Crewmember Name Role Phone Jenni YOUNG, Fritz Primary Care Provider Hubert Mackay Unavailable [phone] Allergies Allergen (clinical drug ingredient) Drug/Non Drug Allergy documented on EMR Reaction Allergy Type Onset Date Status Sulfa Unknown Drug Allergy Active Penicillin Unknown Drug Allergy Active meperidine Demerol Unknown Drug Allergy Active Reason For Referral No Information Medications Medication SIG (Take, Route, Frequency, Duration) Notes Start Date End Date Status Gabapentin 400 MG 1 capsule Orally Onc e a day/hs Active Citalopram Hydrobromide 15 1 tablet Oral ly Once a day Active Multi Vitamin/Minerals - as directed Ora lly once a day Active Calcium + D 600mg 1 tablet Orally once a day Active Immunizations Vaccine Route Administration Date Status Comme nts Influenza Unknown 08/07/2018 Administered Social History Alcohol Screen Question Answer Notes Did you have a drink contain ing alcohol in the past year? Yes How often did you have a dri nk containing alcohol in the past year? Never (0 point) How many drinks did you have on a typical day when you were drinking in the past year? 1 or 2 drinks (0 point) How often did you have 6 or more drinks on one occasion in the past year? Never (0 point) Points 0 Interpretation Negative Section Notes: She does not smoke or use an y significant amounts of alcohol She does not smoke or use an y significant amounts of alcohol She does not smoke or use an y significant amounts of alcohol occasional glass of wine Problems Problem Type SNOMED Code ICD Code Onset Dates Problem Status W/U Status Risk Notes Problem 412102054 Encounter for screening for malignant neoplasm of colon (Z12.11) Active confirmed Problem 578580661 Irritable bowel syndrome with constipation (K58.1) Active confirmed Plan Of Treatment Pending Test Test Name Order Date CELIAC PANEL #10 03/28/2014 Future Test Test Name Order Date COLONOSCOPY 12/28/2018 Insurance Providers Payer Name Payer Address Payer Phone Subscriber Number Group Number Insured Name Patient Relationship to Insured Coverage Start Date Coverage End Date [facility] [address] [place] [phone] [id number] ZACHARIAH LEACH Self - patient is the insured Medical (General) History Medical History History ICD Code Irritable bowel syndrome--lo ng-standing and present for at least 20 years to some degree--symptoms have ranged from diarrhea to constipation Migraines and anxiety Denies IL,DM,CVA,Lung disease,renal dise ase Colonoscopy in 07/2008 negati ve for polyps--just diverticulosis and internal hemorrhoids Fibromyalgia Negative laboratories for ce liac disease and negative abdominal ultrasound 2013 Surgical History Surgery Date(Month/Year) skin cancer -basal cell --near her nose bunionectomy on left foot
--- OUTSIDE RECORDS SUMMARY | 2025-05-21 08:15 | XMS_ITS | Patient Health Record ---
Author Organization [facility] Address [address] [place] [address] Care Team Providers Care Clinical Biostatistics Director Name Role Phone Tony Caro Primary Care [...] Insured Coverage Start Date Coverage End Date [facility] [address] [place], [place] [id number] Beatris Michelle Self - patient is the insured
--- OUTSIDE RECORDS SUMMARY | 2025-05-21 08:15 | XMS_ITS | Patient Health Record ---
Author Organization [facility] Address [address] [place] [address] Care Team Providers Care Flight Coordinator Name Role Phone Fritz Arteaga MD Primary Care Provider UnavailDanielle Li Unavailable [phone] Wai Herbert Unavailable [phone] Allergies Allergen (clinical drug ingredient) Drug/Non Drug [...] Subcutaneous Active Physical Therapy . . . 2-3x/week; Duration: 3-4 weeks Not-Taking Aspirin 81 Active Medrol 2 MG 2 tablets with food or milk in the morning Orally; Duration: 30 day(s) 04/06/2018 Not-Taking Calcium + D daily Active Ibuprofen 800 MG 1 tablet with food or milk as needed Orally Three times a day; Duration: 30 days 02/09/2018 Not-Taking Fosamax 70mg weekly Active KlonoPIN .5 mg twice a day Not -Taking Gabapentin 600 MG 1 capsule Orally Once a day; Duration: 30 days Active Methylergonovine Maleate Not-Taking Multivitamins daily Active Work Note . . . patient is disabled from work until Tuesday, April 10, 2018 04/06/2018 Active Doxycycline Monohydrate 100 MG 1 capsule Orally Once a day; Duration: 10 days Active Immunizations Vaccine Route Administration [...] Status Risk Notes Problem Plantar fascial fibromatosis (18848439) Plantar fascial fibromatosis (M72.2) Active confirmed Vital Signs Height 5ft 3in in 08/28/2024 Weight 122 lbs 08/28/2024 BMI 21.61 kg/m2 08/28/2024 Procedures Procedure Date Ordered Date Performed Result Body Sit e 47311-XKZGPQB SKIN/TISSUE 08/28/2024 N/A 78443-Lzgyytdu Plate 11/21/2024 N/A Encounters Encounter Location Date Provider Diagnosis [address] [address] 08/15/2024 Wai Herbert Primary osteoarthritis, left ankle and foot M19.072 ; Ingrowing nail L60.0 ; Pain in left foot M79.672 ; Metatarsalgia, left foot M77.42 ; Plantar fascial fibromatosis M72.2 ; Abscess of toe of left foot L02.612 and Tinea unguium B35.[address] [facility] [address] [address] 08/28/2024 Danielle Ricardo Skin ulcer of toe of left foot with fat layer exposed L97.522 and Ingrowing nail L60.[address] [address] 11/21/2024 Danielle Ricardo Ingrown nail L60.0 [facility] [place] [address] [place] [address] 08/16/2024 Danielle Ricardo Assessments Encounter Date Diagnosis [...] X ray : Foot, left 3V 11/14/2020 71276-Owtqrddv Plate 11/21/2024 30375-Qxmmircq Plate 09/06/2014 78870-Seadiqks Plate 10/27/2012 96136-Dasbqgrv Plate 12/22/2012 39071-Ryavkafl Plate 04/13/2013 93746-Jjdalgka Plate 07/13/2013 19870-Odzgwsvu Plate 11/20/2013 83327-Nekvmqxk Plate 02/05/2014 93871-Hppbqnhn Plate 05/31/2014 09072-Snrbivjf Plate 11/22/2014 49347-Cusrfsjw Plate Each Additional 75781-Pnyfovdu Plate Each Additional 08152-Yajdkoad Plate Each Additional 08226-QTV 02/06/2015 99418- Debride <25 sq cm 02/21/2015 35562- Debride <25 sq cm 03/21/2015 55783- Debride <25 sq cm 11/17/2012 44261- Debride <25 sq cm 10/09/2013 78216-WWJABGZ SKIN/TISSUE 08/28/2024 94170 I&D ABSCESS- SIMPLE,SINGLE 013 38747, O2319-GILUF/INJECT, JOINT/BURSA 1 12/29/2016 27855, I7288-FDYTY/INJECT, JOINT/BURSA 0 01/04/2019 94527, P1964-OHKIR/INJECT, JOINT/BURSA 0 07/14/2018 23851, J0702- Neuroma/Injection 10/28/20 17 Insurance Providers Payer Name Payer Address Payer Phone Subscriber Number Group Number Insured Name Patient Relationship to Insured Coverage Start Date Coverage End Date Medicare National [employer] [address] [place] [address] [id number] Teri Michelle Self - patient is the insured [facility] [address] [place] [address] [phone] [id number] Teri Michelle Self - patient is the insured Medical (General) History Medical History History ICD Code anxiety back, hip, knee pain chicken pox fibromyalgia headaches/migraines measles mumps sinus conditions Surgical History Surgery Date(Month/Year) Skin cancer removed from nose. 3 [facility] L 03/02/18 knee surgery 09/2023 Hospitalization History Reason Date(Month/Year) [facility] Bunionectomy left foot 03/02/18
[2025-05-21 08:23] VITALS: BP 104/70; PULSE 66; O2SAT 99; BMI 21.6
--- NOTE | 2025-05-21 08:23 | A.OFFVIS_ITS ---
Vital Signs 05/21/25 08:23 Height 5 ft 3 in Weight 122 lb BMI 21.6 BP 104/70 Blood Pressure Location Lt brachial Position Sitting Pulse 66 Pulse Source Pulse Oximeter Pulse Oximetry (%) 99 Oxygen Delivery Method Room Air Intake Visit Reasons: BOTOX Intake Note: Patient presents for botox injection practice supplied Accompanied by: Self / Same As Patient Allergies meperidine (Demerol) Allergy (Intermediate, Verified 05/21/25 08:24) Vomiting Penicillins (PENICILLINS) Allergy (Intermediate, Verified 05/21/25 08:24) RASH erythromycin base (ERYTHROMYCIN BASE) Allergy (Unknown, Verified 05/21/25 08:24) unknown chlorhexidine (From ChloraPrep Clear) Adverse Reaction (Severe, Verified 05/21/25 08:24) rash isopropyl alcohol (From ChloraPrep Clear) Adverse Reaction (Severe, Verified 05/21/25 08:24) rash Medication List - Last Reconciled 05/21/25 by Yadi Blank MD Actemra ACTPen (tocilizumab) 162 mg (0.9 mL) subcut Q2W NS aspirin 81 mg PO DAILY calcium carbonate-vitamin D3 600 mg-10 mcg (400 unit) 1 cap PO BID celecoxib (Celebrex) 100 mg PO BID 90 days citalopram 15 mg (1.5 x 10 mg) PO DAILY 90 days fluoride (sodium) 1.1% (DentaGel) dental gabapentin 600 mg PO BEDTIME galcanezumab-gnlm (Emgality Pen) 120 mg subcut ONCE 30 days metronidazole 0.75% appl topical QPM multivitamin 1 tab PO DAILY onabotulinumtoxinA (Botox) 200 units IM ONCE 12 weeks sumatriptan succinate 6 mg subcutaneously at onset of nocturnal migraine, may repeat in 1 hr PRN; 28 days MDD 1 ml per day sumatriptan succinate 50 - 100 mg orally at onset of headache, may repeat in 2 hrs PRN; max 2 tabs per day or 4 tabs/week 30 days HPI Comments Details: ? 69y/o female comes for treatment of migraines with botox. The patient has a good response to treatment with botox - decreased frequency and intensity of her migraines. ??? Most frequent reported adverse reactions following injection of botox for chronic migraine include neck pain (9%), headache(5%), eyelid ptosis(4%), migraine(4%), muscular weakness(4%), musculuskeletal stiffness(4%), bronchitis(3%), injection site pain (3%), musculoskeletal pain(3%), myalgia(3%), facial paresis(2%), HTN(2%) and muscle spasms(2%) were discussed in detail. ??? Botulinum toxin typeA 200units Lot no [id number] expiration August 2027 was diluted with 4 cc of normal saline . ??? Muscles injected- ??? Frontalis 4 sites ??? Procerus 1 site ??? Voice Data Communications Engineer- 2 sites ??? Temporalis- 8 sites ??? Occipitalis- 6 sites ??? Cervical paraspinals- 4 sites ??? Trapezius- 6 sites- 10 units each ??? 5 units each in 31 site ??? Total use- 185units ??? Discarded-15units [facility] Medical History Anemia Osteoarthritis Fatigue Chronic migraine without aura, intractable, without status migrainosus Osteoarthritis of left knee Fibromyalgia Migraines Basal cell carcinoma of nose Bunion, left foot Surgical History History of meniscectomy of left knee H/O arthroscopic knee surgery H/O toe surgery History of surgery History of bunionectomy H/O colonoscopy Family History Mother Heart problem COPD (chronic obstructive pulmonary disease) Hypertension Father Prostate cancer Colon cancer Diabetes Brother Diabetes Sister Hypertension Hypercholesteremia Social History Housing: House Alcohol intake: current Alcohol intake frequency: holidays/special occasions only Patient Tobacco Use Status: Never used Tobacco e-Cigarette/Vaping Use: Never Used Second Hand Smoke Exposure: No service: No Current occupational status: retired Cognitive needs: No Hearing needs: Yes Vision needs: No Physical Exam Vital Signs: Last Vital Signs Pulse 66 05/21/25 08:23 BP 104/70 05/21/25 08:23 Pulse Ox 99 05/21/25 08:23 Oxygen Delivery Method Room Air 05/21/25 08:23 BMI result Body Mass Index 21.6 Const General: cooperative and no acute distress Orientation/consciousness: patient oriented x3 Resp Effort & Inspection: normal respiratory effort and able to speak in complete sentences Neuro General: patient oriented x3 Cranial nerves: Yes CN's II-XII intact bilaterally Cognition (Neuro): normal cognition Psych Appearance: grossly normal Mental Status: mental status grossly normal Speech and movement: Normal speech and movement present Affect: normal affect Attitude: cooperative Office Procedures Botulinum toxin Injection 57358 - Migraine Procedure code (CPT) selection complete Office Meds onabotulinumtoxinA 200 unit solution for injection Performing Provider: Yadi Blank MD Performing Location: [facility] Administered by: Yadi Blank MD on 05/21/25 10:36 Dose Route Admin Location Dispensed Lot Number Expiration Date [facility] [employer] 185 unit subcut 200 units [id number] ALLERGAN /BOTOX Total Dispensed Waste 200 units 7.5 % Comments: see hpi Assessment & Plan Assessment & Plan (1) Chronic migraine without aura, intractable, without status migrainosus: Code(s): G43.719 - Chronic migraine without aura, intractable, without status migrainosus Category: Medical Plan Patient tolerated the procedure well she will call with any side effects Orders: Orders AMB Botulinum toxin Injection Today G43.719 - Chronic migraine without aura, intractable, without status migrainosus Scribe Plan - Not visible on output: Reviewed possible medication side effects, including but not limited to drowsiness, dizziness. Coding Level of Care Code Est Pt Level 1 (83068) Diagnoses Chronic migraine without aura, intractable, without status migrainosus G43.719 CPT Codes Botox Injection - Botox 3: 13273 - Migraine ([id number])
== END 2025-05-21 09:29 | disposition home or self-care (01) ==
LOC: HO.HSMS 08:12
PROVIDERS: PCP Internal Medicine; Visit Provider Psychiatry & Neurology Neurology
DX: G43.719 Chronic migraine without aura, intractable, without status migrainosus (principal)
CPT/HCPCS: 64615

== ENCOUNTER → 2025-05-21 08:11 | Outpatient (BNVA) | payer MEDICARE, OTHER, SELFPAY | PROVIDERS: PCP Internal Medicine; Visit Provider Psychiatry & Neurology Neurology | DX: G43.719 Chronic migraine without aura, intractable, without status migrainosus (principal) | CPT/HCPCS: 64615; 99211; J0585 ==

== ENCOUNTER 2025-07-09 08:44 | Outpatient (REF) | payer MEDICARE, OTHER, SELFPAY ==
--- OUTSIDE RECORDS SUMMARY | 2025-07-09 09:31 | XMS_ITS | Patient Health Record ---
Author Organization [facility] Address [address] [place] [address] Care Team Providers Care Email Campaign Manager Name Role Phone Tony Caro Primary Care Provider Fritz Arteaga Unavailable Unavailable Reason For Referral No Information Medications Medication SIG (Take, Route, Frequency, Duration) Notes Start Date End Date Status HORIZANT ER 600 MG TABLET 0 1 qhs for chronic pain; Duration: 30 *please review for potential update for e-prescription and drug interaction check* 09/23/2015 Active BUSPIRONE HCL 5 MG TABLET 0 1 tid; Duration: 0 *please review for potential update for e-prescription and drug interaction check* 12/19/2013 Active Methylergonovine Maleate 0.2 mg 180 ORAL 1 tab bid, pc, x 7 days, 2 tabs bid pc x 7 days, then 2 tabs tid pc thereafter. 11/21/2014 Active HORIZANT ER 300 MG TABLET 0 1 bid; Duration: 30 *please review for potential update for e-prescription and drug interaction check* 09/04/2015 Active CALCIUM + D3 ER TABLET 600 MG CALCIUM- 500 UNIT 0 2 qam; Duration: 0 *please review for potential update for e-prescription and drug interaction check* 05/21/2014 Active clonazePAM 0.5 MG 0 Oral 3/4 tab tid x 10 y; Duration: 0 05/21/2014 Active Acetaminophen Extra Strength 500 MG 0 Oral 2 prn, uses 2/month; Duration: 0 05/21/2014 Active NAPROXEN SODIUM 220 MG CAPLET 0 1 prn GUERRA, uses 4/month; Duration: 0 *please review for potential update for e-prescription and drug interaction check* 05/21/2014 Active Ibuprofen 200 mg 0 Oral 2 prn, uses rarely; Duration: 0 05/21/2014 Active MULTIVITAMINS TABLET 0 1 qam; Duration: 0 *please review for potential update for e-prescription and drug interaction check* 05/21/2014 Active Plan Of Treatment No Information Insurance Providers Payer Name Payer Address Payer Phone Subscriber Number Group Number Insured Name Patient Relationship to Insured Coverage Start Date Coverage End Date [facility] [address] [place], [place] [id number] Beatris Michelle Self - patient is the insured
--- OUTSIDE RECORDS SUMMARY | 2025-07-09 09:31 | XMS_ITS | Patient Health Record ---
Author Organization [facility] Address [address] [place] [address] Care Team Providers Care Slotter Operator Name Role Phone Jenni YOUNG, Fritz Primary Care Provider Hubert Mackay Unavailable [phone] Allergies Allergen (clinical drug ingredient) Drug/Non Drug [...] Problem Status W/U Status Risk Notes Problem [id number] Encounter for screening for malignant neoplasm of colon (Z12.11) Active confirmed Problem 227509254 Irritable bowel syndrome with constipation (K58.1) Active confirmed Plan Of Treatment Pending Test Test Name Order Date CELIAC PANEL #10 03/28/2014 Future Test Test Name Order Date COLONOSCOPY 12/28/2018 Insurance Providers Payer Name Payer Address Payer Phone Subscriber Number Group Number Insured Name Patient Relationship to Insured Coverage Start Date Coverage End Date [facility] [address] [facility] [place] [address] [id number] ZACAHRIAH LEACH Self - patient is the insured Medical (General) History Medical History History ICD Code Irritable bowel syndrome--lo ng-standing and present for at least 20 years to some degree--symptoms have ranged from diarrhea to constipation Migraines and anxiety Denies GA,DM,CVA,Lung disease,renal dise ase Colonoscopy in 07/2008 negati ve for polyps--just diverticulosis and internal hemorrhoids Fibromyalgia Negative laboratories for ce liac disease and negative abdominal ultrasound 2013 Surgical History Surgery Date(Month/Year) skin cancer -basal cell --near her nose bunionectomy on left foot
--- OUTSIDE RECORDS SUMMARY | 2025-07-09 09:31 | XMS_ITS | Patient Health Record ---
[facility] Address [address] [place] [address] Care Team Providers Care Shock Absorber Installer Name Role Phone Fritz Arteaga MD Primary Care Provider UnavailDanielle Li Unavailable [phone] Wai Herbert Unavailable [phone] Allergies Allergen (clinical drug ingredient) Drug/Non Drug [...] Status Risk Notes Problem Plantar fascial fibromatosis (58715849) Plantar fascial fibromatosis (M72.2) Active confirmed Vital Signs Height 5ft 3in in 08/28/2024 Weight 122 lbs 08/28/2024 BMI 21.61 kg/m2 08/28/2024 Procedures Procedure Date Ordered Date Performed Result Body Sit e 60373-AYLXSOC SKIN/TISSUE 08/28/2024 N/A 25233-Qzpbmxbt Plate 11/21/2024 N/A Encounters Encounter Location Date Provider Diagnosis [address] [address] 08/15/2024 Wai Herbert Primary osteoarthritis, left ankle and foot M19.072 ; Ingrowing nail L60.0 ; Pain in left foot M79.672 ; Metatarsalgia, left foot M77.42 ; Plantar fascial fibromatosis M72.2 ; Abscess of toe of left foot L02.612 and Tinea unguium B35.1 [facility] [address] [address] 08/28/2024 Danielle Ricardo Skin ulcer of toe of left foot with fat layer exposed L97.522 and Ingrowing nail L60.[address] [address] 11/21/2024 Danielle Ricardo Ingrown nail L60.0 [facility] [place] [address] [place] [address] 08/16/2024 Danielle Ricardo Assessments Encounter Date Diagnosis [...] X ray : Foot, left 3V 11/14/2020 85069-Clkussjf Plate 11/21/2024 74552-Acjqdkqo Plate 09/06/2014 27567-Grastvpf Plate 10/27/2012 86915-Lzcgfwuo Plate 12/22/2012 51901-Jciiptym Plate 04/13/2013 75881-Zkfqykvm Plate 07/13/2013 38117-Efajebrq Plate 11/20/2013 75553-Cmrwwsez Plate 02/05/2014 81256-Vwlbymrz Plate 05/31/2014 98273-Byafdlkd Plate 11/22/2014 32932-Jkitkxce Plate Each Additional 44422-Pejpabbq Plate Each Additional 44000-Zvehpndy Plate Each Additional 29768-MUA 02/06/2015 63567- Debride <25 sq cm 02/21/2015 31023- Debride <25 sq cm 03/21/2015 57422- Debride <25 sq cm 11/17/2012 91043- Debride <25 sq cm 10/09/2013 85359-UOSAQMT SKIN/TISSUE 08/28/2024 42719 I&D ABSCESS- SIMPLE,SINGLE 013 35314, O8217-MZLMN/INJECT, JOINT/BURSA 1 12/29/2016 63870, R0912-OTEAR/INJECT, JOINT/BURSA 0 01/04/2019 88447, Y2446-WBKBL/INJECT, JOINT/BURSA 0 07/14/2018 54026, J0702- Neuroma/Injection 10/28/20 17 Insurance Providers Payer Name Payer Address Payer Phone Subscriber Number Group Number Insured Name Patient Relationship to Insured Coverage Start Date Coverage End Date Medicare National [employer] Sv[employer] [address] [place] [address] [id number] Teri Michelle Self - patient is the insured [facility] [address] [place] [address] [id number] Teri Michelle Self - patient is the insured Medical (General) History Medical History History ICD Code anxiety back, hip, knee pain chicken pox fibromyalgia headaches/migraines measles mumps sinus conditions Surgical History Surgery Date(Month/Year) Skin cancer removed from nose. 3 Johnson L 03/02/18 knee surgery 09/2023 Hospitalization History Reason Date(Month/Year) [facility] [place] Bunionectomy left foot 03/02/18
[2025-07-09 10:56] LABS: MANUAL DIFF FLAG NO
[2025-07-09 11:03] LABS: Hematocrit 40.0 % (37.0-47.0); Hemoglobin 13.1 g/dl (12.0-16.0); Imm Gran Abs Auto 0.01 X10*3/uL (0.00-0.03); Imm Gran Pct Auto 0.3 % (0.0-0.4); Lymphocytes Absolute Auto 1.6 X10*3/uL (1.2-4.9); Mean Corpuscular HGB Conc 32.8 g/dl (31.0-35.0); Mean Corpuscular Hemoglobin 31.0 pg (27.0-33.0); Mean Corpuscular Volume 94.6 fL (80.0-98.0); NRBC Abs Auto 0.000 X10*3/uL (0.0-0.012); NRBC Pct Auto 0.0 /100WBC (0.0-0.2); Platelet Count 175 X10*3/uL (160-400); Red Blood Count 4.23 X10*6/uL (4.20-5.50); White Blood Count 3.7 X10*3/uL (4.8-10.8)
[2025-07-09 11:50] LABS: Alanine Aminotransferase 20 U/L (0-31); Albumin Level 4.3 g/dL (3.5-5.0); Alkaline Phosphatase 44 U/L (39-117); Anion Gap 9 (12-20); Aspartate Amino Transferase 26 U/L (5-31); Blood Urea Nitrogen 13 mg/dL (9-16); Calcium 8.7 mg/dL (8.4-10.2); Carbon Dioxide 30 mmol/L (22-29); Chloride 105 mmol/L (96-108); Estimated Glomerular Filt Rate > 60; HBS Num1 0.00 mIU/mL (0-7.99); HBc Num1 0.06 S/CO (0.00-0.79); HBsAGNum1 0.47 S/CO (0.00-0.99); HDL Cholesterol 42 mg/dL (>40); Hepatitis A Antibody IgM 0.23 Index (0-0.79); Hepatitis B Surface Antigen Negative (Negative); Potassium 4.0 mmol/L (3.3-5.1); Sodium 140 mmol/L (135-145); Total Protein 6.4 g/dL (6.5-8.0); Triglycerides 234 mg/dL (<150); ~HepC Num1 0.21 S/CO (0.00-0.79); ~Hepatitis A Antibody IgM Nonreactive (Nonreactive); ~Hepatitis B Surface Antibody NONREACTIVE (Nonreactive); ~Hepatitis C Antibody Nonreactive (Nonreactive)
[2025-07-09 13:24] LABS: Cholesterol 221 mg/dL (<200)
[2025-07-12 10:09] LABS: TS Negative Control Passed; TS Panel A 0; TS Panel B 0; TS Positive Control Passed; TSpotTB Negative (Negative)
[2025-07-13 15:38] LABS: Vitamin D 25-OH, D2 <4 ng/mL; Vitamin D 25-OH, D3 53 ng/mL; Vitamin D 25-OH, Total 53 ng/mL (30-100)
== END 2025-07-09 08:45 | disposition home or self-care (01) ==
LOC: HO.10HDL 08:44
PROVIDERS: Visit Provider Student in an Organized Health Care Education/Training Program
DX: M31.6 Other giant cell arteritis (principal); E55.9 Vitamin D deficiency, unspecified; Z11.59 Encounter for screening for other viral diseases; Z13.6 Encounter for screening for cardiovascular disorders; Z11.1 Encounter for screening for respiratory tuberculosis; Z72.89 Other problems related to lifestyle
CPT/HCPCS: 36415; 80053; 80061; 82306; 85025; 85652; 86140; 86481; 86704; 86706; 86709; 86803; 87340

== ENCOUNTER 2025-07-12 10:09 | Outpatient (AMB) | payer MEDICARE, OTHER, SELFPAY ==
--- NOTE | 2025-07-12 10:19 | MHC.OFFVIS ---
Vital Signs 07/12/25 10:31 Height 5 ft 3 in Weight 124 lb 8.979 oz BMI 22.1 BP 115/64 Blood Pressure Location Rt brachial Position Sitting Pulse 68 Pulse Source Pulse Oximeter Pulse Oximetry (%) 99 Oxygen Delivery Method Room Air Intake Visit Reasons: f/u GCA on Actemra Intake Note: Patient presents for GCA on Actemra follow up. Allergies meperidine (Demerol) Allergy (Intermediate, Verified 07/12/25 10:28) Vomiting Penicillins (PENICILLINS) Allergy (Intermediate, Verified 07/12/25 10:28) RASH erythromycin base (ERYTHROMYCIN BASE) Allergy (Unknown, Verified 07/12/25 10:28) unknown chlorhexidine (From ChloraPrep Clear) Adverse Reaction (Severe, Verified 07/12/25 10:28) rash isopropyl alcohol (From ChloraPrep Clear) Adverse Reaction (Severe, Verified 07/12/25 10:28) rash Medication List - Last Reconciled 07/12/25 by Karen Ashton MD Actemra ACTPen (tocilizumab) 162 mg (0.9 mL) subcut Q2W NS aspirin 81 mg PO DAILY calcium carbonate-vitamin D3 600 mg-10 mcg (400 unit) 1 cap PO BID celecoxib (Celebrex) 100 mg PO BID 90 days citalopram 15 mg (1.5 x 10 mg) PO DAILY 90 days fluoride (sodium) 1.1% (DentaGel) dental gabapentin 600 mg PO BEDTIME galcanezumab-gnlm (Emgality Pen) 120 mg subcut ONCE 30 days magnesium glycinate 200 mg PO DAILY metronidazole 0.75% appl topical QPM multivitamin 1 tab PO DAILY onabotulinumtoxinA (Botox) 200 units IM ONCE 12 weeks sumatriptan succinate 6 mg subcutaneously at onset of nocturnal migraine, may repeat in 1 hr PRN; 28 days MDD 1 ml per day sumatriptan succinate 50 - 100 mg orally at onset of headache, may repeat in 2 hrs PRN; max 2 tabs per day or 4 tabs/week 30 days HPI Comments Details: Patient is a 70-year-old female with hyperlipidemia, chronic migraine, cervical spondylosis with radiculopathy, polyarticular osteoarthritis, fibromyalgia, osteopenia and biopsy-proven GCA here today for follow up Interval History: Last seen 03/15/25 with me - On Actemra every 2 weeks SC - Doing well - Denied any worsening of her headaches, but states that her chronic headaches makes it difficult to distinguish between GCA and migraines - Actemra frequency decreased to every 3 weeks Today - On Actemra every 3 weeks SC - Continues to do well - No worsening headaches or vision changes - Complains of joint pain Rheumatologic History: Onset 06/2022 . Biopsy proven Prednisone started 07/2022 - 01/2024 Actemra weekly started 08/2022 effective, spaced out to every 10 days 08/2024 and spaced out to every 14 days 11/2024 Initial history: This is a 67-year-old female with past medical history fibromyalgia, osteoarthritis & migraines who presents for evaluation of temporal arteritis. The condition started in the beginning of June of 2022 with worsening headaches associated with worsening blurry vision. She went to the ER on 06/30 labs showed high inflammatory markers, she was prescribed prednisone 60 mg daily for 5 days by the ED physician and sent to vascular surgery for temporal artery biopsy. When she took the prednisone 60 mg her headaches significantly improved. She went for a left temporal artery biopsy on 07/15 which confirmed temporal artery biopsy diagnosis & she was restarted on prednisone 40 mg daily by her PCP. Since being on prednisone she feels much better, with headaches resolved. She states that she has had blurry vision for many months which seem to get a little worse around the time she was diagnosed with temporal arteritis and they have not improved with the prednisone. She denies any loss of vision and both eyes are equally affected. She has not had any eye pain. Reactivity is of daily have not been affected by this blurry vision. Denies history suggestive of uveitis or inflammatory bowel disease. No history of autoimmune disease in the family Osteopenia DEXA scan 07/2022 showed osteopenia but given long-term corticosteroid therapy her FRAX score would be at moderate risk for fracture. I started her alendronate at the time Patient has tapered her prednisone off 01/2024. Repeat DEXA 08/2024 showed improved bone density at the spine. Alendronate discontinued 08/2024 Current Rheumatology Medication(s): Actemra 162mg SC every 21 days [facility] Medical History Anemia Osteoarthritis Fatigue Chronic migraine without aura, intractable, without status migrainosus Osteoarthritis of left knee Fibromyalgia Migraines Basal cell carcinoma of nose Bunion, left foot Surgical History History of meniscectomy of left knee H/O arthroscopic knee surgery H/O toe surgery History of surgery History of bunionectomy H/O colonoscopy Family History Mother Heart problem COPD (chronic obstructive pulmonary disease) Hypertension Father Prostate cancer Colon cancer Diabetes Brother Diabetes Sister Hypertension Hypercholesteremia Social History Housing: House Alcohol intake: current Alcohol intake frequency: holidays/special occasions only Patient Tobacco Use Status: Never used Tobacco e-Cigarette/Vaping Use: Never Used Second Hand Smoke Exposure: No service: No Current occupational status: retired Cognitive needs: No Hearing needs: Yes Vision needs: No Review of Systems Const Details: Review of Systems Constitutional: Denies fever, chills, weight loss ENT: Denies vision changes, eye pain or eye redness, dental caries, dry mouth GI: Denies nausea, vomiting, diarrhea, abdominal pain, change in BM Pulm: Denies SOB, GARNER, hemoptysis, wheezing Cards: Denies chest pain, palpitations Skin: Denies Raynaud's, rash, nail changes, photosensitivity, HOOK PULLER: Denies headaches, weakness, paresthesias, recurrent falls MSK: as per HPI All other systems reviewed and are unremarkable except noted above Physical Exam Exam Exam: Vital signs reviewed Physical Examination CONSTITUITIONAL Patient alert and cooperative. Well appearing and in no apparent painful distress HEENT Conjunctiva and sclera clear. No lymphadenopathy. CHEST/RESPIRATORY SYSTEM Normal respiratory effort and able to speak in complete sentences. Clear to auscultation bilaterally. No crackles, rales, rhonchi, wheezes heard. CARDIAC SYSTEM Regular rate and rhythm. S1 and S2 heard no murmurs. Radial pulses intact bilaterally MSK Hands Right Hand: Able to make a fist. No swelling or tenderness to palpation of the MCPs, PIPs or DIPs. Left Hand: Able to make a fist. No swelling or tenderness to palpation of the MCPs, PIPs or DIPs. Herbedens nodes noted bilaterally Wrists Right Wrist: Full ROM to flexion and extension. No swelling or TTP Left Wrist: Full ROM to flexion and extension. No swelling or TTP Elbows Right Elbow: Full ROM. No swelling or TTP. No TTP of the medial epicondyle. No TTP of the lateral epicondyle Left Elbow: Full ROM. No swelling or TTP. No TTP of the medial epicondyle. No TTP of the lateral epicondyle Shoulders Right shoulder: Full ROM. No swelling noted. No TTP of the AC joint. No TTP of the subacromial bursa. No TTP of the posterior shoulder Left shoulder: Full ROM. No swelling noted. No TTP of the AC joint. No TTP of the subacromial bursa. No TTP of the posterior shoulder Knees Right knee: Full ROM. No swelling noted. No TTP of the knee joint line. No TTP of pes anserine bursa Left knee: Full ROM. No swelling noted. No TTP of the knee joint line. No TTP of pes anserine bursa. Crepitations felt bilaterally Ankles Right ankle: Good ankle dorsiflexion and plantar flexion. No swelling. No TTP of the ankle joint Left ankle: Good ankle dorsiflexion and plantar flexion. No swelling. No TTP of the ankle joint Feet Right foot: Negative squeeze test Left foot: Negative squeeze test Tender points? No tenderness to palpation of the bilateral trapezius, supraspinatus, anterior costochondral junctions, bilateral suboccipital muscle insertions SKIN No rashes Vital Signs: Last Vital Signs Pulse 68 07/12/25 10:31 BP 115/64 07/12/25 10:31 Pulse Ox 99 07/12/25 10:31 Oxygen Delivery Method Room Air 07/12/25 10:31 BMI result Body Mass Index 22.1 Results Reviewed Results Reviewed: Laboratory Tests 03/13/25 07/09/25 08:50 08:50 WBC 3.7 L RBC 4.23 Hgb 13.1 Hct 40.0 Plt Count 175 ESR 4 Sodium 140 Potassium 4.0 Chloride 105 Carbon Dioxide 30 H BUN 13 Creatinine 0.73 AST 26 ALT 20 C-Reactive Protein < 0.04 Triglycerides 220 H 234 H Cholesterol 201 H 221 H LDL Cholesterol, Calc 112 H 133 H 25-OH Vitamin D Total Pending Laboratory Tests 07/09/25 08:50 Hepatitis A IgM Ab Nonreactive Hep Bs Antigen Negative Hep Bs Antibody NONREACTIVE Hep B Core Total Ab Nonreactive Hepatitis C Ab (EIA) Nonreactive TB Test (T-Spot) Com Negative DEXA 08/2024 FINDINGS: LEFT FEMUR, NECK: Current: BMD 0.807 g/cm2, Z-score 0.2, T-score -1.7, osteopenia. Baseline: BMD 0.781 g/cm2. LEFT FEMUR, TOTAL: Current: BMD 0.822 g/cm2, Z-score 0.2, T-score -1.5, osteopenia, 0.4% decrease from baseline (<5% change is not significant). Baseline: BMD 0.825 g/cm2. AP SPINE L1-L4: Current: BMD 1.048 g/cm2, Z-score 0.9, T-score -1.1, osteopenia, 5.8% increase from baseline (<5% change is not significant). Baseline: BMD 0.991 g/cm2. Assessment & Plan Assessment & Plan (1) Temporal arteritis: Comment: Onset 06/2022 . Biopsy proven Prednisone started 07/2022 Actemra weekly started 08/2022 effective, spaced out to every 10 days 08/2024 and spaced out to every 14 days 11/2024 Prednisone tapered off 01/2024 Code(s): M31.6 - Other giant cell arteritis Category: Medical Plan: #Temporal Arteritis Patient is a 70-year-old female with biopsy-proven temporal arteritis here today for follow up. Currently in remission on Actemra 162 mg every 2 days. We will decrease the frequency of Actemra to every 4 weeks. Elevated lipids likely 2/2 actemra. Will continue to monitor for now since we are tapering the dose Plan - Actemra 162mg every 4 weeks - RTC 4 months - Labs before visit: CBC, CMP, ESR, CRP, lipid panel (2) Fibromyalgia, primary: Code(s): M79.7 - Fibromyalgia Category: Medical Plan: #Fibromyalgia Patient with fibromyalgia. Continues to complain of a lot of chronic pain. Stop the Celebrex and did notice some more pain so she restarted. Asking to increase the dosage see if there would be additional benefits Plan - Celebrex 200mg bid - Continue gabapentin 600mg a night (3) Osteopenia: Comment: DEXA scan 07/2022 showed osteopenia but given long-term corticosteroid therapy her FRAX score would be at moderate risk for fracture. Alendronate 07/2022 Repeat DEXA 08/2024 showed improved bone density at the spine. Alendronate discontinued 08/2024 Code(s): M85.80 - Other specified disorders of bone density and structure, unspecified site Category: Medical Qualifiers: Osteopenia location: multiple sites Qualified Code(s): M85.89 - Other specified disorders of bone density and structure, multiple sites Plan: #Osteopenia The patient with a history of osteopenia diagnosed in 2021. Given her long-term steroid use and elevated FRAX score she was started on alendronate. Repeat bone density in 2023 showed improvement in her bone density and since she had been tapered off the prednisone her alendronate was discontinued. Doing well no falls or fractures Plan - Continue to monitor off alendronate - Continue vit D supplementation and weight bearing exercises - Repeat DEXA 08/2026 (4) Encounter for monitoring tocilizumab therapy: Code(s): Z51.81 - Encounter for therapeutic drug level monitoring; Z79.620 - terminal computer operator (current) use of immunosuppressive biologic Plan: #Long-term Use of Tocilizumab Discussed the risks and benefits of tocilizumab with the management of this patient's rheumatic condition. ? Benefits include decreased pain, improved mortality, improved quality of life Risks include LFT abnormalities, elevated triglycerides, GI perforations Contraindicated in a patient with history of diverticulitis Monitoring: ?CBC, CMP, triglycerides Plan I spent 30 minutes reviewing the record and labs, taking a history, examining the patient, discussing the treatment plan, ordering diagnostic work up and documenting in the medical record Medications: Changed From celecoxib (Celebrex) 100 mg PO BID 90 days 180 caps 1RF M15.9 - Polyosteoarthritis, unspecified To celecoxib 200 mg PO BID 180 caps 1RF 90 days M15.9 - Polyosteoarthritis, unspecified Refilled Actemra ACTPen (tocilizumab) 162 mg (0.9 mL) subcut Q2W 1.8 mL 4RF NS M31.6 - Other giant cell arteritis gabapentin 600 mg PO BEDTIME 90 tabs 1RF Coding Level of Care Code Est Pt Level 4 (77703) Complex EM visit Add On G2211 Diagnoses Temporal arteritis M31.6 Fibromyalgia, primary M79.7 Osteopenia of multiple sites M85.89 Osteopenia location: multiple sites Encounter for monitoring tocilizumab therapy Z51.81; Z79.620
[2025-07-12 10:31] VITALS: BP 115/64; PULSE 68; O2SAT 99; BMI 22.1
--- OUTSIDE RECORDS SUMMARY | 2025-07-12 11:04 | XMS_ITS | Patient Health Record ---
[facility] Address [address] [place] [address] Care Team Providers Care Insulation Machine Operator Name Role Phone Fritz Arteaga MD Primary Care Provider UnavailDanielle Li Unavailable [phone] Wai Herbert Unavailable [phone] Allergies Allergen (clinical drug ingredient) Drug/Non Drug [...] Status Risk Notes Problem Plantar fascial fibromatosis (46008265) Plantar fascial fibromatosis (M72.2) Active confirmed Vital Signs Height 5ft 3in in 08/28/2024 Weight 122 lbs 08/28/2024 BMI 21.61 kg/m2 08/28/2024 Procedures Procedure Date Ordered Date Performed Result Body Sit e 54680-OOJUGUX SKIN/TISSUE 08/28/2024 N/A 32241-Xfnhrlet Plate 11/21/2024 N/A Encounters Encounter Location Date Provider Diagnosis [address] [address] 08/15/2024 Wai Herbert Primary osteoarthritis, left ankle and foot M19.072 ; Ingrowing nail L60.0 ; Pain in left foot M79.672 ; Metatarsalgia, left foot M77.42 ; Plantar fascial fibromatosis M72.2 ; Abscess of toe of left foot L02.612 and Tinea unguium B35.1 [facility] [address] [address] 08/28/2024 Danielle Ricardo Skin ulcer of toe of left foot with fat layer exposed L97.522 and Ingrowing nail L60.[address] [address] 11/21/2024 Danielle Ricardo Ingrown nail L60.0 [facility] [place] [address] [place] [address] 08/16/2024 Danielle Ricardo Assessments Encounter Date Diagnosis [...] X ray : Foot, left 3V 11/14/2020 19358-Tdpfozhx Plate 11/21/2024 42892-Euuozahe Plate 09/06/2014 56588-Zgapdowz Plate 10/27/2012 46307-Crwhercq Plate 12/22/2012 60134-Cxmuhjzq Plate 04/13/2013 32888-Fynphbwq Plate 07/13/2013 21933-Ckmenkom Plate 11/20/2013 75815-Wjuyevyz Plate 02/05/2014 16936-Bljygahd Plate 05/31/2014 99286-Udvbsliq Plate 11/22/2014 53337-Lqxzpudy Plate Each Additional 58117-Zhldnfqj Plate Each Additional 91837-Wvmlqqaf Plate Each Additional 24356-EMA 02/06/2015 94604- Debride <25 sq cm 02/21/2015 06597- Debride <25 sq cm 03/21/2015 25515- Debride <25 sq cm 11/17/2012 03134- Debride <25 sq cm 10/09/2013 59194-ZBNULXF SKIN/TISSUE 08/28/2024 46233 I&D ABSCESS- SIMPLE,SINGLE 013 66820, J1933-MHRVJ/INJECT, JOINT/BURSA 1 12/29/2016 17643, C9548-OOOFJ/INJECT, JOINT/BURSA 0 01/04/2019 99423, T1839-BCSZO/INJECT, JOINT/BURSA 0 07/14/2018 46688, J0702- Neuroma/Injection 10/28/20 17 Insurance Providers Payer Name Payer Address Payer Phone Subscriber Number Group Number Insured Name Patient Relationship to Insured Coverage Start Date Coverage End Date Medicare [employer] [address] [place] [address] [id number] Teri Michelle Self - patient is the insured [facility] [address] [place] [address] [id number] Teri Michelle Self - patient is the insured Medical (General) History Medical History History ICD Code anxiety back, hip, knee pain chicken pox fibromyalgia headaches/migraines measles mumps sinus conditions Surgical History Surgery Date(Month/Year) Skin cancer removed from nose. 3 Johnson L 03/02/18 knee surgery 09/2023 Hospitalization History Reason Date(Month/Year[place] [facility] [place] foot 03/02/18
--- OUTSIDE RECORDS SUMMARY | 2025-07-12 11:04 | XMS_ITS | Patient Health Record ---
Author Organization [facility] Address [address] [place] [address] Care Team Providers Care Consulting Project Director Name Role Phone Tony Caro Primary [...] Coverage Start Date Coverage End Date [facility] [address] [place], [place] [id number] Beatris Michelle Self - patient is the insured
--- OUTSIDE RECORDS SUMMARY | 2025-07-12 11:05 | XMS_ITS | Patient Health Record ---
Author Organization [facility] Address [address] [place] [address] Care Team Providers Care Artificial Log Machine Operator Name Role Phone Jenni YOUNG, Fritz Primary Care Provider Hubert Mackay Unavailable [phone] Allergies Allergen (clinical drug ingredient) Drug/Non Drug [...] Problem Status W/U Status Risk Notes Problem [id number] Encounter for screening for malignant neoplasm of colon (Z12.11) Active confirmed Problem [id number] Irritable bowel syndrome with constipation (K58.1) Active confirmed Plan Of Treatment Pending Test Test Name Order Date CELIAC PANEL #10 03/28/2014 Future Test Test Name Order Date COLONOSCOPY 12/28/2018 Insurance Providers Payer Name Payer Address Payer Phone Subscriber Number Group Number Insured Name Patient Relationship to Insured Coverage Start Date Coverage End Date [facility] [address] [place] [phone] [id number] ZACHARIAH LEACH Self - patient is the insured Medical (General) History Medical History History ICD Code Irritable bowel syndrome--lo ng-standing and present for at least 20 years to some degree--symptoms have ranged from diarrhea to constipation Migraines and anxiety Denies FL,DM,CVA,Lung disease,renal dise ase Colonoscopy in 07/2008 negati ve for polyps--just diverticulosis and internal hemorrhoids Fibromyalgia Negative laboratories for ce liac disease and negative abdominal ultrasound 2013 Surgical History Surgery Date(Month/Year) skin cancer -basal cell --near her nose bunionectomy on left foot
== END 2025-07-12 10:57 | disposition home or self-care (01) ==
LOC: HO.RHES 10:09
PROVIDERS: PCP Internal Medicine; Visit Provider Student in an Organized Health Care Education/Training Program
DX: M31.6 Other giant cell arteritis (principal); M79.7 Fibromyalgia; M85.89 Other specified disorders of bone density and structure, multiple sites; Z51.81 Encounter for therapeutic drug level monitoring; Z79.620 Long term (current) use of immunosuppressive biologic
CPT/HCPCS: 99214; G2211

== ENCOUNTER → 2025-07-12 10:09 | Outpatient (BNVA) | payer MEDICARE, OTHER, SELFPAY | PROVIDERS: PCP Internal Medicine; Visit Provider Student in an Organized Health Care Education/Training Program | DX: M31.6 Other giant cell arteritis (principal); M79.7 Fibromyalgia; M85.89 Other specified disorders of bone density and structure, multiple sites; Z51.81 Encounter for therapeutic drug level monitoring; Z79.620 Long term (current) use of immunosuppressive biologic | CPT/HCPCS: 99212 ==

== ENCOUNTER 2025-08-12 09:17 | Outpatient (AMB) | payer MEDICARE, OTHER, SELFPAY ==
[2025-08-12 09:18] VITALS: BP 104/60; PULSE 68; O2SAT 98; BMI 22.1
--- NOTE | 2025-08-12 09:18 | A.OFFVIS_ITS ---
Vital Signs 08/12/25 09:18 Height 5 ft 3 in Weight 125 lb BMI 22.1 BP 104/60 Blood Pressure Location Rt brachial Position Sitting Pulse 68 Pulse Source Pulse Oximeter Pulse Oximetry (%) 98 Oxygen Delivery Method Room Air Intake Visit Reasons: 6 mnts f/u appt Intake Note: Patient presents follow up Migraine. Labs in chart Share Holder Required: No Accompanied by: Self / Same As Patient Allergies meperidine (Demerol) Allergy (Intermediate, Verified 08/12/25 09:23) Vomiting Penicillins (PENICILLINS) Allergy (Intermediate, Verified 08/12/25 09:23) RASH erythromycin base (ERYTHROMYCIN BASE) Allergy (Unknown, Verified 08/12/25 09:23) unknown chlorhexidine (From ChloraPrep Clear) Adverse Reaction (Severe, Verified 08/12/25 09:23) rash isopropyl alcohol (From ChloraPrep Clear) Adverse Reaction (Severe, Verified 08/12/25 09:23) rash Medication List - Last Reconciled 08/12/25 by SOLITARIO Fernandez Actemra ACTPen (tocilizumab) 162 mg (0.9 mL) subcut Q2W NS aspirin 81 mg PO DAILY calcium carbonate-vitamin D3 600 mg-10 mcg (400 unit) 1 cap PO BID celecoxib 200 mg PO BID 90 days citalopram 15 mg (1.5 x 10 mg) PO DAILY 90 days fluoride (sodium) 1.1% (DentaGel) dental gabapentin 600 mg PO BEDTIME galcanezumab-gnlm (Emgality Pen) 120 mg subcut ONCE 30 days magnesium glycinate 200 mg PO DAILY metronidazole 0.75% appl topical QPM multivitamin 1 tab PO DAILY onabotulinumtoxinA (Botox) 200 units IM ONCE 12 weeks sumatriptan succinate 6 mg subcutaneously at onset of nocturnal migraine, may repeat in 1 hr PRN; 28 days MDD 1 ml per day sumatriptan succinate 50 - 100 mg orally at onset of headache, may repeat in 2 hrs PRN; max 2 tabs per day or 4 tabs/week 30 days HPI Comments Details: 70-yr-old female presents for f/u visit chronic migraine, temporal arteritis, cervicalgia. Pt reports that rheumatology increased celebrex from 100mg bid to 200mg bid, however this seemed to cause increased GI upset, stomach discomfort/burping sensation. So, she decreased mahi dose back to 100mg bid, which has helepd some, but not fully. Has been using tums, pepto-bimol, or some protonix as needed with varying effect. She also takes ASA 81mg daily. Denies history of GI ulcers, H. Pylori. She states they are also considering weaning her off of the Actemra. Pt reports she continues on Emgality and Botox. She states it often feels like it is working well, but can still have a week long migraine a/w blurry vision, neck tightness. She has not been having the severe post-Actemra headache. Recent eye exam was reassuring- still prone to visual cloudiness. Does use OTC sustained teardrops. Baseline migraine headache characteristics: left frontal and left sides, right is not as bad. Stabbing, throbbing, aching pain. A/w photophobia, phonophobia, nausea, and sometimes cloudier vision. She has the sumatriptan tabs, which she is more to use. She also has Sumatriptan inj, has not used as much as the side effects come so much quicker. She stopped the nerivio device- did not find it beneficial. She is still having neck pain, soreness and tightness. Rarely has a stabbing neck pain. Denies BUE numbness/weakness. She saw pain management, who did not think she would benefit from a pain stimulator. She did start Magnesium glycinate 400mg, but has not PFSH Medical History Anemia Osteoarthritis Fatigue Chronic migraine without aura, intractable, without status migrainosus Osteoarthritis of left knee Fibromyalgia Migraines Basal cell carcinoma of nose Bunion, left foot Surgical History History of meniscectomy of left knee H/O arthroscopic knee surgery H/O toe surgery History of surgery History of bunionectomy H/O colonoscopy Family History Mother Heart problem COPD (chronic obstructive pulmonary disease) Hypertension Father Prostate cancer Colon cancer Diabetes Brother Diabetes Sister Hypertension Hypercholesteremia Social History Housing: House Alcohol intake: current Alcohol intake frequency: holidays/special occasions only Patient Tobacco Use Status: Never used Tobacco e-Cigarette/Vaping Use: Never Used Second Hand Smoke Exposure: No service: No Current occupational status: retired Cognitive needs: No Hearing needs: Yes Vision needs: No Physical Exam Vital Signs: Last Vital Signs Pulse 68 08/12/25 09:18 BP 104/60 08/12/25 09:18 Pulse Ox 98 08/12/25 09:18 Oxygen Delivery Method Room Air 08/12/25 09:18 BMI result Body Mass Index 22.1 Const General: cooperative and no acute distress Orientation/consciousness: patient oriented x3 Resp Effort & Inspection: normal respiratory effort and able to speak in complete sentences Neuro General: patient oriented x3 Cranial nerves: Yes CN's II-XII intact bilaterally Cognition (Neuro): normal cognition Psych Appearance: grossly normal Mental Status: mental status grossly normal Speech and movement: Normal speech and movement present Affect: normal affect Attitude: cooperative Assessment & Plan Assessment & Plan (1) Chronic migraine without aura, intractable, without status migrainosus: Code(s): G43.719 - Chronic migraine without aura, intractable, without status migrainosus Category: Medical (2) TTH (tension-type headache): Code(s): G44.209 - Tension-type headache, unspecified, not intractable Category: Medical Qualifiers: Headache chronicity pattern: unspecified pattern Intractability: not intractable Qualified Code(s): G44.209 - Tension-type headache, unspecified, not intractable (3) Periodic limb movements of sleep: Code(s): G47.61 - Periodic limb movement disorder Category: Medical (4) Spondylosis of cervical region without myelopathy or radiculopathy: Code(s): M47.812 - Spondylosis without myelopathy or radiculopathy, cervical region Category: Medical Plan For nocturnal hypoxemia seen on recent HST: Pt had pulmonary consult- further work-up did not show concerning nocturnal hypoxemia. Check labs for common etiologies of RLS/PLMS, may do next scheduled labs. ? For acute headache treatment: * Retry Nerivio neuromodulation stimulation x's 45 min qd prn. * Sumatriptan 100mg tab- 1 tab at onset of migraine, MR in 2 hours (MDD 200mg). * Continue Sumatriptan 100mg tab - 1/2 tab w/ Benadryl 25mg 30 minutes prior to tocilizumab injection. * Continue Sumatriptan inj prn severe migraine attack * Continue Celebrex 100-200 mg p.o. b.i.d. p.r.n. * Start Pepcid 20 mg daily at bedtime, in hopes this improves Celebrex tolerance * As sumatriptan is not fully effective, trial Ubrogepant (Ubrelvy) 100mg tab, 1/2 - 1 tab (50-100mg) at onset of headache, may repeat in 2 hours. Max of 2 tabs (200mg) per 24 hours. * May adjunct with OTC Tylenol 650mg q 4 hours, Ibuprofen 600mg q 6 hours, or Naproxen 440mg q 12 hrs prn. * Potential adverse effects, include but are not limited to fatigue, nausea, dry mouth, constipation Previous acute migraine medication trials: Eletriptan 40mg prn- patient feels sumatriptan is more effective. Sumatriptan- not fully effective. Acute migraine medication contraindications: None at this time. For chronic migraine prevention medication: * Continue Botox 155 units IM q 3 months- as scheduled * Continue Emgality 120 mg subcutaneous q.month. * Patient has had significant reduction in monthly migraine days and intensity of migraine burden, with concomitant use of Emgality and Botox therapy. * Retry Nerivio neuromodulation stimulation x's 45 min qd prn. Previous migraine prevention medication trials: Propranolol- ineffective. Amitriptyline- ineffective, not tolerated. Topiramate- ineffective. Botox x's > 6 tx was ineffective however was not given PREMPT protocol. Depakote- ineffective. Mag- ineffective. Riboflavin- ineffective. Nurtec stopped- lost efficacy. Qulipta 60 mg-ineffective. Migraine prevention medication contraindications: aimovig d/t pt has constipation. For GCA: * Continue Tocilizumab per [facility] For cervicalgia w/ mild-mod multilevel degenerative and mild spondylosis: * Follow-up with Rheumatology * Celebrex 100-200mg bid prn. * Start Pepcid as above Previous trials: baclofen 5-10mg qhs prn. ? f/u in 6 months or sooner prn. Orders: Orders TSH reflex Free T4 Today D64.9 - Anemia, unspecified, F41.0 - Panic disorder [e pisodic paroxysmal anxiety], K58.9 - Irritable bowel syndrome, unspecified Ferritin Today D64.9 - Anemia, unspecified, M31.6 - Other giant cell arteritis IRON PROFILE Today D64.9 - Anemia, unspecified, M31.6 - Other giant cell arteritis Medications: New famotidine (Pepcid) 20 mg PO BEDTIME 30 tabs 3RF 30 days ubrogepant take at onset of migraine, may repeat in 2hrs (may take w/ Ibuprofen) 50 - 100 mg (0.5 - 1 x 100 mg) PO ONCE 30 days PRN 16 tabs 3RF migraine headache ubrogepant (Ubrelvy) Take at the onset of migraine, may repeat in 2 hours (may take with triptan and/or Tylenol) 50 - 100 mg (0.5 - 1 x 100 mg) PO ONCE PRN 16 tabs 3RF migraine headache 30 days Coding Level of Care Code Est Pt Level 4 (94466) Diagnoses Chronic migraine without aura, intractable, without status migrainosus G43.719 Tension-type headache, not intractable, unspecified chronicity pattern G44.209 Headache chronicity pattern: unspecified pattern Intractability: not intractable Periodic limb movements of sleep G47.61 Spondylosis of cervical region without myelopathy or radiculopathy M47.812
--- OUTSIDE RECORDS SUMMARY | 2025-08-12 10:29 | XMS_ITS | Clinical Summary ---
Author Organization [facility] Address [address] [place] [address] Phone Care Team Providers Care Tour Counselor Name Role Phone Mary Ashton Primary Care Provider [phone] Encounters Date Type Department Care Team Description 08/05/2025 10:04 AM EDT - 08/05/2025 11:59 PM EDT Hospital En[facility] [address] [place] [address] Encounter for screening mammogram for malignant neoplasm of breast Discharge Disposition: Home or Self Care from Last 3 Months Surgical History Surgery Date Site/Laterality Comments STEREOTACTIC CORE BIOPSY Social History Tobacco Use Types Packs/Day Years Used Date Smoking Tobacco: Never Assessed Comments No Sex and Gender Information Value Date Recorded Sex Assigned at Not on file Legal Sex Female 1:21 PM EST Gender Identity Not on file Sexual Orientation Not on file Obstetrics History Last Filed Vital Signs Vital Sign Reading Time Taken Comments Blood Pressure - - Pulse - - Temperature - - Respiratory Rate - - Oxygen Saturation - - Inhaled Oxygen Concentration - - Weight 56.2 kg (124 lb) 08/05/2025 10:47 AM EDT Height 160 cm (5' 3 ) 08/05/2025 10:47 AM EDT Body Mass Index 21.97 08/05/2025 10:47 AM EDT Plan of Treatment Health Maintenance Due Date Last Done Comments Colorectal Cancer Screening: Colonoscopy 1955 DTaP,Tdap,and Td Vaccines (1 - Tdap) 1974 Pneumococcal Vaccine: 50+ Years (1 of 1 - PCV) 2005 Zoster Vaccines (1 of 2) 2005 Falls Risk Assessment 10/05/2022 Hepatitis C Screening 10/05/2022 Medicare Annual Wellness Visit 10/05/2022 Social Influencers of Health Screening 10/05/2022 Depression Screening 11/07/2024 COVID-19 Vaccine (3 - season) 2025 02/06/2021, 01/09/2021 Influenza Vaccine (#1) 2025 Breast Cancer Screening 08/05/2027 08/05/20 25, 08/02/2024, 07/18/2023, Additional history exists RSV Immunization Adult Patients (1 - 1-dose 75+ series) 2030 Osteoporosis Screening (Bone Density Screening) 08/28/2030 08/28/2020, 02/16/2018 HIB Vaccines Aged Out No longer eligi ble based on patient's age to complete this topic HPV Vaccines Aged Out No longer eligi ble based on patient's age to complete this topic Hepatitis A Vaccines Aged Out No long er eligible based on patient's age to complete this topic Hepatitis B Vaccines Aged Out No long er eligible based on patient's age to complete this topic IPV Vaccines Aged Out No longer eligi ble based on patient's age to complete this topic MMR Vaccines Aged Out No longer eligi ble based on patient's age to complete this topic Meningococcal ACWY Vaccine Aged Out N o longer eligible based on patient's age to complete this topic Meningococcal B Vaccine Aged Out No l onger eligible based on patient's age to complete this topic RSV Immunization Patients Under 20 months Aged Out No longer eligible based on patient's age to complete this topic Varicella Vaccines Aged Out No longer eligible based on patient's age to complete this topic Procedures Procedure Name Priority Date/Time Associated Diagnosis Comments MG MAMMO DIGITAL SCREENING W VICTORIANO BILAT Routine 08/05/2025 10:48 AM EDT Encounter for screening mammogram for malignant neoplasm of breast SHANTI DEXA AXIAL SKELETON Routine 08/28/2020 4:11 PM EDT Encounter for screening for osteoporosis from Last 3 Months or Most Recently Relevant to Health Maintenance Results * MG Mammo Digital Screening w Victoriano bilat (08/05/2025 10:48 AM EDT) Anatomical Region Laterality Modality Breast Bilateral Mammography 08/05/2025 5:46 PM EDT Impressions 08/05/2025 5:52 PM EDT No mammographic evidence of malignancy. No suspicious interval change. A negative mammogram in the presence of a clinically suspicious palpable abnormality does not preclude the possibility of malignancy or alter the indications for biopsy. ASSESSMENT: BI-RADS 1: NEGATIVE RECOMMENDATION(S): 1: Routine screening mammogram BILATERAL in 1 year. [facility] location[facility] [address], [address] -------- FINAL REPORT -------- Dictated By: Drew Sorenson Dictated Date: 08/05/2025 17:46 ET Assigned Physician: Drew Sorenson Reviewed and Electronically Signed By: Drew Sorenson Signed Date: 08/05/2025 17:52 ET Workstation ID: [id number] Transcribed By: Self Edit Transcribed Date: 08/05/2025 17:46 ET Narrative 08/05/2025 5:52 PM EDT EXAM: SCREENING MAMMOGRAPHY, BILATERAL HISTORY: SCREENING. No additional history. COMPARISON: 08/02/24, 07/18/23, 07/14/22, 07/08/21 TECHNIQUE: Synthesized CC and MLO projections of each breast. Tomosynthesis of each breast in the CC and MLO projections. ADDITIONAL IMAGING: None Computer-aided detection was employed with the [employer] AI 3-D. TISSUE DENSITY: The breasts are heterogeneously dense, which may obscure small masses. (BI-RADS category C) FINDINGS: RIGHT BREAST: No suspicious mass. No suspicious calcification. No distortion. No additional suspicious right breast findings LEFT BREAST: No suspicious mass. No suspicious calcification. No distortion. No additional suspicious left breast findings Procedure Note Drew Sorenson MD - 08/05/2025 EXAM: SCREENING MAMMOGRAPHY, BILATERAL HISTORY: SCREENING. No additional history. COMPARISON: 08/02/24, 07/18/23, 07/14/22, 07/08/21 TECHNIQUE: Synthesized CC and MLO projections of each breast.Tomosynthesis of each breast in the CC and MLO projections. ADDITIONAL IMAGING: None Computer-aided detection was employed with the [employer] AI 3-D. TISSUE DENSITY: The breasts are heterogeneously dense, which may obscuresmall masses. (BI-RADS category C) FINDINGS: RIGHT BREAST: No suspicious mass. No suspicious calcification. No distortion. Noadditional suspicious right breast findings LEFT BREAST: No suspicious mass. No suspicious calcification. No distortion. Noadditional suspicious left breast findings IMPRESSION: No mammographic evidence of malignancy. No suspicious interval change. A negative mammogram in the presence of a clinically suspicious palpableabnormality does not preclude the possibility of malignancy or alter theindications for biopsy. ASSESSMENT: BI-RADS 1: NEGATIVE RECOMMENDATION(S): 1: Routine screening mammogram BILATERAL in 1 year. Mammography location: [facility] [address] [place], [address] -------- FINAL REPORT -------- Dictated By: Drew Sorenson Dictated Date: 08/05/2025 17:46 ET Assigned Physician: Drew Sorenson Reviewed and Electronically Signed By: Drew Sorenson Signed Date: 08/05/2025 17:52 ET Workstation ID: [id number] Transcribed By: Self Edit Transcribed Date: 08/05/2025 17:46 ET Geovanna KENNEDY IMG BI PROCEDURES Final Result * SHANTI DEXA AXIAL SKELETON (08/28/2020 4:11 PM EDT) Anatomical Region Laterality Modality Mammography 08/27/2020 10:5 8 AM EDT Narrative 08/28/2020 4:11 PM EDT [facility] Diagnostic Imaging Department [address] [place] [address] Patient: ZACHARIAH MICHELLE./Age/Sex: 1955 - 65 - F Unit#: [id number] Location/Status: SPDIMAM/REG CLI Mnemonic/Ordering Site: [facility] Ordering Physician: ROSA TAMAYO MD Shanti Dexa Axial Skeleton - 08/27/201119 HISTORY: Post menopausal woman with hormone depletion for screening bone densitometry. The patient is on calcium supplement with Vitamin D. TECHNIQUE: Bone densitometry is performed utilizing dual energy x-ray absorptiometry (DEXA) in the [employer] unit. The lumbar spine is evaluated in the AP projection and L1 through L4 are utilized. The proximal femora are evaluated in the AP projection bilaterally. FINDINGS: AP spine: Bone mineral density: 1.007 gm/cm2 T-score: -1.4 Z-score: 0.5 Dual Femur (mean): Bone mineral density: 0.814 gm/cm2 T-score: -1.5 Z-score: -0.1 IMPRESSION: Osteopenia in the lumbar spine. Osteopenia in the bilateral hips. Comparison with prior examination 02/16/2018, there is decreased bone mineralization within the lumbar spine and decreased bone mineralization within the left proximal femur and decreased bone mineralization in the right proximal femur. [id number] A report detailing these results has been enclosed. Dictating Physician: JULIAN ENCINAS MD Electronically Signed by: JULIAN ENCINAS MD Dic Date/Time: 08/28/20 161 Sign date/Time: 08/28/20 1611 Procedure Note Julian Encinas MD - 10/26/2022 [facility] Diagnostic Imaging Department [address] [place], [place] [id number] Patient: ZACHARIAH MICHELLE /Age/Sex: 1955 - 65 - F Unit#: [id number] Location/Status: SPDIMAM/REG CLI [facility]em[facility] Ordering Physician: ROSA TAMAYO MD [facility] Dexa Axial Skeleton - 08/27/20 - 112 HISTORY: Post menopausal woman with hormone depletion for screening bone densitometry. The patient is on calcium supplement with Vitamin D. TECHNIQUE: Bone densitometry is performed utilizing dual energy x-ray absorptiometry (DEXA) in the [employer] unit. The lumbar spine isevaluated in the AP projection and L1 through L4 are utilized. The proximal femoraare evaluated in the AP projection bilaterally. FINDINGS: AP spine: Bone mineral density: 1.007 gm/cm2 T-score: -1.4 Z-score: 0.5 Dual Femur (mean): Bone mineral density: 0.814 gm/cm2 T-score: -1.5 Z-score: -0.1 IMPRESSION: Osteopenia in the lumbar spine. Osteopenia in the bilateral hips. Comparison with prior examination 02/16/2018, there is decreased bone mineralization within the lumbar spine and decreased bone mineralizationwithin the left proximal femur and decreased bone mineralization in the rightproximal femur. [id number] A report detailing these results has been enclosed. Dictating Physician: JULIAN ENCINAS MD Electronically Signed by: JULIAN ENCINAS MD Dic Date/Time: 08/28/201609 Sign date/Time: 08/28/20 161 Rosa Tamayo MD IMG BI PROCEDURES Final Resu lt from Last 3 Months or Most Recently Relevant to Health Maintenance Insurance MEDICARE [facility] Care Teams Tour Counselor Relationship Specialty Start Date End Date Mary Ashton PA [address] [facility], [address] [place] [address] PCP - General 08/05/25
--- OUTSIDE RECORDS SUMMARY | 2025-08-12 10:29 | XMS_ITS | Patient Health Record ---
Author Organization [facility] Address [address] [place] [address] Care Team Providers Care Chef & Owner Name Role Phone Jenni YOUNG, Fritz Primary Care Provider Hubert Mackay Unavailable [phone] Allergies Allergen (clinical drug ingredient) Drug/Non Drug [...] Problem Status W/U Status Risk Notes Problem [id number] Encounter for screening for malignant neoplasm of colon (Z12.11) Active confirmed Problem [id number] Irritable bowel syndrome with constipation (K58.1) Active confirmed Plan Of Treatment Pending Test Test Name Order Date CELIAC PANEL #10 03/28/2014 Future Test Test Name Order Date COLONOSCOPY 12/28/2018 Insurance Providers Payer Name Payer Address Payer Phone Subscriber Number Group Number Insured Name Patient Relationship to Insured Coverage Start Date Coverage End Date [facility] [address] [place] [address] [id number] ZACHARIAH LEACH Self - patient is the insured Medical (General) History Medical History History ICD Code Irritable bowel syndrome--lo ng-standing and present for at least 20 years to some degree--symptoms have ranged from diarrhea to constipation Migraines and anxiety Denies MO,DM,CVA,Lung disease,renal dise ase Colonoscopy in 07/2008 negati ve for polyps--just diverticulosis and internal hemorrhoids Fibromyalgia Negative laboratories for ce liac disease and negative abdominal ultrasound 2013 Surgical History Surgery Date(Month/Year) skin cancer -basal cell --near her nose bunionectomy on left foot
--- OUTSIDE RECORDS SUMMARY | 2025-08-12 10:29 | XMS_ITS | Patient Health Record ---
[facility] Organization [facility] Address [address] [place] [address] Care Team Providers Care Sys Dir Name Role Phone Fritz Arteaga MD Primary Care Provider Unavaila Danielle Gill Unavailable [phone] Wai Lemus Unavailable [phone] Allergies Allergen (clinical drug ingredient) Drug/Non Drug [...] Status Risk Notes Problem Plantar fascial fibromatosis (86849350) Plantar fascial fibromatosis (M72.2) Active confirmed Vital Signs Height 5ft 3in in 08/28/2024 Weight 122 lbs 08/28/2024 BMI 21.61 kg/m2 08/28/2024 Procedures Procedure Date Ordered Date Performed Result Body Sit e 92376-YXIIRPH SKIN/TISSUE 08/28/2024 N/A 50716-Btgjrzcq Plate 11/21/2024 N/A Encounters Encounter Location Date Provider Diagnosis [address] [address] 08/15/2024 Wai Lemus Primary osteoarthritis, left ankle and foot M19.072 ; Ingrowing nail L60.0 ; Pain in left foot M79.672 ; Metatarsalgia, left foot M77.42 ; Plantar fascial fibromatosis M72.2 ; Abscess of toe of left foot L02.612 and Tinea unguium B35.[address] [facility] [address] 08/28/2024 Danielle Ricardo Skin ulcer of toe of left foot with fat layer exposed L97.522 and Ingrowing nail L60.[address] [address] 11/21/2024 Danielle Ricardo Ingrown nail L60.0 [facility] [address] [place] [address] 08/16/2024 Danielle Ricardo Assessments Encounter Date Diagnosis [...] X ray : Foot, left 3V 11/14/2020 50434-Tzqfntsf Plate 11/21/2024 01767-Gmhxrrsd Plate 09/06/2014 61749-Frfgbvee Plate 10/27/2012 10022-Onuoejsf Plate 12/22/2012 93333-Xsaiqgtk Plate 04/13/2013 97677-Zaqmhtun Plate 07/13/2013 74073-Sonybmjg Plate 11/20/2013 44873-Oyalondj Plate 02/05/2014 44836-Uqcdibob Plate 05/31/2014 09111-Exoysqry Plate 11/22/2014 79229-Dgyctgnk Plate Each Additional 18290-Ropyknnm Plate Each Additional 81840-Dnklwvmc Plate Each Additional 71485-VUP 02/06/2015 60853- Debride <25 sq cm 02/21/2015 78084- Debride <25 sq cm 03/21/2015 45346- Debride <25 sq cm 11/17/2012 28777- Debride <25 sq cm 10/09/2013 85180-XZEGGJO SKIN/TISSUE 08/28/2024 70927 I&D ABSCESS- SIMPLE,SINGLE 013 16359, N4767-YKFWB/INJECT, JOINT/BURSA 1 12/29/2016 93485, N6960-DLGDW/INJECT, JOINT/BURSA 0 01/04/2019 62823, E6016-OXKNJ/INJECT, JOINT/BURSA 0 07/14/2018 31637, J0702- Neuroma/Injection 10/28/20 17 Insurance Providers Payer Name Payer Address Payer Phone Subscriber Number Group Number Insured Name Patient Relationship to Insured Coverage Start Date Coverage End Date Medicare National Govt Svcs Inc [address] [facility] [place] [address] [id number] Teri Michelle Self - patient is the insured [facility] [address] [place] [address] [id number] Teri Michelle Self - patient is the insured Medical (General) History Medical History History ICD Code anxiety back, hip, knee pain chicken pox fibromyalgia headaches/migraines measles mumps sinus conditions Surgical History Surgery Date(Month/Year) Skin cancer removed from nose. [address] 03/02/18 knee surgery 09/2023 Hospitalization History Reason Date(Month/Year) [facility] Bunionectomy left foot 03/02/18
--- OUTSIDE RECORDS SUMMARY | 2025-08-12 10:29 | XMS_ITS | Patient Health Record ---
Author Organization [facility] Address [address] [place] [address] Care Team Providers Care Filler Blender Name Role Phone Tony Caro Primary Care [...] Insured Coverage Start Date Coverage End Date [facility] [address] [place], [place] [id number] Beatris Michelle Self - patient is the insured
== END 2025-08-12 10:30 | disposition home or self-care (01) ==
LOC: HO.HSMS 09:17
PROVIDERS: Visit Provider Nurse Practitioner Family
DX: G43.719 Chronic migraine without aura, intractable, without status migrainosus (principal); G44.209 Tension-type headache, unspecified, not intractable; G47.61 Periodic limb movement disorder; M47.812 Spondylosis without myelopathy or radiculopathy, cervical region
CPT/HCPCS: 99214

== ENCOUNTER → 2025-08-12 09:17 | Outpatient (BNVA) | payer MEDICARE, OTHER, SELFPAY | PROVIDERS: Visit Provider Nurse Practitioner Family | DX: G43.719 Chronic migraine without aura, intractable, without status migrainosus (principal); G44.209 Tension-type headache, unspecified, not intractable; G47.61 Periodic limb movement disorder; M47.812 Spondylosis without myelopathy or radiculopathy, cervical region | CPT/HCPCS: 99212 ==

== ENCOUNTER 2025-08-20 08:55 | Outpatient (AMB) | payer MEDICARE, OTHER, SELFPAY ==
[2025-08-20 08:57] VITALS: BP 120/72; PULSE 68; O2SAT 98; BMI 22.2
--- NOTE | 2025-08-20 08:57 | A.OFFVIS_ITS ---
Vital Signs 08/20/25 08:57 Height 5 ft 3 in Weight 125 lb 8 oz BMI 22.2 BP 120/72 Blood Pressure Location Rt brachial Position Sitting Pulse 68 Pulse Source Pulse Oximeter Pulse Oximetry (%) 98 Oxygen Delivery Method Room Air Intake Visit Reasons: Botox Intake Note: Botox Auriculotherapist Required: No Accompanied by: Self / Same As Patient Allergies meperidine (Demerol) Allergy (Intermediate, Verified 08/20/25 08:57) Vomiting Penicillins (PENICILLINS) Allergy (Intermediate, Verified 08/20/25 08:57) RASH erythromycin base (ERYTHROMYCIN BASE) Allergy (Unknown, Verified 08/20/25 08:57) unknown chlorhexidine (From ChloraPrep Clear) Adverse Reaction (Severe, Verified 08/20/25 08:57) rash isopropyl alcohol (From ChloraPrep Clear) Adverse Reaction (Severe, Verified 08/20/25 08:57) rash Medication List - Last Reconciled 08/20/25 by Yadi Blank MD Actemra ACTPen (tocilizumab) 162 mg (0.9 mL) subcut Q2W NS aspirin 81 mg PO DAILY calcium carbonate-vitamin D3 600 mg-10 mcg (400 unit) 1 cap PO BID celecoxib 200 mg PO BID 90 days citalopram 15 mg (1.5 x 10 mg) PO DAILY 90 days famotidine (Pepcid) 20 mg PO BEDTIME 30 days fluoride (sodium) 1.1% (DentaGel) dental gabapentin 600 mg PO BEDTIME galcanezumab-gnlm (Emgality Pen) 120 mg subcut ONCE 30 days magnesium glycinate 200 mg PO DAILY metronidazole 0.75% appl topical QPM multivitamin 1 tab PO DAILY onabotulinumtoxinA (Botox) 200 units IM ONCE 12 weeks sumatriptan succinate 6 mg subcutaneously at onset of nocturnal migraine, may repeat in 1 hr PRN; 28 days MDD 1 ml per day sumatriptan succinate 50 - 100 mg orally at onset of headache, may repeat in 2 hrs PRN; max 2 tabs per day or 4 tabs/week 30 days ubrogepant (Ubrelvy) 50 - 100 mg (0.5 - 1 x 100 mg) PO ONCE PRN 30 days HPI Comments Details: ? 70y/o female comes for treatment of migraines with botox. The patient has a good response to treatment with botox - decreased frequency and intensity of her migraines. ??? Most frequent reported adverse reactions following injection of botox for chronic migraine include neck pain (9%), headache(5%), eyelid ptosis(4%), migraine(4%), muscular weakness(4%), musculuskeletal stiffness(4%), bronch itis(3%), injection site pain (3%), musculoskeletal pain(3%), myalgia(3%), facial paresis(2%), HTN(2%) and muscle spasms(2%) were discussed in detail. How many migraine days prior to botox 20 How long do the migraines last 1-2 days Intensity of migraine 10 ER visits related to migraine1-2 Effectiveness of botox from last?two?treatment(s) How many migraine days since receiving treatment:1-2 Change? in intensity of migraine?1-2hrs Change in frequency of migraine?decreased Change in use of acute medication for migraine?decreased Change in quality of life?improved ER visits related to migraine?0 Explanation for any gaps in treatment none Have at least three months elapsed since last treatment (Last botox date - frequency of injections)3 mths ??? Botulinum toxin typeA 200units Lot no [id number] expiration Sep 2027 was diluted with 4 cc of normal saline . ??? Muscles injected- ??? Frontalis 4 sites ??? Procerus 1 site ??? Senior Corporate Accountant- 2 sites ??? Temporalis- 8 sites ??? Occipitalis- 6 sites ??? Cervical paraspinals- 4 sites ??? Trapezius- 6 sites- 10 units each ??? 5 units each in 31 site ??? Total use- 185units ??? Discarded-15units [facility] Medical History Anemia Osteoarthritis Fatigue Chronic migraine without aura, intractable, without status migrainosus Osteoarthritis of left knee Fibromyalgia Migraines Basal cell carcinoma of nose Bunion, left foot Surgical History History of meniscectomy of left knee H/O arthroscopic knee surgery H/O toe surgery History of surgery History of bunionectomy H/O colonoscopy Family History Mother Heart problem COPD (chronic obstructive pulmonary disease) Hypertension Father Prostate cancer Colon cancer Diabetes Brother Diabetes Sister Hypertension Hypercholesteremia Social History Housing: House Alcohol intake: current Alcohol intake frequency: holidays/special occasions only Patient Tobacco Use Status: Never used Tobacco e-Cigarette/Vaping Use: Never Used Second Hand Smoke Exposure: No service: No Current occupational status: retired Cognitive needs: No Hearing needs: Yes Vision needs: No Physical Exam Vital Signs: Last Vital Signs Pulse 68 08/20/25 08:57 BP 120/72 08/20/25 08:57 Pulse Ox 98 08/20/25 08:57 Oxygen Delivery Method Room Air 08/20/25 08:57 BMI result Body Mass Index 22.2 Const General: cooperative and no acute distress Orientation/consciousness: patient oriented x3 Resp Effort & Inspection: normal respiratory effort and able to speak in complete sentences Neuro General: patient oriented x3 Cranial nerves: Yes CN's II-XII intact bilaterally Cognition (Neuro): normal cognition Psych Appearance: grossly normal Mental Status: mental status grossly normal Speech and movement: Normal speech and movement present Affect: normal affect Attitude: cooperative Office Procedures Botulinum toxin Injection 21686 - Migraine Procedure code (CPT) selection complete Office Meds onabotulinumtoxinA 200 unit solution for injection Performing Provider: Yadi Blank MD Performing Location[place] [facility] Administered by: Yadi Blank MD on 08/20/25 10:11 Dose Route Admin Location Dispensed Lot Number Expiration Date [facility] Telephone Directory Deliverer 185 unit subcut 200 units [id number] ALLERGAN /BOTOX Total Dispensed Waste 200 units 7.5 % Comments: see hpi Assessment & Plan Assessment & Plan (1) Chronic migraine without aura, intractable, without status migrainosus: Code(s): G43.719 - Chronic migraine without aura, intractable, without status migrainosus Category: Medical Plan Patient tolerated the procedure well she will call with any side effects Orders: Orders AMB Botulinum toxin Injection Today G43.719 - Chronic migraine without aura, intractable, without status migrainosus Scribe Plan - Not visible on output: Reviewed possible medication side effects, including but not limited to drowsiness, dizziness. Coding Level of Care Code Est Pt Level 1 (47797) Diagnoses Chronic migraine without aura, intractable, without status migrainosus G43.719 CPT Codes Botox Injection - Botox 3: 43068 - Migraine ([id number])
--- OUTSIDE RECORDS SUMMARY | 2025-08-20 09:28 | XMS_ITS | Clinical Summary ---
Author Organization [facility] Address [address] [place] [address] Phone Care Team Providers Care Software Development Analyst Name Role Phone Mary Ashton Primary Care Provider [phone] Encounters Date Type Department Care Team Description 08/05/2025 10:04 AM EDT - 08/05/2025 11:59 PM EDT Hospital [facility] [address] [place] [address] Encounter for screening mammogram for [...] year. [facility]ammography location: [facility] [address], [address] -------- FINAL REPORT -------- Dictated By: Drew Sorenson Dictated Date: 08/05/2025 17:46 ET Assigned Physician: Drew Sorenson Reviewed and Electronically Signed By: Drew Sorenson Signed Date: 08/05/2025 17:52 ET Workstation ID: [id number] Transcribed By: Self Edit Transcribed Date: 08/05/2025 17:46 ET Narrative 08/05/2025 5:52 PM EDT EXAM: SCREENING MAMMOGRAPHY, BILATERAL HISTORY: SCREENING. No additional history. COMPARISON: 08/02/24, 07/18/23, 07/14/22, 07/08/21 TECHNIQUE: Synthesized CC and MLO projections of each breast. Tomosynthesis of each breast in the CC and MLO projections. ADDITIONAL IMAGING: None Computer-aided detection was employed with the [employer] AI 3-D. TISSUE DENSITY: The breasts are [...] year. Mammography location: [facility] [address] [place], [address] -------- FINAL REPORT -------- Dictated By: Drew Sorenson Dictated Date: 08/05/2025 17:46 ET Assigned Physician: Drew Sorenson Reviewed and Electronically Signed By: Drew Sorenson Signed Date: 08/05/2025 17:52 ET Workstation ID: [id number] Transcribed By: Self Edit Transcribed Date: 08/05/2025 17:46 ET Geovanna KENNEDY IMG BI PROCEDURES Final Result * SHANTI DEXA AXIAL SKELETON (08/28/2020 4:11 PM EDT) Anatomical Region Laterality Modality Mammography 08/27/2020 10:5 8 AM EDT Narrative 08/28/2020 4:11 PM EDT [facility] Diagnostic Imaging Department [address] [place] [address] Patient: ZACHARIAH MICHELLE./Age/Sex: 1955 - 65 - F Unit#: [id number] Location/Status: SPDIMAM/REG CLI Mnemonic/Ordering Site: [facility] Ordering Physician: ROSA TAMAYO MD Shanti Dexa Axial Skeleton - 08/27/201119 HISTORY: Post menopausal woman with hormone depletion for screening bone densitometry. The patient is on calcium supplement with Vitamin D. TECHNIQUE: Bone densitometry is performed utilizing dual energy x-ray absorptiometry (DEXA) in the Since1910.com unit. The lumbar spine is evaluated in [...] bone mineralization in the right proximal femur. 87755 A report detailing these results has been enclosed. Dictating Physician: JULINA ENCINAS MD Electronically Signed by: JULIAN ENCINAS MD Dic Date/Time: 08/28/20 161 Sign date/Time: 08/28/20 1611 Procedure Note Julian Encinas MD - 10/26/2022 [facility] Diagnostic Imaging Department [address] [place], [place] [address] Patient: ZACHARIAH MICHELLE /Age/Sex: 1955 - 65 - F Unit#: [id number] Location/Status: SPDIMAM/REG CLI [facility] Order[facility] Physician: ROSA TAMAYO MD [facility] Dexa Axial Skeleton - 08/27/20 - 112 HISTORY: Post menopausal woman with hormone depletion for screening bone densitometry. The patient is on calcium supplement with Vitamin D. TECHNIQUE: Bone densitometry is performed utilizing dual energy x-ray absorptiometry (DEXA) in the Since1910.com unit. The lumbar spine isevaluated in the [...] decreased bone mineralization in the rightproximal femur. [address]7913 A report detailing these results has been enclosed. Dictating Physician: JULIAN ENCINAS MD Electronically Signed by: JULIAN ENCINAS MD Dic Date/Time: 08/28/201609 Sign date/Time: 08/28/20 161 Rosa Tamayo MD IMG BI PROCEDURES Final Resu lt from Last 3 Months or Most Recently Relevant to Health Maintenance Insurance MEDICARE [facility] Care Teams Software Development Analyst Relationship Specialty Start Date End Date Mary Ashton PA [address] [facility], [address] [place] [address] PCP - General 08/05/25
--- OUTSIDE RECORDS SUMMARY | 2025-08-20 09:28 | XMS_ITS | Patient Health Record ---
Author Organization [facility] Address [address] [place] [address] Care Team Providers Care Casework Specialist Name Role Phone Tony Caro Primary Care [...] Insured Coverage Start Date Coverage End Date [facility] [address] [place], [place] [id number] Beatris Michelle Self - patient is the insured
--- OUTSIDE RECORDS SUMMARY | 2025-08-20 09:28 | XMS_ITS | Patient Health Record ---
Author Organization [facility] Address [address] [place] [address] Care Team Providers Care Design Assistant Name Role Phone Jenni YOUNG, Fritz Primary Care Provider Hubert Mackay Unavailable [phone] Allergies Allergen (clinical drug ingredient) Drug/Non Drug [...] Problem Status W/U Status Risk Notes Problem Screening for malignant neoplasm of colon (559709161) Encounter for screening for malignant neoplasm of colon (Z12.11) Active confirmed Problem Irritable bowel syndrome characterized by constipation (444828927) Irritable bowel syndrome with constipation (K58.1) Active confirmed Plan Of Treatment Pending Test Test Name Order Date CELIAC PANEL #10 03/28/2014 Future Test Test Name Order Date COLONOSCOPY 12/28/2018 Insurance Providers Payer Name Payer Address Payer Phone Subscriber Number Group Number Insured Name Patient Relationship to Insured Coverage Start Date Coverage End Date [facility] [address] [place] [address] [phone] [id number] ZACHARIAH LEACH Self - patient is the insured Medical (General) History Medical History History ICD Code Irritable bowel syndrome--lo ng-standing and present for at least 20 years to some degree--symptoms have ranged from diarrhea to constipation Migraines and anxiety Denies [place],DM,CVA,Lung disease,renal dise ase Colonoscopy in 07/2008 negati ve for polyps--just diverticulosis and internal hemorrhoids Fibromyalgia Negative laboratories for ce liac disease and negative abdominal ultrasound 2013 Surgical History Surgery Date(Month/Year) skin cancer -basal cell --near her nose bunionectomy on left foot
--- OUTSIDE RECORDS SUMMARY | 2025-08-20 09:28 | XMS_ITS | Patient Health Record ---
Author Organization [facility] Address [address] [place] [address] Care Team Providers Care Terrazzo Journeyman Name Role Phone Fritz Arteaga MD Primary Care Provider Danielle Mayo Unavailable [phone] Allergies Allergen (clinical drug ingredient) Drug/Non Drug [...] Status Risk Notes Problem Plantar fascial fibromatosis (48168475) Plantar fascial fibromatosis (M72.2) Active confirmed Vital Signs Height 5ft 3in in 08/28/2024 Weight 122 lbs 08/28/2024 BMI 21.61 kg/m2 08/28/2024 Procedures Procedure Date Ordered Date Performed Result Body Sit e 78495-GWYRTPZ SKIN/TISSUE 08/28/2024 N/A 45655-Pzrzecdd Plate 11/21/2024 N/A Encounters Encounter Location Date Provider Diagnosis [facility] [address] [address] 08/28/2024 Danielle Ricardo Skin ulcer of toe of left foot with fat layer exposed L97.522 and Ingrowing nail L60.0 [facility] [address] [address] 11/21/2024 Danielle Ricardo Ingrown nail L60.0 Assessments Encounter Date Diagnosis (ICD Code) Assessment Notes Treatment Notes Treatment Clinical Notes Section Notes 08/28/2024 Ingrowing nail (ICD-10 - L60.0) Medial nail border, T5, T7 08/28/2024 Skin ulcer of toe of left foot with fat layer exposed (ICD-10 - L97.522) Patient Educated with: WOUND CARE INSTRUCTIONS.p df (WOUND CARE INSTRUCTIONS.p df) 11/21/2024 Ingrown nail (ICD-10 - L60.0) 08/28/2024 Other Plan Of Treatment Pending Test Test Name Order Date X ray : Foot, left 2V 10/27/2012 X ray : Foot, left 2V 03/07/2018 X ray : Foot, left 2V 03/21/2018 X ray : Foot, left 2V 06/02/2018 X ray : Foot, left 2V 05/04/2018 X ray : Foot, right 2V 10/27/2012 X ray : Foot, left 3V 02/09/2018 X ray : Foot, left 3V 01/04/2019 X ray : Foot, left 3V 11/14/2020 98492-Kvkhbzka Plate 11/21/2024 22850-Tdoioryh Plate 05/31/2014 22489-Wkgrltvj Plate 02/05/2014 80903-Mgxxmrbk Plate 11/20/2013 99980-Lozxbqpj Plate 07/13/2013 07709-Xnfppiav Plate 12/22/2012 34438-Rjncxuse Plate 10/27/2012 01239-Mgiymkkc Plate 04/13/2013 52192-Gaadsibs Plate 09/06/2014 04784-Vgnehyza Plate 11/22/2014 77005-Rhytvdwk Plate Each Additional 64919-Rralkzsq Plate Each Additional 32554-Bstlzjsi Plate Each Additional 05344-IIE 02/06/2015 38162- Debride <25 sq cm 02/21/2015 84128- Debride <25 sq cm 03/21/2015 89984- Debride <25 sq cm 11/17/2012 12832- Debride <25 sq cm 10/09/2013 26670-JYWEKWN SKIN/TISSUE 08/28/2024 05204 I&D ABSCESS- SIMPLE,SINGLE 013 46425, W4506-CTLAJ/INJECT, JOINT/BURSA 0 01/04/2019 30316, K1205-XBSDX/INJECT, JOINT/BURSA 1 12/29/2016 52765, J0562-UCEVO/INJECT, JOINT/BURSA 0 07/14/2018 62515, J0702- Neuroma/Injection 10/28/20 17 Insurance Providers Payer Name Payer Address Payer Phone Subscriber Number Group Number Insured Name Patient Relationship to Insured Coverage Start Date Coverage End Date Medicare National Govt Svcs Inc [address] [place] [address] [id number] Teri Michelle Self - patient is the insured [facility] [address] [facility] [place] [address] [phone] [id number] Teri Michelle Self - patient is the insured Medical (General) History Medical History History ICD Code anxiety back, hip, knee pain chicken pox fibromyalgia headaches/migraines measles mumps sinus conditions Surgical History Surgery Date(Month/Year) Skin cancer removed from nose. 3 [address] 03/02/18 knee surgery 09/2023 Hospitalization History Reason Date(Month/Year) [facility] [place]unionectomy left foot 03/02/18
== END 2025-08-20 09:23 | disposition home or self-care (01) ==
LOC: HO.HSMS 08:55
PROVIDERS: PCP Internal Medicine; Visit Provider Psychiatry & Neurology Neurology
DX: G43.719 Chronic migraine without aura, intractable, without status migrainosus (principal)
CPT/HCPCS: 64615

== ENCOUNTER → 2025-08-20 08:55 | Outpatient (BNVA) | payer MEDICARE, OTHER, SELFPAY | PROVIDERS: PCP Internal Medicine; Visit Provider Psychiatry & Neurology Neurology | DX: G43.719 Chronic migraine without aura, intractable, without status migrainosus (principal) | CPT/HCPCS: 64615; 99211; J0585 ==

== ENCOUNTER 2025-09-06 15:02 | Outpatient (REF) | payer MEDICARE, OTHER, SELFPAY ==
--- OUTSIDE RECORDS SUMMARY | 2025-09-06 15:24 | XMS_ITS | Patient Health Record ---
Author Organization [facility] Address [address] [place] [address] Care Team Providers Care Golf Cart Assembler Name Role Phone Jenni YOUNG, Fritz Primary Care Provider Hubert Mackay Unavailable [phone] Allergies Allergen (clinical drug ingredient) Drug/Non Drug [...] Problem Screening for malignant neoplasm of colon (443653955) Encounter for screening for malignant neoplasm of colon (Z12.11) Active confirmed Problem Irritable bowel syndrome characterized by constipation (974762475) Irritable bowel syndrome with constipation (K58.1) Active confirmed Plan Of Treatment Pending Test Test Name Order Date CELIAC PANEL #10 03/28/2014 Future Test Test Name Order Date COLONOSCOPY 12/28/2018 Insurance Providers Payer Name Payer Address Payer Phone Subscriber Number Group Number Insured Name Patient Relationship to Insured Coverage Start Date Coverage End Date [facility] [address] [place] [phone] [id number] ZACHARIAH LEACH Self - patient is the insured Medical (General) History Medical History History ICD Code Irritable bowel syndrome--lo ng-standing and present for at least 20 years to some degree--symptoms have ranged from diarrhea to constipation Migraines and anxiety Denies [place],DM,CVA,Lung disease,renal dise ase Colonoscopy in 07/2008 negati ve for polyps--just diverticulosis and internal hemorrhoids Fibromyalgia Negative laboratories for ce liac disease and negative abdominal ultrasound 2013 Surgical History Surgery Date(Month/Year) skin cancer -basal cell --near her nose bunionectomy on left foot
--- OUTSIDE RECORDS SUMMARY | 2025-09-06 15:24 | XMS_ITS | Patient Health Record ---
Author Organization [facility] Address [address] [place] [address] Care Team Providers Care Ceramic Engineering Professor Name Role Phone Tony Caro Primary Care [...] Start Date Coverage End Date [facility] [address] [place], [place] [id number] Beatris Michelle Self - patient is the insured
--- OUTSIDE RECORDS SUMMARY | 2025-09-06 15:24 | XMS_ITS | Patient Health Record ---
Author Organization [facility] Address [address] [place] [address] Care Team Providers Care Flight Test Mechanic Name Role Phone Fritz Arteaga MD Primary Care Provider Danielle Mayo Unavailable [phone] Allergies Allergen (clinical drug ingredient) Drug/Non Drug [...] Status Risk Notes Problem Plantar fascial fibromatosis (31992118) Plantar fascial fibromatosis (M72.2) Active confirmed Procedures Procedure Date Ordered Date Performed Result Body Sit e 30171-Ypnsoovj Plate 11/21/2024 N/A Encounters Encounter Location Date Provider Diagnosis [facility] [place] [address] [place] [address] 11/21/2024 Danielle Beckhamaker Ingrown nail L60.0 Assessments Encounter Date Diagnosis [...] X ray : Foot, left 3V 11/14/2020 04289-Tywutgmq Plate 11/21/2024 50489-Sugtpvrf Plate 09/06/2014 27421-Esrhmwnr Plate 10/27/2012 08721-Lauoshal Plate 12/22/2012 90002-Jyzoscpw Plate 04/13/2013 24107-Abjnusen Plate 07/13/2013 71203-Fmyqiwmk Plate 11/20/2013 74606-Uyphuxoy Plate 02/05/2014 76132-Bdtewvqq Plate 05/31/2014 54860-Olievacx Plate 11/22/2014 29838-Lgctyqkf Plate Each Additional 74127-Bjullfep Plate Each Additional 21698-Clvpydon Plate Each Additional 95998-IVQ 02/06/2015 74700- Debride <25 sq cm 02/21/2015 05698- Debride <25 sq cm 03/21/2015 89665- Debride <25 sq cm 11/17/2012 40439- Debride <25 sq cm 10/09/2013 77343-VFIASWA SKIN/TISSUE 08/28/2024 88910 I&D ABSCESS- SIMPLE,SINGLE 013 33271, P5567-ZMDRQ/INJECT, JOINT/BURSA 1 12/29/2016 82104, Z9226-JETWM/INJECT, JOINT/BURSA 0 01/04/2019 76135, F5338-YNDMD/INJECT, JOINT/BURSA 0 07/14/2018 61446, J0702- Neuroma/Injection 10/28/20 17 Insurance Providers Payer Name Payer Address Payer Phone Subscriber Number Group Number Insured Name Patient Relationship to Insured Coverage Start Date Coverage End Date Medicare National Govt S[employer] [address] [facility] [place] [address] [id number] Teri Michelle Self - patient is the insured [facility] [address] [place] [address] [id number] Teri Michelle Self - patient is the insured Medical (General) History Medical History History ICD Code anxiety back, hip, knee pain chicken pox fibromyalgia headaches/migraines measles mumps sinus conditions Surgical History Surgery Date(Month/Year) Skin cancer removed from nose. 3 Johnson L 03/02/18 knee surgery 09/2023 Hospitalization History Reason Date(Month/Year) [facility] Bunionectomy left foot 03/02/18
--- OUTSIDE RECORDS SUMMARY | 2025-09-06 15:24 | XMS_ITS | Clinical Summary ---
Author Organization [facility] Address [address] [place] [address] Phone Care Team Providers Care Psychiatric Cns Name Role Phone Mary Ashton Primary Care Provider [phone] Encounters Date Type Department Care Team Description 08/05/2025 10:04 AM EDT - 08/05/2025 11:59 PM EDT [facility] [address] [place] [address] Encounter for screening mammogram for [...] year. [facility]ammography location[facility] [address], [address] -------- FINAL REPORT -------- Dictated By: Drew Sorenson Dictated Date: 08/05/2025 17:46 ET Assigned Physician: Drew Sorenson Reviewed and Electronically Signed By: Drew Sorenson Signed Date: 08/05/2025 17:52 ET Workstation ID: [id number] Transcribed By: Self Edit Transcribed Date: 08/05/2025 17:46 ET Narrative 08/05/2025 5:52 PM EDT EXAM: SCREENING MAMMOGRAPHY, BILATERAL HISTORY: SCREENING. No additional history. COMPARISON: 08/02/24, 07/18/23, 07/14/22, 07/08/21 TECHNIQUE: Synthesized CC and MLO projections of each breast. Tomosynthesis of each breast in the CC and MLO projections. ADDITIONAL IMAGING: None Computer-aided detection was employed with the [employer] AI 3-D. TISSUE DENSITY: The breasts are [...] [facility]amm[facility] location: [facility] [address] [place], [address] -------- FINAL REPORT -------- Dictated By: Drew Sorenson Dictated Date: 08/05/2025 17:46 ET Assigned Physician: Drew Sorenson Reviewed and Electronically Signed By: Drew Sorenson Signed Date: 08/05/2025 17:52 ET Workstation ID: [id number] Transcribed By: Self Edit Transcribed Date: 08/05/2025 17:46 ET Geovanna KENNEDY IMG BI PROCEDURES Final Result * SHANTI DEXA AXIAL SKELETON (08/28/2020 4:11 PM EDT) Anatomical Region Laterality Modality Mammography 08/27/2020 10:5 8 AM EDT Narrative 08/28/2020 4:11 PM EDT [facility] Diagnostic Imaging Department [address] [place] [address] Patient: ZACHARIAH MICHELLE./Age/Sex: 1955 - 65 - F Unit#: [id number] Location/Status: SPDIMAM/REG CLI Mnemonic/Ordering Site: [facility] Ordering Physician: ROSA TAMAYO MD Shanti Dexa Axial Skeleton - 08/27/201119 HISTORY: Post menopausal woman with hormone depletion for screening bone densitometry. The patient is on calcium supplement with Vitamin D. TECHNIQUE: Bone densitometry is performed utilizing dual energy x-ray absorptiometry (DEXA) in the [employer] unit. The lumbar spine is evaluated in [...] bone mineralization in the right proximal femur. 13795 A report detailing these results has been enclosed. Dictating Physician: JULIAN ENCINAS MD Electronically Signed by: JULIAN ENCINAS MD Dic Date/Time: 08/28/20 161 Sign date/Time: 08/28/20 1611 Procedure Note Julian Encinas MD - 10/26/2022 [facility] Diagnostic Imaging Department [address] [place], [place] [address] Patient: ZACHARIAH MICHELLE /Age/Sex: 1955 - 65 - F Unit#: [id number] Location/Status: SPDIMAM/REG CLI [facility] Ordering Physician: ROSA TAMAYO MD [facility] Dexa Axial Skeleton - 08/27/20 - 112 HISTORY: Post menopausal woman with hormone depletion for screening bone densitometry. The patient is on calcium supplement with Vitamin D. TECHNIQUE: Bone densitometry is performed utilizing dual energy x-ray absorptiometry (DEXA) in the [employer] unit. The lumbar spine isevaluated in the [...] decreased bone mineralization in the rightproximal femur. 19662 A report detailing these results has been enclosed. Dictating Physician: JULIAN ENCINAS MD Electronically Signed by: JULIAN ENCINAS MD Dic Date/Time: 08/28/201609 Sign date/Time: 08/28/20 161 Rosa Tamayo MD IMG BI PROCEDURES Final Resu lt from Last 3 Months or Most Recently Relevant to Health Maintenance Insurance MEDICARE [facility] Care Teams Psychiatric Cns Relationship Specialty Start Date End Date Mary Ashton PA [address] [facility], [address] [place] [address] PCP - General 08/05/25
[2025-09-06 16:28] LABS: Iron 96 mcg/dL (30-160); Percent Iron Saturation 31 % (15-50); Total Iron Binding Capacity 306 mcg/dL (228-428); Unsaturated Iron Binding 210 ug/dL
[2025-09-06 16:56] LABS: Ferritin 35 ng/mL (10-250)
== END 2025-09-06 15:03 | disposition home or self-care (01) ==
LOC: HO.LAB 15:02
PROVIDERS: Nurse Practitioner Family; Visit Provider Student in an Organized Health Care Education/Training Program
DX: I10 Essential (primary) hypertension (principal); F41.0 Panic disorder [episodic paroxysmal anxiety]; D64.9 Anemia, unspecified; K58.9 Irritable bowel syndrome, unspecified; M31.6 Other giant cell arteritis; Z79.899 Other long term (current) drug therapy
CPT/HCPCS: 36415; 82728; 83540; 84443; 85652; 86140

== ENCOUNTER 2025-09-12 11:28 | Outpatient (AMB) | payer MEDICARE, OTHER, SELFPAY ==
--- NOTE | 2025-09-12 11:31 | A.OFFVIS_ITS ---
Vital Signs 09/12/25 11:37 Height 5 ft 3 in Weight 125 lb 7.088 oz BMI 22.2 BP 96/60 Blood Pressure Location Lt brachial Position Sitting Pulse 80 Pulse Source Pulse Oximeter Pulse Oximetry (%) 99 Oxygen Delivery Method Room Air Intake Visit Reasons: discuss ordering PET scan Intake Note: Patient presents to discuss ordering PET scan. Allergies meperidine (Demerol) Allergy (Intermediate, Verified 09/12/25 11:37) Vomiting Penicillins (PENICILLINS) Allergy (Intermediate, Verified 09/12/25 11:37) RASH erythromycin base (ERYTHROMYCIN BASE) Allergy (Unknown, Verified 09/12/25 11:37) unknown chlorhexidine (From ChloraPrep Clear) Adverse Reaction (Severe, Verified 09/12/25 11:37) rash isopropyl alcohol (From ChloraPrep Clear) Adverse Reaction (Severe, Verified 09/12/25 11:37) rash HPI Comments Details: Patient is a 70-year-old female with hyperlipidemia, chronic migraine, cervical spondylosis with radiculopathy, polyarticular osteoarthritis, fibromyalgia, osteopenia and biopsy-proven GCA here today for follow up Interval History: Last seen 07/12/25 with me - On Actemra every 3 weeks SC - Continues to do well - No worsening headaches or vision changes - Complains of joint pain - Actemra tapered to every 4 weeks Today - On Actemra every 4 weeks SC - Urgent visit for worsening headaches - Known hx of migraines and currently being evaluated by neuro - Denies jaw claudication and dysphagia Rheumatologic History: Onset 06/2022 . Biopsy proven Prednisone started 07/2022 - 01/2024 Actemra weekly started 08/2022 effective, spaced out to every 10 days 08/2024 and spaced out to every 14 days 11/2024 Initial history: This is a 67-year-old female with past medical history fibromyalgia, osteoarthritis & migraines who presents for evaluation of temporal arteritis. The condition started in the beginning of June of 2022 with worsening headaches associated with worsening blurry vision. She went to the ER on 06/30 labs showed high inflammatory markers, she was prescribed prednisone 60 mg daily for 5 days by the ED physician and sent to vascular surgery for temporal artery biopsy. When she took the prednisone 60 mg her headaches significantly improved. She went for a left temporal artery biopsy on 07/15 which confirmed temporal artery biopsy diagnosis & she was restarted on prednisone 40 mg daily by her PCP. Since being on prednisone she feels much better, with headaches resolved. She states that she has had blurry vision for many months which seem to get a little worse around the time she was diagnosed with temporal arteritis and they have not improved with the prednisone. She denies any loss of vision and both eyes are equally affected. She has not had any eye pain. Reactivity is of daily have not been affected by this blurry vision. Denies history suggestive of uveitis or inflammatory bowel disease. No history of autoimmune disease in the family Osteopenia DEXA scan 07/2022 showed osteopenia but given long-term corticosteroid therapy her FRAX score would be at moderate risk for fracture. I started her alendronate at the time Patient has tapered her prednisone off 01/2024. Repeat DEXA 08/2024 showed improved bone density at the spine. Alendronate disconti nued 08/2024 Current Rheumatology Medication(s): Actemra 162mg SC every 4 weeks [facility] Medical History Anemia Osteoarthritis Fatigue Chronic migraine without aura, intractable, without status migrainosus Osteoarthritis of left knee Fibromyalgia Migraines Basal cell carcinoma of nose Bunion, left foot Surgical History History of meniscectomy of left knee H/O arthroscopic knee surgery H/O toe surgery History of surgery History of bunionectomy H/O colonoscopy Family History Mother Heart problem COPD (chronic obstructive pulmonary disease) Hypertension Father Prostate cancer Colon cancer Diabetes Brother Diabetes Sister Hypertension Hypercholesteremia Social History Housing: House Alcohol intake: current Alcohol intake frequency: holidays/special occasions only Patient Tobacco Use Status: Never used Tobacco e-Cigarette/Vaping Use: Never Used Second Hand Smoke Exposure: No service: No Current occupational status: retired Cognitive needs: No Hearing needs: Yes Vision needs: No Review of Systems Narrative Review of Systems Constitutional: Denies fever, chills, weight loss GI: Denies nausea, vomiting, diarrhea, abdominal pain, change in BM Pulm: Denies SOB, GARNER, hemoptysis, wheezing Cards: Denies chest pain, palpitations Skin: Denies Raynaud's, rash, nail changes, photosensitivity, DRUG SAFETY DATA MANAGEMENT SPECIALIST: Denies weakness, paresthesias, recurrent falls MSK: as per HPI All other systems reviewed and are unremarkable except noted above Physical Exam Exam Exam: Vital signs reviewed Physical Examination CONSTITUITIONAL Patient alert and cooperative. Well appearing and in no apparent painful distress HEENT Conjunctiva and sclera clear. No lymphadenopathy. Normal TA pulse on the right CHEST/RESPIRATORY SYSTEM Normal respiratory effort and able to speak in complete sentences. Clear to auscultation bilaterally. No crackles, rales, rhonchi, wheezes heard. CARDIAC SYSTEM Regular rate and rhythm. S1 and S2 heard no murmurs. Radial pulses intact bilaterally MSK Hands * Right Hand: Able to make a fist. No swelling or tenderness to palpation of the MCPs, PIPs or DIPs. * Left Hand: Able to make a fist. No swelling or tenderness to palpation of the MCPs, PIPs or DIPs. * Herbedens nodes noted bilaterally Wrists * Right Wrist: Full ROM to flexion and extension. No swelling or TTP * Left Wrist: Full ROM to flexion and extension. No swelling or TTP Elbows * Right Elbow: Full ROM. No swelling or TTP. No TTP of the medial epicondyle. No TTP of the lateral epicondyle * Left Elbow: Full ROM. No swelling or TTP. No TTP of the medial epicondyle. No TTP of the lateral epicondyle Shoulders * Right shoulder: Full ROM. No swelling noted. No TTP of the AC joint. No TTP of the subacromial bursa. No TTP of the posterior shoulder * Left shoulder: Full ROM. No swelling noted. No TTP of the AC joint. No TTP of the subacromial bursa. No TTP of the posterior shoulder Knees * Right knee: No swelling noted. No TTP of the knee joint line. No TTP of pes anserine bursa * Left knee: No swelling noted. No TTP of the knee joint line. No TTP of pes anserine bursa. * Crepitations felt bilaterally Vital Signs: Last Vital Signs Pulse 80 09/12/25 11:37 BP 96/60 09/12/25 11:37 Pulse Ox 99 09/12/25 11:37 Oxygen Delivery Method Room Air 09/12/25 11:37 BMI result Body Mass Index 22.2 Results Reviewed Results Reviewed: Laboratory Tests 07/09/25 09/06/25 08:50 15:20 WBC 3.7 L RBC 4.23 Hgb 13.1 Hct 40.0 Plt Count 175 ESR 4 6 Sodium 140 Potassium 4.0 Chloride 105 Carbon Dioxide 30 H BUN 13 Creatinine 0.73 AST 26 ALT 20 C-Reactive Protein < 0.04 < 0.10 Assessment & Plan Assessment & Plan (1) Temporal arteritis: Comment: Onset 06/2022 . Biopsy proven Prednisone started 07/2022 Actemra weekly started 08/2022 effective, spaced out to every 10 days 08/2024 and spaced out to every 14 days 11/2024 Prednisone tapered off 01/2024 Code(s): M31.6 - Other giant cell arteritis Category: Medical Plan: #GCA Patient is a 70-year-old female with biopsy-proven temporal arteritis here today for follow up. We are trying to taper patient's Actemra but patient is currently complaining of worsening headaches and visual changes. ESR and CRP are normal But given her current symptoms I think we need to do further investigation with PET-CT scan Plan - Continue Actemra 162mg every 4 weeks until PET Scan results - RTC 4 months - Labs before visit: CBC, CMP, ESR, CRP, lipid panel (2) Encounter for monitoring tocilizumab therapy: Code(s): Z51.81 - Encounter for therapeutic drug level monitoring; Z79.899 - Other intermediate card tender (current) drug therapy Plan: #Long-term Use of Tocilizumab Discussed the risks and benefits of tocilizumab with the management of this patient's rheumatic condition. ? Benefits include decreased pain, improved mortality, improved quality of life Risks include LFT abnormalities, elevated triglycerides, GI perforations Contraindicated in a patient with history of diverticulitis Monitoring: ?CBC, CMP, triglycerides Plan I spent 40 minutes reviewing the record and labs, taking a history, examining the patient, discussing the treatment plan, ordering diagnostic work up and documenting in the medical record Coding Level of Care Code Est Pt Level 5 (11612) Complex EM visit Add On G2211 Diagnoses Temporal arteritis M31.6 Encounter for monitoring tocilizumab therapy Z51.81; Z79.899
[2025-09-12 11:37] VITALS: BP 96/60; PULSE 80; O2SAT 99; BMI 22.2
--- OUTSIDE RECORDS SUMMARY | 2025-09-12 14:24 | XMS_ITS | Patient Health Record ---
Author Organization [facility] Address [address] [place] [address] Care Team Providers Care Meat Grinder Name Role Phone Tony Caro Primary Care [...] Insured Coverage Start Date Coverage End Date [facility] [address] [place], [place] [id number] Beatris Michelle Self - patient is the insured
--- OUTSIDE RECORDS SUMMARY | 2025-09-12 14:24 | XMS_ITS | Patient Health Record ---
Author Organization [facility] Address [address] [place] [address] Care Team Providers Care Room Designer Name Role Phone Fritz Arteaga MD Primary Care Provider Danielle Mayo Unavailable [phone] Allergies Allergen (clinical drug ingredient) Drug/Non Drug [...] Status Risk Notes Problem Plantar fascial fibromatosis (54050504) Plantar fascial fibromatosis (M72.2) Active confirmed Procedures Procedure Date Ordered Date Performed Result Body Sit e 18892-Snmsextj Plate 11/21/2024 N/A Encounters Encounter Location Date Provider Diagnosis [facility] [place] [address] [place] [address] 11/21/2024 Danielle Beckhamaker Ingrown nail L60.0 Assessments [...] X ray : Foot, left 3V 11/14/2020 76210-Dhzstazq Plate 11/21/2024 41522-Rtsjscxd Plate 09/06/2014 58452-Ttemduxd Plate 10/27/2012 91528-Aiggarau Plate 12/22/2012 51594-Qgncekqx Plate 04/13/2013 28740-Wrycygck Plate 07/13/2013 58765-Ljgylbir Plate 11/20/2013 97510-Pyfkuzzd Plate 02/05/2014 35372-Jcpqnjua Plate 05/31/2014 62241-Onscacce Plate 11/22/2014 52424-Ioxaqngy Plate Each Additional 61429-Yghkvjne Plate Each Additional 80054-Nkqonjdl Plate Each Additional 96431-AMT 02/06/2015 83641- Debride <25 sq cm 02/21/2015 22019- Debride <25 sq cm 03/21/2015 69479- Debride <25 sq cm 11/17/2012 92622- Debride <25 sq cm 10/09/2013 00275-MLXSVRE SKIN/TISSUE 08/28/2024 67455 I&D ABSCESS- SIMPLE,SINGLE 013 38689, W5278-SNUZO/INJECT, JOINT/BURSA 1 12/29/2016 51508, X6994-RXAFZ/INJECT, JOINT/BURSA 0 01/04/2019 08344, E9717-QLZRT/INJECT, JOINT/BURSA 0 07/14/2018 09552, J0702- Neuroma/Injection 10/28/20 17 Insurance Providers Payer Name Payer Address Payer Phone Subscriber Number Group Number Insured Name Patient Relationship to Insured Coverage Start Date Coverage End Date Medicare National [employer] [address] [place] [address] [id number] Teri Michelle Self - patient is the insured [facility] [address] [place] [address] [id number] Teri Michelle Self - patient is the insured Medical (General) History Medical History History ICD Code anxiety back, hip, knee pain chicken pox fibromyalgia headaches/migraines measles mumps sinus conditions Surgical History Surgery Date(Month/Year) Skin cancer removed from nose. 3 Johnson L 03/02/18 knee surgery 09/2023 Hospitalization History Reason Date(Month/Year) [facility] Bunionectomy left foot 03/02/18
--- OUTSIDE RECORDS SUMMARY | 2025-09-12 14:24 | XMS_ITS | Clinical Summary ---
Author Organization [facility] Address [address] [place] [address] Phone Care Team Providers Care Vendette Name Role Phone Mary Ashton Primary Care Provider [phone] Encounters Date Type Department Care Team Description 08/05/2025 10:04 AM EDT - 08/05/2025 11:59 PM EDT [facility] [address] [place] [address] Encounter for screening mammogram for [...] year. Mammography location: [facility] [address], [address] -------- FINAL REPORT -------- Dictated By: Drew Sorenson Dictated Date: 08/05/2025 17:46 ET Assigned Physician: Drew Sorenson Reviewed and Electronically Signed By: Drew Sorenson Signed Date: 08/05/2025 17:52 ET Workstation ID: [id number] Transcribed By: Self Edit Transcribed Date: 08/05/2025 17:46 ET Narrative 08/05/2025 5:52 PM EDT EXAM: SCREENING MAMMOGRAPHY, BILATERAL HISTORY: SCREENING. No additional history. COMPARISON: 08/02/24, 07/18/23, 07/14/22, 07/08/21 TECHNIQUE: Synthesized CC and MLO projections of each breast. Tomosynthesis of each breast in the CC and MLO projections. ADDITIONAL IMAGING: None Computer-aided detection was employed with the [employer] AI 3-D. TISSUE DENSITY: The breasts are [...] year. Mammography location: [facility] [address] [place], [address] -------- FINAL REPORT -------- Dictated By: Drew Sorenson Dictated Date: 08/05/2025 17:46 ET Assigned Physician: Drew Sorenson Reviewed and Electronically Signed By: Drew Sorenson Signed Date: 08/05/2025 17:52 ET Workstation ID: [id number] Transcribed By: Self Edit Transcribed Date: 08/05/2025 17:46 ET Geovanna KENNEDY IMG BI PROCEDURES Final Result * SHANTI DEXA AXIAL SKELETON (08/28/2020 4:11 PM EDT) Anatomical Region Laterality Modality Mammography 08/27/2020 10:5 8 AM EDT Narrative 08/28/2020 4:11 PM EDT [facility] Diagnostic Imaging Department [address] [place] [address] Patient: ZACHARIAH MICHELLE./Age/Sex: 1955 - 65 - F Unit#: [id number] Location/Status: SPDIMAM/REG CLI Mnemonic/Ordering Site: [facility] Ordering Physician: ROSA TAMAYO MD Shanti Dexa Axial Skeleton - 08/27/201119 HISTORY: Post menopausal woman with hormone depletion for screening bone densitometry. The patient is on calcium supplement with Vitamin D. TECHNIQUE: Bone densitometry is performed utilizing dual energy x-ray absorptiometry (DEXA) in the [employer] unit. The lumbar spine is evaluated in [...] bone mineralization in the right proximal femur. 41826 A report detailing these results has been enclosed. Dictating Physician: JULIAN ENCINAS MD Electronically Signed by: JULIAN ENCINAS MD Dic Date/Time: 08/28/20 161 Sign date/Time: 08/28/20 1611 Procedure Note Julian Encinas MD - 10/26/2022 [facility] Diagnostic Imaging Department [address] [place], [place] [address] Patient: ZACHARIAH MICHELLE /Age/Sex: 1955 - 65 - F Unit#: [id number] Location/Status: SPDIMAM/REG CLI [facility] Ordering Physician: ROSA TAMAYO MD [facility] Dexa Axial Skeleton - 08/27/20 - 112 HISTORY: Post menopausal woman with hormone depletion for screening bone densitometry. The patient is on calcium supplement with Vitamin D. TECHNIQUE: Bone densitometry is performed utilizing dual energy x-ray absorptiometry (DEXA) in the [employer] unit. The lumbar spine isevaluated in the [...] decreased bone mineralization in the rightproximal femur. 88349 A report detailing these results has been enclosed. Dictating Physician: JULIAN ENCINAS MD Electronically Signed by: JULIAN ENCINAS MD Dic Date/Time: 08/28/201609 Sign date/Time: 08/28/20 161 Rosa Tamayo MD IMG BI PROCEDURES Final Resu lt from Last 3 Months or Most Recently Relevant to Health Maintenance Insurance MEDICARE [facility] Care Teams Vendette Relationship Specialty Start Date End Date Mary Ashton PA [address] [facility], [address] [place] [address] PCP - General 08/05/25
--- OUTSIDE RECORDS SUMMARY | 2025-09-12 14:25 | XMS_ITS | Patient Health Record ---
Author Organization [facility] Address [address] [place] [address] Care Team Providers Care Tire Changer Name Role Phone Jenni YOUNG, Fritz Primary Care Provider Hubert Mackay Unavailable [phone] Allergies Allergen (clinical drug ingredient) Drug/Non Drug [...] Problem Screening for malignant neoplasm of colon (565559783) Encounter for screening for malignant neoplasm of colon (Z12.11) Active confirmed Problem Irritable bowel syndrome characterized by constipation (862783679) Irritable bowel syndrome with constipation (K58.1) Active confirmed Plan Of Treatment Pending Test Test Name Order Date CELIAC PANEL #10 03/28/2014 Future Test Test Name Order Date COLONOSCOPY 12/28/2018 Insurance Providers Payer Name Payer Address Payer Phone Subscriber Number Group Number Insured Name Patient Relationship to Insured Coverage Start Date Coverage End Date [facility] [address] [place] [phone] [id number] ZACHARIAH LEACH Self - patient is the insured Medical (General) History Medical History History ICD Code Irritable bowel syndrome--lo ng-standing and present for at least 20 years to some degree--symptoms have ranged from diarrhea to constipation Migraines and anxiety Denies SC,DM,CVA,Lung disease,renal dise ase Colonoscopy in 07/2008 negati ve for polyps--just diverticulosis and internal hemorrhoids Fibromyalgia Negative laboratories for ce liac disease and negative abdominal ultrasound 2013 Surgical History Surgery Date(Month/Year) skin cancer -basal cell --near her nose bunionectomy on left foot
== END 2025-09-12 12:12 | disposition home or self-care (01) ==
LOC: HO.RHES 11:29
PROVIDERS: Visit Provider Student in an Organized Health Care Education/Training Program
DX: M31.6 Other giant cell arteritis (principal); Z51.81 Encounter for therapeutic drug level monitoring; Z79.899 Other long term (current) drug therapy
CPT/HCPCS: 99215; G2211

== ENCOUNTER → 2025-09-12 11:28 | Outpatient (BNVA) | payer MEDICARE, OTHER, SELFPAY | PROVIDERS: Visit Provider Student in an Organized Health Care Education/Training Program | DX: M31.6 Other giant cell arteritis (principal); Z79.899 Other long term (current) drug therapy | CPT/HCPCS: 99212 ==

== ENCOUNTER 2025-10-02 09:52 | Outpatient (AMB) | payer MEDICARE, OTHER, SELFPAY ==
[2025-10-02 09:59] VITALS: BP 116/80; PULSE 90; TEMP 36.7; O2SAT 99; BMI 22.1
--- NOTE | 2025-10-02 09:59 | AM.OFFVISMDC ---
Intake Vital Signs 10/02/25 09:59 Height 5 ft 3 in Weight 124 lb 8 oz BMI 22.1 BP 116/80 Blood Pressure Location Lt brachial Position Sitting Pulse 90 Pulse Source Pulse Oximeter Temp 98.1 F Temp Source Temporal Artery Scan Pulse Oximetry (%) 99 Oxygen Delivery Method Room Air Intake Visit Reasons: Annual Wellness Intake Note: AWV Allergies meperidine (Demerol) Allergy (Intermediate, Verified 10/02/25 10:06) Vomiting Penicillins (PENICILLINS) Allergy (Intermediate, Verified 10/02/25 10:06) RASH erythromycin base (ERYTHROMYCIN BASE) Allergy (Unknown, Verified 10/02/25 10:06) unknown chlorhexidine (From ChloraPrep Clear) Adverse Reaction (Severe, Verified 10/02/25 10:06) rash isopropyl alcohol (From ChloraPrep Clear) Adverse Reaction (Severe, Verified 10/02/25 10:06) rash Medication List - Last Reconciled 10/02/25 by Mary Ashton PA-C Actemra ACTPen (tocilizumab) 162 mg (0.9 mL) subcut Q2W NS aspirin 81 mg PO DAILY calcium carbonate-vitamin D3 600 mg-10 mcg (400 unit) 1 cap PO BID celecoxib 200 mg PO BID 90 days citalopram 15 mg (1.5 x 10 mg) PO DAILY 90 days famotidine (Pepcid) 20 mg PO BEDTIME 30 days fluoride (sodium) 1.1% (DentaGel) dental gabapentin 600 mg PO BEDTIME galcanezumab-gnlm (Emgality Pen) 120 mg subcut ONCE 30 days magnesium glycinate 200 mg PO DAILY metronidazole 0.75% appl topical QPM multivitamin 1 tab PO DAILY onabotulinumtoxinA (Botox) 200 units IM ONCE 12 weeks sumatriptan succinate 6 mg subcutaneously at onset of nocturnal migraine, may repeat in 1 hr PRN; 28 days MDD 1 ml per day sumatriptan succinate 50 - 100 mg orally at onset of headache, may repeat in 2 hrs PRN; max 2 tabs per day or 4 tabs/week 30 days ubrogepant (Ubrelvy) 50 - 100 mg (0.5 - 1 x 100 mg) PO ONCE PRN 30 days HPI Annual Wellness HPI Details 70-year-old female with past medical history of fibromyalgia, panic disorder, temporal arteritis, migraines last seen 02/2025 coming in for annual exam. In review of the notes, patient was seen by rheum PET-CT ordered and continued on Actemra and follow up in 4 months. Seen by neuro 08/2025 given botox injections. Seen by neuro earlier that month continued on medication regimen. Presenting for follow-up of multiple chronic conditions, including worsening headaches. The patient reports the headaches have been horrible and have worsened since receiving Botox injections in mid-August. The patient has been seeing neurology and has previously tried Botox for a year without benefit. The patient has a history of giant cell arteritis and is being treated with Actemra injections every four weeks, which is currently being tapered. A PET scan is scheduled for next week to determine if there is ongoing inflammation and if the headaches are related to the giant cell arteritis, which will guide the decision to stop Actemra. For acute headache management, the patient has sumatriptan, which causes significant indigestion, and Ubrelvy, which has variable efficacy. For approximately 12 days, the patient has had cold symptoms that have now settled into sinus pressure with post-nasal drip, consistent with prior episodes of post-viral sinusitis. 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 colonoscopy: 2019 DEXA: 08/2024 vaccines: utd [facility] Medical History Anemia Osteoarthritis Fatigue Chronic migraine without aura, intractable, without status migrainosus Osteoarthritis of left knee Fibromyalgia Migraines Basal cell carcinoma of nose Bunion, left foot Surgical History History of meniscectomy of left knee H/O arthroscopic knee surgery H/O toe surgery History of surgery History of bunionectomy H/O colonoscopy Family History Mother Heart problem COPD (chronic obstructive pulmonary disease) Hypertension Father Prostate cancer Colon cancer Diabetes Brother Diabetes Sister Hypertension Hypercholesteremia Social History Housing: House Alcohol intake: current Alcohol intake frequency: holidays/special occasions only Patient Tobacco Use Status: Never used Tobacco e-Cigarette/Vaping Use: Never Used Second Hand Smoke Exposure: No service: No Current occupational status: retired Cognitive needs: No Hearing needs: Yes Vision needs: No Questionnaire Medicare Wellness Checkup [age] What gender do you identify with?: female During the past 4 weeks, how much have you been bothered by emotional problems such as feeling anxious, depressed, irritable, sad or downhearted, and blue?: not at all During the past 4 weeks, has your physical & emotional health limited your social activities with family, friends, neighbors, or groups?: not at all During the past 4 weeks, how much bodily pain have you generally had?: moderate pain During the past 4 weeks, was someone available to help you if you needed & wanted help?: yes, as much as I wanted During the past 4 weeks, what was the hardest physical activity you could do for at least 2 minutes?: moderate Can you get to places out of walking distance without help? (For eg., can you travel alone on buses, taxis or drive your car?): Yes Can you go shopping for groceries or clothes without someone's help?: Yes Can you prepare your own meals?: Yes Can you do your housework without help?: Yes Because of any health problems, do you need the help of another person with your personal care needs such as eating, bathing, dressing or getting around the house?: No Can you handle your own money without help?: Yes During the past 4 weeks, how would you rate your health in general?: good During the past 4 weeks how have things been going for you?: pretty well Are you having difficulties driving your car?: no Do you always fasten your seat belt when you are in a car?: yes, usually During past 4 weeks, have you been bothered by the following: never: Falling or dizzy when standing up, Sexual problems?, Trouble eating well?, Teeth or denture problems? and Problems using the telephone? and seldom: Tiredness or fatigue? Have you fallen 2 or more times in the past year?: No Are you afraid of falling?: No Are you a smoker?: no During the past 4 weeks, how many drinks of wine, beer, or other alcoholic beverages did you have?: no alcohol at all Do you exercise for about 20 minutes 3 or more times a week?: yes, some of the time Have you been given information to help with the following?: no: Hazards in your house that might hurt you? and no: Keeping track of your medications? How often do you have trouble taking medicines the way you have been told to take them?: I always take medicine as prescribed How confident are you that you can control & manage most of your health problems?: very confident What is your race?: White Mini Mental State Exam (MMSE) Orientation What is the (year) (season) (date) (day) (month)?: year, season, date, day and month Where are we (state) (county) (town or city) (hospital) (floor)?: state, county, town or city, hospital/clinic and floor Score Score: 10 Activity of Daily Living Bathing - sponge bath, tub bath or shower: receives no assistance (gets in/out by self, if usual bathing means Dressing - getting clothes from closets & drawers, including inner/outer garments & fasteners.: gets clothes & gets completely dressed without help Toileting - going to the 'toilet room' for urine/bowel elimination & cleaning self/arranging clothes: goes to toilet room, cleans self, arranges clothes without help Transfer: moves in & out of bed and chair without help (may use support object) Continence: controls urination/bowel movements completely by self Feeding: feeds self without help Total Score: 0 Information obtained from: patient Using telephone: independent Traveling: independent Shopping: independent Preparing meals: independent Housework: independent Taking medicine: independent Managing money: independent PHQ-9 Over the last 2 weeks, how often have you been bothered by any of the following problems? 1. Little interest or pleasure in doing things: not at all 2. Feeling down, depressed, or hopeless: not at all 3. Trouble falling or staying asleep, or sleeping too much: not at all 4. Feeling tired or having little energy: not at all 5. Poor appetite or overeating: not at all 6. Feeling bad about yourself - or that you are a failure or have let yourself or your family down: not at all 7. Trouble concentrating on things, such as reading the newspaper or watching television: not at all 8. Moving or speaking so slowly that other people could have noticed. Or the opposite - being so fidgety or restless that you have been moving around a lot more than usual: not at all 9. Thoughts that you would be better off or of hurting yourself in some way: not at all Total score: 0 Depression Screening Interpretation: Negative Depression Screening Done: Yes Source: Developed by Drs. Hubert Muniz, Summer Minaya, Barron Roa and colleagues, with an educational elvira from [employer]. Review of Systems Const Denies body aches, Denies fatigue, Denies fever(s), Denies frequent falls, Reports headache(s) and Denies weakness Eyes Reports no additional complaints, Reports blurry vision and Denies change in vision ENT Denies dysphagia, Denies dizziness, Denies facial pain, Reports headache(s), Reports nasal congestion, Reports nasal discharge, Denies odynophagia and Reports sinus pain Card Denies chest pain, Denies syncope, Denies irregular heart rhythm, Denies leg edema, Denies lightheadedness and Denies dyspnea Resp Denies cough and Denies dyspnea GI Denies abdominal pain, Reports constipation, Denies dysphagia, Denies dyspepsia, Reports heartburn (w/sumatriptan ), Denies diarrhea, Reports nausea (w/ sumatriptan ), Denies odynophagia and Denies vomiting Denies urinary frequency, Denies dysuria, Denies urinary hesitancy and Denies urinary urgency Musc Denies back pain and Denies myalgias Skin/Breast Reports system reviewed and no additional complaints, except as documented Neuro Denies dizziness, Denies syncope, Denies frequent falls, Reports headache(s) and Denies weakness Psych Reports no additional complaints Endo Denies fatigue Physical Exam Vital Signs: Last Vital Signs Temp 98.1 F 10/02/25 09:59 Pulse 90 10/02/25 09:59 BP 116/80 10/02/25 09:59 Pulse Ox 99 10/02/25 09:59 Oxygen Delivery Method Room Air 10/02/25 09:59 BMI result Body Mass Index 22.1 Const General: cooperative, healthy appearing, comfortable and no acute distress Orientation/consciousness: patient oriented x3 HEENT Other: Sinus tenderness Head: Yes normocephalic Ears: hearing grossly normal bilaterally, external ears normal, TM's normal bilaterally and EAC's normal General nose exam: Normal external nose present Face and sinus: Yes normal facial exam and Yes sinuses nontender Mouth: Normal oral and palatal mucosa present and tongue normal Throat: Yes posterior oropharynx normal Eyes General: appearance normal, both eyes and all related structures Conjunctivae: conjunctivae normal Pupils: Equal, round and reactive pupils present EOM: EOMs intact bilaterally and No Nystagmus present Neck Neck: Yes normal visual inspection, Yes full ROM and Yes no lymphadenopathy Chest Chest palpation & inspection: normal inspection of the chest Resp Effort & Inspection: normal respiratory effort Auscultation: clear to auscultation bilaterally, no crackles, no rales, no rhonchi, no wheezes and breath sounds present Cardio Rate: regular rate Rhythm: regular rhythm Peripheral pulses: radial pulses present and dorsalis pedis present GI Inspection: Yes normal to inspection and No Abdominal wall edema Palpation (GI): Soft to palpation, not firm and nontender Auscultation: normal bowel sounds Rectal Exam - Female: deferred General: Yes no CVA tenderness Back/Spine/Pelvis Back: no CVA tenderness Skin General skin exam: no rashes or lesions noted Neuro General: patient oriented x3 Cranial nerves: Yes Equal, round and reactive pupils present, Yes Midline tongue present, Yes Ability to bilaterally elevate shoulders present and No Nystagmus present Gait exam (Neuro): Normal gait present Extrem General: Yes normal to inspection, Yes full ROM, No no pedal edema and No edema Psych Speech and movement: Normal speech and movement present Affect: normal affect Insight: Good insight present (Psych) Judgement: Good judgement present (Psych) Assessment & Plan Assessment & Plan (1) Annual wellness visit: Code(s): Z00.00 - Encounter for general adult medical examination without abnormal findings Plan: [place] of care was reviewed with patient patient was provided with a written screening schedule. Healthcare proxy/ MOLST forms were reviewed with patient and these has been completed previously. Blood work is up-to-date and has been reviewed with the patient today. Healthy diet and regular exercise is encouraged. (2) Sinusitis: Code(s): J32.9 - Chronic sinusitis, unspecified Plan: The patient has had symptoms of a cold with sinus pressure for 12 days, suggesting a bacterial sinus infection. Given allergies to penicillin and a poor reaction to azithromycin, a prescription for doxycycline to be taken twice daily for seven days was provided. The patient was advised to take the medication with food and water to minimize stomach upset and to avoid sunlight. The patient was also advised to use Mucinex and to follow up if symptoms do not improve. (3) Panic disorder: Code(s): F41.0 - Panic disorder [episodic paroxysmal anxiety] Plan: Continue on current medication regimen at this time. (4) Hypercholesterolemia: Code(s): E78.00 - Pure hypercholesterolemia, unspecified Plan: Avoid foods that are high in cholesterol such as red meat, fried foods, eggs and baked goods. Triglyceride goal of less than 150 and LDL goal of less than 100. LDL may be elevated due to patient's current medication side effects. We will continue to monitor at this time (5) Osteopenia: Comment: DEXA scan 07/2022 showed osteopenia but given long-term corticosteroid therapy her FRAX score would be at moderate risk for fracture. Alendronate 07/2022 Repeat DEXA 08/2024 showed improved bone density at the spine. Alendronate discontinued 08/2024 Code(s): M85.80 - Other specified disorders of bone density and structure, unspecified site Qualifiers: Osteopenia location: multiple sites Qualified Code(s): M85.89 - Other specified disorders of bone density and structure, multiple sites Plan: Patient will continue on calcium and vitamin-D supplement and due for bone density next year (6) Anemia: Code(s): D64.9 - Anemia, unspecified Plan: Improved (7) Temporal arteritis: Comment: Onset 06/2022 . Biopsy proven Prednisone started 07/2022 Actemra weekly started 08/2022 effective, spaced out to every 10 days 08/2024 and spaced out to every 14 days 11/2024 Prednisone tapered off 01/2024 Code(s): M31.6 - Other giant cell arteritis Plan: The patient's headaches have been worsening, and the etiology is currently unclear, possibly related to giant cell arteritis (GCA) or a primary neurologic issue. The plan is to await the results of a PET scan scheduled for next week to assess for inflammation. If the scan is negative, it is less likely the headaches are related to GCA, and management will proceed via neurology. The patient will continue the current tapering schedule of Actemra, with the last dose planned for October pending consultation with rheumatology. (8) Chronic migraine without aura, intractable, without status migrainosus: Code(s): G43.719 - Chronic migraine without aura, intractable, without status migrainosus Plan: See above plan. Continue to follow up with Neurology (9) Fibromyalgia, primary: Code(s): M79.7 - Fibromyalgia Plan: Patient feels her fibromyalgia as well managed at this time and she will continue on gabapentin (10) IBS (irritable bowel syndrome): Code(s): K58.9 - Irritable bowel syndrome, unspecified Plan: For IBS she primarily has constipation symptoms. She will continue to increase fiber intake and water intake and exercise as tolerated. Plan This note was constructed using voice recognition software. While every effort has been made to ensure accuracy and gang saw operator, still areas may have been included sometimes these areas may affect the content or meeting of the given symptoms. Total time spent caring for the patient today was 30 minutes. This includes time spent before the visit reviewing the chart, time spent during the visit, and time spent after the visit and documentation. Patient was informed and verbally consented to the use of an ambient scribe for clinic note documentation during this visit. Medications: New doxycycline hyclate 100 mg PO BID 14 tabs 0RF Quality Reporting (2019) Depression/Bipolar (159/160/161/177) PHQ-9: Total score: 0 Coding Level of Care Code Medicare Subsequent (G0439) Diagnoses Annual wellness visit Z00.00 Sinusitis J32.9 Panic disorder F41.0 Hypercholesterolemia E78.00 Osteopenia of multiple sites M85.89 Osteopenia location: multiple sites Anemia D64.9 Temporal arteritis M31.6 Chronic migraine without aura, intractable, without status migrainosus G43.719 Fibromyalgia, primary M79.7 IBS (irritable bowel syndrome) K58.9 CPT Codes Advance Care Planning - Time spent: 1-15 minutes, not on file ([id number]) Advance Care Planning Advance Care Planning discussion: Exists, not on file Date of discussion: 10/02/25 Who was present: Myself, patient Forms completed: None Time spent: 1-15 minutes, not on file
--- OUTSIDE RECORDS SUMMARY | 2025-10-02 11:28 | XMS_ITS | Clinical Summary ---
Author Organization [facility] Address [address] [place] [address] Phone Care Team Providers Care Healthcare Representative Name Role Phone Mary Ashton Primary Care Provider [phone] Encounters Date Type Department Care Team Description 08/05/2025 10:04 AM EDT - 08/05/2025 11:59 PM EDT Hospital Encounter [facility] [address] [place] [address] Encounter for screening mammogram for [...] year. Mammography location: [facility] [address], [address] -------- FINAL REPORT -------- Dictated By: Drew Sorenson Dictated Date: 08/05/2025 17:46 ET Assigned Physician: Drew Sorenson Reviewed and Electronically Signed By: Drew Sorenson Signed Date: 08/05/2025 17:52 ET Workstation ID: [id number] Transcribed By: Self Edit Transcribed Date: 08/05/2025 17:46 ET Narrative 08/05/2025 5:52 PM EDT EXAM: SCREENING MAMMOGRAPHY, BILATERAL HISTORY: SCREENING. No additional history. COMPARISON: 08/02/24, 07/18/23, 07/14/22, 07/08/21 TECHNIQUE: Synthesized CC and MLO projections of each breast. Tomosynthesis of each breast in the CC and MLO projections. ADDITIONAL IMAGING: None Computer-aided detection was employed with the [employer] AI 3-D. TISSUE DENSITY: The breasts are [...] year. Mammography location: [facility] [address] [place], [address] -------- FINAL REPORT -------- Dictated By: Drew Sorenson Dictated Date: 08/05/2025 17:46 ET Assigned Physician: Drew Sorenson Reviewed and Electronically Signed By: Drew Sorenson Signed Date: 08/05/2025 17:52 ET Workstation ID: [id number] Transcribed By: Self Edit Transcribed Date: 08/05/2025 17:46 ET Geovanna KENNEDY IMG BI PROCEDURES Final Result * SHANTI DEXA AXIAL SKELETON (08/28/2020 4:11 PM EDT) Anatomical Region Laterality Modality Mammography 08/27/2020 10:5 8 AM EDT Narrative 08/28/2020 4:11 PM EDT [facility] Diagnostic Imaging Department [address] [place] [id number] Patient: ZACHARIAH MICHELLE./Age/Sex: 1955 - 65 - F Unit#: [id number] Location/Status: SPDIMAM/REG CLI Mnemonic/Ordering Site: [facility] Ordering Physician: ROSA TAMAYO MD Shanti Dexa Axial Skeleton - 08/27/201119 HISTORY: Post menopausal woman with hormone depletion for screening bone densitometry. The patient is on calcium supplement with Vitamin D. TECHNIQUE: Bone densitometry is performed utilizing dual energy x-ray absorptiometry (DEXA) in the Holidu unit. The lumbar spine is evaluated in [...] bone mineralization in the right proximal femur. [address]62 A report detailing these results has been enclosed. Dictating Physician: JULIAN ENCINAS MD Electronically Signed by: JULIAN ENCINAS MD Dic Date/Time: 08/28/20 161 Sign date/Time: 08/28/20 1611 Procedure Note Julian Encinas MD - 10/26/2022 [facility] Diagnostic Imaging Department [address] [place], [place] [id number] Patient: ZACHARIAH MICHELLE /Age/Sex: 1955 - 65 - F Unit#: [id number] Location/Status: SPDIMAM/REG CLI [facility] Order[facility] Physician: ROSA TAMAYO MD [facility] Dexa Axial Skeleton - 08/27/20 - 112 HISTORY: Post menopausal woman with hormone depletion for screening bone densitometry. The patient is on calcium supplement with Vitamin D. TECHNIQUE: Bone densitometry is performed utilizing dual energy x-ray absorptiometry (DEXA) in the Holidu unit. The lumbar spine isevaluated in the [...] decreased bone mineralization in the rightproximal femur. [id number] A report detailing these results has been enclosed. Dictating Physician: JULIAN ENCINAS MD Electronically Signed by: JULIAN ENCINAS MD Dic Date/Time: 08/28/201609 Sign date/Time: 08/28/20 161 Rosa Tamayo MD IMG BI PROCEDURES Final Resu lt from Last 3 Months or Most Recently Relevant to Health Maintenance Insurance MEDICARE [facility] Care Teams Healthcare Representative Relationship Specialty Start Date End Date Mary Ashton PA [address] [facility], [address] [place] [address] PCP - General 08/05/25
== END 2025-10-02 10:46 | disposition home or self-care (01) ==
LOC: HO.HMCH 09:53
DX: Z00.00 Encounter for general adult medical examination without abnormal findings (principal); M31.6 Other giant cell arteritis; J32.9 Chronic sinusitis, unspecified; F41.0 Panic disorder [episodic paroxysmal anxiety]; E78.00 Pure hypercholesterolemia, unspecified; M85.89 Other specified disorders of bone density and structure, multiple sites; D64.9 Anemia, unspecified; G43.719 Chronic migraine without aura, intractable, without status migrainosus; M79.7 Fibromyalgia; K58.9 Irritable bowel syndrome, unspecified

== ENCOUNTER 2025-10-08 09:37 | Outpatient (REF) | payer MEDICARE, OTHER, SELFPAY ==
[2025-10-08 10:15] LABS: MANUAL DIFF FLAG NO
[2025-10-08 10:26] LABS: Hematocrit 37.3 % (37.0-47.0); Hemoglobin 12.4 g/dl (12.0-16.0); Imm Gran Abs Auto 0.01 X10*3/uL (0.00-0.03); Imm Gran Pct Auto 0.2 % (0.0-0.4); Lymphocytes Absolute Auto 1.5 X10*3/uL (1.2-4.9); Mean Corpuscular HGB Conc 33.2 g/dl (31.0-35.0); Mean Corpuscular Hemoglobin 31.1 pg (27.0-33.0); Mean Corpuscular Volume 93.5 fL (80.0-98.0); NRBC Abs Auto 0.000 X10*3/uL (0.0-0.012); NRBC Pct Auto 0.0 /100WBC (0.0-0.2); Platelet Count 181 X10*3/uL (160-400); Red Blood Count 3.99 X10*6/uL (4.20-5.50); White Blood Count 4.3 X10*3/uL (4.8-10.8)
--- OUTSIDE RECORDS SUMMARY | 2025-10-08 10:31 | XMS_ITS | Clinical Summary ---
Author Organization [facility] Address [address] [place] [address] Phone Care Team Providers Care Clinical Technologist Name Role Phone Mary Ashton Primary Care Provider Encounters Date Type Department Care Team Description 08/05/2025 10:04 AM EDT - 08/05/2025 11:59 PM EDT Hospital [facility] [address] [place] [address] Encounter for screening mammogram for [...] year. [facility]ammography location: [facility] [address], [address] -------- FINAL REPORT -------- Dictated By: Drew Sorenson Dictated Date: 08/05/2025 17:46 ET Assigned Physician: Drew Sorenson Reviewed and Electronically Signed By: Drew Sorenson Signed Date: 08/05/2025 17:52 ET Workstation ID: [id number] Transcribed By: Self Edit Transcribed Date: 08/05/2025 17:46 ET Narrative 08/05/2025 5:52 PM EDT EXAM: SCREENING MAMMOGRAPHY, BILATERAL HISTORY: SCREENING. No additional history. COMPARISON: 08/02/24, 07/18/23, 07/14/22, 07/08/21 TECHNIQUE: Synthesized CC and MLO projections of each breast. Tomosynthesis of each breast in the CC and MLO projections. ADDITIONAL IMAGING: None Computer-aided detection was employed with the [employer] AI 3-D. TISSUE DENSITY: The breasts are [...] year. Mammography location: [facility] [address] [place], [address] -------- FINAL REPORT -------- Dictated By: Drew Sorenson Dictated Date: 08/05/2025 17:46 ET Assigned Physician: Drew Sorenson Reviewed and Electronically Signed By: Drew Sorenson Signed Date: 08/05/2025 17:52 ET Workstation ID: [id number] Transcribed By: Self Edit Transcribed Date: 08/05/2025 17:46 ET Geovanna KENNEDY IMG BI PROCEDURES Final Result * SHANTI DEXA AXIAL SKELETON (08/28/2020 4:11 PM EDT) Anatomical Region Laterality Modality Mammography 08/27/2020 10:5 8 AM EDT Narrative 08/28/2020 4:11 PM EDT [facility] Diagnostic Imaging Department [address] [place] [address] Patient: ZACHARIAH MICHELLE./Age/Sex: 1955 - 65 - F Unit#: [id number] Location/Status: SPDIMAM/REG CLI Mnemonic/Ordering Site: [facility] Ordering Physician: ROSA TAMAYO MD Shanti Dexa Axial Skeleton - 08/27/201119 HISTORY: Post menopausal woman with hormone depletion for screening bone densitometry. The patient is on calcium supplement with Vitamin D. TECHNIQUE: Bone densitometry is performed utilizing dual energy x-ray absorptiometry (DEXA) in the gdgt unit. The lumbar spine is evaluated in [...] bone mineralization in the right proximal femur. 404[address] A report detailing these results has been enclosed. Dictating Physician: JULIAN ENCINAS MD Electronically Signed by: JULIAN ENCINAS MD Dic Date/Time: 08/28/20 161 Sign date/Time: 08/28/20 1611 Procedure Note Julian Encinas MD - 10/26/2022 [facility] Diagnostic Imaging Department [address] [place], [place] [address] Patient: ZACHARIAH MICHELLE /Age/Sex: 1955 - 65 - F Unit#: [id number] Location/Status: SPDIMAM/REG CLI [facility] Ordering Physician: ROSA TAMAYO MD [facility] Dexa Axial Skeleton - 08/27/20 - 112 HISTORY: Post menopausal woman with hormone depletion for screening bone densitometry. The patient is on calcium supplement with Vitamin D. TECHNIQUE: Bone densitometry is performed utilizing dual energy x-ray absorptiometry (DEXA) in the gdgt unit. The lumbar spine isevaluated in the [...] decreased bone mineralization in the rightproximal femur. 38555 A report detailing these results has been enclosed. Dictating Physician: JULIAN ENCINAS MD Electronically Signed by: JULIAN ENCINAS MD Dic Date/Time: 08/28/201609 Sign date/Time: 08/28/20 161 Rosa Tamayo MD IMG BI PROCEDURES Final Resu lt from Last 3 Months or Most Recently Relevant to Health Maintenance Insurance MEDICARE [facility] Care Teams Clinical Technologist Relationship Specialty Start Date End Date Mary Ashton PA [address] [facility], [address] [place] [address] PCP - General 08/05/25
[2025-10-08 10:52] LABS: Alanine Aminotransferase 21 U/L (0-31); Albumin Level 4.2 g/dL (3.5-5.0); Alkaline Phosphatase 47 U/L (39-117); Anion Gap 10 (12-20); Aspartate Amino Transferase 25 U/L (5-31); Blood Urea Nitrogen 21 mg/dL (9-16); Calcium 9.2 mg/dL (8.4-10.2); Carbon Dioxide 30 mmol/L (22-29); Chloride 104 mmol/L (96-108); Cholesterol 189 mg/dL (<200); Estimated Glomerular Filt Rate > 60; HDL Cholesterol 47 mg/dL (>40); Potassium 4.3 mmol/L (3.3-5.1); Sodium 140 mmol/L (135-145); Total Protein 6.7 g/dL (6.5-8.0); Triglycerides 126 mg/dL (<150)
[2025-10-08 11:22] LABS: Erythrocyte Sedimentation Rate 9 MM/HR (0-20)
== END 2025-10-08 09:38 | disposition home or self-care (01) ==
LOC: HO.10HDL 09:37
PROVIDERS: Visit Provider Student in an Organized Health Care Education/Training Program
DX: E55.9 Vitamin D deficiency, unspecified (principal); Z79.899 Other long term (current) drug therapy
CPT/HCPCS: 36415; 80053; 80061; 82306; 85025; 85652; 86140

== ENCOUNTER 2025-10-09 14:54 | Outpatient (REF) | payer SELFPAY ==
--- OUTSIDE RECORDS SUMMARY | 2025-10-09 07:26 | XMS_ITS | Encounter Summary ---
Author Organization [facility] Address [address] [place] [address] Care Team Providers Care Patient Registration Specialist Name Role Phone Mary Ashton Primary Care Provider [phone] Reason for Visit * Imaging (Routine) - Pending Review Specialty Diagnoses / Procedures Referred By Brett esteves Referred To Contact Radiology Diagnoses Other giant cell arteritis ([facility]/HCC V24, [facility] V28) Procedures PET CT Whole Body Initial PET CT Skull to Mid Thigh Initial Karen Ashton MD [address] [place] [address] Phone: tel: fax: [facility] Referral ID Status Reason Start Date Expiration Date V isits Requested Visits Authorized [id number] Pending Review 10/09/2025 10/09/2026 1 1 Encounter Details Date Type Department Care Team (Latest Contact Info) Description 10/09/2025 7:26 AM EST Hospital Encounter [facility] PET Scan [address] [place] [address] Other giant cell arteritis (CMS/HCC V24, CMS/[facility] V28) Social History Tobacco Use Types Packs/Day Years Used Date Smoking Tobacco: Never Assessed Comments No Sex and Gender Information Value Date Recorded Sex Assigned at Not on file Legal Sex Female 1:21 PM EST Gender Identity Not on file Sexual Orientation Not on file documented as of this encounter Plan of Treatment Pending Results Name Type Priority Associated Diagnoses Date /Time PET CT Whole Body Initial Imaging Routine Other giant cell arteritis (CMS/HCC V24, CMS/HCC V28) 10/09/2025 9:45 AM EST Scheduled Orders Name Type Priority Associated Diagnoses Orde r Schedule PET CT Whole Body Initial Imaging Routine Other giant cell arteritis (CMS/HCC V24, CMS/HCC V28) Once for 1 Occurrences starting 10/09/2025 until 10/09/2025 documented as of this encounter Visit Diagnoses Diagnosis Other giant cell arteritis (CMS/HCC V24, CMS/HCC V28) documented in this encounter Administered Medications Inactive Administered Medications - up to 3 most recent administrations Medication Order MAR Action Action Date Dose Rate Site F-18 FDG pet diag radio-isotope injection 13.3 millicurie 13.3 millicurie, intravenous, Once in imaging, Starting on Tue10/09/25 at 0815, For 1 dose Given 10/09/2025 7:50 AM EST 13.3 millicuries Right Antecubital documented in this encounter Orders Medications Ordered That Rodríguez ht Not Have Been Administered Count Last Ordered Date First Ordered Date F-18 FDG pet diag radio-isot ope injection 13.3 millicurie 1 10/09/2025 documented in this encounter Care Teams Patient Registration Specialist Relationship Specialty Start Date End Date Mary Ashton PA [address] [place] [address], [address] [place] [address] PCP - General 08/05/25 documented as of this encounter
--- OUTSIDE RECORDS SUMMARY | 2025-10-09 17:59 | XMS_ITS | Patient Health Record ---
Author Organization [facility] Address [address] [place] [address] Care Team Providers Care Granulating Blender Name Role Phone Jenni YOUNG, Fritz Primary Care Provider Hubert Mackay Unavailable [phone] Allergies Allergen (clinical drug ingredient) Drug/Non Drug Allergy documented on EMR Reaction Allergy Type Onset Date Status Demerol Unknown Drug Allergy Active Penicillin Unknown Drug Allergy Active Sulfa Unknown Drug Allergy Active Reason For Referral No Information Medications Medication SIG (Take, Route, Frequency, Duration) Notes Start Date End Date Status Gabapentin 400 MG Capsule 1 capsule Oral ly Once a day/hs Active Citalopram Hydrobromide 15 mg 1 tablet Orally Once a day Active Multi Vitamin/Minerals - Tablet as directed Orally once a day Active Calcium + D 600mg 1 tablet Orally once a day Active Immunizations Vaccine Route Administration Date Status Comme nts Influenza Unknown 08/07/2018 Administered Social History Social History Drugs/Alcohol: Social Info Question Answer Notes Alcohol Screen Did you have a drink containing alcohol in the past year? Yes How often did you have a drink containing alcohol in the past year? Never (0 point) How many drinks did you have on a typical day when you were drinking in the past year? 1 or 2 drinks (0 point) How often did you have 6 or more drinks on one occasion in the past year? Never (0 point) Points 0 Interpretation Negative Additional Details Category Social Info Options Details Miscellaneous: Marital status: Occupation: She works in [employer] Notes: She does not smoke or [...] Problem Screening for malignant neoplasm of colon (781621878) Encounter for screening for malignant neoplasm of colon (Z12.11) Active confirmed Problem Irritable bowel syndrome characterized by constipation (463734744) Irritable bowel syndrome with constipation (K58.1) Active confirmed Plan Of Treatment Pending Test Test Name Order Date CELIAC PANEL #10 03/28/2014 Future Test Test Name Order Date COLONOSCOPY 12/28/2018 Insurance Providers Payer Name Payer Address Payer Phone Subscriber Number Group Number Insured Name Patient Relationship to Insured Coverage Start Date Coverage End Date [facility] [address] [place] [phone] [id number] ZACHARIAH LEACH Self - patient is the insured Medical (General) History Medical History History ICD Code Irritable bowel syndrome--lo ng-standing and present for at least 20 years to some degree--symptoms have ranged from diarrhea to constipation Migraines and anxiety Denies [place],DM,CVA,Lung disease,renal dise ase Colonoscopy in 07/2008 negati ve for polyps--just diverticulosis and internal hemorrhoids Fibromyalgia Negative laboratories for ce liac disease and negative abdominal ultrasound 2013 Surgical History Surgery Date(Month/Year) skin cancer -basal cell --near her nose bunionectomy on left foot
--- OUTSIDE RECORDS SUMMARY | 2025-10-09 17:59 | XMS_ITS | Clinical Summary ---
Author Organization [facility] Address [address] [place] [address] Phone Care Team Providers Care Asbestos Siding Installer Name Role Phone Mary Ashton Primary Care Provider [phone] Encounters Date Type Department Care Team Description 10/09/2025 7:26 AM EST Hospital Encounter [facility] PET Scan [address] [place] [address] Other giant cell arteritis ([facility]/HCC V24, CMS/HCC V28) 08/05/2025 10:04 AM EDT - 08/05/2025 11:59 PM EDT [facility] [address] [address] Encounter for screening mammogram for malignant [...] Done Comments Colorectal Cancer Screening: Colonoscopy 1955 Zoster Vaccines (2 of 2) 12/03/2020 10/08/2020 Pneumococcal Vaccine: 50+ Years (2 of 2 - PCV20 or PCV21) 10/08/2021 10/08/2020 Falls Risk Assessment 10/05/2022 Hepatitis C Screening 10/05/2022 Medicare Annual Wellness Visit 10/05/2022 Social Influencers of Health Screening 10/05/2022 Depression Screening 11/07/2024 COVID-19 Vaccine ( season) 2026 08/01/2025, 11/14/2024, 08/09/2023, Additional history exists Breast Cancer Screening 08/05/2027 08/05/20, 08/02/2024, 07/18/2023, Additional history exists Osteoporosis Screening (Bone Density Screening) 08/28/2030 08/28/2020, 02/16/2018 DTaP,Tdap,and Td Vaccines (2 - Td or Tdap) 11/19/2034 11/19/2024 RSV Immunization Adult Patients Completed 11/14/2024 Influenza Vaccine Completed 08/01/2025, , 08/09/2023, Additional history exists HIB Vaccines Aged Out No longer eligi [...] [facility]amm[facility] location[facility] [address], [address] -------- FINAL REPORT -------- Dictated By: Drew Sorenson Dictated Date: 08/05/2025 17:46 ET Assigned Physician: Drew Sorenson Reviewed and Electronically Signed By: Drew Sorenson Signed Date: 08/05/2025 17:52 ET Workstation ID: [id number] Transcribed By: Self Edit Transcribed Date: 08/05/2025 17:46 ET Narrative 08/05/2025 5:52 PM EDT EXAM: SCREENING MAMMOGRAPHY, BILATERAL HISTORY: SCREENING. No additional history. COMPARISON: 08/02/24, 07/18/23, 07/14/22, 07/08/21 TECHNIQUE: Synthesized CC and MLO projections of each breast. Tomosynthesis of each breast in the CC and MLO projections. ADDITIONAL IMAGING: None Computer-aided detection was employed with the [employer] AI 3-D. TISSUE DENSITY: The breasts are [...] Computer-aided detection was employed with the [employer] AI 3-D. TISSUE DENSITY: The breasts are [...] year. Mammography location: [facility] [address] [place], [address] -------- FINAL REPORT -------- Dictated By: Drew Sorenson Dictated Date: 08/05/2025 17:46 ET Assigned Physician: Drew Sorenson Reviewed and Electronically Signed By: Drew Sorenson Signed Date: 08/05/2025 17:52 ET Workstation ID: [id number] Transcribed By: Self Edit Transcribed Date: 08/05/2025 17:46 ET us Geovanna KENNEDY IMG BI PROCEDURES Final Result * SHANTI DEXA AXIAL SKELETON (08/28/2020 4:11 PM EDT) Anatomical Region Laterality Modality Mammography 08/27/2020 10:5 8 AM EDT Narrative 08/28/2020 4:11 PM EDT [facility] Diagnostic Imaging Department [address] [place] [address] Patient: ZACHARIAH MICHELLE /Age/Sex: 1955 - 65 - F Unit#: [id number] Location/Status: SPDIMAM/REG CLI Mnemonic/Ordering Site: [facility] Ordering Physician: ROSA TAMAYO MD Shanti Dexa Axial Skeleton - 08/27/20 - 112 HISTORY: Post menopausal woman with hormone depletion for screening bone densitometry. The patient is on calcium supplement with Vitamin D. TECHNIQUE: Bone densitometry is performed utilizing dual energy x-ray absorptiometry (DEXA) in the Tier 1 Performance unit. The lumbar spine is evaluated in [...] bone mineralization in the right proximal femur. [address] A report detailing these results has been enclosed. Dictating Physician: JULIAN ENCINAS MD Electronically Signed by: JULIAN ENCINAS MD Dic Date/Time: 08/28/201609 Sign date/Time: 08/28/201610 Procedure Note Julian Encinas MD - 10/26/2022 [facility] Diagnostic Imaging Department [address] [place] [address] Patient: ZACHARIAH MICHELLE Geno /Age/Sex: 1955 - 65 - F Unit#: [id number] [facility] Ordering Physician: ROSA TAMAYO MD [facility] Dexa Axial Skeleton - 08/27/201119 HISTORY: Post menopausal woman with hormone depletion for screening bone densitometry. The patient is on calcium supplement with Vitamin D. TECHNIQUE: Bone densitometry is performed utilizing dual energy x-ray absorptiometry (DEXA) in the Tier 1 Performance unit. The lumbar spine isevaluated in the [...] decreased bone mineralization in the rightproximal femur. [address] A report detailing these results has been enclosed. Dictating Physician: JULIAN ENCINAS MD Electronically Signed by: JULIAN ENCINAS MD Dic Date/Time: 08/28/201609 Sign date/Time: 08/28/201610 Rosa Tamayo MD IMG BI PROCEDURES Final Resu lt from Last 3 Months or Most Recently Relevant to Health Maintenance Insurance MEDICARE [facility] Care Teams Asbestos Siding Installer Relationship Specialty Start Date End Date Mary Ashton PA [address] [facility], [address] [place] [address] PCP - General 08/05/25
--- OUTSIDE RECORDS SUMMARY | 2025-10-09 17:59 | XMS_ITS | Patient Health Record ---
Author Organization [facility] Address [address] [place] [address] Care Team Providers Care Felt Strip Finisher Name Role Phone Tony Caro Primary Care Provider [phone] Fritz Arteaga Unavailable Unavailable Reason For Referral [...] Start Date Coverage End Date [facility] [address] [place], [place] [id number] Beatris Michelle Self - patient is the insured
--- OUTSIDE RECORDS SUMMARY | 2025-10-09 17:59 | XMS_ITS | Patient Health Record ---
Author [facility] Address [address] [place] [address] Care Team Providers Care Carpet Cleaning Technician Name Role Phone Fritz Arteaga MD Primary Care Provider Danielle Mayo Unavailable [phone] Allergies Allergen (clinical drug ingredient) Drug/Non Drug [...] Status Risk Notes Problem Plantar fascial fibromatosis (95580234) Plantar fascial fibromatosis (M72.2) Active confirmed Procedures Procedure Date Ordered Date Performed Result Body Sit e 50516-Otlkcgru Plate 11/21/2024 N/A Encounters Encounter Location Date Provider Diagnosis [facility] [address] [place] [address] 11/21/2024 Danielle Beckhamaker Ingrown nail L60.0 Assessments [...] X ray : Foot, left 3V 11/14/2020 14871-Szwlumpv Plate 11/21/2024 24257-Hakwckjm Plate 09/06/2014 75306-Lltsflhp Plate 10/27/2012 44340-Fmaifyzp Plate 12/22/2012 54014-Jqstsecg Plate 04/13/2013 86729-Wfqlqwqs Plate 07/13/2013 96920-Dkrymple Plate 11/20/2013 49779-Ecyuxlct Plate 02/05/2014 36803-Akntgjvh Plate 05/31/2014 11522-Pxjxnpfp Plate 11/22/2014 49066-Cqvlecvp Plate Each Additional 76573-Aakpnhfa Plate Each Additional 16873-Mpujbbjv Plate Each Additional 02128-FRF 02/06/2015 46246- Debride <25 sq cm 02/21/2015 76956- Debride <25 sq cm 03/21/2015 13761- Debride <25 sq cm 11/17/2012 34256- Debride <25 sq cm 10/09/2013 57957-VPTIIZS SKIN/TISSUE 08/28/2024 40650 I&D ABSCESS- SIMPLE,SINGLE 013 34043, F8810-VEJVH/INJECT, JOINT/BURSA 1 12/29/2016 99568, O4472-AGDTE/INJECT, JOINT/BURSA 0 01/04/2019 53334, G0663-UUZRS/INJECT, JOINT/BURSA 0 07/14/2018 62894, J0702- Neuroma/Injection 10/28/20 17 Insurance Providers Payer Name Payer Address Payer Phone Subscriber Number Group Number Insured Name Patient Relationship to Insured Coverage Start Date Coverage End Date Medicare [employer] [address] [place] [address] [id number] Teri Michelle Self - patient is the insured [facility] [address] [place] [address] [id number] Teri Michelle Self - patient is the insured Medical (General) History Medical History History ICD Code anxiety back, hip, knee pain chicken pox fibromyalgia headaches/migraines measles mumps sinus conditions Surgical History Surgery Date(Month/Year) Skin cancer removed from nose. 3 Johnson L 03/02/18 knee surgery 09/2023 Hospitalization History Reason Date[place] [facility] 03/02/18
--- NOTE | 2025-10-15 15:42 | MHC.AU.HA3 ---
Hearing Instrument Follow-Up- Binaural Date of Visit: 10/09/25 Right Ear: Make, Model, Color, Serial Number: Oticon OPN S3 miniRITE-R SN: [id number] Cardiac Rehabilitation Specialist Repair Warranty: 09/28/2023 Cardiac Rehabilitation Specialist Loss and Damage Warranty: 09/28/2023 [facility] Service Plan: N/A Battery Size: Rechargeable Laundry Routeman/Slim Tube: Earmold/Dome/CShell/SlimTip:6mm double lowery dome with retention tail Type of Wax Guard: miniFit Dispensed By: Office of Dr. Archer Date of Fitting: Unknown Left Ear: Make, Model, Color, Serial Number: Oticon OPN S3 miniRITE-R SN: [id number] Cardiac Rehabilitation Specialist Repair Warranty: 07/04/2027 Cardiac Rehabilitation Specialist Loss and Damage Warranty: 07/04/2027 [facility] Service Plan: N/A Battery Size: Rechargeable Laundry Routeman/Slim Tube: Earmold/Dome/CShell/SlimTip: 6mm double lowery dome with retention tail Type of Wax Guard: miniFit Dispensed By: Office of Dr. Archer Date of Fitting: Unknown Follow-Up Summary: New patient, previous patient of Dr. Archer and Troy Hernandez both who recently retired. Reported not hearing well with HAs, difficulty with clarity, hears lots of noise but difficulty understanding/following conversations. Initially fit with left GUERRA in 2019; added right GUERRA in Jul 2024 (moved original left GUERRA to right ear - GUERRA with right beater operator has left color marker and warranty). New GUERRA purchased in Jul 2024 programmed for left ear. Has tried EM on left ear but stopped using as there was no perceived difference in sound or comfort. Came in using 5mm open lowery dome on left ear as 6mm reportedly too tight/uncomfortable. Switched to 6mm double lowery on left ear. Increased high frequencies slightly to help with clarity. Due to time constraints, recommend returning for real ear measures, will bring left EM as well. Scheduled 10/24/2025. *Teri requested itemized receipt for today's visit, as she plans to submit it to her insurance for reimbursement. Recommendations: An additional follow-up was scheduled to monitor progress. Diagnosis Code(s): Primary Diagnosis: H90.3 Bilateral Sensorineural Hearing Loss Signature: Provider: Ruth Ann Cedillo, [facility]
== END 2025-10-09 14:55 | disposition home or self-care (01) ==
LOC: HO.HAP 14:54
DX: H90.3 Sensorineural hearing loss, bilateral (principal)
CPT/HCPCS: 92593

== ENCOUNTER 2025-10-15 09:12 | Outpatient (AMB) | payer MEDICARE, OTHER, SELFPAY ==
--- NOTE | 2025-10-15 09:28 | MHC.OFFVIS ---
Vital Signs 10/15/25 09:34 Height 5 ft 3 in Weight 126 lb 12.253 oz BMI 22.5 BP 112/64 Blood Pressure Location Lt brachial Position Sitting Pulse 81 Pulse Source Pulse Oximeter Pulse Oximetry (%) 98 Oxygen Delivery Method Room Air Intake Visit Reasons: 3months Intake Note: Patient presents today for Temporal arteritis follow up and to discuss ordering PET scan. Manager Card Required: No Information Interpreted: non-clinical & clinical Accompanied by: Self / Same As Patient Allergies meperidine (Demerol) Allergy (Intermediate, Verified 10/15/25 09:33) Vomiting Penicillins (PENICILLINS) Allergy (Intermediate, Verified 10/15/25 09:33) RASH erythromycin base (ERYTHROMYCIN BASE) Allergy (Unknown, Verified 10/15/25 09:33) unknown chlorhexidine (From ChloraPrep Clear) Adverse Reaction (Severe, Verified 10/15/25 09:33) rash isopropyl alcohol (From ChloraPrep Clear) Adverse Reaction (Severe, Verified 10/15/25 09:33) rash Medication List - Last Reconciled 10/15/25 by Karen Ashton MD Actemra ACTPen (tocilizumab) 162 mg (0.9 mL) subcut Q2W NS aspirin 81 mg PO DAILY calcium carbonate-vitamin D3 600 mg-10 mcg (400 unit) 1 cap PO BID celecoxib (Celebrex) 100 mg PO BID 90 days citalopram 15 mg (1.5 x 10 mg) PO DAILY 90 days doxycycline hyclate 100 mg PO BID famotidine (Pepcid) 20 mg PO BEDTIME 30 days fluoride (sodium) 1.1% (DentaGel) dental gabapentin 600 mg PO BEDTIME galcanezumab-gnlm (Emgality Pen) 120 mg subcut ONCE 30 days magnesium glycinate 200 mg PO DAILY metronidazole 0.75% appl topical QPM multivitamin 1 tab PO DAILY onabotulinumtoxinA (Botox) 200 units IM ONCE 12 weeks sumatriptan succinate 6 mg subcutaneously at onset of nocturnal migraine, may repeat in 1 hr PRN; 28 days MDD 1 ml per day sumatriptan succinate 50 - 100 mg orally at onset of headache, may repeat in 2 hrs PRN; max 2 tabs per day or 4 tabs/week 30 days ubrogepant (Ubrelvy) 50 - 100 mg (0.5 - 1 x 100 mg) PO ONCE PRN 30 days HPI Comments Details: Patient is a 70-year-old female with hyperlipidemia, chronic migraine, cervical spondylosis with radiculopathy, polyarticular osteoarthritis, fibromyalgia, osteopenia and biopsy-proven GCA here today for follow up Interval History: Last seen 07/12/25 with me - On Actemra every 4 weeks SC - Urgent visit for worsening headaches - Known hx of migraines and currently being evaluated by neuro - Denies jaw claudication and dysphagia Today - On Actemra every 4 weeks SC - PET scan with no evidence of vasculitis - Continues to have headaches Rheumatologic History: Onset 06/2022 . Biopsy proven Prednisone started 07/2022 - 01/2024 Actemra weekly started 08/2022 effective, spaced out to every 10 days 08/2024 and spaced out to every 14 days 11/2024 Initial history: This is a 67-year-old female with past medical history fibromyalgia, osteoarthritis & migraines who presents for evaluation of temporal arteritis. The condition started in the beginning of June of 2022 with worsening headaches associated with worsening blurry vision. She went to the ER on 06/30 labs showed high inflammatory markers, she was prescribed prednisone 60 mg daily for 5 days by the ED physician and sent to vascular surgery for temporal artery biopsy. When she took the prednisone 60 mg her headaches significantly improved. She went for a left temporal artery biopsy on 07/15 which confirmed temporal artery biopsy diagnosis & she was restarted on prednisone 40 mg daily by her PCP. Since being on prednisone she feels much better, with headaches resolved. She states that she has had blurry vision for many months which seem to get a little worse around the time she was diagnosed with temporal arteritis and they have not improved with the prednisone. She denies any loss of vision and both eyes are equally affected. She has not had any eye pain. Reactivity is of daily have not been affected by this blurry vision. Denies history suggestive of uveitis or inflammatory bowel disease. No history of autoimmune disease in the family Osteopenia DEXA scan 07/2022 showed osteopenia but given long-term corticosteroid therapy her FRAX score would be at moderate risk for fracture. I started her alendronate at the time Patient has tapered her prednisone off 01/2024. Repeat DEXA 08/2024 showed improved bone density at the spine. Alendronate discontinued 08/2024 Current Rheumatology Medication(s): Actemra 162mg SC every 4 weeks [facility] Medical History Anemia Osteoarthritis Fatigue Chronic migraine without aura, intractable, without status migrainosus Osteoarthritis of left knee Fibromyalgia Migraines Basal cell carcinoma of nose Bunion, left foot Surgical History History of meniscectomy of left knee H/O arthroscopic knee surgery H/O toe surgery History of surgery History of bunionectomy H/O colonoscopy Family History Mother Heart problem COPD (chronic obstructive pulmonary disease) Hypertension Father Prostate cancer Colon cancer Diabetes Brother Diabetes Sister Hypertension Hypercholesteremia Social History Housing: House Alcohol intake: current Alcohol intake frequency: holidays/special occasions only Patient Tobacco Use Status: Never used Tobacco e-Cigarette/Vaping Use: Never Used Second Hand Smoke Exposure: No service: No Current occupational status: retired Cognitive needs: No Hearing needs: Yes Vision needs: No Review of Systems Narrative Review of Systems Constitutional: Denies fever, chills, weight loss ENT: Denies vision changes, eye pain or eye redness, dental caries, dry mouth GI: Denies nausea, vomiting, diarrhea, abdominal pain, change in BM Pulm: Denies SOB, GARNER, hemoptysis, wheezing Cards: Denies chest pain, palpitations Skin: Denies Raynaud's, rash, nail changes, photosensitivity, DESIGN SALES CONSULTANT: Denies headaches, weakness, paresthesias, recurrent falls MSK: as per HPI All other systems reviewed and are unremarkable except noted above Physical Exam Exam Exam: Vital signs reviewed Physical Examination CONSTITUITIONAL Patient alert and cooperative. Well appearing and in no apparent painful distress MSK Hands Right Hand: Able to make a fist. No swelling or tenderness to palpation of the MCPs, PIPs or DIPs. Left Hand: Able to make a fist. No swelling or tenderness to palpation of the MCPs, PIPs or DIPs. Herbedens nodes noted bilaterally Wrists Right Wrist: Full ROM to flexion and extension. No swelling or TTP Left Wrist: Full ROM to flexion and extension. No swelling or TTP Elbows Right Elbow: Full ROM. No swelling or TTP. No TTP of the medial epicondyle. No TTP of the lateral epicondyle Left Elbow: Full ROM. No swelling or TTP. No TTP of the medial epicondyle. No TTP of the lateral epicondyle Shoulders Right shoulder: Full ROM. No swelling noted. No TTP of the AC joint. No TTP of the subacromial bursa. No TTP of the posterior shoulder Left shoulder: Full ROM. No swelling noted. No TTP of the AC joint. No TTP of the subacromial bursa. No TTP of the posterior shoulder Knees Right knee: Full ROM. No swelling noted. No TTP of the knee joint line. No TTP of pes anserine bursa Left knee: Full ROM. No swelling noted. No TTP of the knee joint line. No TTP of pes anserine bursa. Crepitations felt bilaterally Ankles Right ankle: Good ankle dorsiflexion and plantar flexion. No swelling. No TTP of the ankle joint Left ankle: Good ankle dorsiflexion and plantar flexion. No swelling. No TTP of the ankle joint Feet Right foot: Negative squeeze test Left foot: Negative squeeze test Tender points? No tenderness to palpation of the bilateral trapezius, supraspinatus, anterior costochondral junctions, bilateral suboccipital muscle insertions SKIN No rashes Vital Signs: Last Vital Signs Pulse 81 10/15/25 09:34 BP 112/64 10/15/25 09:34 Pulse Ox 98 10/15/25 09:34 Oxygen Delivery Method Room Air 10/15/25 09:34 BMI result Body Mass Index 22.5 Results Reviewed Results Reviewed: Laboratory Tests 10/08/25 10/08/25 09:30 09:45 WBC 4.3 L RBC 3.99 L Hgb 12.4 Hct 37.3 Plt Count 181 ESR 9 Sodium 140 Potassium 4.3 Chloride 104 Carbon Dioxide 30 H BUN 21 H Creatinine 0.71 AST 25 ALT 21 C-Reactive Protein < 0.10 25-OH Vitamin D Total 59.8 PET Scan 10/2025 No abnormal FDG uptake Thyroid nodule noted, without associated lymphadenopathy Assessment & Plan Assessment & Plan (1) Temporal arteritis: Comment: Onset 06/2022 . Biopsy proven Prednisone started 07/2022 Actemra weekly started 08/2022 effective, spaced out to every 10 days 08/2024 and spaced out to every 14 days 11/2024 Prednisone tapered off 01/2024 Code(s): M31.6 - Other giant cell arteritis Category: Medical Plan: #GCA Patient is a 70-year-old female with biopsy-proven temporal arteritis here today for follow up. PET CT without evidence of FDG uptake No evidence of GCA as the cause for her headaches We will stop Actemra Plan - Stop Actemra - Continue ASA 81mg daily - RTC 3 months - Labs before visit: CBC, CMP, ESR, CRP (2) Thyroid nodule: Code(s): E04.1 - Nontoxic single thyroid nodule Plan: #Thyroid nodule Incidental finding on PET Refer to endocrinology for further eval Plan I spent 25 minutes reviewing the record and labs, taking a history, examining the patient, discussing the treatment plan, ordering diagnostic work up and documenting in the medical record Orders: Orders Comprehensive Met. Panel 3 Months Z79.899 - [facility] [place] (current[facility] drug therapy Erythrocyte Sedimentation Rate 3 Months Z79.899 - Other [place] [facility] (current[facility] drug therapy Complete Blood Count Auto Diff 3 Months Z79.899 - Other rat exterminator (current) drug therapy C Reactive Protein 3 Months Z79.899 - Other rat exterminator (current) drug therapy Medications: Refilled gabapentin 600 mg PO BEDTIME 90 tabs 1RF aspirin 81 mg PO DAILY 90 tabs 1RF M31.6 - Other giant cell arteritis Discontinued Actemra ACTPen (tocilizumab) Discontinued Reason: Doctor's Order 162 mg (0.9 mL) subcut Q2W 1.8 mL 4RF NS M31.6 - Other giant cell arteritis Coding Level of Care Code Est Pt Level 3 (59888) Complex visit Add On G2211 Diagnoses Temporal arteritis M31.6 Thyroid nodule E04.1
[2025-10-15 09:34] VITALS: BP 112/64; PULSE 81; O2SAT 98; BMI 22.5
== END 2025-10-15 10:19 | disposition home or self-care (01) ==
LOC: HO.RHES 09:13
PROVIDERS: PCP Internal Medicine; Visit Provider Student in an Organized Health Care Education/Training Program
DX: M31.6 Other giant cell arteritis (principal); E04.1 Nontoxic single thyroid nodule; Z51.81 Encounter for therapeutic drug level monitoring; Z79.620 Long term (current) use of immunosuppressive biologic
CPT/HCPCS: 99213; G2211

== ENCOUNTER → 2025-10-15 09:12 | Outpatient (BNVA) | payer MEDICARE, OTHER, SELFPAY | PROVIDERS: PCP Internal Medicine; Visit Provider Student in an Organized Health Care Education/Training Program | DX: M31.6 Other giant cell arteritis (principal); E04.1 Nontoxic single thyroid nodule; G43.709 Chronic migraine without aura, not intractable, without status migrainosus; Z79.899 Other long term (current) drug therapy | CPT/HCPCS: 99212 ==